=== PATIENT | male | born 1950 | race Caucasian/White ===

== ENCOUNTER 2023-08-06 17:32 | Emergency (ER) | payer MEDICARE, SELFPAY ==
[2023-08-06 17:39] VITALS: BP 111/77; BMI 21.9
[2023-08-06 17:53] LABS: % Basophils 0.9 % (0-2); % Eosinophils 3.8 % (0-6); % Immature Granulocytes 0.4 % (0-0.5); % Lymphocytes 18.7 % (20.5-51.1); % Monocytes 8.4 % (1.7-9.3); % Neutrophils 67.8 % (42.2-75.2); Absolute Basophils 0.1 10^3/uL (0-0.2); Absolute Eosinophils 0.4 10^3/uL (0-0.7); Absolute Lymphocytes 2.1 10^3/uL (1.2-3.4); Absolute Monocytes 0.9 10^3/uL (0.1-0.6); Absolute Neutrophils 7.6 10^3/uL (1.4-6.5); Hematocrit 39.5 % (39.0-52.0); Hemoglobin 13.1 g/dL (13.0-18.0); Mean Corp Hgb Conc. 33.2 g/dL (33.0-37.0); Mean Corpuscular Hgb 32.1 pg (27.0-31.0); Mean Corpuscular Volume 96.8 fL (80.0-94.0); Mean Platelet Volume 9.7 fL (7.4-10.4); Nucleated Red Blood Cells % 0.2 % (-); Platelet Count 245 10^3/uL (130-400); Red Blood Cell Count 4.08 10^6/uL (4.70-6.10); Red Cell Dist. Width 16.2 % (11.5-14.5); White Blood Cell Count 11.2 10^3/uL (4.8-10.8)
--- NOTE | 2023-08-06 17:55 | ED.GENMED ---
History of Present Illness
<SHERIF Marsh - Last Filed: 08/07/23 00:05>
General
Chief Complaint: Chest Pain
Source: patient
Exam Limitations: none
Time Seen by Provider: 08/06/23 17:44
Nursing documentation reviewed up to this point in time: agreed with
Travel History
Have you had any contact with someone who has COVID-19?: No
Do you have any symptoms of coronavirus? Fever > 100 degrees, chills, cough, shortness of breath, sore throat, loss of taste or smell, muscle aches, or headache?: No
History of Present Illness
History of Present Illness:
This is a 72 year old male with history of Afib on Eliquis 5mg and COPD on 3L O2 who presents to the ED via ambulance for heart palpitations x3 hours. He reports feeling 'off' and short of breath while he was at [facility]. He admits last night he was
drinking alcohol and intentionally missed his Eliquis dose yesterday and forgot to take it today as well. He states he took his regular nebulizer treatment before leaving for [facility]. At [facility], he continued to feel his heart racing associated with
b/l hand tremors. He felt lightheaded which prompted him to call the ambulance. He reports intermittent left sided headache 2-3 times daily for the past week that last less than 1 minute. Patient denies worst headache of his life, dizziness, CP,
fatigue, weakness, NVD, bloody stools or emesis.
Past History
<SHERIF Marsh - Last Filed: 08/07/23 00:05>
Past History
ED Past Medical History: Arrthythmia (Paroxysmal Atrial fibrillation), CHF (Cardiomyopathy), COPD, HTN, Renal failure (CKD) and Other (GI bleed, splenic and kidney infarcts, DVT 2020)
ED Past Surgical History: Cardiac (Pacemaker defibrillator placed in August of 2011)
Social History
Tobacco: Former smoker
Alcohol: Daily
Drug: None
Personal:
Living: with family
Employment: Not employed
Family History
Family History: Other (Noncontributory)
Review of Systems
<SHERIF Marsh - Last Filed: 08/07/23 00:05>
Review of Systems
Allergies reviewed?: Yes
All Other Systems: Not applicable
Constitutional: Reports no symptoms
EENT: Reports no symptoms
Respiratory: Reports no symptoms
Cardiac: Reports palpitations
ABD/GI: Reports no symptoms
: Reports no symptoms
Musculoskeletal: Reports no symptoms
Skin: Reports no symptoms
Neurological: Reports headache and other (b/l hand tremors)
Endocrine: Reports no symptoms
Hematologic/Lymphatic: Reports no symptoms
Psychiatric: Reports no symptoms
Phy Exam
<SHERIF Marsh - Last Filed: 08/07/23 00:05>
General Physical Exam
General Presentation: well appearing and no apparent distress
General Skin: warm and dry
General Habitus: normal
General Mental: alert
General Hydration: appears well hydrated
ENT Exam
ENT Exam: EOMI, pharynx normal, neck supple and normocephalic
Eye Exam
Eye Exam: PERRL, cornea clear and conjunctiva normal
Cardiovascular Exam
Cardiovascular Exam: no edema, no murmur, normal peripheral pulses and irregularly irregular
Pulmonary Exam
Pulmonary Exam: lungs clear, no respiratory distress, no rales, no crackles, no rhonchi, no stridor, no wheezing and no cough
Gastrointestinal Exam
Gastrointestinal Exam: normal bowel sounds, non tender, soft, no organomegaly, no pulsatile mass and non distended
Neurological Exam
Neurological Exam: alert, oriented x3, no motor deficits and speech normal
Musculoskeletal Exam
Musculoskeletal Exam: full ROM and no edema
Skin Exam
Skin Exam: normal color, warm/dry, no rash and no petechia
Psychiatric Exam
Psychiatric Exam: normal mood/affect
Scores
<SHERIF Marsh - Last Filed: 08/07/23 00:05>
Heart Score for Chest Pain Patients
STEMI patient?: Not applicable
Course
<SHERIF Marsh - Last Filed: 08/07/23 00:05>
Orders/Labs/Results
Orders:
Orders
08/06/23 17:41
Cardiac Monitoring- Treatment ONCE
O2 Therapy [RESP] Urgent
Titrate/Wean O2 to maintain O2 sat greater than (%): 90
Special Instructions: Maintain sats >/=90%
Pulse Ox/spot Check [RESP] Urgent
Quantity: 1
Special Instructions: ON ROOM AIR
08/06/23 17:42
Complete Blood Count/With Diff Urgent
Comprehensive Metabolic Panel Urgent
Troponin I Urgent
08/06/23 18:01
Diltiazem HCl [Cardizem] 18 mg IV NOW STA
08/06/23 18:15
Diltiazem 125 mg/125 ml Nss [Cardizem] 125 mg in 125 ml IV PER PROTOCOL
Initial dose in mg/hr, then titrate:: 5
Titrate to keep:: Heart rate 80-100 bpm
Titrate by mg/hr:: 5 mg/hr
Frequency of titrations (minutes):: 15
Maximum dose in mg/hr:: 15
08/06/23 19:12
EKG [Electrocardiogram (*1)] Urgent
Reason for Study: Palpitations
Abnormal Lab Results
08/06/23
17:42
WBC 11.2 H 10^3/uL
(4.8-10.8)
RBC 4.08 L 10^6/uL
(4.70-6.10)
MCV 96.8 H fL
(80.0-94.0)
MCH 32.1 H pg
(27.0-31.0)
RDW 16.2 H %
(11.5-14.5)
Absolute Neuts (auto) 7.6 H 10^3/uL
(1.4-6.5)
Absolute Monos (auto) 0.9 H 10^3/uL
(0.1-0.6)
Lymphocytes % 18.7 L %
(20.5-51.1)
BUN 30 H mg/dl
(9-20)
Creatinine 2.1 H mg/dL
(0.7-1.3)
Glucose 109 H mg/dl
(70-99)
Total Bilirubin 1.6 H mg/dl
(0.2-1.3)
Alkaline Phosphatase 133 H U/L
(38-126)
08/06/23 17:42
08/06/23 17:42
Vital Signs
Initial and Last Documented VS:
Initial Vital Signs
Temp Pulse Resp BP Pulse Ox
97.5 F 149 23 111/77 99
08/06/23 17:39 08/06/23 17:39 08/06/23 17:39 08/06/23 17:39 08/06/23 17:39
Last Documented Vital Signs
Temp Pulse Resp BP Pulse Ox
97.5 F 96 38 126/94 97
08/06/23 17:39 08/06/23 21:00 08/06/23 21:00 08/06/23 20:30 08/06/23 20:45
Gwendolynlt;Zane Clayton, - Last Filed: 08/06/23 22:05>
Orders/Labs/Results
Orders:
Orders
08/06/23 17:41
Cardiac Monitoring- Treatment ONCE
O2 Therapy [RESP] Urgent
Titrate/Wean O2 to maintain O2 sat greater than (%): 90
Special Instructions: Maintain sats >/=90%
Pulse Ox/spot Check [RESP] Urgent
Quantity: 1
Special Instructions: ON ROOM AIR
08/06/23 17:42
Complete Blood Count/With Diff Urgent
Comprehensive Metabolic Panel Urgent
Troponin I Urgent
08/06/23 18:01
Diltiazem HCl [Cardizem] 18 mg IV NOW STA
08/06/23 18:15
Diltiazem 125 mg/125 ml Nss [Cardizem] 125 mg in 125 ml IV PER PROTOCOL
Initial dose in mg/hr, then titrate:: 5
Titrate to keep:: Heart rate 80-100 bpm
Titrate by mg/hr:: 5 mg/hr
Frequency of titrations (minutes):: 15
Maximum dose in mg/hr:: 15
08/06/23 19:12
EKG [Electrocardiogram (*1)] Urgent
Reason for Study: Palpitations
Abnormal Lab Results
08/06/23
17:42
WBC 11.2 H 10^3/uL
(4.8-10.8)
RBC 4.08 L 10^6/uL
(4.70-6.10)
MCV 96.8 H fL
(80.0-94.0)
MCH 32.1 H pg
(27.0-31.0)
RDW 16.2 H %
(11.5-14.5)
Absolute Neuts (auto) 7.6 H 10^3/uL
(1.4-6.5)
Absolute Monos (auto) 0.9 H 10^3/uL
(0.1-0.6)
Lymphocytes % 18.7 L %
(20.5-51.1)
BUN 30 H mg/dl
(9-20)
Creatinine 2.1 H mg/dL
(0.7-1.3)
Glucose 109 H mg/dl
(70-99)
Total Bilirubin 1.6 H mg/dl
(0.2-1.3)
Alkaline Phosphatase 133 H U/L
(38-126)
08/06/23 17:42
08/06/23 17:42
Vital Signs
Initial and Last Documented VS:
Initial Vital Signs
Temp Pulse Resp BP Pulse Ox
97.5 F 149 23 111/77 99
08/06/23 17:39 08/06/23 17:39 08/06/23 17:39 08/06/23 17:39 08/06/23 17:39
Last Documented Vital Signs
Temp Pulse Resp BP Pulse Ox
97.5 F 96 38 126/94 97
08/06/23 17:39 08/06/23 21:00 08/06/23 21:00 08/06/23 20:30 08/06/23 20:45
<SHERIF Marsh - Last Filed: 08/07/23 00:05>
MDM/Problems Addressed
Differential Diagnosis Includes:
Afib RVR, Atrial flutter, Pericarditis, MN, PE, COPD exacerbation
Atrial flutter and pericarditis was considered d/t to heart palpitations but ECG findings not consistent. Additionally, patient declined pleuritic chest pain. MN considered but ruled out with ECG findings and negative troponin. PE ruled out with no
symptoms sudden onset of SOB or ROBERTS. COPD exacerbation considered with O2 sat around initially around 84%. However, he lungs are CTA on physical exam and he continues to use his daily use of Nebulizer treatment as instructed. Patient presentation
and symptoms most consistent with Afib RVR as patient's pulse was consistent with irregularly irregular beats on arrival with 149 bpm. He also has a history of afib and reports missing 2 doses of Eliquis that could have triggered this event.
Acute Exacerbation and/or Progression of Chronic Illness: Arrhythmia
<SHERIF Marsh - Last Filed: 08/07/23 00:05>
*Critical Care Note
Total Time (30-74mins, 75-104mins- exclusive of procedures): Not Applicable
ED Attending Note
<SHERIF Marsh - Last Filed: 08/07/23 00:05>
-
Portions of this chart may have been created with voice recognition software.� Occasional wrong word or��sound alike� substitutions may have occurred due to the inherent limitations of voice recognition software.
<Zane Clayton DO - Last Filed: 08/06/23 22:05>
ED Attending Note
Patient seen and examined by attending physician: Yes
ED Attending Note:
Pleasant 72-year-old male who presents with atrial fibrillation with rapid ventricular response. Patient does have a history of paroxysmal atrial fibrillation. He does take Eliquis but states that he has not taken it in 2 days. He reports
drinking alcohol last evening so he did not want to mix alcohol and Eliquis. He did not take a dose this morning. He presented with palpitations this afternoon. Upon arrival, he received a dose of Cardizem and he spontaneously converted back to
sinus rhythm. Once he was in sinus rhythm he had no complaints. Patient was seen in conjunction with the PA student. I have reviewed and agree with the history and treatment plan presented. On my independent physical exam, patient is awake,
alert, and oriented x3, no acute distress. Heart is now regular rate and rhythm.
I spoke with Dr. Tanner who recommended adding metoprolol 25 mg daily
Discharge Plan
Departure
Patient Disposition: Home (Routine Discharge)
Date of Disposition: 08/06/23
Time of Disposition: 21:21
Patient with high blood pressure during this ER visit?: Yes
Condition: Good
Discharge Problem:
Atrial fibrillation with RVR
Instructions: BLOOD PRESSURE
Prescriptions:
New
metoprolol tartrate 25 mg tablet
25 mg PO DAILY Qty: 30 0RF
Discontinued
metoprolol succinate 50 MG tablet extended release 24 hr
50 mg PO BID
No Action
tamsulosin 0.4 MG capsule
0.4 mg PO DAILY PRN (Reason: URINARY ISSUES)
Patient Comments:
ONLY TAKES NEEDED
Eliquis 5 MG tablet
5 mg PO BID 0RF
Rx Instructions:
5mg BID will start on 05/28/2020.
thiamine HCl (vitamin B1) [Vitamin B-1] 250 MG tablet
250 mg PO DAILY
omega [id number] oil [Fish Oil] 1 EACH capsule
1 ea PO DAILY
levalbuterol HCl 0.63 mg/3 mL Solution For Nebulization
0.63 mg inhalation R BID
pantoprazole [Protonix] 40 mg tablet,delayed release (DR/EC)
40 mg PO DAILY Qty: 90 0RF
Rx Instructions:
BID for 2 weeks then daily
amlodipine [Norvasc] 2.5 mg tablet
2.5 mg PO BID Qty: 60 0RF
vancomycin [Vancocin] 125 mg capsule
125 mg PO QID Qty: 40 0RF
Referrals:
Yazan Quinn MD [Family Provider] -
Henrry Torre MD [Active] - Next open appointment
Interventions
Interventions:
*Risk Screen - Suicide Last Done: 08/06/23 18:21
*General Assessment Last Done: 08/06/23 18:20
*Neglect/Abuse Screening Last Done: 08/06/23 18:21
ED- Fall Risk Assessment Last Done: 08/06/23 18:23
*ED COVID-19 Vaccine History Last Done: 08/06/23 18:20
*Nursing Disposition Last Done: 08/06/23 22:00
ED- Cardiac Assessment Last Done: 08/06/23 18:23
Discharge Date and Time
Discharge Date/Time: 08/06/23 22:01
Print Language: ROMANSH
[2023-08-06 18:00] VITALS: BP 111/81
[2023-08-06] MEDS: CARDIZEM 18 MG IV (18:07)
[2023-08-06] MEDS: CARDIZEM 125 IV (18:13)
[2023-08-06 18:14] LABS: ALT (SGPT) 28 U/L (0-50); AST (SGOT) 55 U/L (17-59); Alkaline Phosphatase 133 U/L (38-126); Blood Urea Nitrogen 30 mg/dl (9-20); Calcium 9.8 mg/dl (8.4-10.2); Carbon Dioxide 24 mmol/L (22-30); Chloride 106 mmol/L (98-107); Estimated Creatinine Clearance 33 ml/min; Glucose 109 mg/dl (70-99); Potassium 4.1 mmol/L (3.5-5.1); Sodium 138 mmol/L (135-145); Total Bilirubin 1.6 mg/dl (0.2-1.3); Total Protein 7.2 g/dl (6.3-8.2); eGFR 33.03
[2023-08-06 18:23] LABS: Troponin I < 0.012 ng/ml
[2023-08-06 18:48] VITALS: BP 119/92
[2023-08-06 19:00] VITALS: BP 120/90
[2023-08-06 20:30] VITALS: BP 126/94
--- NOTE | 2023-08-06 22:17 | EDRN ---
dr joseph notified this rn that he wanted to change the prescription that the patient was discharged with, rn notified dr that patient has already been discharged and left the department. prescription changed by dr joseph, prescription sent
electronically over to patient's preferred pharmacy. patient called and notified, pt told to shred paper prescription that he was discharged with, pt verbalizes understanding and agreed to shred prescription
== END 2023-08-06 22:01 | disposition home or self-care (01) ==
LOC: EMR 17:32
PROVIDERS: Emergency Medicine; EMERGENCY PHYSICIAN Student in an Organized Health Care Education/Training Program; FAMILY PHYSICIAN Family Medicine
DX: I48.0 Paroxysmal atrial fibrillation (principal); R06.02 Shortness of breath; R25.1 Tremor, unspecified; R42 Dizziness and giddiness; R51.9 Headache, unspecified; I13.0 Hypertensive heart and chronic kidney disease with heart failure and stage 1 through stage 4 chronic kidney disease, or unspecified chronic kidney disease; I50.9 Heart failure, unspecified; N18.9 Chronic kidney disease, unspecified; I42.9 Cardiomyopathy, unspecified; Z99.81 Dependence on supplemental oxygen; Z87.891 Personal history of nicotine dependence; Z95.810 Presence of automatic (implantable) cardiac defibrillator; Z86.718 Personal history of other venous thrombosis and embolism; Z79.01 Long term (current) use of anticoagulants; Z91.030 Bee allergy status
CPT/HCPCS: 99284; 96374; 80053; 84484; 85025; 93005

== ENCOUNTER 2023-08-11 13:48 | Emergency (ER) | payer MEDICARE, SELFPAY ==
[2023-08-11 13:53] VITALS: BP 119/63
--- NOTE | 2023-08-11 14:10 | ED.GENMED ---
History of Present Illness
General
Chief Complaint: Heart Rate Problem
Source: patient
Exam Limitations: none
Time Seen by Provider: 08/11/23 14:00
Nursing documentation reviewed up to this point in time: agreed with
Travel History
Have you had any contact with someone who has COVID-19?: No
Do you have any symptoms of coronavirus? Fever > 100 degrees, chills, cough, shortness of breath, sore throat, loss of taste or smell, muscle aches, or headache?: No
History of Present Illness
History of Present Illness:
72-year-old male with previous history of PE currently on Eliquis history of A-fib currently on Eliquis as well as metoprolol, heart failure heart disease right bundle branch block presenting to the emergency department today with concerns of
shortness of breath and palpitations starting abruptly and gradually worsening over the past 4 hours or so. Feels somewhat similar to previous episodes of atrial fibrillation with rapid ventricular response. Denies specific chest pain nausea
vomiting diaphoresis.
Past History
Past History
ED Past Medical History: Arrthythmia (Paroxysmal Atrial fibrillation), CHF (Cardiomyopathy), COPD, HTN, Renal failure (CKD) and Other (GI bleed, splenic and kidney infarcts, DVT 2020)
ED Past Surgical History: Cardiac (Pacemaker defibrillator placed in August of 2011)
Social History
Tobacco: Former smoker
Alcohol: Daily
Drug: None
Personal:
Living: with family
Employment: Not employed
Family History
Family History: Other (Noncontributory)
Review of Systems
Review of Systems
Allergies reviewed?: Yes
All Other Systems: ROS reviewed and negative except as documented in HPI and ROS
Phy Exam
Physical Exam
Physical Exam:
GENERAL: Alert , in no apparent distress
EYE: pupils equal and reactive
NECK: Supple, no significant adenopathy.
ENT: o/p clr, mmm.
CARDIAC: Tachycardic irregular
LUNGS: Clear breath sounds bilaterally, no acute respiratory distress, no wheezes/rales/rhonchi
ABDOMEN: Soft, without focal tenderness, no r/g, no cvat
NEUROLOGICAL: Alert and oriented, no focal neuro deficits
SKIN: Warm and dry, skin intact.
MUSCULOSKELETAL: No edema, well perfused.
PSYCH: Normal and appropriate interaction.
Course
Orders/Labs/Results
Orders:
Orders
08/11/23 13:49
Electrocardiogram (*1) Urgent
Reason for Study: Tachycardia
EKG- Treatment ONCE
08/11/23 14:06
Cardiac Monitoring- Treatment ONCE
0.9% Sodium Chloride 500 ml [Nss] 500 ml IV BOLUS
Diltiazem HCl [Cardizem] 20 mg IV NOW STA
08/11/23 14:07
CR Chest Portable - 1 View Urgent
Comment:
Reason For Exam: cp palps
Reason Study Needs to be Portable: Patient Unstable
08/11/23 14:14
Complete Blood Count/With Diff Urgent
Comprehensive Metabolic Panel Urgent
Magnesium Urgent
TSH Urgent
08/11/23 14:17
Electrocardiogram (*1) Urgent
Reason for Study: Palpitations
EKG- Treatment ONCE
08/11/23 15:29
Metoprolol [Lopressor] 50 mg PO NOW STA
Abnormal Lab Results
08/11/23
14:14
WBC 11.3 H 10^3/uL
(4.8-10.8)
RBC 4.41 L 10^6/uL
(4.70-6.10)
MCV 97.5 H fL
(80.0-94.0)
MCH 32.2 H pg
(27.0-31.0)
RDW 16.1 H %
(11.5-14.5)
Abs Immat Gran (auto) 0.1 H 10^3/uL
(0-0.05)
Absolute Neuts (auto) 8.2 H 10^3/uL
(1.4-6.5)
Absolute Monos (auto) 0.8 H 10^3/uL
(0.1-0.6)
Lymphocytes % 16.0 L %
(20.5-51.1)
BUN 30 H mg/dl
(9-20)
Creatinine 2.4 H mg/dL
(0.7-1.3)
Glucose 130 H mg/dl
(70-99)
Total Bilirubin 1.8 H mg/dl
(0.2-1.3)
08/11/23 14:14
08/11/23 14:14
Vital Signs
Initial and Last Documented VS:
Initial Vital Signs
Temp Pulse Resp BP Pulse Ox
97.5 F 186 30 119/63 99
08/11/23 13:53 08/11/23 13:53 08/11/23 13:53 08/11/23 13:53 08/11/23 13:53
Last Documented Vital Signs
Temp Pulse Resp BP Pulse Ox
97.5 F 88 19 110/86 98
08/11/23 13:53 08/11/23 16:45 08/11/23 16:45 08/11/23 16:00 08/11/23 16:45
MDM/Problems Addressed
MDM/Problems Addressed:
72-year-old male presenting to the emergency department today with concerns of palpitations and some shortness of breath associated over the past few hours. Gradually worsening. On arrival here heart rate in the 180s but somewhat irregular likely
consistent with A-fib with rapid ventricular response. Initial modified Valsalva was attempted with no success. Patient was then treated with diltiazem. Shortly after receiving diltiazem patient's heart rate improving to the 90s in sinus rhythm.
Blood pressure stable throughout now asymptomatic. Labs unremarkable creatinine elevated however this is chronically elevated Case was discussed with cardiology recommending diltiazem and metoprolol and close follow-up in the office. Patient
stable for discharge return precautions given.
*Critical Care Note
Total Time (30-74mins, 75-104mins- exclusive of procedures): Not Applicable
ED Attending Note
-
Portions of this chart may have been created with voice recognition software.� Occasional wrong word or��sound alike� substitutions may have occurred due to the inherent limitations of voice recognition software.
Discharge Plan
Departure
Patient Disposition: Home (Routine Discharge)
Date of Disposition: 08/11/23
Time of Disposition: 16:58
Patient with high blood pressure during this ER visit?: No
Condition: Good
Covid-19: Not Applicable
Discharge Problem:
Atrial fibrillation with RVR
Instructions: Atrial Fibrillation (DC)
Prescriptions:
New
metoprolol succinate 50 mg tablet extended release 24 hr
50 mg PO BID Qty: 14 0RF
diltiazem HCl 180 mg capsule,extended release 24hr
180 mg PO DAILY Qty: 14 0RF
No Action
Eliquis 5 MG tablet
5 mg PO BID 0RF
ipratropium-albuterol [DuoNeb] 0.5 mg-3 mg(2.5 mg base)/3 mL Solution For Nebulization
3 ml INHALATION R QID
cyanocobalamin (vitamin B-12) 250 mcg Tablet
250 mcg PO DAILY
zinc sulfate 50 mg zinc (220 mg) Tablet
50 mg PO DAILY
albuterol sulfate [ProAir HFA] 90 mcg/actuation Hfa Aerosol Inhaler
2 puff INHALATION R QIDPRN PRN (Reason: SOB)
magnesium oxide 250 mg magnesium Tablet
250 mg PO QPM
cholecalciferol (vitamin D3) [Vitamin D3] 25 mcg (1,000 unit) Tablet
25 mcg PO QPM
metoprolol tartrate 25 mg tablet
25 mg PO DAILY
Referrals:
Yazan Quinn MD [Family Provider] -
Activity Restrictions/Additional Instructions:
You came to the emergency department today with concerns of an elevated heart rate. This was controlled here with Cardizem. Please take prescribed medications once daily in the morning. Please follow closely with cardiology and return to the
emergency department for any worsening, new or concerning symptoms.
Interventions
Interventions:
*Risk Screen - Suicide Last Done: 08/11/23 13:53
*General Assessment Last Done: 08/11/23 13:53
*Neglect/Abuse Screening Last Done: 08/11/23 13:53
ED- Fall Risk Assessment Last Done: 08/11/23 14:21
*ED COVID-19 Vaccine History Last Done: 08/11/23 13:53
ED- Cardiac Assessment Last Done: 08/11/23 14:15
ED- Pulmonary Assessment Last Done: 08/11/23 14:15
Discharge Date and Time
Print Language: GREEK
[2023-08-11] MEDS: CARDIZEM 20 MG IV (14:12)
[2023-08-11] MEDS: NSS 500 IV (14:13)
[2023-08-11 14:15] VITALS: BMI 22.0
[2023-08-11 14:26] LABS: % Eosinophils 2.8 % (0-6); % Immature Granulocytes 0.4 % (0-0.5); % Monocytes 7.3 % (1.7-9.3); % Neutrophils 72.5 % (42.2-75.2); Absolute Basophils 0.1 10^3/uL (0-0.2); Absolute Eosinophils 0.3 10^3/uL (0-0.7); Absolute Immature Granulocytes 0.1 10^3/uL (0-0.05); Absolute Lymphocytes 1.8 10^3/uL (1.2-3.4); Absolute Monocytes 0.8 10^3/uL (0.1-0.6); Absolute Neutrophils 8.2 10^3/uL (1.4-6.5); Hemoglobin 14.2 g/dL (13.0-18.0); Mean Corpuscular Hgb 32.2 pg (27.0-31.0); Mean Corpuscular Volume 97.5 fL (80.0-94.0); Mean Platelet Volume 9.3 fL (7.4-10.4); Nucleated Red Blood Cells % 0 % (-); Platelet Count 261 10^3/uL (130-400); Red Blood Cell Count 4.41 10^6/uL (4.70-6.10); Red Cell Dist. Width 16.1 % (11.5-14.5); White Blood Cell Count 11.3 10^3/uL (4.8-10.8)
[2023-08-11 14:45] LABS: ALT (SGPT) 24 U/L (0-50); AST (SGOT) 36 U/L (17-59); Albumin 4.5 g/dl (3.5-5.0); Alkaline Phosphatase 124 U/L (38-126); Blood Urea Nitrogen 30 mg/dl (9-20); Calcium 9.9 mg/dl (8.4-10.2); Carbon Dioxide 23 mmol/L (22-30); Chloride 106 mmol/L (98-107); Estimated Creatinine Clearance 29 ml/min; Glucose 130 mg/dl (70-99); Magnesium 2.2 mg/dl (1.6-2.3); Potassium 4.8 mmol/L (3.5-5.1); Sodium 137 mmol/L (135-145); Total Bilirubin 1.8 mg/dl (0.2-1.3); Total Protein 7.7 g/dl (6.3-8.2); eGFR 28.14
[2023-08-11 15:01] VITALS: BP 97/83
[2023-08-11 15:15] LABS: TSH 1.22 uIU/ml (0.47-4.68)
[2023-08-11] MEDS: LOPRESSOR 50 MG PO (15:39)
[2023-08-11 15:40] VITALS: BP 104/92
[2023-08-11 16:00] VITALS: BP 110/86
== END 2023-08-11 17:16 | disposition home or self-care (01) ==
LOC: EMR 13:48
PROVIDERS: Physician Assistant; EMERGENCY PHYSICIAN Emergency Medicine; FAMILY PHYSICIAN Family Medicine
DX: I48.0 Paroxysmal atrial fibrillation (principal); I50.9 Heart failure, unspecified; Z86.711 Personal history of pulmonary embolism; Z79.01 Long term (current) use of anticoagulants; Z87.891 Personal history of nicotine dependence
CPT/HCPCS: 99285; 96374; 71045; 80053; 83735; 84443; 85025; 93005

== ENCOUNTER 2023-08-24 07:00 | Inpatient (IN) | payer MEDICARE, SELFPAY ==
[2023-08-24] VITALS (21 sets, daily range): BP systolic 102–150; BP diastolic 84–109; PULSE 89–91; BMI 21.6
[2023-08-24 02:12] LABS: % Basophils 1.1 % (0-2); % Eosinophils 5.1 % (0-6); % Immature Granulocytes 0.3 % (0-0.5); % Lymphocytes 24.3 % (20.5-51.1); % Monocytes 8.1 % (1.7-9.3); % Neutrophils 61.1 % (42.2-75.2); Absolute Basophils 0.1 10^3/uL (0-0.2); Absolute Eosinophils 0.5 10^3/uL (0-0.7); Absolute Lymphocytes 2.5 10^3/uL (1.2-3.4); Absolute Monocytes 0.8 10^3/uL (0.1-0.6); Absolute Neutrophils 6.3 10^3/uL (1.4-6.5); Hematocrit 38.7 % (39.0-52.0); Mean Corp Hgb Conc. 33.6 g/dL (33.0-37.0); Mean Corpuscular Hgb 32.4 pg (27.0-31.0); Mean Corpuscular Volume 96.5 fL (80.0-94.0); Mean Platelet Volume 9.5 fL (7.4-10.4); Nucleated Red Blood Cells % 0 % (-); Platelet Count 232 10^3/uL (130-400); Red Blood Cell Count 4.01 10^6/uL (4.70-6.10); Red Cell Dist. Width 15.9 % (11.5-14.5); White Blood Cell Count 10.4 10^3/uL (4.8-10.8)
--- NOTE | 2023-08-24 02:18 | ED.GENMED ---
History of Present Illness
General
Chief Complaint: Breathing Problem
Source: patient and ambulance crew
Exam Limitations: none
Time Seen by Provider: 08/24/23 02:17
Travel History
Have you had any contact with someone who has COVID-19?: No
Do you have any symptoms of coronavirus? Fever > 100 degrees, chills, cough, shortness of breath, sore throat, loss of taste or smell, muscle aches, or headache?: Yes
Symptoms:: SOB
History of Present Illness
History of Present Illness:
Pleasant 72-year-old male presents with shortness of breath. Patient does have a history of COPD and has nebulizer and home oxygen at home. Tonight he went up to bed and had to catch his breath. He states he had a lot of phlegm so he tried to use
his home oxygen to try to help clear it. He states that he cannot get it hooked up, in the process exacerbated his breathing issues. He has his called 911. Upon arrival patient was in severe respiratory distress. They gave him nebulizer
treatment which seemed to help his symptoms. And route to the hospital he did report some relief. Patient does have a history of atrial fibrillation for which she is on Eliquis. He states that he is often in atrial fibs.
Past History
Past History
ED Past Medical History: Arrthythmia (Paroxysmal Atrial fibrillation), CHF (Cardiomyopathy), COPD, HTN, Renal failure (CKD) and Other (GI bleed, splenic and kidney infarcts, DVT 2020)
ED Past Surgical History: Cardiac (Pacemaker defibrillator placed in August of 2011)
Social History
Tobacco: Former smoker
Alcohol: Daily
Drug: None
Personal:
Living: with family
Employment: Not employed
Family History
Family History: Other (Noncontributory)
Review of Systems
Review of Systems
Allergies reviewed?: Yes
All Other Systems: ROS reviewed and negative except as documented in HPI and ROS
Constitutional: Reports no symptoms
EENT: Reports no symptoms
Respiratory: Reports cough and trouble breathing
Cardiac: Reports chest pain
ABD/GI: Reports no symptoms
: Reports no symptoms
Musculoskeletal: Reports no symptoms
Skin: Reports no symptoms
Neurological: Reports no symptoms
Endocrine: Reports no symptoms
Hematologic/Lymphatic: Reports no symptoms
Psychiatric: Reports no symptoms
Phy Exam
General Physical Exam
General Presentation: well appearing and mild distress
General age: appears stated age
General Skin: warm and dry
General Habitus: normal
General Mental: alert
General Hydration: appears well hydrated
ENT Exam
ENT Exam: EOMI, pharynx normal, neck supple and normocephalic
Eye Exam
Eye Exam: PERRL, cornea clear and conjunctiva normal
Cardiovascular Exam
Cardiovascular Exam: regular rate/rhythm, no edema, no murmur and normal peripheral pulses
Pulmonary Exam
Pulmonary Exam: chest non tender, generalized wheezing and respiratory distress
Gastrointestinal Exam
Gastrointestinal Exam: normal bowel sounds, non tender, soft, no organomegaly, no pulsatile mass and non distended
Neurological Exam
Neurological Exam: alert, oriented x3, no motor deficits and speech normal
Musculoskeletal Exam
Musculoskeletal Exam: full ROM and no edema
Skin Exam
Skin Exam: normal color, warm/dry, no rash and no petechia
Psychiatric Exam
Psychiatric Exam: normal mood/affect
Scores
Heart Failure Risk
Heart Failure Risk Score: Not Applicable
Course
Orders/Labs/Results
Orders:
Orders
08/24/23 01:56
Electrocardiogram (*1) Urgent
Reason for Study: Chest Pain
EKG- Treatment ONCE
08/24/23 02:07
Complete Blood Count/With Diff Urgent
Comprehensive Metabolic Panel Urgent
Prothrombin Time Urgent
Troponin I Urgent
08/24/23 02:29
Dexamethasone Sod Phosphate [Decadron] 10 mg IV NOW STA
Ipratropium/Albuterol Sulfate [Duoneb] 3 ml INH R NOW ONE
08/24/23 04:13
CR Chest - 2 Views Urgent
Comment:
Reason For Exam: dyspnea
08/24/23 05:10
Ondansetron Injectable [Zofran] 4 mg .ROUTE .STK-MED ONE
08/24/23 05:11
Ondansetron Injectable [Zofran] 4 mg IV NOW STA
08/24/23 05:40
CR Chest Portable - 1 View Urgent
Comment:
Reason For Exam: post chest tube procedure
Reason Study Needs to be Portable: Unable to Transport
Abnormal Lab Results
08/24/23
02:07
RBC 4.01 L 10^6/uL
(4.70-6.10)
Hct 38.7 L %
(39.0-52.0)
MCV 96.5 H fL
(80.0-94.0)
MCH 32.4 H pg
(27.0-31.0)
RDW 15.9 H %
(11.5-14.5)
Absolute Monos (auto) 0.8 H 10^3/uL
(0.1-0.6)
PT 16.0 H Sec
(11.4-14.6)
Chloride 110 H mmol/L
(98-107)
Carbon Dioxide 21 L mmol/L
(22-30)
BUN 24 H mg/dl
(9-20)
Creatinine 1.6 H mg/dL
(0.7-1.3)
08/24/23 02:07
08/24/23 02:07
Vital Signs
Initial and Last Documented VS:
Initial Vital Signs
Temp Pulse Resp BP Pulse Ox
97.6 F 118 20 115/88 94
08/24/23 01:54 08/24/23 01:54 08/24/23 01:54 08/24/23 01:54 08/24/23 01:54
Last Documented Vital Signs
Temp Pulse Resp BP Pulse Ox
97.6 F 128 24 127/89 93
08/24/23 01:54 08/24/23 03:30 08/24/23 03:30 08/24/23 03:00 08/24/23 03:30
Procedures
Chest Tube
Indication for procedure:: Left-sided pneumothorax
Procedure completed by: Myself
Consent form signed: Yes
Anesthesia: 1% Lidocaine
Chest tube placed to: left side
Preparation: cleaned with Hibiclens
Chest tube position: mid clavicular line
Chest tube sutured to skin?: Yes
Chest tube complications: none
Additional information:
Chest tube thoroughly sutured to skin with supplied sutures
*Radiology
Radiology exam reviewed: preliminary read by ED provider (Left-sided pneumothorax) and other (Postprocedural film shows a left tube thoracostomy, with no obvious)
*Pulse Oximetry
Patient hypoxic: no
*EKG
Interpreted by ED Provider?: Yes
EKG Intrepretation Date: 08/24/23
Comparison EKG: no changes
Heart Rate: 114
Rhythm: sinus tachycardia
[place]: normal axis
Interval: normal interval
QRS Pattern: normal QRS
Ischemia: no ischemia
*Automat Watcher Interpretation
Rate: normal
Interpretation: normal
Heart Rate: 103
Rhythm: sinus
*Critical Care Note
Total Time (30-74mins, 75-104mins- exclusive of procedures): 35
comment:
Critical care statement: A total of 35 minutes of critical care time was provided for this patient. This time is separate from time utilized to perform the aforementioned documented procedures. Aggregate critical care time includes only time
during which I was engaged in work directly related to the patient's care, as described above, whether at the bedside or elsewhere in the Emergency Department.
ED Attending Note
-
Portions of this chart may have been created with voice recognition software.� Occasional wrong word or��sound alike� substitutions may have occurred due to the inherent limitations of voice recognition software.
Discharge Plan
Departure
Patient Disposition: Admit
Date of Disposition: 08/24/23
Time of Disposition: 06:01
Admit to: IMU
Presentation/result/management discussed w/ accepting MD/DO: Hospitalist
Patient with high blood pressure during this ER visit?: No
Discharge Problem:
Emphysema/COPD, Pneumothorax, Chest tube in place
Prescriptions:
No Action
Eliquis 5 MG tablet
5 mg PO BID 0RF
ipratropium-albuterol [DuoNeb] 0.5 mg-3 mg(2.5 mg base)/3 mL Solution For Nebulization
3 ml INHALATION R QID
cyanocobalamin (vitamin B-12) 250 mcg Tablet
250 mcg PO DAILY
zinc sulfate 50 mg zinc (220 mg) Tablet
50 mg PO DAILY
magnesium oxide 250 mg magnesium Tablet
250 mg PO QPM
cholecalciferol (vitamin D3) [Vitamin D3] 25 mcg (1,000 unit) Tablet
50 mcg PO QPM
metoprolol tartrate 25 mg tablet
25 mg PO DAILY
Referrals:
Yazan Quinn MD [Family Provider] -
Interventions
Interventions:
*Risk Screen - Suicide Last Done: 08/24/23 01:54
*General Assessment Last Done: 08/24/23 01:54
*Neglect/Abuse Screening Last Done: 08/24/23 01:54
*ED COVID-19 Vaccine History Last Done: 08/24/23 02:10
ED- Cardiac Assessment Last Done: 08/24/23 02:10
ED- Pulmonary Assessment Last Done: 08/24/23 02:10
Discharge Date and Time
Print Language: WELSH
[2023-08-24 02:37] LABS: ALT (SGPT) 22 U/L (0-50); AST (SGOT) 49 U/L (17-59); Alkaline Phosphatase 108 U/L (38-126); Blood Urea Nitrogen 24 mg/dl (9-20); Calcium 9.6 mg/dl (8.4-10.2); Carbon Dioxide 21 mmol/L (22-30); Chloride 110 mmol/L (98-107); Estimated Creatinine Clearance 46 ml/min; Glucose 95 mg/dl (70-99); Potassium 4.2 mmol/L (3.5-5.1); Sodium 142 mmol/L (135-145); Total Bilirubin 1.1 mg/dl (0.2-1.3); eGFR 45.78
[2023-08-24] MEDS: DUONEB 3 ML INH ×5 (02:43→19:32)
[2023-08-24] MEDS: DECADRON 10 MG IV (02:43)
[2023-08-24 02:47] LABS: Troponin I < 0.012 ng/ml
[2023-08-24] MEDS: ZOFRAN 4 MG IV (05:11)
--- NOTE | 2023-08-24 06:30 | HPS.HSE ---
Family Physician
-
Family Physician: Yazan Quinn
Chief Complaint
-
SOB
History of Present Illness
Patient is a 72y M with PMH significant for VT / VF, nonischemic cardiomyopathy, COPD and A-Fib who presents to ED complaining of SOB and chest pain. Patient states that he was feeling well until this evening when he began to notice some SOB and
chest congestion. He notes that he felt very congested in his chest and he forcibly coughed many times in an attempt to bring up some mucus. He was eventually successful; however, his dyspnea did not seem to improve. He used neb treatments x 2 at
home - also without improvement in his SOB.
Patient denies any recent fevers / chills, change in cough, etc.
He noted some central / left-sided chest pain this evening associated with his dyspnea. No nausea or diaphoresis.
Patient presented to the ED for further evaluation.
CXR done in the ED revealed significant L sided pneumothorax. Pigtail chest tube catheter was placed in the ED with clinical and radiographic improvement.
Patient continues to complain of some L chest discomfort and dyspnea - but notes that it is much improved from prior.
He denies any prior history of pneumothorax in the past.
He has COPD and uses DuoNebs QID, but is on no other daily /maintenance medication.
He has persistent A-Fib and has had recent issues with rate control including multiple ED visits for the same. He was recently started on metoprolol which has been titrated to 50mg BID dosing at present.
He is considering other options such as Tikosyn.
Medical History
Past Medical History
Past Medical History: Reports Other
Additional Past Medical History:
VT / VF Arrest
Nonischemic Cardiomyopathy
Persistent Atrial Fibrillation
CKD III
PUD / GI Bleeding
LLE DVT
BPH
Past Surgical History: Reports Other
Additional Past Surgical History:
AICD Placement
Septoplasty
Cardiac Ablation
Social History
Tobacco: Former Smoker (Quit smoking 5 years ago. > 60 pack years prior.)
Alcohol: Daily (At least 1 drink every day, typically more.)
Drug: Cocaine (History of cocaine use - none in past 10 years.)
Family History
Family History: Not pertinent
Allergies / Home Medications
Allergies reflects when Allergies were last updated in [facility].
Home Medications with original date entered in [facility]
Allergy/Medication List:
Allergies
Allergy/AdvReac Type Severity Reaction Status Date / Time
bee venom protein (honey bee) Allergy Rash,chest Verified 08/11/23 13:53
tightness,
local
diffuse
swelling
Home Medications
apixaban 5 mg tablet (Eliquis) 5 mg PO BID 05/26/20
cholecalciferol (vitamin D3) 25 mcg (1,000 unit) tablet (Vitamin D3) 50 mcg PO QPM 08/11/23
cyanocobalamin (vitamin B-12) 250 mcg tablet 250 mcg PO DAILY 08/11/23
ipratropium 0.5 mg-albuterol 3 mg (2.5 mg base)/3 mL nebulization soln 3 ml inhalation R QID 08/11/23
magnesium oxide 250 mg PO QPM 08/11/23
metoprolol tartrate 25 mg tablet 50 mg PO BID 08/11/23
zinc sulfate 50 mg zinc (220 mg) tablet 50 mg PO DAILY 08/11/23
Review of Systems
-
History Source: Patient
A 12 point ROS was completed and negative except as noted: Yes
Constitutional: Denies Fever or Chills
Respiratory: Reports Cough and Trouble Breathing; Denies Hemoptysis
Cardiac: Reports Chest Pain; Denies Diaphoresis, Palpitations or Syncope
Abdomen/GI: Denies Abdominal Pain, Nausea, Vomiting or Diarrhea
: Denies Dysuria, Frequency or Flank Pain
Neurological: Denies Dizzy or Headache
Psych: Denies Depression or Anxiety
Physical Exam
Vital Signs
Vital Signs
Temp Pulse Resp BP Pulse Ox
97.6 F 136 24 145/109 97
08/24/23 01:54 08/24/23 06:00 08/24/23 06:00 08/24/23 06:00 08/24/23 06:08
Physical Exam
General: Other (72y M with Marfanoid appearance currently in mild distress due to pain / dyspnea.)
HEENT: Other (Neck supple. Poor dentition.)
Respiratory: Other (Clear bilaterally. No wheezing appreciated. L chest tube in place to suction.)
Cardiac: S1/S2, Irregular Rhythm and Tachycardia; No Murmur
GI: Soft, Non Tender, Non Distended and Normal Bowel Sounds
Musculoskeletal: No Clubbing, No Cyanosis and No Edema
Neuro: AO x 3
Laboratory Results
-
08/24/23 02:07
08/24/23 02:07
Laboratory Results
PT 16.0 Sec (11.4-14.6) H 08/24/23 02:07
INR 1.30 08/24/23 02:07
Total Bilirubin 1.1 mg/dl (0.2-1.3) 08/24/23 02:07
AST 49 U/L (17-59) 08/24/23 02:07
ALT 22 U/L (0-50) 08/24/23 02:07
Alkaline Phosphatase 108 U/L (38-126) 08/24/23 02:07
Troponin I < 0.012 ng/ml 08/24/23 02:07
Impression/Plan
-
A/P: Patient is a 72y M with PMH significant for nonischemic cardiomyopathy, COPD and A-Fib who presents to ED complaining of SOB and is noted to have L pneumothorax.
Left Pneumothorax
Dyspnea and Chest Pain secondary to the above
- Admit for further evaluation and treatment.
- Pigtail chest tube placed in the ED - continue to suction.
- Post-CXR shows good result.
- Likely due to underlying COPD, Marfanoid features and forced coughing paroxysm.
- Pulmonary evaluation for additional recommendations / management.
- Follow for continued clinical improvement.
COPD
- Doubt acute exacerbation without active wheezing, etc noted at present.
- Dyspnea is likely explained by the above.
- Inhaled medications including adding ICS to current DuoNeb regimen.
- Pulm eval as noted above.
- Follow for any noted wheezing or other new changes.
Persistent Atrial Fibrillation with Rapid Ventricular Response
- Rates in the 110s - 120s at present. Recent ED visits for uncontrolled rates.
- Continue metoprolol in divided doses for now and adjust as needed for adequate rate control.
- Continue Eliquis for stroke risk reduction.
- Cardiology evaluation for additional recommendations.
Nonischemic Cardiomyopathy
History of VT / VF Arrest
- Stable. No recent issues. AICD in place.
CKD III
- Stable. Renal function is at known baseline.
- Follow for any changes.
DVT Prophylaxis
History of DVT
- Continue Eliquis
Code Status: Full
[2023-08-24] MEDS: DILAUDID 0.5 MG IV (06:34)
--- NOTE | 2023-08-24 07:49 | PHANOTE ---
08/24/2023, med rec tech, spoke to pt. to obtain their med. history; per pt., he finished taking his Diltiazem ER 24hr 180 mg capsule daily 2 days ago; filled on 08/11/2023 for 14-day supply.
[2023-08-24] MEDS: ELIQUIS 5 MG PO ×2 (11:50→19:56)
[2023-08-24] MEDS: LOPRESSOR 25 MG PO (11:50)
[2023-08-24] MEDS: THIAMINE INJECTION 200 MG IV ×2 (11:51→19:56)
[2023-08-24] MEDS: PROTONIX IV 40 MG IV (11:51)
[2023-08-24] MEDS: NSS (PRESERVATIVE FREE) 10 ML IV (11:52)
[2023-08-24] MEDS: FOLVITE PO (11:59)
[2023-08-24] MEDS: PULMICORT INH ×2 (11:59→12:39)
[2023-08-24] MEDS: FOLVITE 1 MG PO (12:03)
--- NOTE | 2023-08-24 12:15 | CON.CAR ---
Addendum entered and electronically signed by Genaro Simon MD 08/24/23 18:06:
72 yo male with PMH of persistent A fib s/p PVI 2021, now with recurrent A fib. Admitted with pneumothorax after intense coughing fit. We are consulted for A fib with RVR. He reports some SOB. He does have a chest tube in place. Exam with
irregular rhythm, no murmurs, no edema. Tele: A fib 110s.
Continue Toprol XL 50mg bid. Add diltiazem 180mg daily (was ordered as outpatient, but patient had not yet picked up from pharmacy). Eventual plan per outpatient records is tikosyn vs repeat PVI.
Original Note:
Consultation
Consultation Request
Date/Time Consultation Requested: 08/24/23 1116
Date/Time Consultation Performed: 08/24/23 1145
Requesting Provider: Dr. Chakraborty
Performing Provider: Marzena HELTON for Dr. Simon
Reason for Consultation: AFIB with RVR
Medical History
-
Chief Complaint: SOB
History of Present Illness:
72 y/o male with persistent AFIB on Eliquis (hx ablation 2021), hypertension, CKD (3B per OP chart), COPD, HF with improved EF, resolved NICM, and ICD in place (VF arrest 2011) who is here for evaluation after last night around 10 he felt congested
with mucus, then he made himself aggressively cough for 15-20 minutes to try and release the mucus. When he finally did, he noted that he had severe SOB, which was not helped by breathing tx and he came to the ER, where he was seen to have a
pneumothorax and he is now s/p chest tube. He is feeling much better from a breathing standpoint, but now reports pain to the CT site. We are consulted due to AFIB with RVR. His recent AFIB history includes 2 ER visits. Once, he converted to SR and
was started on low dose metoprolol. Next, he remained in AF/AFL and was started on metoprolol succinate 50 mg PO BID and diltiazem 180 mg PO daily. He tells me he did not start his diltiazem as OP since he never picked it up. There was consideration
for Tikosyn or repeat ablation, and patient was thinking about what he wanted and is still not sure. He is in no distress at the time of my assessment.
Past Medical History
Past Medical History: Arrhythmias, CHF, COPD and HTN
Social History
Tobacco: Former Smoker
Family History
Family History: Reviewed & Not Pertinent
Allergies / Home Medications
Allergy/AdvReac Type Severity Reaction Status Date / Time
bee venom protein (honey bee) Allergy Rash,chest Verified 08/11/23 13:53
tightness,
local
diffuse
swelling
�Medication �Instructions �Recorded �Confirmed �Type
cyanocobalamin (vitamin B-12) 250 250 mcg PO NOON Supplement 08/11/23 08/24/23 History
mcg tablet
ipratropium 0.5 mg-albuterol 3 mg 3 ml inhalation R QID 08/11/23 08/24/23 History
(2.5 mg base)/3 mL nebulization Lung/Breathing Issues
soln
magnesium oxide 250 mg PO NOON Supplement 08/11/23 08/24/23 History
metoprolol tartrate 25 mg tablet 50 mg PO BID Blood Pressure 08/11/23 08/24/23 History
zinc sulfate 50 mg zinc (220 mg) 50 mg PO NOON Supplement 08/11/23 08/24/23 History
tablet
apixaban 5 mg tablet (Eliquis) 5 mg PO BID Blood Clot 08/24/23 08/24/23 History
Prevention/Tx
cholecalciferol (vitamin D3) 50 50 mcg PO NOON Supplement 08/24/23 08/24/23 History
mcg (2,000 unit) tablet
ipratropium 20 mcg-albuterol 100 2 puff inhalation R QIDPRN PRN sob 08/24/23 08/24/23 History
mcg/actuation mist for inhalation
(Combivent Respimat)
Review of Systems
-
History Source: Patient
All other systems: Negative unless noted
Respiratory: Cough and Trouble Breathing
Physical Exam
Vital Signs
Temp Pulse Resp BP Pulse Ox
97.6 F 126 17 118/96 95
08/24/23 01:54 08/24/23 11:50 08/24/23 11:30 08/24/23 11:50 08/24/23 11:30
Lab Results
08/24/23 02:07
08/24/23 02:07
Troponin I < 0.012 ng/ml 08/24/23 02:07
Physical Exam
General: No Apparent Distress
HEENT: Normocephalic and Anicteric
Respiratory: Clear, Non Labored Respirations and Other (CT in place, on O2 by NC)
Cardiac: Irregular Rhythm
Musculoskeletal: No Edema
Skin: Warm and Dry
Neuro: AO x 3
Psych: Calm
Impression / Plan
-
Pneumothorax:
-SOB was severe, now improved with CT in place
-pulmonary is consulted
Persistent AFIB:
-rates fast in setting of pneumothorax and also not taking his diltiazem
-will add back diltiazem
-currently on short-acting metoprolol- resume long-acting and add back diltiazem and monitor telemetry
-on Eliquis for OAC
-of note, patient discussed repeat ablation versus Tikosyn as OP- thinking about what he wants to do, but now would not be appropriate to address that in setting of acute illness as above.
Resolved NICM:
-stable
-EF normal on most recent echo
ICD in place:
-continue to monitor as OP
COPD:
-stable without wheezing at present
CKD:
-stable
Data Reviewed
-
EKG: Tracing Personally Visualized and interpreted (AFIB with RVR 114 BPM)
Radiology: Report Reviewed by me (CXR: Moderate to large left pneumothorax without mediastinal shift.)
Medical Tests (Nuc Med, Echo etc): Report Reviewed by me (Echo 09/01/22: Normal biventricular size and systolic function without regional wall motion abnormality. Mild left atrial enlargement. Mild eccentric mitral regurgitation. Mild tricuspid
regurgitation. Biatrial enlargement. Mildly dilated aortic root (SOV 4.1 cm). Normal ascending aorta.)
Labs: Labs Reviewed by me
--- NOTE | 2023-08-24 12:44 | CON.PUL ---
Consultation
Consultation Request
Date/Time Consultation Requested: 08/24/2023 - 111
Date/Time Consultation Performed: 08/24/2023 - 1401
Requesting Provider: Dr. Chakraborty
Performing Provider: Dr. De La Paz
Reason for Consultation: PTX s/p chest tube
Medical History
-
Chief Complaint: SOB
History of Present Illness:
72-year-old male former tobacco smoker with a past medical history of severe COPD, hypertension, history of PE/DVT, paroxysmal A-fib on Eliquis, NICM, VT s/p ICD and history of alcohol use disorder who presents with SOB. Patient was home watching
television when he developed sudden shortness of breath. EMS called and nebulizer treatment given with some relief. Patient was tachycardic in the ER triage and saturating 95% on room air. He was tachycardic to 118 bpm, tachypneic to 20
breaths/min, saturating 94% on room air and afebrile to 97.6 �F. Labs showed mildly reduced serum bicarbonate of 21, creatinine 1.6, troponin of <0.012, and CXR showed a large left-sided pneumothorax. ER physician placed left-sided chest tube with
significant improvement seen on follow-up CXR. Patient admitted to the hospitalist service and now pulmonary consulted for additional recommendations.
When I saw the patient he was laying in bed in no acute distress, with chest tubes at 2-20 cmH2O. There is no airleak. He says that he had a coughing fit the night prior to coming here to the hospital, as he had mucus in his throat. He currently
feels well, he is saturating 93% on room air, with heart rate 88 and BP 123/98.
Of note patient previously used to follow with us in the [facility] office with Dr. Nieto. Patient has COPD with emphysema, with normal alpha-1 antitrypsin levels (183) with phenotype MM) he was on Breztri at that time with lev albuterol as needed. He
does have a family history of asthma with his brother. He has a history of the right lower lobe 1 cm nodule seen on his CTA from 04/2020 � PET scan in May 2020 was negative for FDG avidity and follow-up CT chest in December 2020 showed
resolution of the subpleural RLL nodule. He used to use nasal saline spray for postnasal drip. He was previously on amiodarone for his history of A-fib but this was discontinued in November 2019. He was told to follow-up with us in 7 months for
PFTs/6MWT at that time but he never followed up with us. Of note, his last full PFT was in December 2020 showing severe COPD (post-BD FEV1: 1.84L/49%) with a significant bronchodilator response, normal lung volumes with a very severe gas exchange
capacity defect (DLCO: 27%).
PMHx: COPD/emphysema, history of tobacco use, hypertension, history of PE/DVT, paroxysmal A-fib on Eliquis, Hx of GI bleed (~7 years ago) while on coumadin, VT s/p ICD, NICM, history of alcohol use disorder, CKD, hypertension, BPH
PSHx: ICD generator change (August 2019), nasal septum surgery
Past Medical History
Past Medical History: Other (Above as per HPI)
Past Surgical History: Other (Above as per HPI)
Social History
Tobacco: Former Smoker (Quit smoking cigarettes in April 2019; prior [id number] history; occasionally smokes cigars)
Alcohol: Occasional
Drug: Marijuana (Former, quit about 7 years ago) and Other (Prior crack use from [id number])
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
Environmental Exposures: Suspected to have a asbestos exposure while in the [place]
Family History
Family History: Diabetes (Paternal grandmother) and Other (Father: History of stroke; youngest brother: Asthma)
Allergies / Home Medications
Allergies
Allergy/AdvReac Type Severity Reaction Status Date / Time
bee venom protein (honey bee) Allergy Rash,chest Verified 08/11/23 13:53
tightness,
local
diffuse
swelling
Home Medications
�Medication �Instructions �Recorded �Confirmed �Last Taken �Type
cyanocobalamin (vitamin B-12) 250 250 mcg PO NOON Supplement 08/11/23 08/24/23 08/23/23 History
mcg tablet
ipratropium 0.5 mg-albuterol 3 mg 3 ml inhalation R QID 08/11/23 08/24/23 08/23/23 History
(2.5 mg base)/3 mL nebulization Lung/Breathing Issues
soln
magnesium oxide 250 mg PO NOON Supplement 08/11/23 08/24/23 08/23/23 History
metoprolol tartrate 25 mg tablet 50 mg PO BID Blood Pressure 08/11/23 08/24/23 08/23/23 History
zinc sulfate 50 mg zinc (220 mg) 50 mg PO NOON Supplement 08/11/23 08/24/23 08/23/23 History
tablet
apixaban 5 mg tablet (Eliquis) 5 mg PO BID Blood Clot 08/24/23 08/24/23 08/23/23 History
Prevention/Tx
cholecalciferol (vitamin D3) 50 50 mcg PO NOON Supplement 08/24/23 08/24/23 08/23/23 History
mcg (2,000 unit) tablet
ipratropium 20 mcg-albuterol 100 2 puff inhalation R QIDPRN PRN sob 08/24/23 08/24/23 Unknown History
mcg/actuation mist for inhalation
(Combivent Respimat)
Review of Systems
-
History Source: Patient
All other systems: Negative unless noted
Vitals / Labs / Diagnostic Testing
Vital Signs
Temp Pulse Resp BP Pulse Ox
97.6 F 126 17 118/96 95
08/24/23 01:54 08/24/23 11:50 08/24/23 11:30 08/24/23 11:50 08/24/23 11:30
Lab Data
08/24/23 02:07
05/08/24 02:07
Laboratory Results
08/24/23
02:07
PT 16.0 H
INR 1.30
Diagnostic Testing:
Physical Exam
-
HEENT: Normocephalic and Anicteric
Cardiovascular: S1/S2 and Peripheral Edema (Negative)
Respiratory: Wheeze (Negative), Rales (Bibasilar), Rhonchi (Negative), Non-Labored Respirations and Other (Left-sided chest tube on negative suction)
GI: Soft, Non Distended and Non Tender
Neurology: AO x 3
Skin: Warm and Dry
General: Respiratory Distress (Negative) and Comfortable
Assessment
-
Assessment: 72-year-old male former tobacco smoker with a past medical history of severe COPD, hypertension, history of PE/DVT, paroxysmal A-fib on Eliquis, NICM, VT s/p ICD and history of alcohol use disorder who presents with SOB. Patient was
home watching television when he developed sudden shortness of breath. EMS called and nebulizer treatment given with some relief. Patient was tachycardic in the ER triage and saturating 95% on room air. He was tachycardic to 118 bpm, tachypneic
to 20 breaths/min, saturating 94% on room air and afebrile to 97.6 �F. Labs showed mildly reduced serum bicarbonate of 21, creatinine 1.6, troponin of <0.012, and CXR showed a large left-sided pneumothorax. ER physician placed left-sided chest
tube with significant improvement seen on follow-up CXR. Patient admitted to the hospitalist service and now pulmonary consulted for additional recommendations.
Of note patient previously used to follow with us in the [facility] office with Dr. Nieto. Patient has COPD with emphysema, with normal alpha-1 antitrypsin levels (183) with phenotype MM) he was on Breztri at that time with lev albuterol as needed. He
does have a family history of asthma with his brother. He has a history of the right lower lobe 1 cm nodule seen on his CTA from 04/2020 � PET scan in May 2020 was negative for FDG avidity and follow-up CT chest in December 2020 showed
resolution of the subpleural RLL nodule. He used to use nasal saline spray for postnasal drip. He was previously on amiodarone for his history of A-fib but this was discontinued in November 2019. He was told to follow-up with us in 7 months for
PFTs/6MWT at that time but he never followed up with us. Of note, his last full PFT was in December 2020 showing severe COPD (post-BD FEV1: 1.84L/49%) with a significant bronchodilator response, normal lung volumes with a very severe gas exchange
capacity defect (DLCO: 27%).
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
Impression:
#Spontaneous secondary pneumothorax (SSP) - likely due to ruptured bullae as he has bullous emphysema
#SOB due to above
#Severe COPD/emphysema with very severe gas exchange capacity defect (per PFT from 12/2020)
#CKD (baseline Cr 1.4 - 1.6)
Plan:
- Patient is s/p chest tube placed in ER --> continue on low wall suction for today, and we will clamp chest tube in AM assuming no air leak
- Continue supplemental O2 to help resorb any residual PTX
- Avoid incentive spirometer as the strong inspiratory effort may exacerbate his PTX or cause a new one
- Considering the patient's Hx of bullous emphysema with his first event of SSP, he should be evalutaed for pleurodesis with bullectomy - recommend CT Surgery consult
- Maintain SpO2 >88-94% with supplemental O2 as needed
- Replete electrolytes with K>4, Mg>2
- Maintain euglycemia with goal BG >100 and <180
- prn nebulized bronchodilators and continue DuoNebs QID (his home dose) with Budesonide
- DVT ppx
Pulmonary service will continue to follow along.
Total time spent today was 75 minutes for this encounter. Time includes reviewing laboratory test/imaging results, reviewing pertinent medical records, obtaining and reviewing medical history, performing an appropriate exam, ordering medications,
tests and procedures. Time also includes documentation of this encounter, coordinating patient care and communicating with other healthcare professionals. Total time does not include separately billed tests performed on this date of service.
Data:
CXR 08-24-2023: Moderate to large left pneumothorax without mediastinal shift.
--- NOTE | 2023-08-24 14:52 | W.PN.UPDATE ---
Update Note
Progress Note Update
note is supplementatl to H&P for today
Afib: switch to long-acting BB; add back diltiazem
PTX: maintain pig tail, f/u pulm recs; wean o2 as tolerated
[2023-08-24] MEDS: ROXICODONE 5 MG PO (15:06)
[2023-08-24] MEDS: CARDIZEM CD 180 MG PO (15:06)
--- NOTE | 2023-08-24 15:57 | PTCARENOTE ---
Rec'd pt on admission from ED. Educated pt extensively on proper care to ensure that chest tube remains intact. vital signs stable. chest tube draining sanguinous drainage.
[2023-08-24] MEDS: PULMICORT 0.5 MG INH (19:32)
[2023-08-24] MEDS: TOPROL XL 50 MG PO (19:56)
[2023-08-24 22:20] LABS: Magnesium 2.2 mg/dl (1.6-2.3)
[2023-08-25] VITALS (20 sets, daily range): BP systolic 99–128; BP diastolic 71–102; PULSE 85–101; BMI 20.3
--- NOTE | 2023-08-25 01:50 | PTCARENOTE ---
Received pt at change of shift. Pt slightly dyspneic on exertion. No drainage in canister from chest tube; some sanguinous drainage in the tubing. Suction now -10. Lung sounds CTA in all lobes. Pt offers no complaints. Resting in bed with call
dueñas in reach.
[2023-08-25 06:30] LABS: Hematocrit 39.3 % (39.0-52.0); Hemoglobin 12.7 g/dL (13.0-18.0); Mean Corp Hgb Conc. 32.3 g/dL (33.0-37.0); Mean Corpuscular Hgb 32.2 pg (27.0-31.0); Mean Corpuscular Volume 99.5 fL (80.0-94.0); Mean Platelet Volume 10.2 fL (7.4-10.4); Platelet Count 221 10^3/uL (130-400); Red Blood Cell Count 3.95 10^6/uL (4.70-6.10); Red Cell Dist. Width 15.6 % (11.5-14.5); White Blood Cell Count 19.3 10^3/uL (4.8-10.8)
[2023-08-25 07:00] LABS: Blood Urea Nitrogen 29 mg/dl (9-20); Calcium 9.8 mg/dl (8.4-10.2); Carbon Dioxide 20 mmol/L (22-30); Chloride 106 mmol/L (98-107); Estimated Creatinine Clearance 46 ml/min; Glucose 113 mg/dl (70-99); Magnesium 2.1 mg/dl (1.6-2.3); Potassium 4.7 mmol/L (3.5-5.1); Sodium 136 mmol/L (135-145); eGFR 45.78
[2023-08-25] MEDS: PULMICORT 0.5 MG INH ×2 (07:26→19:38)
[2023-08-25] MEDS: DUONEB 3 ML INH ×4 (07:26→19:38)
--- NOTE | 2023-08-25 08:27 | CONSULT.CT ---
Consultation
-
Date/Time Consultation Requested: 08/24/2023
Date/Time Consultation Performed: 08/25/2023
Requesting Provider: Dr. De La Paz
Performing Provider: Raghav christine
Reason for Consultation: Evaluation for pleurodesis with bullectomy
Patient History
Physicians
Family Physician: Yazan Quinn
History of Present Illness
Patient is a 72-year-old male former smoker with past medical history of severe COPD, hypertension, history of PE/DVT, paroxysmal A-fib on Eliquis,NICM,VT s/p ICD,h/o etoh. Patient was at home and getting ready for bed when he developed a coughing
spell. He then became acutely short of breath and called EMS. He presented to [facility] ER and was found to be tachycardic and room air pulse ox was 94%. Chest x-ray showed large left-sided pneumothorax. ER physician placed left-sided
chest tube with significant improvement seen on follow-up x-ray. He was admitted to hospitalist service and pneumothorax has improved. Tiny left apical pneumothorax remains and thoracic surgery consulted for evaluation for pleurodesis in the
future. Currently patient is sitting up in bed no acute distress chest tube without air leak and morning x-ray shows tiny left apical pneumothorax.
Plan to clamp chest tube today and follow-up x-ray later this afternoon.
No surgical intervention indicated since this is his first admission for spontaneous pneumothorax.
Would continue maximal medical therapy for COPD/emphysema
Past Medical History
Past Medical History: Atrial Fib, COPD, ROBERTS, HTN, Renal Insufficiency and SOB
Past medical history significant for VT/VF, nonischemic cardiomyopathy status post ICD, persistent atrial fibrillation, CKD 3, PUD/GI bleed, left lower extremity DVT, BPH, bullous emphysema, EtOH abuse,
Past Surgical History
Past Surgical History: Other
Status post ICD implantation, cardiac ablation, septoplasty
Family History
Mother: N/A
Father: N/A
Social History
Alcohol: Former
Drug: Former User (Former marijuana user quit about 7 years ago and prior crack use from [id number], admits to history of cocaine use none in the past 10 years)
Tobacco: Former Smoker (Former smoker quit in April 2019 greater than [id number] history, still occasionally smokes cigars)
Employment: Retired
Allergies
Allergy/AdvReac Type Severity Reaction Status Date / Time
bee venom protein (honey bee) Allergy Rash,chest Verified 08/11/23 13:53
tightness,
local
diffuse
swelling
Home Medications
�Medication �Instructions �Recorded �Confirmed �Type
cyanocobalamin (vitamin B-12) 250 250 mcg PO NOON Supplement 08/11/23 08/24/23 History
mcg tablet
ipratropium 0.5 mg-albuterol 3 mg 3 ml inhalation R QID 08/11/23 08/24/23 History
(2.5 mg base)/3 mL nebulization Lung/Breathing Issues
soln
magnesium oxide 250 mg PO NOON Supplement 08/11/23 08/24/23 History
metoprolol tartrate 25 mg tablet 50 mg PO BID Blood Pressure 08/11/23 08/24/23 History
zinc sulfate 50 mg zinc (220 mg) 50 mg PO NOON Supplement 08/11/23 08/24/23 History
tablet
apixaban 5 mg tablet (Eliquis) 5 mg PO BID Blood Clot 08/24/23 08/24/23 History
Prevention/Tx
cholecalciferol (vitamin D3) 50 50 mcg PO NOON Supplement 08/24/23 08/24/23 History
mcg (2,000 unit) tablet
ipratropium 20 mcg-albuterol 100 2 puff inhalation R QIDPRN PRN sob 08/24/23 08/24/23 History
mcg/actuation mist for inhalation
(Combivent Respimat)
Review of Systems
-
History Source: Patient
General: Reports Fatigue
HEENT: Reports No Symptoms
Respiratory: Reports SOB, ROBERTS, Cough and Other
Cardiac: Reports Palpitations and Other (History of VT VF, nonischemic cardiomyopathy, atrial fibrillation)
Abdomen/GI: Reports No Symptoms
: Reports No Symptoms
Musculoskeletal: Reports No Symptoms
Skin: Reports No Symptoms
Vascular: Reports Other (History of lower extremity DVT)
Physical Exam
Vital Signs
Temp 97.5 F 08/25/23 07:44
Temp route: Axillary 08/25/23 07:44
Pulse 90 08/25/23 07:30
Rhythm: Atrial fibrillation 08/24/23 20:00
Resp Rate 15 08/25/23 07:30
Blood pressure 128/87 08/25/23 06:00
Blood pressure extremity used: Right upper arm 08/24/23 01:54
Position: Lying 08/24/23 01:54
MAP (cuff-Jean Monitor) 99 08/25/23 06:00
SaO2 96 08/25/23 07:30
Nasal Cannula flow liters per minute 4 08/25/23 07:30
Oxygen Mode of Delivery Room air 08/24/23 02:10
Acceptable pain level during hospitalization? 0 08/24/23 01:54
Can the patient verbally communicate their pain? Yes 08/24/23 20:00
Pain scale ratin 08/24/23 16:06
Actual Weight 159 lb 13.362 oz 08/25/23 07:47
Body Mass Index (BMI) 20.3 08/25/23 07:47
Supine- Blood Pressure 115/86 08/24/23 20:29
Supine- Pulse 90 08/24/23 20:29
Sitting- Blood Pressure 108/89 08/24/23 20:29
Sitting- Pulse 89 08/24/23 20:29
Standing- Blood Pressure 102/84 08/24/23 20:29
Standing- Pulse 91 08/24/23 20:29
Blood pressure extremity used: Right upper arm 08/24/23 20:29
Mode BP taken: Automatic 08/24/23 20:29
Labs
08/25/23 05:40
08/25/23 05:40
PT 16.0 Sec (11.4-14.6) H 08/24/23 02:07
Troponin I < 0.012 ng/ml 08/24/23 02:07
Exam
General: No Apparent Distress and Comfortable
HEENT: Normocephalic, Anicteric and Atraumatic
Neck: Trachea Midline
Respiratory: Crackles
Cardiac: Irregular Rhythm
GI: Soft, Non Tender, Non Distended and Normal Bowel Sounds
Rectal: Deferred by Provider
Skin: Warm
Neuro: Awake, Alert, Oriented and AO x 3
Extremities: Pulses
Lymph: No Lymphadenopathy
Psych: Calm
Assessment / Plan
-
Assessment: Spontaneous left pneumothorax status post left chest tube, resolving
Nonischemic cardiomyopathy, history of VT/VF arrest status post ICD implant
Severe COPD/bullous emphysema
Persistent atrial fibrillation, status post ablation
CKD 3
History of DVT left lower extremity
History of GI bleed 7 years ago
History of EtOH
Hypertension
BPH
Former marijuana user quit 7 years ago, also admits to prior crack use
Plan:
Continue conservative measures for spontaneous pneumothorax
No surgical intervention indicated
--- NOTE | 2023-08-25 09:05 | W.PN.CD ---
Today's Communication / Plan
-
A fib rates are controlled: cont diltiazem 180mg daily, and Toprol XL 50mg bid
cont eliquis 5mg bid
please call us back with additional questions
Impression / Plan
-
Pneumothorax:
- improved, with chest tube in place
Persistent AFIB:
-rates were fast in setting of pneumothorax and also not taking his diltiazem
-added back diltiazem, and now rates are controlled
-on Eliquis for OAC (5mg bid)
-of note, patient discussed repeat ablation versus Tikosyn as OP- thinking about what he wants to do, but now would not be appropriate to address that in setting of acute illness as above
-cont diltiazem 180mg daily, and Toprol XL 50mg bid
Resolved NICM:
-stable
-EF normal on most recent echo
ICD in place:
-continue to monitor as OP
COPD:
-stable without wheezing at present
Physical Exam
Vital Signs/Labs
Vital Signs
Temp Pulse Resp BP Pulse Ox
97.5 F 90 15 128/87 96
08/25/23 07:44 08/25/23 07:30 08/25/23 07:30 08/25/23 06:00 08/25/23 07:30
08/24/23 08/25/23 08/26/23
06:59 06:59 06:59
Actual Weight 76.1 kg 72.5 kg
08/25/23 05:40
08/25/23 05:40
PT 16.0 Sec (11.4-14.6) H 08/24/23 02:07
INR 1.30 08/24/23 02:07
Magnesium 2.1 mg/dl (1.6-2.3) 08/25/23 05:40
LAB Results
08/24/23
02:07
Troponin I < 0.012
Physical Exam
Constitutional: No acute distress and Comfortable
EENT: Moist mucous membranes
Cardiovascular: Pedal edema is absent, JVD pressure is normal, Systolic murmur absent and Rhythm/rate is irregular
Respiratory: Respiratory effort normal and Lungs clear to auscul.
GI: Soft and Distention absent
Neuro/Psych: AO x 3
Data Reviewed
-
Date of Service: August 25, 2023
EKG: Other (Tele: A fib 80s)
[2023-08-25] MEDS: CARDIZEM CD 180 MG PO (10:06)
[2023-08-25] MEDS: THIAMINE INJECTION 200 MG IV ×2 (10:07→20:03)
[2023-08-25] MEDS: FOLVITE 1 MG PO (10:07)
[2023-08-25] MEDS: TOPROL XL 50 MG PO ×2 (10:07→20:03)
[2023-08-25] MEDS: ELIQUIS 5 MG PO ×2 (10:07→20:03)
[2023-08-25] MEDS: PROTONIX IV 40 MG IV (10:08)
[2023-08-25] MEDS: NSS (PRESERVATIVE FREE) 10 ML IV (10:08)
[2023-08-25] MEDS: ROXICODONE 5 MG PO (10:11)
--- NOTE | 2023-08-25 10:17 | W.PN.PUL3 ---
Today's Communication / Plan
-
Place left-sided chest tube to water seal with plans to clamp within 12-24 hrs
CXR in AM --> if there is still concern for persistent left apical PTX tomorrow then will consider CT Chest
Supplemental O2 for nitrogen washout
Avoid incentive spirometer as this can worsen his PTX or cause another ruptured bullae
Recs appreciated by CT surgery
Pulmonary service will continue to follow along
Assessment
-
Assessment: 72-year-old male former tobacco smoker with a past medical history of severe COPD, hypertension, history of PE/DVT, paroxysmal A-fib on Eliquis, NICM, VT s/p ICD and history of alcohol use disorder who presents with SOB. Patient was
home watching television when he developed sudden shortness of breath. EMS called and nebulizer treatment given with some relief. Patient was tachycardic in the ER triage and saturating 95% on room air. He was tachycardic to 118 bpm, tachypneic
to 20 breaths/min, saturating 94% on room air and afebrile to 97.6 �F. Labs showed mildly reduced serum bicarbonate of 21, creatinine 1.6, troponin of <0.012, and CXR showed a large left-sided pneumothorax. ER physician placed left-sided chest
tube with significant improvement seen on follow-up CXR. Patient admitted to the hospitalist service and now pulmonary consulted for additional recommendations.
Of note patient previously used to follow with us in the [facility] office with Dr. Nieto. Patient has COPD with emphysema, with normal alpha-1 antitrypsin levels (183) with phenotype MM) he was on Breztri at that time with lev albuterol as needed. He
does have a family history of asthma with his brother. He has a history of the right lower lobe 1 cm nodule seen on his CTA from 04/2020 � PET scan in May 2020 was negative for FDG avidity and follow-up CT chest in December 2020 showed
resolution of the subpleural RLL nodule. He used to use nasal saline spray for postnasal drip. He was previously on amiodarone for his history of A-fib but this was discontinued in November 2019. He was told to follow-up with us in 7 months for
PFTs/6MWT at that time but he never followed up with us. Of note, his last full PFT was in December 2020 showing severe COPD (post-BD FEV1: 1.84L/49%) with a significant bronchodilator response, normal lung volumes with a very severe gas exchange
capacity defect (DLCO: 27%).
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
Impression:
#Spontaneous secondary pneumothorax (SSP) - likely due to ruptured bullae as he has bullous emphysema
#SOB due to above
#Severe COPD/emphysema with very severe gas exchange capacity defect (per PFT from 12/2020)
#CKD (baseline Cr 1.4 - 1.6)
Plan:
- Patient is s/p chest tube placed in ER on 08/23--> now air leak this AM while on negative suction at -[id number], and there appears to be possible small left apical PTX --> place chest tube to water seal with plans to clamp later tonight with CXR in AM
- Continue supplemental O2 (4L/min) to help resorb any residual PTX
- Avoid incentive spirometer as the strong inspiratory effort may exacerbate his PTX or cause a new one
- Considering the patient's Hx of bullous emphysema with his first event of SSP, he should be evaluated for pleurodesis with bullectomy - CT Surgery consulted --> recs appreciated
- Maintain SpO2 >88-94% with supplemental O2 as needed
- Replete electrolytes with K>4, Mg>2
- Maintain euglycemia with goal BG >100 and <180
- prn nebulized bronchodilators and continue DuoNebs QID (his home dose) with Budesonide
- DVT ppx
Pulmonary service will continue to follow along.
Total time spent today was 35 minutes for this encounter. Time includes reviewing laboratory test/imaging results, reviewing pertinent medical records, obtaining and reviewing medical history, performing an appropriate exam, ordering medications,
tests and procedures. Time also includes documentation of this encounter, coordinating patient care and communicating with other healthcare professionals. Total time does not include separately billed tests performed on this date of service.
Data:
CXR 08-25-2023: Left basilar chest tube slightly more proximally positioned in comparison to study of preceding day; Suspected small left apical pneumothorax, unchanged.
CXR 08-24-2023: Moderate to large left pneumothorax without mediastinal shift.
Subjective Data
-
Date of Service:
Date of Service: August 25, 2023
Chief Complaint: Pulmonary Follow Up
Subjective:
Patient seen today. No acute events reported overnight. Small left apical pneumothorax seen on CXR this morning, stable from yesterday.
Review of Systems
General: Other (Negative unless mentioned above)
Objective Data
Data Reviewed
Vital Signs / I&O / Oxygen:
Vital Signs
Temp Pulse Resp BP Pulse Ox
97.5 F 92 15 107/80 96
08/25/23 07:44 08/25/23 10:06 08/25/23 07:30 08/25/23 10:06 08/25/23 07:30
Intake and Output
08/24/23 08/25/23 08/26/23
06:59 06:59 06:59
Intake Total 240 / 240
Output Total 450 / 450
Balance -210 / -210
SaO2 96
Nasal Cannula flow liters per 4
minute
Physical Exam
General: Comfortable
HEENT: Normocephalic and Anicteric
Cardiovascular: S1-S2 and Peripheral Edema (negative)
Respiratory: Wheeze (negative), Crackles (bibasilar), Rhonchi (negative), Non-Labored Respirations and Chest Tube (left-sided)
GI: Soft, Non Distended and Non Tender
Neurology: AO x 3
Skin: Warm and Dry
Labs/Micro/Reports
Lab Data
08/25/23 05:40
08/25/23 05:40
--- NOTE | 2023-08-25 13:04 | CM ---
Patient with Dx Left Pneumothorax, Dyspnea and Chest Pain, Persistent Atrial Fibrillation. O2 3L. Chest tube. MSAS.
Met with patient who resides with his in a 1 story house with 2 BOB.
The patient has been independent in ADLs and ambulation.
He is active and uses stationary bike and other gym equipment.
DME - tripod cane with seat, O2 concentrator/portables through [employer]
No prior VN or SNF.
PCP - Yazan Qiunn
Pharmacy - [facility]
Plan watch for home O2 needs.
Plan home.
--- NOTE | 2023-08-25 14:03 | CM ---
Addendum entered by Ana Hannon RN 08/25/23 15:08:
CM Consult: Living Will. Provided patient with Advanced Directives paperwork.
Original Note:
Patient with Dx Left Pneumothorax, Dyspnea and Chest Pain, Persistent Atrial Fibrillation. O2 3L. Chest tube. MSAS.
Met with patient who resides with his in a 1 story house with 2 BOB.
The patient has been independent in ADLs and ambulation.
He is active and uses stationary bike and other gym equipment.
DME - tripod cane with seat, O2 concentrator/portables through [employer]
No prior VN or SNF.
PCP - Yazan Quinn
Pharmacy - [facility]
Plan home.
--- NOTE | 2023-08-25 14:59 | W.PN.HOSP.TC ---
Today's Communication/Plan
-
was on waterseal - clamping trial today
Assessment / Plan
Assessment / Plan
eneral: Other (72y M with Marfanoid appearance currently in mild distress due to pain / dyspnea.)
HEENT: Other (Neck supple. Poor dentition.)
Respiratory: Other (Clear bilaterally. No wheezing appreciated. L chest tube in place to water seal)
Cardiac: S1/S2, Irregular Rhythm and Tachycardia; No Murmur
GI: Soft, Non Tender, Non Distended and Normal Bowel Sounds
Musculoskeletal: No Clubbing, No Cyanosis and No Edema
Neuro: AO x 3
Left Pneumothorax
Dyspnea and Chest Pain secondary to the above
- Pigtail chest tube placed - attempt clamping today
- CTS consulted - conservative management- f/u outpatient [facility] for CTS/Pulm standpoint
-Appreciate Pulm recs
COPD
- not in exacerbation
- Inhaled medications including adding ICS to current DuoNeb regimen.
- Pulm eval as noted above.
Persistent Atrial Fibrillation with Rapid Ventricular Response
- Continue metoprolol and Diltiazem
-F/u cards recs
-Cont Eliquis
Nonischemic Cardiomyopathy
History of VT / VF Arrest
- Stable. No recent issues. AICD in place.
CKD III
- Stable. Renal function is at known baseline.
- Follow for any changes.
DVT Prophylaxis
History of DVT
- Continue Eliquis
Code Status: Full
Anticipated Discharge: 24 - 48 hours
Subjective/Interval History
-
Date of Service: August 25, 2023
feels better, can take a deep breath
Objective Data
-
Labs:
Laboratory Results
08/25/23
05:40
WBC 19.3 H
Hgb 12.7 L
Hct 39.3
Plt Count 221
Sodium 136
Potassium 4.7
Chloride 106
Carbon Dioxide 20 L
BUN 29 H
Creatinine 1.6 H
Glucose 113 H
Calcium 9.8
Vital Signs:
Vital Signs
Temp Pulse Resp BP Pulse Ox
97.6 F 85 15 107/80 96
08/25/23 11:40 08/25/23 11:18 08/25/23 11:18 08/25/23 10:06 08/25/23 11:18
I&O
08/24/23 08/25/23 08/26/23
06:59 06:59 06:59
Intake Total 240 / 240
Output Total 450 / 450
Balance -210 / -210
Review of Systems
-
History Source: Patient
All other systems: Not reviewed unless documented
[2023-08-26] VITALS (15 sets, daily range): BP systolic 104–138; BP diastolic 72–97; PULSE 89–90; BMI 20.6
[2023-08-26 04:34] LABS: Hematocrit 38.2 % (39.0-52.0); Hemoglobin 12.2 g/dL (13.0-18.0); Mean Corp Hgb Conc. 31.9 g/dL (33.0-37.0); Mean Corpuscular Hgb 32.1 pg (27.0-31.0); Mean Corpuscular Volume 100.5 fL (80.0-94.0); Mean Platelet Volume 9.7 fL (7.4-10.4); Platelet Count 195 10^3/uL (130-400); Red Cell Dist. Width 15.9 % (11.5-14.5); White Blood Cell Count 15.5 10^3/uL (4.8-10.8)
[2023-08-26 05:21] LABS: ALT (SGPT) 21 U/L (0-50); AST (SGOT) 40 U/L (17-59); Albumin 3.5 g/dl (3.5-5.0); Alkaline Phosphatase 138 U/L (38-126); Blood Urea Nitrogen 34 mg/dl (9-20); Calcium 9.4 mg/dl (8.4-10.2); Carbon Dioxide 23 mmol/L (22-30); Chloride 107 mmol/L (98-107); Estimated Creatinine Clearance 44 ml/min; Glucose 97 mg/dl (70-99); Potassium 4.8 mmol/L (3.5-5.1); Sodium 138 mmol/L (135-145); Total Protein 6.2 g/dl (6.3-8.2); eGFR 45.78
[2023-08-26] MEDS: DUONEB 3 ML INH ×4 (07:58→20:55)
[2023-08-26] MEDS: PULMICORT 0.5 MG INH ×2 (07:58→20:55)
--- NOTE | 2023-08-26 08:35 | W.PN.CT ---
Today's Communication / Plan
-
Discussed with Dr. Beasley this AM
Would trial H2o seal with follow up CXR. If patient tolerates water seal then would preform a clamp trial. If patient does not tolerate water seal then would consider a chemical pleurodesis by IR.
Suspected apical ptx is likely a bleb; would not require surgical intervention at this time.
Would recommend outpatient follow up with Pulmonary
CT surgery signing off.
Assessment / Plan
-
Assessment: Spontaneous left pneumothorax status post left chest tube, resolving
Nonischemic cardiomyopathy, history of VT/VF arrest status post ICD implant
Severe COPD/bullous emphysema
Persistent atrial fibrillation, status post ablation
CKD 3
History of DVT left lower extremity
History of GI bleed 7 years ago
History of EtOH
Hypertension
BPH
Former marijuana user quit 7 years ago, also admits to prior crack use
Plan:
Continue conservative measures for spontaneous pneumothorax
No surgical intervention indicated
Subjective
-
Date of Service: August 26, 2023
Objective Data
-
Lab Results
08/26/23 04:23
08/26/23 04:23
PT 16.0 Sec (11.4-14.6) H 08/24/23 02:07
INR 1.30 08/24/23 02:07
Vital Signs
Vital Signs
Temp Pulse Resp BP Pulse Ox
97.9 F 89 18 105/80 97
08/26/23 03:21 08/26/23 08:03 08/26/23 08:03 08/26/23 04:00 08/26/23 08:03
CT Intake/Output/Weight
08/25/23 08/26/23 08/26/23
18:59 06:59 18:59
Output Total 550 / 565
Balance -15 / 565 -550 / -565
SaO2: 97
Physical Exam
-
General: AOx3
Cardiovascular: Regular rate & rhythm
Data Reviewed
-
Lab Results: Results Reviewed
Medications: Active Meds Reviewed
Chest X-Ray: Report Reviewed and Image Reviewed
[2023-08-26] MEDS: CARDIZEM CD 180 MG PO (08:46)
[2023-08-26] MEDS: ELIQUIS 5 MG PO ×2 (08:46→21:18)
[2023-08-26] MEDS: TOPROL XL 50 MG PO ×2 (08:46→21:18)
[2023-08-26] MEDS: THIAMINE INJECTION 200 MG IV ×2 (08:46→21:18)
[2023-08-26] MEDS: PROTONIX IV 40 MG IV (08:47)
[2023-08-26] MEDS: FOLVITE 1 MG PO (08:47)
[2023-08-26] MEDS: NSS (PRESERVATIVE FREE) 10 ML IV (08:47)
--- NOTE | 2023-08-26 15:20 | W.PN.HOSP.TC ---
Today's Communication/Plan
-
Clamp trial, chest x-ray 6 hours afterwards
Assessment / Plan
Assessment / Plan
eneral: Other (72y M with Marfanoid appearance currently in mild distress due to pain / dyspnea.)
HEENT: Other (Neck supple. Poor dentition.)
Respiratory: Other (Clear bilaterally. No wheezing appreciated. L chest tube in place to water seal)
Cardiac: S1/S2, Irregular Rhythm and Tachycardia; No Murmur
GI: Soft, Non Tender, Non Distended and Normal Bowel Sounds
Musculoskeletal: No Clubbing, No Cyanosis and No Edema
Neuro: AO x 3
Left Pneumothorax
Dyspnea and Chest Pain secondary to the above
- Pigtail chest tube placed - attempt clamping today, chest x-ray in 6 hours
- CTS consulted - conservative management- f/u outpatient [facility] for CTS/Pulm standpoint
-Appreciate Pulm recs
COPD
- not in exacerbation
- Inhaled medications including adding ICS to current DuoNeb regimen.
- Pulm eval as noted above.
Persistent Atrial Fibrillation with Rapid Ventricular Response
- Continue metoprolol and Diltiazem
-F/u cards recs
-Cont Eliquis
Nonischemic Cardiomyopathy
History of VT / VF Arrest
- Stable. No recent issues. AICD in place.
CKD III
- Stable. Renal function is at known baseline.
- Follow for any changes.
DVT Prophylaxis
History of DVT
- Continue Eliquis
Code Status: Full
Anticipated Discharge: Within 24 hours
Subjective/Interval History
-
Date of Service: August 26, 2023
No acute events
Objective Data
-
Labs:
Laboratory Results
08/26/23
04:23
WBC 15.5 H
Hgb 12.2 L
Hct 38.2 L
Plt Count 195
Sodium 138
Potassium 4.8
Chloride 107
Carbon Dioxide 23
BUN 34 H
Creatinine 1.6 H
Glucose 97
Calcium 9.4
Total Bilirubin 1.0
AST 40
ALT 21
Alkaline Phosphatase 138 H
Vital Signs:
Vital Signs
Temp Pulse Resp BP Pulse Ox
97.6 F 85 18 109/81 94
08/26/23 15:02 08/26/23 11:36 08/26/23 11:36 08/26/23 10:00 08/26/23 10:00
I&O
08/25/23 08/26/23 08/27/23
06:59 06:59 06:59
Intake Total 240 / 240
Output Total 450 / 450 565 / 565 350 / 350
Balance -210 / -210 -565 / -565 -350 / -350
Review of Systems
-
History Source: Patient
All other systems: Not reviewed unless documented
Physical Exam
-
General: Well Developed
Respiratory: Clear to Auscultation
Cardiac: Regular Rhythm
GI: Soft and Nontender
Skin: Warm
Neuro: Nonfocal/Grossly Intact
Data Reviewed
-
Diagnostic Radiology: Image personally visualized and interpreted and Report Reviewed by me
Labs: Labs Reviewed by me
--- NOTE | 2023-08-26 15:28 | W.PN.PUL3 ---
Today's Communication / Plan
-
Clamp left-sided chest tube with plans to remove later today
Supplemental O2 for nitrogen washout
Avoid incentive spirometer as this can worsen his PTX or cause another ruptured bullae
Recs appreciated by CT surgery
If patient stable overnight with no respiratory complaints then he can likely be discharged home tomorrow with outpatient follow-up with our office.
Pulmonary service will continue to briefly follow along while he remains hospitalized
Assessment
-
Assessment: 72-year-old male former tobacco smoker with a past medical history of severe COPD, hypertension, history of PE/DVT, paroxysmal A-fib on Eliquis, NICM, VT s/p ICD and history of alcohol use disorder who presents with SOB. Patient was
home watching television when he developed sudden shortness of breath. EMS called and nebulizer treatment given with some relief. Patient was tachycardic in the ER triage and saturating 95% on room air. He was tachycardic to 118 bpm, tachypneic
to 20 breaths/min, saturating 94% on room air and afebrile to 97.6 �F. Labs showed mildly reduced serum bicarbonate of 21, creatinine 1.6, troponin of <0.012, and CXR showed a large left-sided pneumothorax. ER physician placed left-sided chest
tube with significant improvement seen on follow-up CXR. Patient admitted to the hospitalist service and now pulmonary consulted for additional recommendations.
Of note patient previously used to follow with us in the [facility] office with Dr. Nieto. Patient has COPD with emphysema, with normal alpha-1 antitrypsin levels (183) with phenotype MM) he was on Breztri at that time with lev albuterol as needed. He
does have a family history of asthma with his brother. He has a history of the right lower lobe 1 cm nodule seen on his CTA from 04/2020 � PET scan in May 2020 was negative for FDG avidity and follow-up CT chest in December 2020 showed
resolution of the subpleural RLL nodule. He used to use nasal saline spray for postnasal drip. He was previously on amiodarone for his history of A-fib but this was discontinued in November 2019. He was told to follow-up with us in 7 months for
PFTs/6MWT at that time but he never followed up with us. Of note, his last full PFT was in December 2020 showing severe COPD (post-BD FEV1: 1.84L/49%) with a significant bronchodilator response, normal lung volumes with a very severe gas exchange
capacity defect (DLCO: 27%).
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
Impression:
#Spontaneous secondary pneumothorax (SSP) - likely due to ruptured bullae as he has bullous emphysema
#SOB due to above
#Severe COPD/emphysema with very severe gas exchange capacity defect (per PFT from 12/2020)
#CKD (baseline Cr 1.4 - 1.6)
Plan:
- Patient is s/p chest tube placed in ER on 08/23--> no air leak this AM or yesterday while on negative suction at [id number], and there appears to be possible small left apical PTX --> chest tube placed to water seal on 08/24, and today still no air
leak, and chest tube clamped this AM by cardiothoracic surgery.
- Plan to remove later this evening after repeat CXR
- Continue supplemental O2 (4L/min) to help resorb any residual PTX
- Avoid incentive spirometer as the strong inspiratory effort may exacerbate his PTX or cause a new one
- Considering the patient's Hx of bullous emphysema with his first event of SSP, he should be evaluated for pleurodesis with bullectomy - CT Surgery consulted --> recs appreciated; conservative approach recommended and no surgical intervention
indicated at this time
- Maintain SpO2 >88-94% with supplemental O2 as needed
- Replete electrolytes with K>4, Mg>2
- Maintain euglycemia with goal BG >100 and <180
- prn nebulized bronchodilators and continue DuoNebs QID (his home dose) with Budesonide
- DVT ppx
Pulmonary service will continue to follow along.
Total time spent today was 35 minutes for this encounter. Time includes reviewing laboratory test/imaging results, reviewing pertinent medical records, obtaining and reviewing medical history, performing an appropriate exam, ordering medications,
tests and procedures. Time also includes documentation of this encounter, coordinating patient care and communicating with other healthcare professionals. Total time does not include separately billed tests performed on this date of service.
Data:
CXR 08-26-2023: Left pleural pigtail catheter is present; Correlating with prior CT examination, bullous changes of emphysema are seen within both upper lungs. No convincing evidence for significant pneumothorax.
CXR 08-25-2023: Left basilar chest tube slightly more proximally positioned in comparison to study of preceding day; Suspected small left apical pneumothorax, unchanged.
CXR 08-24-2023: Moderate to large left pneumothorax without mediastinal shift.
Subjective Data
-
Date of Service:
Date of Service: August 26, 2023
Chief Complaint: Pulmonary Follow Up
Subjective:
Patient seen today. Doing well with no complaints although he wants the chest tube removed as it is bothersome. No acute events reported overnight. Remains on 2 L/min nasal cannula. Denies headache, abdominal pain, nausea, fevers or chills.
Review of Systems
General: Other (Negative unless mentioned above)
Objective Data
Data Reviewed
Vital Signs / I&O / Oxygen:
Vital Signs
Temp Pulse Resp BP Pulse Ox
97.6 F 90 18 105/80 97
08/26/23 15:02 08/26/23 16:11 08/26/23 16:11 08/26/23 16:10 08/26/23 18:00
Intake and Output
08/25/23 08/26/23 08/27/23
06:59 06:59 06:59
Intake Total 240 / 240
Output Total 450 / 450 565 / 565 350 / 350
Balance -210 / -210 -565 / -565 -350 / -350
SaO2 97
Nasal Cannula flow liters per 1
minute
Physical Exam
General: Respiratory Distress (Negative) and Comfortable
HEENT: Normocephalic and Anicteric
Cardiovascular: S1-S2 and Peripheral Edema (negative)
Respiratory: Wheeze (negative), Crackles (bibasilar), Rhonchi (negative), Non-Labored Respirations and Chest Tube (left-sided)
GI: Soft, Non Distended and Non Tender
Neurology: AO x 3
Skin: Warm and Dry
Labs/Micro/Reports
Lab Data
08/26/23 04:23
08/26/23 04:23
--- NOTE | 2023-08-26 15:42 | CM ---
Patient with Dx Left Pneumothorax, Dyspnea and Chest Pain, Persistent Atrial Fibrillation. Room air per nurse. Chest tube - clamping trial. MSAS. Per nurse; patient ambulating ok in room.
No CM d/c needs identified.
Plan home.
--- NOTE | 2023-08-26 16:06 | PTOTSP ---
ST Acute Care Evaluation
Pt presents with functional oral, pharyngeal, and esophageal phases for safe PO intake of all solids and liquids. No overt s/s of penetration or aspiration observed with any of the consistencies trialed. Unfortunately, the compensatory strategies
trialed at bedside were unable to completely remediate pt's globus sensation in the pharynx.
Recommendations:
- Continue with a regular solids diet with thin liquids and meds as tolerated.
- Compensatory strategies: head turn to left during swallow initiations, small bites/sips, alternate bites/sips, eat/drink slowly.
- Consider CT head/neck if there is concern for retention in possible diverticulum.
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 Signing off. Please re-consult if needed.
--- NOTE | 2023-08-26 17:50 | W.PN.UPDATE ---
Update Note
Progress Note Update
CXR reviewed from this afternoon. No pneumothorax appreciated. Case also reviewed with cardiothoracic surgery. They agreed to remove chest tube. Left-sided chest tube removed by me without incident. at bedside and I answered all of her
questions. Patient breathing well after chest tube was removed. He remains on nasal cannula at 1 L/min and is breathing comfortably.
[2023-08-27] VITALS (7 sets, daily range): BP systolic 108–126; BP diastolic 83–95
--- NOTE | 2023-08-27 05:00 | PTCARENOTE ---
Patient had no acute changes overnight. Voiding via urinal. On room air; dyspnea upon exertion, which is unchanged. Denies any pain. Patient hoping to d/c today. call dueñas within reach. pt calls appropriately.
[2023-08-27 06:02] LABS: Hematocrit 39.8 % (39.0-52.0); Mean Corp Hgb Conc. 32.7 g/dL (33.0-37.0); Mean Corpuscular Hgb 32.6 pg (27.0-31.0); Mean Corpuscular Volume 99.7 fL (80.0-94.0); Mean Platelet Volume 9.8 fL (7.4-10.4); Platelet Count 197 10^3/uL (130-400); Red Blood Cell Count 3.99 10^6/uL (4.70-6.10); Red Cell Dist. Width 15.6 % (11.5-14.5)
[2023-08-27 06:28] LABS: Blood Urea Nitrogen 23 mg/dl (9-20); Calcium 9.6 mg/dl (8.4-10.2); Carbon Dioxide 26 mmol/L (22-30); Chloride 104 mmol/L (98-107); Estimated Creatinine Clearance 50 ml/min; Glucose 88 mg/dl (70-99); Potassium 4.3 mmol/L (3.5-5.1); Sodium 136 mmol/L (135-145); eGFR 53.74
[2023-08-27] MEDS: FOLVITE 1 MG PO (07:56)
[2023-08-27] MEDS: PROTONIX 40 MG PO (07:56)
[2023-08-27] MEDS: VITAMIN B1 100 MG PO (07:57)
[2023-08-27] MEDS: TOPROL XL 50 MG PO (07:57)
[2023-08-27] MEDS: ELIQUIS 5 MG PO (07:57)
[2023-08-27] MEDS: CARDIZEM CD 180 MG PO (07:57)
[2023-08-27] MEDS: DUONEB 3 ML INH ×2 (08:11→11:24)
[2023-08-27] MEDS: PULMICORT 0.5 MG INH (08:11)
--- NOTE | 2023-08-27 09:19 | W.PN.PUL3 ---
Today's Communication / Plan
-
Chest x-ray normal
Patient without complaints
Ambulate, disposition
Follow-up with pulmonary as outpatient
Assessment
-
Assessment: 72-year-old male former tobacco smoker with a past medical history of severe COPD, hypertension, history of PE/DVT, paroxysmal A-fib on Eliquis, NICM, VT s/p ICD and history of alcohol use disorder who presents with SOB. Patient was
home watching television when he developed sudden shortness of breath. EMS called and nebulizer treatment given with some relief. Patient was tachycardic in the ER triage and saturating 95% on room air. He was tachycardic to 118 bpm, tachypneic
to 20 breaths/min, saturating 94% on room air and afebrile to 97.6 �F. Labs showed mildly reduced serum bicarbonate of 21, creatinine 1.6, troponin of <0.012, and CXR showed a large left-sided pneumothorax. ER physician placed left-sided chest
tube with significant improvement seen on follow-up CXR. Patient admitted to the hospitalist service and now pulmonary consulted for additional recommendations.
Of note patient previously used to follow with us in the [facility] office with Dr. Nieto. Patient has COPD with emphysema, with normal alpha-1 antitrypsin levels (183) with phenotype MM) he was on Breztri at that time with lev albuterol as needed. He
does have a family history of asthma with his brother. He has a history of the right lower lobe 1 cm nodule seen on his CTA from 04/2020 � PET scan in May 2020 was negative for FDG avidity and follow-up CT chest in December 2020 showed
resolution of the subpleural RLL nodule. He used to use nasal saline spray for postnasal drip. He was previously on amiodarone for his history of A-fib but this was discontinued in November 2019. He was told to follow-up with us in 7 months for
PFTs/6MWT at that time but he never followed up with us. Of note, his last full PFT was in December 2020 showing severe COPD (post-BD FEV1: 1.84L/49%) with a significant bronchodilator response, normal lung volumes with a very severe gas exchange
capacity defect (DLCO: 27%).
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
Impression:
#Spontaneous secondary pneumothorax (SSP) - likely due to ruptured bullae as he has bullous emphysema
#SOB due to above
#Severe COPD/emphysema with very severe gas exchange capacity defect (per PFT from 12/2020)
#CKD (baseline Cr 1.4 - 1.6)
Plan:
At this time, patient is improved. Chest x-ray this morning without pneumothorax
Suspect spontaneous pneumothorax with history of bullous emphysema
Plan to follow conservatively
Patient will continue her outpatient regimen
For discharge today, follow-up with pulmonary in the next few weeks
Reviewed with patient, primary service
Disposition efforts
Data:
CXR 08-26-2023: Left pleural pigtail catheter is present; Correlating with prior CT examination, bullous changes of emphysema are seen within both upper lungs. No convincing evidence for significant pneumothorax.
CXR 08-25-2023: Left basilar chest tube slightly more proximally positioned in comparison to study of preceding day; Suspected small left apical pneumothorax, unchanged.
CXR 08-24-2023: Moderate to large left pneumothorax without mediastinal shift.
Subjective Data
-
Date of Service:
Date of Service: August 27, 2023
Chief Complaint: Pulmonary Follow Up
Subjective:
Patient feels well. Chest tube removed yesterday p.m. without difficulty. Denies shortness of breath, hemoptysis, chest pain. Examined earlier this morning. Late entry
Objective Data
Data Reviewed
Vital Signs / I&O / Oxygen:
Vital Signs
Temp Pulse Resp BP Pulse Ox
98 F 75 14 121/95 96
08/27/23 07:50 08/27/23 08:20 08/27/23 08:20 08/27/23 06:00 08/27/23 08:20
Intake and Output
08/26/23 08/27/23 08/28/23
06:59 06:59 06:59
Intake Total 440 / 440
Output Total 565 / 565 1500 / 1500
Balance -565 / -565 -1060 / -1060
SaO2 96
Nasal Cannula flow liters per 1
minute
Physical Exam
General: Comfortable
HEENT: Normocephalic and Anicteric
Cardiovascular: S1-S2 and Peripheral Edema (negative)
Respiratory: Wheeze (negative), Crackles (bibasilar), Rhonchi (negative) and Non-Labored Respirations
GI: Soft, Non Distended and Non Tender
Neurology: Awake and Alert
Skin: Cyanosis (n), Jaundice (n) and Rash (n)
Labs/Micro/Reports
Lab Data
08/27/23 05:50
08/27/23 05:50
--- NOTE | 2023-08-27 11:43 | W.PN.HOSP.TC ---
Addendum entered and electronically signed by Brad Jacobs MD 08/27/23 16:09:
[id number]
Original Note:
Today's Communication/Plan
-
diltiazem, increase metoprolol
f/u pulm, pcp, cardiology outpatient
Assessment / Plan
Assessment / Plan
eneral: Other (72y M with Marfanoid appearance currently in mild distress due to pain / dyspnea.)
HEENT: Other (Neck supple. Poor dentition.)
Respiratory: Other (Clear bilaterally. No wheezing appreciated. L chest tube in place to water seal)
Cardiac: S1/S2, Irregular Rhythm and Tachycardia; No Murmur
GI: Soft, Non Tender, Non Distended and Normal Bowel Sounds
Musculoskeletal: No Clubbing, No Cyanosis and No Edema
Neuro: AO x 3
Left Pneumothorax
Dyspnea and Chest Pain secondary to the above
- Pigtail chest tube placed- tolerated clamping trial - removed chest tube 08/25. Tolerating well
- CTS consulted - conservative management- f/u outpatient Pulm standpoint
-Appreciate Pulm recs
COPD
- not in exacerbation
- Inhaled medications including adding ICS to current DuoNeb regimen.
- Pulm eval as noted above.
Persistent Atrial Fibrillation with Rapid Ventricular Response
- Continue metoprolol and Diltiazem and increase doses
-F/u cards recs
-Cont Eliquis
Nonischemic Cardiomyopathy
History of VT / VF Arrest
- Stable. No recent issues. AICD in place.
CKD III
- Stable. Renal function is at known baseline.
- Follow for any changes.
DVT Prophylaxis
History of DVT
- Continue Eliquis
Code Status: Full
More than 30 minutes spent in discharge including
Final examination of the patient
Summarizing hospital stay
Instructions for continuing care to all relevant caregivers
Preparation of discharge records, prescriptions, and referral forms
Total time spent (35 in minutes):
Anticipated Discharge: Today
Subjective/Interval History
-
Date of Service: August 27, 2023
feels better
Objective Data
-
Labs:
Laboratory Results
08/27/23
05:50
WBC 12.0 H
Hgb 13.0
Hct 39.8
Plt Count 197
Sodium 136
Potassium 4.3
Chloride 104
Carbon Dioxide 26
BUN 23 H
Creatinine 1.4 H
Glucose 88
Calcium 9.6
Vital Signs:
Vital Signs
Temp Pulse Resp BP Pulse Ox
98 F 91 17 126/93 95
08/27/23 07:50 08/27/23 11:26 08/27/23 11:26 08/27/23 10:00 08/27/23 11:26
I&O
08/26/23 08/27/23 08/28/23
06:59 06:59 06:59
Intake Total 440 / 440
Output Total 565 / 565 1500 / 1500
Balance -565 / -565 -1060 / -1060
Review of Systems
-
History Source: Patient
All other systems: Not reviewed unless documented
Physical Exam
-
General: Well Developed
Respiratory: Clear to Auscultation
Cardiac: Regular Rhythm
GI: Soft and Nontender
Skin: Warm
Neuro: Nonfocal/Grossly Intact
Data Reviewed
-
Diagnostic Radiology: Image personally visualized and interpreted and Report Reviewed by me
Labs: Labs Reviewed by me
--- NOTE | 2023-08-27 11:48 | W.DS.TRANS ---
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
-
Discharge Instructions:
Sleep Apnea Risk Intermediate
Discharge Diagnosis/Procedures #Spontaneous secondary pneumothorax (SSP) -
likely due to ruptured bullae as he has bullous
emphysema
Diet Low Cholesterol,Low Fat
Blood Work cbc in 1 week
Instructions:
Stand-Alone Forms:
Changes to Home Medications: Yes
Discharge Medications:
DC Medications w/original date entered in [employer]
cyanocobalamin (vitamin B-12) 250 mcg tablet 250 mcg PO NOON Supplement 08/11/23
ipratropium 0.5 mg-albuterol 3 mg (2.5 mg base)/3 mL nebulization soln 3 ml inhalation R QID Lung/Breathing Issues 08/11/23
magnesium oxide 250 mg PO NOON Supplement 08/11/23
zinc sulfate 50 mg zinc (220 mg) tablet 50 mg PO NOON Supplement 08/11/23
apixaban 5 mg tablet (Eliquis) 5 mg PO BID Blood Clot Prevention/Tx 08/24/23
cholecalciferol (vitamin D3) 50 mcg (2,000 unit) tablet 50 mcg PO NOON Supplement 08/24/23
ipratropium 20 mcg-albuterol 100 mcg/actuation mist for inhalation (Combivent Respimat) 2 puff inhalation R QIDPRN PRN sob 08/24/23
diltiazem HCl 180 mg capsule,extended release 24 hr 180 mg PO DAILY 30 days #30 caps 08/27/23
metoprolol succinate 50 mg tablet,extended release 24 hr 50 mg PO BID 30 days #60 tabs 08/27/23
Home Medication Changes
diltiazem HCl 180 mg capsule,extended release 24 hr 180 mg PO DAILY 30 days #30 caps 08/27/23
metoprolol succinate 50 mg tablet,extended release 24 hr 50 mg PO BID 30 days #60 tabs 08/27/23
Pending Results: No
--- NOTE | 2023-08-27 13:08 | CM ---
Pt for dc to home with no anticipated needs Identified.
== END 2023-08-27 12:48 | disposition home or self-care (01) | DRG 191 ==
LOC: IMU 07:00
PROVIDERS: ADMITTING PHYSICIAN Hospitalist; ATTENDING PHYSICIAN Internal Medicine; EMERGENCY PHYSICIAN Student in an Organized Health Care Education/Training Program; FAMILY PHYSICIAN Family Medicine; OTHER PHYSICIAN Internal Medicine; OTHER PHYSICIAN Internal Medicine Critical Care Medicine; OTHER PHYSICIAN Physician Assistant Surgical
PROC: 0W9B30Z Drainage of Left Pleural Cavity with Drainage Device, Percutaneous Approach (ICD-10-PCS; 2023-08-24)
DX: J44.9 Chronic obstructive pulmonary disease, unspecified (principal); I13.0 Hypertensive heart and chronic kidney disease with heart failure and stage 1 through stage 4 chronic kidney disease, or unspecified chronic kidney disease; J93.83 Other pneumothorax; I48.19 Other persistent atrial fibrillation; I42.8 Other cardiomyopathies; Z87.891 Personal history of nicotine dependence; J43.9 Emphysema, unspecified; Z95.810 Presence of automatic (implantable) cardiac defibrillator; N18.32 Chronic kidney disease, stage 3b
CPT/HCPCS: 31500; 71045; 71046; 80048; 80053; 83735; 84100; 84484; 85025; 85027; 85610; 92610; 93005; 94640; 96374; 96375; 99291

== ENCOUNTER → 2023-09-07 15:37 | Outpatient (REF) | payer MEDICARE, SELFPAY | LOC: RAD 15:37 | PROVIDERS: ATTENDING PHYSICIAN Nurse Practitioner Adult Health | DX: J93.83 Other pneumothorax (principal); J44.9 Chronic obstructive pulmonary disease, unspecified; R06.09 Other forms of dyspnea | CPT/HCPCS: 71046 ==

== ENCOUNTER 2023-09-07 19:35 | Inpatient (IN) | payer MEDICARE, SELFPAY ==
[2023-09-07] VITALS (7 sets, daily range): BP systolic 106–133; BP diastolic 73–106; BMI 20.7; BMI 19.7
[2023-09-07 17:27] LABS: % Basophils 0.7 % (0-2); % Eosinophils 3.3 % (0-6); % Immature Granulocytes 0.4 % (0-0.5); % Lymphocytes 12.4 % (20.5-51.1); % Monocytes 6.2 % (1.7-9.3); Absolute Basophils 0.1 10^3/uL (0-0.2); Absolute Eosinophils 0.4 10^3/uL (0-0.7); Absolute Immature Granulocytes 0.1 10^3/uL (0-0.05); Absolute Lymphocytes 1.6 10^3/uL (1.2-3.4); Absolute Monocytes 0.8 10^3/uL (0.1-0.6); Absolute Neutrophils 10.2 10^3/uL (1.4-6.5); Hematocrit 39.5 % (39.0-52.0); Hemoglobin 13.1 g/dL (13.0-18.0); Mean Corp Hgb Conc. 33.2 g/dL (33.0-37.0); Mean Corpuscular Hgb 32.1 pg (27.0-31.0); Mean Corpuscular Volume 96.8 fL (80.0-94.0); Mean Platelet Volume 9.2 fL (7.4-10.4); Nucleated Red Blood Cells % 0 % (-); Platelet Count 270 10^3/uL (130-400); Red Blood Cell Count 4.08 10^6/uL (4.70-6.10); Red Cell Dist. Width 15.2 % (11.5-14.5); White Blood Cell Count 13.2 10^3/uL (4.8-10.8)
[2023-09-07 17:41] LABS: ALT (SGPT) 19 U/L (0-50); AST (SGOT) 28 U/L (17-59); Albumin 4.4 g/dl (3.5-5.0); Alkaline Phosphatase 138 U/L (38-126); Blood Urea Nitrogen 28 mg/dl (9-20); Calcium 10.1 mg/dl (8.4-10.2); Carbon Dioxide 24 mmol/L (22-30); Chloride 104 mmol/L (98-107); Estimated Creatinine Clearance 41 ml/min; Glucose 101 mg/dl (70-99); INR 1.42; PT 17.5 Sec (11.4-14.6); Potassium 4.3 mmol/L (3.5-5.1); Sodium 140 mmol/L (135-145); Total Bilirubin 1.4 mg/dl (0.2-1.3); Total Protein 7.6 g/dl (6.3-8.2); eGFR 42.57
[2023-09-07 17:42] LABS: APTT 37.6 Sec (23.4-35.0)
--- NOTE | 2023-09-07 18:09 | ED.GENMED ---
History of Present Illness
General
Chief Complaint: Breathing Problem
Source: patient and records
Exam Limitations: none
Time Seen by Provider: 09/07/23 16:47
Nursing documentation reviewed up to this point in time: agreed with
Travel History
Have you had any contact with someone who has COVID-19?: No
Do you have any symptoms of coronavirus? Fever > 100 degrees, chills, cough, shortness of breath, sore throat, loss of taste or smell, muscle aches, or headache?: No
History of Present Illness
History of Present Illness:
72-year-old male with a past medical history as documented presents for evaluation of shortness of breath found to have recurrent pneumothorax. Patient was just admitted to this hospital 08/24/2023 until 08/27/2023 for spontaneous pneumothorax on the
left. He had a chest tube placed which was maintained until 08/26/2023 at which point it was removed. He was discharged the next day. Today he had a follow-up chest x-ray as an outpatient which showed recurrence of this left-sided pneumothorax.
He says that he has had some shortness of breath since discharge but denies any significant amount of chest pain. He denies any other complaints. He was sent to the emergency room for admission.
Past History
Past History
ED Past Medical History: Arrthythmia (Paroxysmal Atrial fibrillation), CHF (Cardiomyopathy), COPD, HTN, Renal failure (CKD) and Other (GI bleed, splenic and kidney infarcts, DVT 2020)
ED Past Surgical History: Cardiac (Pacemaker defibrillator placed in August of 2011)
Social History
Tobacco: Former smoker
Alcohol: Daily
Drug: None
Personal:
Living: with family
Employment: Not employed
Family History
Family History: Other (Noncontributory)
Review of Systems
Review of Systems
All Other Systems: ROS reviewed and negative except as documented in HPI and ROS
Constitutional: Denies fever or chills
Respiratory: Reports trouble breathing; Denies cough
Cardiac: Denies chest pain or palpitations
ABD/GI: Denies abdominal pain
: Denies flank pain
Musculoskeletal: Denies neck pain or back pain
Neurological: Denies headache, weakness or numbness
Phy Exam
Physical Exam
Physical Exam:
General: Awake, alert; no acute distress
Head: Normocephalic, atraumatic
Eyes: Conjunctiva normal
Throat: Airway intact, handling secretions
Neck: Trachea midline, supple without meningismus
Lungs: Normal respiratory rate, normal pulse ox on room air; slightly diminished at the left lung apex otherwise clear to auscultation bilaterally, no wheezing, rales, rhonchi
Heart: Regular rate and rhythm, no murmurs, gallops, or rubs
Neuro: No gross deficits
Skin: no rash
Extremities: Warm and well-perfused
Scores
Heart Failure Risk
Heart Failure Risk Score: Not Applicable
Heart Score for Chest Pain Patients
STEMI patient?: Not applicable
Withdrawal Assessment of Alcohol
Withdrawal Assessment Completed?: Not applicable
Course
Orders/Labs/Results
Orders:
Orders
09/07/23 16:38
EKG [Electrocardiogram (*1)] Urgent
Reason for Study: Hypertension, Benign
09/07/23 16:39
EKG- Treatment ONCE
09/07/23 17:21
Complete Blood Count/With Diff Urgent
Comprehensive Metabolic Panel Urgent
PTT Urgent
Prothrombin Time Urgent
09/07/23 18:30
Admit/Transfer Patient As Directed
Co-Sign Provider:
Level of Care: Inpatient admission
Assign to:: Telemetry
Physician / Group: ariana
Diagnosis: leftpnuemothorax
Reason for Telemetry: Arrhythmia
Date to Stop Telemetry: 09/10/23
Time to Stop Telemetry: 11:00
Reason for Hospitalization: leftpnuemothorax
Expected length of stay greater than two midnights?: Yes
ELOS- Estimated Length of Stay in days: 2
I certify the patient meets the requirements for IP care: Yes
09/07/23 18:31
Code Status As Directed
Resuscitation Status: Full Code
09/10/23 11:00
DC Protocol for Telemetry ONCE
Abnormal Lab Results
09/07/23
17:21
WBC 13.2 H 10^3/uL
(4.8-10.8)
RBC 4.08 L 10^6/uL
(4.70-6.10)
MCV 96.8 H fL
(80.0-94.0)
MCH 32.1 H pg
(27.0-31.0)
RDW 15.2 H %
(11.5-14.5)
Abs Immat Gran (auto) 0.1 H 10^3/uL
(0-0.05)
Absolute Neuts (auto) 10.2 H 10^3/uL
(1.4-6.5)
Absolute Monos (auto) 0.8 H 10^3/uL
(0.1-0.6)
Neutrophils % 77.0 H %
(42.2-75.2)
Lymphocytes % 12.4 L %
(20.5-51.1)
PT 17.5 H Sec
(11.4-14.6)
APTT 37.6 H Sec
(23.4-35.0)
BUN 28 H mg/dl
(9-20)
Creatinine 1.7 H mg/dL
(0.7-1.3)
Glucose 101 H mg/dl
(70-99)
Total Bilirubin 1.4 H mg/dl
(0.2-1.3)
Alkaline Phosphatase 138 H U/L
(38-126)
09/07/23 17:21
09/07/23 17:21
Vital Signs
Initial and Last Documented VS:
Initial Vital Signs
Temp Pulse Resp BP Pulse Ox
36.9 C 57 16 106/73 98
09/07/23 16:41 09/07/23 16:41 09/07/23 16:41 09/07/23 16:41 09/07/23 16:41
Last Documented Vital Signs
Temp Pulse Resp BP Pulse Ox
36.9 C 78 20 133/89 97
09/07/23 16:41 09/07/23 19:00 09/07/23 18:45 09/07/23 18:30 09/07/23 19:00
MDM/Problems Addressed
Differential Diagnosis Includes:
Pneumothorax
MDM/Problems Addressed:
72-year-old male recent admission for left pneumothorax presents with recurrence on outpatient x-ray. Has mild shortness of breath but minimally symptomatic. Vital signs are stable. Reviewed x-ray done as an outpatient shows small left apical
pneumothorax. Discussed case with cardiothoracic surgery�on their review likely need chest tube at some point but recommended consultation with interventional radiology for their thoughts on chest tube versus oxygen therapy and observation.
Discussed with interventional radiology who recommended starting on oxygen repeat chest x-ray the morning and can decide at that point whether another chest tube is indicated. This is patient's strong preference as he says that he wishes to forego
chest tube at all costs. Case discussed with hospitalist for admission.
Chronic conditions affecting care:
COPD�higher risk for spontaneous pneumothorax
*Radiology
Radiology exam reviewed: radiology read reviewed
*Pulse Oximetry
Patient hypoxic: no
*EKG
Interpreted by ED Provider?: Yes
Heart Rate: 70
Rhythm: other (Atrial paced)
*Critical Care Note
Total Time (30-74mins, 75-104mins- exclusive of procedures): Not Applicable
Data Reviewed
Review of Other/Old Records Reveals: Labs, Records, Radiology Studies and Discharge Summary
Source: patient and records
Prescriptions/Medications Considered But Not Given:
Considered placing chest tube and consultation with specialists
Patient Management
Discussion with other providers: Hospitalist (Discussed with hospitalist) and Clinical Director (Discussed with cardiothoracic surgery, discussed with interventional radiology)
Escalation/DeEscalation of care consider admission/obs:
Admission indicated
ED Attending Note
-
Portions of this chart may have been created with voice recognition software.� Occasional wrong word or��sound alike� substitutions may have occurred due to the inherent limitations of voice recognition software.
Discharge Plan
Departure
Patient Disposition: Admit
Date of Disposition: 09/07/23
Time of Disposition: 18:12
Admit to doctor: Walter
Presentation/result/management discussed w/ accepting MD/DO: Hospitalist
Discharge Problem:
Recurrent spontaneous pneumothorax
Interventions
Interventions:
*Risk Screen - Suicide Last Done: 09/07/23 16:41
*General Assessment Last Done: 09/07/23 17:18
*Neglect/Abuse Screening Last Done: 09/07/23 16:41
ED- Fall Risk Assessment Last Done: 09/07/23 16:41
*ED COVID-19 Vaccine History Last Done: 09/07/23 17:18
ED- Cardiac Assessment Last Done: 09/07/23 17:46
ED- Pulmonary Assessment Last Done: 09/07/23 17:16
--- NOTE | 2023-09-07 18:32 | HPS.HSE ---
Family Physician
-
Family Physician: Yazan Quinn
Chief Complaint
-
shortness of breath
History of Present Illness
72-year-old male past medical history of spontaneous left pneumothorax, COPD intermittently uses home oxygen, persistent atrial fibrillation, nonischemic cardiomyopathy, history of VT/V-fib arrest with ICD, CKD 3, history of DVT presenting with
worsening shortness of breath over the past 2 days. He followed up with pulmonary today who recommended chest x-ray which showed pneumothorax once again. He was recommended to come to the emergency room. He denies any chest pain.
He did have some palpitations earlier but this has resolved.
Patient with 8 ounces of vodka every day which he last drink last night.
Patient was just admitted from 08/23 to 08/26 for spontaneous secondary pneumothorax status post chest tube. Chest tube was removed on 08/25. Patient also had atrial fibrillation RVR diltiazem was added.
Medical History
Past Medical History
Past Medical History: Reports Other (spontaneous left pneumothorax, COPD intermittently uses home oxygen, persistent atrial fibrillation, nonischemic cardiomyopathy, history of VT/V-fib arrest with ICD, CKD 3, history of DVT)
Past Surgical History: Reports None
Social History
Tobacco: Former Smoker
Alcohol: Daily
Drug: None
Family History
Family History: Not pertinent
Allergies / Home Medications
Allergies reflects when Allergies were last updated in [facility].
Home Medications with original date entered in [facility]
Allergy/Medication List:
Allergies
Allergy/AdvReac Type Severity Reaction Status Date / Time
bee venom protein (honey bee) Allergy Rash,chest Verified 09/07/23 16:45
tightness,
local
diffuse
swelling
Home Medications
cyanocobalamin (vitamin B-12) 250 mcg tablet 250 mcg PO NOON Supplement 08/11/23
ipratropium 0.5 mg-albuterol 3 mg (2.5 mg base)/3 mL nebulization soln 3 ml inhalation R QID Lung/Breathing Issues 08/11/23
magnesium oxide 250 mg PO NOON Supplement 08/11/23
zinc sulfate 50 mg zinc (220 mg) tablet 50 mg PO NOON Supplement 08/11/23
apixaban 5 mg tablet (Eliquis) 5 mg PO BID Blood Clot Prevention/Tx 08/24/23
cholecalciferol (vitamin D3) 50 mcg (2,000 unit) tablet 50 mcg PO NOON Supplement 08/24/23
ipratropium 20 mcg-albuterol 100 mcg/actuation mist for inhalation (Combivent Respimat) 2 puff inhalation R QIDPRN PRN sob 08/24/23
diltiazem HCl 180 mg capsule,extended release 24 hr 180 mg PO DAILY 30 days #30 caps 08/27/23
metoprolol succinate 50 mg tablet,extended release 24 hr 50 mg PO BID 30 days #60 tabs 08/27/23
Review of Systems
-
History Source: Patient
A 12 point ROS was completed and negative except as noted: Yes
Constitutional: Reports No Symptoms
EENT: Reports No Symptoms
Respiratory: Reports See HPI
Cardiac: Reports No Symptoms
Abdomen/GI: Reports No Symptoms
: Reports No Symptoms
Musculoskeletal: Reports No Symptoms
Skin: Reports No Symptoms
Neurological: Reports No Symptoms
Endocrine: Reports No Symptoms
Hematologic/Lymphatic: Reports No Symptoms
Psych: Reports No Symptoms
Physical Exam
Vital Signs
Vital Signs
Temp Pulse Resp BP Pulse Ox
98.4 F 70 25 122/81 98
09/07/23 16:41 09/07/23 18:00 09/07/23 18:00 09/07/23 18:00 09/07/23 18:00
Physical Exam
General: Well Developed, Well Nourished and No Apparent Distress
HEENT: NormoCephalic, Moist mucous membranes and Atraumatic
Respiratory: Wheezes (RLL )
Cardiac: S1/S2 and Regular Rhythm; No Murmur or Rub
GI: Soft, Non Tender, Non Distended and Normal Bowel Sounds; No Organomegaly
Rectal: Deferred by Provider
Musculoskeletal: No Clubbing, No Cyanosis and No Edema
Skin: No Rash
Neuro: Nonfocal/grossly intact
Laboratory Results
-
09/07/23 17:21
09/07/23 17:21
Laboratory Results
PT 17.5 Sec (11.4-14.6) H 09/07/23 17:21
INR 1.42 09/07/23 17:21
APTT 37.6 Sec (23.4-35.0) H 09/07/23 17:21
Total Bilirubin 1.4 mg/dl (0.2-1.3) H 09/07/23 17:21
AST 28 U/L (17-59) 09/07/23 17:21
ALT 19 U/L (0-50) 09/07/23 17:21
Alkaline Phosphatase 138 U/L (38-126) H 09/07/23 17:21
Data Reviewed
-
Lab Data: Labs Reviewed by me
Old Records: Reviewed
Impression/Plan
-
IMPRESSION:
PLAN:
# Recurrent spontaneous secondary left pneumothorax
-Chest x-ray shows recurrent small to moderate left apical pneumothorax after it has previously resolved
-CT surgery was equivocal about chest tube versus observation
-IR recommended observation on O2 overnight and repeat chest x-ray in a.m.
-Hold Eliquis in case chest tube is necessary
-Pulmonary consulted again
History of severe COPD
-Continue inhalers
Persistent atrial fibrillation
-Continue diltiazem
-Continue metoprolol
-Hold Eliquis in case chest tube is required
Nonischemic cardiomyopathy
History of V. tach/V-fib arrest status post ICD
CKD 3
-Renal function
History of DVT in 2020
History of splenic/kidney infarcts
Daily alcohol user
Former smoker
Full code
DVT prophylaxis�heparin
Regular diet
[2023-09-07] MEDS: HEPARIN 5000 UNITS SC (20:43)
[2023-09-07] MEDS: DUONEB 3 ML INH (20:44)
[2023-09-07] MEDS: TOPROL XL 50 MG PO (20:45)
--- NOTE | 2023-09-07 22:00 | PTCARENOTE ---
Received patient from ER, AAOx4. Patient weak, stand and pivot from stretcher to bed. No c/o pain. O2 at 4 L upon arrival to floor, decreased to 2L by RT, pulse ox 96%. Oriented to unit, call dueñas in reach. Plan of care continues.
[2023-09-08 03:34] VITALS: BP 120/78
[2023-09-08] MEDS: DUONEB 3 ML INH ×5 (05:35→19:39)
[2023-09-08 07:51] LABS: ALT (SGPT) 18 U/L (0-50); AST (SGOT) 25 U/L (17-59); Albumin 3.5 g/dl (3.5-5.0); Alkaline Phosphatase 116 U/L (38-126); Blood Urea Nitrogen 21 mg/dl (9-20); Calcium 9.1 mg/dl (8.4-10.2); Carbon Dioxide 25 mmol/L (22-30); Chloride 106 mmol/L (98-107); Estimated Creatinine Clearance 46 ml/min; Glucose 100 mg/dl (70-99); Potassium 4.2 mmol/L (3.5-5.1); Sodium 138 mmol/L (135-145); Total Bilirubin 1.5 mg/dl (0.2-1.3); Total Protein 6.2 g/dl (6.3-8.2); eGFR 49.47
[2023-09-08 07:55] VITALS: BP 123/83
[2023-09-08 08:03] LABS: % Eosinophils 5.8 % (0-6); % Immature Granulocytes 0.3 % (0-0.5); % Lymphocytes 18.7 % (20.5-51.1); % Monocytes 8.2 % (1.7-9.3); Absolute Basophils 0.1 10^3/uL (0-0.2); Absolute Eosinophils 0.5 10^3/uL (0-0.7); Absolute Lymphocytes 1.6 10^3/uL (1.2-3.4); Absolute Monocytes 0.7 10^3/uL (0.1-0.6); Absolute Neutrophils 5.7 10^3/uL (1.4-6.5); Hematocrit 36.6 % (39.0-52.0); Hemoglobin 11.6 g/dL (13.0-18.0); Mean Corp Hgb Conc. 31.7 g/dL (33.0-37.0); Mean Corpuscular Hgb 31.7 pg (27.0-31.0); Nucleated Red Blood Cells % 0 % (-); Platelet Count 242 10^3/uL (130-400); Red Blood Cell Count 3.66 10^6/uL (4.70-6.10); White Blood Cell Count 8.7 10^3/uL (4.8-10.8)
[2023-09-08] MEDS: CARDIZEM CD 180 MG PO (08:39)
[2023-09-08] MEDS: HEPARIN 5000 UNITS SC ×2 (08:40→20:55)
[2023-09-08] MEDS: TOPROL XL 50 MG PO ×2 (08:40→20:50)
--- NOTE | 2023-09-08 08:46 | W.PN.HOSP.TC ---
Today's Communication/Plan
-
CT surgery consult. Pulmonary consult.
Assessment / Plan
Assessment / Plan
Physical exam:
General: Acutely ill. No acute distress
HEENT: Normocephalic, Atraumatic and Moist Mucous Membranes
Respiratory: Decreased breath sounds bilateral; Negative Wheezes, Rales or Rhonchi
Cardiac: Regular Rhythm and S1/S2
GI: Soft, Nontender and Nondistended
Musculoskeletal: No Clubbing, No Cyanosis and No Edema
Neuro: Awake, Alert and Oriented
Psych: Calm
A/P:
# Recurrent spontaneous secondary left pneumothorax
-Chest x-ray shows recurrent small to moderate left apical pneumothorax after it has previously resolved
-CT surgery was equivocal about chest tube versus observation
-IR recommended observation on O2 overnight and repeat chest x-ray in a.m.--> follow-up chest x-ray shows recurrence of small to moderate left apical pneumothorax.
-Pulmonary consult pending. Pulmonary sent me a message requesting CT surgery consultation for further eval.
-As above I requested CT surgery consult today.
-Hold Eliquis in case chest tube is necessary
History of severe COPD
-Continue inhalers
Persistent atrial fibrillation
-Continue diltiazem
-Continue metoprolol
-Hold Eliquis in case chest tube is required
Nonischemic cardiomyopathy
History of V. tach/V-fib arrest status post ICD
CKD 3
-Renal function
History of DVT in 2020
History of splenic/kidney infarcts
Daily alcohol user
Former smoker
Full code
DVT prophylaxis�heparin
Regular diet
Total time spent on today's encounter was 52 minutes which included time spent in counseling the patient/family regarding diagnosis and treatment plan as listed above, goals of care, and symptom management. Case was discussed with nursing staff,
specialists, and care coordinators/case management. All labs and imaging personally reviewed by me. Remainder the time spent in detailed review of previous records, lab data, imaging, and other medical provider documentation.
Anticipated Discharge: > 48 hours
Subjective/Interval History
-
Date of Service: September 08, 2023
Patient denies any chest pain. He is short of breath but nothing worse today. Afebrile
Objective Data
-
Labs:
Laboratory Results
09/08/23
06:22
WBC 8.7
Hgb 11.6 L
Hct 36.6 L
Plt Count 242
Sodium 138
Potassium 4.2
Chloride 106
Carbon Dioxide 25
BUN 21 H
Creatinine 1.5 H
Glucose 100 H
Calcium 9.1
Total Bilirubin 1.5 H
AST 25
ALT 18
Alkaline Phosphatase 116
Vital Signs:
Vital Signs
Temp Pulse Resp BP Pulse Ox
98 F 70 18 123/83 97
09/08/23 07:55 09/08/23 08:39 09/08/23 07:55 09/08/23 08:39 09/08/23 07:55
I&O
09/07/23 09/08/23 09/09/23
06:59 06:59 06:59
Output Total 500 / 500
Balance -500 / -500
[2023-09-08 10:30] VITALS: BMI 19.7
--- NOTE | 2023-09-08 10:42 | CON.PUL ---
Consultation
Consultation Request
Date/Time Consultation Requested: 09/07/2023 - 2206
Date/Time Consultation Performed: 09/08/2023 - 100
Requesting Provider: Dr. Forman
Performing Provider: Dr. De La Paz
Reason for Consultation: Recurrent L-sided PTX
Medical History
-
Chief Complaint: SOB
History of Present Illness:
72-year-old male with a past medical history of COPD with bullous emphysema, former tobacco use with [id number]-[id number] history, quit April 2019, history of PE/DVT, paroxysmal A-fib on Eliquis and history of GI bleed when previously on Coumadin who
presents with SOB and found to have recurrent left-sided pneumothorax. Patient was recently hospitalized from 08/2308/27/2023 due to SOB and found to have a spontaneous secondary pneumothorax due to suspected ruptured bullae. Chest tube was
inserted in the ER at that time. Chest tube was removed on 08/26/2023 after pneumothorax resolved, and he was discharged to home with instruction to follow-up with us in the office. He then saw us in the [facility] office with DANIE Hawk, on
09/07/2023. Since his recent discharge he was feeling little improvement with increasing shortness of breath. SOB was still not as bad as when he was recently hospitalized. He desaturated to 90% after 5 minutes during 6-minute walk test during that
office visit with saturations improved to 92% with recovery. No spirometry performed that day due to recent pneumothorax. CXR was recommended and prednisone was treated for suspected COPD exacerbation. DuoNebs 4 times a day with budesonide BID
was the plan as he was not able to afford an inhaler regimen due to cost. He obtained a CXR and this showed a small�moderate left-sided apical pneumothorax. He was already driving home when he was called to return to the hospital and he was
admitted for further care. Pulmonary now consulted for further recommendations.
Of note patient previously used to follow with us in the [facility] office with Dr. Nieto. Patient has COPD with emphysema, with normal alpha-1 antitrypsin levels (183) with phenotype MM) he was on Breztri at that time with lev albuterol as needed. He
does have a family history of asthma with his brother. He has a history of the right lower lobe 1 cm nodule seen on his CTA from 04/2020 � PET scan in May 2020 was negative for FDG avidity and follow-up CT chest in December 2020 showed
resolution of the subpleural RLL nodule. He used to use nasal saline spray for postnasal drip. He was previously on amiodarone for his history of A-fib but this was discontinued in November 2019. He was told to follow-up with us in 7 months for
PFTs/6MWT at that time but he never followed up with us. Of note, his last full PFT was in December 2020 showing severe COPD (post-BD FEV1: 1.84L/49%) with a significant bronchodilator response, normal lung volumes with a very severe gas exchange
capacity defect (DLCO: 27%).
PMHx: COPD/emphysema, history of tobacco use, hypertension, history of PE/DVT, paroxysmal A-fib on Eliquis, Hx of GI bleed (~7 years ago) while on coumadin, VT s/p ICD, NICM, history of alcohol use disorder, CKD, hypertension, BPH
PSHx: ICD generator change (August 2019), nasal septum surgery
Past Medical History
Past Medical History: Other (Above as per HPI)
Past Surgical History: Other (Above as per HPI)
Social History
Tobacco: Former Smoker (Quit smoking cigarettes in April 2019; prior 79-[id number]-yzay history; occasionally smokes cigars)
Alcohol: Occasional
Drug: Marijuana (Former, quit about 7 years ago) and Other (Prior crack use from [id number])
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
Environmental Exposures: Suspected to have a asbestos exposure while in the [place]
Family History
Family History: Diabetes (Paternal grandmother) and Other (Father: History of stroke; youngest brother: Asthma)
Allergies / Home Medications
Allergies
Allergy/AdvReac Type Severity Reaction Status Date / Time
bee venom protein (honey bee) Allergy Rash,chest Verified 09/07/23 16:45
tightness,
local
diffuse
swelling
Home Medications
�Medication �Instructions �Recorded �Confirmed �Last Taken �Type
cyanocobalamin (vitamin B-12) 250 250 mcg PO NOON Supplement 08/11/23 09/07/23 09/07/23 History
mcg tablet
ipratropium 0.5 mg-albuterol 3 mg 3 ml inhalation R QID 08/11/23 09/07/23 09/07/23 History
(2.5 mg base)/3 mL nebulization Lung/Breathing Issues
soln
magnesium oxide 250 mg PO NOON Supplement 08/11/23 09/07/23 09/07/23 History
zinc sulfate 50 mg zinc (220 mg) 50 mg PO NOON Supplement 08/11/23 09/07/23 09/07/23 History
tablet
apixaban 5 mg tablet (Eliquis) 5 mg PO BID Blood Clot 08/24/23 09/07/23 09/07/23 History
Prevention/Tx
cholecalciferol (vitamin D3) 50 50 mcg PO NOON Supplement 08/24/23 09/07/23 09/07/23 History
mcg (2,000 unit) tablet
diltiazem HCl 180 mg 180 mg PO DAILY 30 days #30 caps 08/27/23 09/07/23 09/07/23 Rx
capsule,extended release 24 hr
metoprolol succinate 50 mg 50 mg PO BID 30 days #60 tabs 08/27/23 09/07/23 09/07/23 Rx
tablet,extended release 24 hr
Review of Systems
-
History Source: Patient
All other systems: Negative unless noted (12 point ROS performed and is negative unless mentioned above.)
Vitals / Labs / Diagnostic Testing
Vital Signs
Temp Pulse Resp BP Pulse Ox
98.5 F 71 18 122/76 98
09/08/23 19:49 09/08/23 19:49 09/08/23 19:49 09/08/23 19:49 09/08/23 19:49
Lab Data
09/08/23 06:22
09/08/23 06:22
Diagnostic Testing:
Physical Exam
-
HEENT: Normocephalic and Anicteric
Cardiovascular: S1/S2
Respiratory: Wheeze (Negative), Rales (Negative), Rhonchi (Negative), Non-Labored Respirations and Other (Diminished breath sounds bilaterally)
GI: Soft, Non Distended and Non Tender
Neurology: AO x 3 and Tremors (Negative)
Skin: Warm and Dry
General: Respiratory Distress (Negative), Comfortable and Other (Cachectic appearing)
Assessment
-
Assessment: 72-year-old male with a PMHx of COPD with bullous emphysema, former tobacco use with 31-[id number]-gtcv history, quit April 2019, history of PE/DVT, paroxysmal A-fib on Eliquis and history of GI bleed when previously on Coumadin who
presents with SOB and found to have recurrent left-sided pneumothorax. Patient was recently hospitalized from 08/2308/27/2023 due to SOB and found to have a spontaneous secondary pneumothorax due to suspected ruptured bullae. Chest tube was
inserted in the ER at that time. Chest tube was removed on 08/26/2023 after pneumothorax resolved, and he was discharged to home with instruction to follow-up with us in the office. He then saw us in the [facility] office with DANIE Hawk, on
09/07/2023. Since his recent discharge he was feeling little improvement with increasing shortness of breath. SOB was still not as bad as when he was recently hospitalized. He desaturated to 90% after 5 minutes during 6-minute walk test during that
office visit with saturations improved to 92% with recovery. No spirometry performed that day due to recent pneumothorax. CXR was recommended and prednisone was treated for suspected COPD exacerbation. DuoNebs 4 times a day with budesonide BID
was the plan as he was not able to afford an inhaler regimen due to cost. He obtained a CXR and this showed a small�moderate left-sided apical pneumothorax. He was already driving home when he was called to return to the hospital and he was
admitted for further care. Pulmonary now consulted for further recommendations.
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
Impression:
#Left-sided recurrent spontaneous secondary pneumothorax (SSP) - likely due to ruptured bullae as he has bullous emphysema
#SOB due to above
#Severe COPD/emphysema with very severe gas exchange capacity defect (per PFT from 12/2020)
#CKD (baseline Cr 1.4 - 1.6)
Plan:
- Left-sided pneumothorax is small�moderate and stable since 09/07/2023.
- No need for chest tube at this time--> continue venturi mask at 40% FiO2 for nitrogen washout and to help resorb his L-sided PTX
- Check CXR again tomorrow AM to assure his L-sided PTX is stable
- I reviewed the case with cardiothoracic surgery, Dr. Beasley, and patient is not a surgical candidate
-Also given that his DLCO was 27% with severe COPD per PFTs from December 2020, it is very unlikely that any lung volume reduction would be of the patient's benefit � this unfortunately does not leave many options for his recurrent pneumothorax
that he is experiencing, including bronchoscopic endobronchial valve therapy (as any further loss of lung function will likely cause more harm then benefit)
- What is encouraging is that his left-sided pneumothorax appears stable since 09/07/2023 � so perhaps we can get away without putting in a chest tube or requiring any other definitive treatment at this time
- If the left-sided pneumothorax does increase, then he will need a chest tube and would consult IR at that time for chemical pleurodesis
- Perhaps doing a chemical pleurodesis would be of benefit even if the PTX remains the same size - this will be discussed with him.
- In meantime, continue supplemental O2 to help resorb any residual PTX (as stated above)
- Avoid incentive spirometer as the strong inspiratory effort may exacerbate his PTX or cause a new one
- Maintain SpO2 >88-94% with supplemental O2 as needed
- Replete electrolytes with K>4, Mg>2
- Maintain euglycemia with goal BG >100 and <180
- prn nebulized bronchodilators and continue DuoNebs QID (his home dose) with Budesonide
- DVT ppx
Pulmonary service will continue to follow along.
Total time spent today was 75 minutes for this encounter. Time includes reviewing laboratory test/imaging results, reviewing pertinent medical records, obtaining and reviewing medical history, performing an appropriate exam, ordering medications,
tests and procedures. Time also includes documentation of this encounter, coordinating patient care and communicating with other healthcare professionals. Total time does not include separately billed tests performed on this date of service.
Data:
CXR 09-08-2023: Left apical and inferolateral pneumothorax stable when compared to the exam the day before.
CXR 09-07-2023: Recurrence of small to moderate left apical pneumothorax, somewhat obscured by left-sided cardiac device.
[2023-09-08 11:35] VITALS: BP 110/68
[2023-09-08] MEDS: MAG-TAB SR 84 MG PO (12:10)
[2023-09-08] MEDS: VITAMIN B-12 250 MCG PO (12:10)
[2023-09-08] MEDS: VITAMIN D3 (cholecalciferol) 50 MCG PO (12:11)
[2023-09-08 14:13] VITALS: BMI 19.7
--- NOTE | 2023-09-08 15:29 | CM ---
Alert awake oriented patient who lives with his Bettie who lives in a 2 story home with 2 step to enter and 0 steps to bed and bathroom. He is independent in all activities of daily living.He was offered VN he requested VN Abner Liaison
notified via TT of referral.He has home Oxygen with [facility].
No VN hx / No SNF history
Pharmacy [facility]
PCP DR Quinn
PLAN Home with VN if accepted
[2023-09-08 15:37] VITALS: BP 114/70
[2023-09-08 19:49] VITALS: BP 122/76
[2023-09-08 23:32] VITALS: BP 119/79
[2023-09-09 03:53] VITALS: BP 131/81
[2023-09-09 06:00] VITALS: BMI 19.6
[2023-09-09 07:18] LABS: Hematocrit 36.6 % (39.0-52.0); Hemoglobin 11.7 g/dL (13.0-18.0); Mean Corpuscular Hgb 31.9 pg (27.0-31.0); Mean Corpuscular Volume 99.7 fL (80.0-94.0); Mean Platelet Volume 9.7 fL (7.4-10.4); Platelet Count 234 10^3/uL (130-400); Red Blood Cell Count 3.67 10^6/uL (4.70-6.10); Red Cell Dist. Width 14.9 % (11.5-14.5); White Blood Cell Count 9.5 10^3/uL (4.8-10.8)
[2023-09-09] MEDS: DUONEB 3 ML INH ×2 (07:20→11:38)
[2023-09-09] MEDS: PULMICORT 0.5 MG INH (07:20)
[2023-09-09 07:40] LABS: Blood Urea Nitrogen 20 mg/dl (9-20); Calcium 9.4 mg/dl (8.4-10.2); Carbon Dioxide 25 mmol/L (22-30); Chloride 105 mmol/L (98-107); Estimated Creatinine Clearance 49 ml/min; Glucose 81 mg/dl (70-99); Potassium 4.2 mmol/L (3.5-5.1); Sodium 138 mmol/L (135-145); eGFR 53.74
[2023-09-09 07:55] VITALS: BP 114/72
--- NOTE | 2023-09-09 08:27 | W.PN.HOSP.TC ---
Addendum entered and electronically signed by Carson Holley MD 09/09/23 13:18:
Severe protein calorie malnutrition
Original Note:
Today's Communication/Plan
-
Chest x-ray today. Pulmonary eval. Oxygen supplementation.
Assessment / Plan
Assessment / Plan
Physical exam:
General: Acutely ill. No acute distress
HEENT: Normocephalic, Atraumatic and Moist Mucous Membranes
Respiratory: Decreased breath sounds bilateral; Negative Wheezes, Rales or Rhonchi
Cardiac: Regular Rhythm and S1/S2
GI: Soft, Nontender and Nondistended
Musculoskeletal: No Clubbing, No Cyanosis and No Edema
Neuro: Awake, Alert and Oriented
Psych: Calm
A/P:
# Recurrent spontaneous secondary left pneumothorax
-Chest x-ray shows recurrent small to moderate left apical pneumothorax after it has previously resolved
-Pulmonary consult appreciated. Pulmonary sent me a message yesterday requesting CT surgery consultation for further eval. I requested CT surgery consult yesterday and they told me unlikely surgical candidate but we will follow-up further
recommendations.
-Pulmonary repeated chest x-ray today and considering IR evaluation for chemical pleurodesis. Chest x-ray with same left apical pneumothorax and emphysematous changes and small left pleural effusion with atelectasis.
-Continue bronchodilators. No incentive spirometry. Monitor electrolytes and glucose and keep within decent parameters.
-Hold Eliquis for possible procedures
History of severe COPD
-Continue inhalers
Persistent atrial fibrillation
-Continue diltiazem
-Continue metoprolol
-Hold Eliquis in case chest tube is required
Nonischemic cardiomyopathy
History of V. tach/V-fib arrest status post ICD
CKD 3
-Renal function
History of DVT in 2020
History of splenic/kidney infarcts
Daily alcohol user
Former smoker
Full code
DVT prophylaxis�heparin
Regular diet
Total time spent on today's encounter was 52 minutes which included time spent in counseling the patient/family regarding diagnosis and treatment plan as listed above, goals of care, and symptom management. Case was discussed with nursing staff,
specialists, and care coordinators/case management. All labs and imaging personally reviewed by me. Remainder the time spent in detailed review of previous records, lab data, imaging, and other medical provider documentation.
Anticipated Discharge: > 48 hours
Subjective/Interval History
-
Date of Service: September 09, 2023
Patient on supplemental oxygen. He feels short of breath today. No chest pain. Afebrile.
Objective Data
-
Labs:
Laboratory Results
09/09/23
06:18
WBC 9.5
Hgb 11.7 L
Hct 36.6 L
Plt Count 234
Sodium 138
Potassium 4.2
Chloride 105
Carbon Dioxide 25
BUN 20
Creatinine 1.4 H
Glucose 81
Calcium 9.4
Vital Signs:
Vital Signs
Temp Pulse Resp BP Pulse Ox
97.9 F 63 18 131/81 99
09/09/23 03:53 09/09/23 07:23 09/09/23 07:23 09/09/23 03:53 09/09/23 07:23
I&O
09/08/23 09/09/23 09/10/23
06:59 06:59 06:59
Intake Total 1020 / 1020
Output Total 500 / 500 350 / 350
Balance -500 / -500 670 / 670
[2023-09-09] MEDS: CARDIZEM CD 180 MG PO (08:32)
[2023-09-09] MEDS: HEPARIN 5000 UNITS SC ×2 (08:33→21:22)
[2023-09-09] MEDS: TOPROL XL 50 MG PO ×2 (08:33→21:22)
--- NOTE | 2023-09-09 09:31 | PN.CDI ---
CDI
- -
CDI:
Physician Documentation Request
Admit Date: 09/07/23 19:35
Dear Doctor Leydi,
Please review the following and provide your response in the progress notes.
Clinical Indicators:
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
#...reports a 15 lb weight loss and inability to consume much at one time
#...due to difficutly breathing for past three months.
#Compared to UBW of 172 lbs pt with 15 lb (9%) weight loss in three months (significant)
#...RD able to visulize, temporal wasting, moderate orbital sunken in, moderate loss over clavical and ribs.
#With observed muscle and fat loss, > 7.5% weight loss in 3 months
#...and <75% estimated needs > 1 month pt meets
#...AND/ASPEN criteria for severe protein calorie malnutrition of chronic illness.
Based on the information and your clinical assessment, please clarify which of the following most accurately represents the patient's nutritional status?
Severe Protein Calorie Malnutrition of Chronic Illness
Other (please specify)
Wedron Criteria (ACP Hospitalist 2017)
2 or more criteria must be present for either
non severe or severe malnutrition
Note that the criteria differs related to the
presence of an acute or chronic illness
Chronic Illness
Energy Intake Non Severe: <75% for >1 month
Severe: <75% for >1 month
Weight Loss Non Severe: 5% over 1 month
7.5% over 3 months
10% over 6 months
20% over 1 year
Severe: >5% over 1 month
>7.5% over 3 months
>10% over 6 months
>20% over 1 year
Body Fat Non Severe: Mild Loss
Severe: Severe Loss
Muscle Mass Non Severe: Mild Loss
Severe: Severe Loss
Use of terms such as suspected, likely, concern for, or probable (associated with a specific diagnosis that is being evaluated, monitored, or treated as if it exists) are acceptable and can be coded in the inpatient setting, when documented at the
time of discharge.
Thank you,
Rebecca Sanchez RN BSN CCDS
CDI Specialist
please contact via tiger text
Please use your independent medical judgment in providing your response.
[2023-09-09 11:46] VITALS: BP 121/69
--- NOTE | 2023-09-09 12:01 | RESPNOTE ---
patient with sudden onset dyspnea at rest, took off O2, SPO2 on RA 94%. RR 22, HR 120, shallow respirations. initially refused scheduled neb,but able to re-direct patient with AARTI Shepherd and patient took nebulizer treatment. pt also c/o generalized
anterior 'achy' chest pain just below nipple line/ central upper gastric region. BS diminished with scattered coarse and fine crackles, diminished aeration but not worsening since admission. pt here with re-current pneumo, pt also significant PMH
severe COPD/emphysema. HR back to 71 s/p neb, RR 18-20. overall dyspnea slightly improved. TT to Dr. Holley and Dr. Garcia.
--- NOTE | 2023-09-09 13:03 | W.PN.PUL3 ---
Today's Communication / Plan
-
CXR reviewed, seems improved on my read
We discussed options for nonsurgical management including watchful waiting at home with serial films, Heimlich valve placement, chest tube placement with pleurodesis
He was ok with discharge planning with serial films as OP but will decide in AM, repeat CXR in AM
Home o2 eval to clarify needs
Will change nebs to inhalers for discharge
Outpatient pulmonary FU to be arranged in 1-2 weeks
Discharge planning in AM
Assessment
-
72-year-old male with a PMHx of COPD with bullous emphysema, former tobacco use with 42-cxka-ecmi history, quit April 2019, history of PE/DVT, paroxysmal A-fib on Eliquis and history of GI bleed when previously on Coumadin who presents with SOB
and found to have recurrent left-sided pneumothorax. Patient was recently hospitalized from 08/2308/27/2023 due to SOB and found to have a spontaneous secondary pneumothorax due to suspected ruptured bullae. Chest tube was inserted in the ER at
that time. Chest tube was removed on 08/26/2023 after pneumothorax resolved, and he was discharged to home with instruction to follow-up with us in the office. He then saw us in the [facility] office with DANIE Hawk, on 09/07/2023. Since his
recent discharge he was feeling little improvement with increasing shortness of breath. SOB was still not as bad as when he was recently hospitalized. He desaturated to 90% after 5 minutes during 6-minute walk test during that office visit with
saturations improved to 92% with recovery. No spirometry performed that day due to recent pneumothorax. CXR was recommended and prednisone was treated for suspected COPD exacerbation. DuoNebs 4 times a day with budesonide BID was the plan as he
was not able to afford an inhaler regimen due to cost. He obtained a CXR and this showed a small�moderate left-sided apical pneumothorax. He was already driving home when he was called to return to the hospital and he was admitted for further
care. Pulmonary now consulted for further recommendations.
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
Impression:
#Left-sided recurrent spontaneous secondary pneumothorax (SSP) - likely due to ruptured bullae as he has bullous emphysema
#SOB due to above
#Severe COPD/emphysema with very severe gas exchange capacity defect (per PFT from 12/2020)
#CKD (baseline Cr 1.4 - 1.6)
Plan:
- Left-sided pneumothorax is small�moderate and stable since 09/07/2023.
- No need for chest tube at this time--> continue venturi mask at 40% FiO2 for nitrogen washout and to help resorb his L-sided PTX
- Check CXR again tomorrow AM to assure his L-sided PTX is stable
This appears better to me, not completely resolved but less
Dr De La Paz reviewed the case with cardiothoracic surgery, Dr. Beasley, and patient is not a surgical candidate
I explained this to patient as well
-Also given that his DLCO was 27% with severe COPD per PFTs from December 2020, it is very unlikely that any lung volume reduction would be of the patient's benefit � this unfortunately does not leave many options for his recurrent pneumothorax
that he is experiencing, including bronchoscopic endobronchial valve therapy (as any further loss of lung function will likely cause more harm then benefit)
- What is encouraging is that his left-sided pneumothorax appears stable since 09/07/2023 � so perhaps we can get away without putting in a chest tube or requiring any other definitive treatment at this time
We discussed options of going home with careful observation and interval OP FU vs continued observation here with/without procedural planning-- we had a long discussion about this
He was ok waiting until tomorrow to go home if CXR stable/improved
If the left-sided pneumothorax does increase, then he will need a chest tube and would consult IR at that time for chemical pleurodesis
Perhaps doing a chemical pleurodesis would be of benefit even if the PTX remains the same size - this will be discussed with him.
Heimlich valve may be tried as well
- In meantime, continue supplemental O2 to help resorb any residual PTX (as stated above)
- Avoid incentive spirometer as the strong inspiratory effort may exacerbate his PTX or cause a new one
- Maintain SpO2 >88-94% with supplemental O2 as needed
Home O2 eval
He notes he was given oxygen by [facility] in past and has at home, he was not explained to why/how to use
We will clarify needs
COPD/emphysema management
Will change his nebs to inhalers for discharge purposes
- Replete electrolytes with K>4, Mg>2
- Maintain euglycemia with goal BG >100 and <180
- prn nebulized bronchodilators and continue DuoNebs QID (his home dose) with Budesonide
- DVT ppx
Outpatient FU recommended
Discharge planning in AM if CXR stable/resolved
Data:
CXR 09-08-2023: Left apical and inferolateral pneumothorax stable when compared to the exam the day before.
CXR 09-07-2023: Recurrence of small to moderate left apical pneumothorax, somewhat obscured by left-sided cardiac device.
Total time spent today was 50 minutes for this encounter. Time includes reviewing laboratory test/imaging results, reviewing pertinent medical records, obtaining and reviewing medical history, performing an appropriate exam, ordering medications,
tests and procedures. Time also includes documentation of this encounter, coordinating patient care and communicating with other healthcare professionals. Total time does not include separately billed tests performed on this date of service.
Subjective Data
-
Date of Service:
Date of Service: September 09, 2023
Chief Complaint: Pulmonary Follow Up
Subjective:
no acute events ON, remains on room air
SOB remains at rest and with minimal exertion
Objective Data
Data Reviewed
Vital Signs / I&O / Oxygen:
Vital Signs
Temp Pulse Resp BP Pulse Ox
98.6 F 71 20 121/69 94
09/09/23 11:46 09/09/23 11:58 09/09/23 11:58 09/09/23 11:46 09/09/23 11:58
Intake and Output
09/08/23 09/09/23 09/10/23
06:59 06:59 06:59
Intake Total 1020 / 1020
Output Total 500 / 500 350 / 350
Balance -500 / -500 670 / 670
SaO2 94
Nasal Cannula flow liters per 2
minute
Physical Exam
General: Comfortable and Other (NAD, thin, weak appearing)
HEENT: Normocephalic, Anicteric and Moist Mucous Membranes
Cardiovascular: S1-S2 and Regular Rhythm
Respiratory: Clear and Non-Labored Respirations
GI: Soft, Non Distended and Non Tender
Neurology: Awake, Alert, Oriented, AO x 3 and No Motor Deficits
Skin: Warm, Dry and Other (pale)
Labs/Micro/Reports
Lab Data
09/09/23 06:18
09/09/23 06:18
[2023-09-09] MEDS: MAG-TAB SR 84 MG PO (13:06)
[2023-09-09] MEDS: VITAMIN D3 (cholecalciferol) 50 MCG PO (13:06)
[2023-09-09] MEDS: VITAMIN B-12 250 MCG PO (13:07)
[2023-09-09] MEDS: SPIRIVA RESPIMAT 2.5 MCG INH (14:54)
--- NOTE | 2023-09-09 15:48 | CM ---
Pulmonary involved.
Maintained on home oxygen from [facility].
[place] drive him [place] at [place].
Requested [facility] . [facility] saw patient.
PLAN Home with [facility]
[2023-09-09 15:55] VITALS: BP 121/73
--- NOTE | 2023-09-09 16:22 | VNURNOTE ---
Home Health Liaison met with patient at 1145 to discuss [facility] nurse/therapy, visits, schedule and homebound status. Patient is agreeable and understands that visits at home will be 2-3 x per week to assess and teach medical management.
Patient is aware that [facility] will contact him for start of care in 1-2 days after discharge from .
[facility] referral completed in [facility].
[2023-09-09 19:00] VITALS: BP 129/75
[2023-09-09] MEDS: SYMBICORT 160/4.5 MCG INHALER 2 PUFF INH (19:20)
[2023-09-09 23:39] VITALS: BP 124/76
[2023-09-10] VITALS (19 sets, daily range): BP systolic 70–139; BP diastolic 72–94; BMI 19.9
[2023-09-10] MEDS: DUONEB 3 ML INH ×2 (02:14→07:50)
[2023-09-10 07:19] LABS: Hematocrit 37.7 % (39.0-52.0); Hemoglobin 12.3 g/dL (13.0-18.0); Mean Corp Hgb Conc. 32.6 g/dL (33.0-37.0); Mean Corpuscular Hgb 31.6 pg (27.0-31.0); Mean Corpuscular Volume 96.9 fL (80.0-94.0); Mean Platelet Volume 9.4 fL (7.4-10.4); Platelet Count 248 10^3/uL (130-400); Red Blood Cell Count 3.89 10^6/uL (4.70-6.10); Red Cell Dist. Width 15.1 % (11.5-14.5); White Blood Cell Count 9.5 10^3/uL (4.8-10.8)
[2023-09-10 07:43] LABS: Blood Urea Nitrogen 22 mg/dl (9-20); Calcium 9.6 mg/dl (8.4-10.2); Carbon Dioxide 28 mmol/L (22-30); Chloride 104 mmol/L (98-107); Estimated Creatinine Clearance 49 ml/min; Glucose 91 mg/dl (70-99); Potassium 4.5 mmol/L (3.5-5.1); Sodium 138 mmol/L (135-145); eGFR 53.74
[2023-09-10] MEDS: SPIRIVA RESPIMAT 2.5 MCG 2 PUFF INH (07:49)
[2023-09-10] MEDS: SYMBICORT 160/4.5 MCG INHALER 2 PUFF INH ×2 (07:50→19:28)
--- NOTE | 2023-09-10 07:54 | W.PN.HOSP.TC ---
Today's Communication/Plan
-
Plan for chest tube placement.
Assessment / Plan
Assessment / Plan
Physical exam:
General: Acutely ill. On distress because of pain and respiratory status.
HEENT: Normocephalic, Atraumatic and Moist Mucous Membranes
Respiratory: Decreased breath sounds bilateral; Negative Wheezes, Rales or Rhonchi
Cardiac: Regular Rhythm and S1/S2
GI: Soft, Nontender and Nondistended
Musculoskeletal: No Clubbing, No Cyanosis and No Edema
Neuro: Awake, Alert and Oriented
Psych: Calm
A/P:
# Recurrent spontaneous secondary left pneumothorax
Chest x-ray shows enlargement pneumothorax
Consulted IR for chest tube
Transferred to IMU
Pain control
Continue oxygen
Discussed with pulmonary today
#Chest pain
Likely related to pneumothorax but given his underlying cardiac risk factors check an EKG and trend troponin
Cardiology evaluation as well
History of severe COPD
-Continue inhalers
Persistent atrial fibrillation
-Continue diltiazem
-Continue metoprolol
-Hold Eliquis since chest tube is required
Nonischemic cardiomyopathy
History of V. tach/V-fib arrest status post ICD
CKD 3
-Renal function
History of DVT in 2020
History of splenic/kidney infarcts
Daily alcohol user
Former smoker
Full code
DVT prophylaxis�heparin
Regular diet
Total time spent on today's encounter was 52 minutes which included time spent in counseling the patient/family regarding diagnosis and treatment plan as listed above, goals of care, and symptom management. Case was discussed with nursing staff,
specialists, and care coordinators/case management. All labs and imaging personally reviewed by me. Remainder the time spent in detailed review of previous records, lab data, imaging, and other medical provider documentation.
Anticipated Discharge: > 48 hours
Subjective/Interval History
-
Date of Service: September 10, 2023
RN requested evaluating patient stat for chest pain. Patient complaining of chest pain, moderate intensity, midsternal, no radiation. He still short of breath although not much worse than before.
Objective Data
-
Labs:
Laboratory Results
09/10/23
06:49
WBC 9.5
Hgb 12.3 L
Hct 37.7 L
Plt Count 248
Sodium 138
Potassium 4.5
Chloride 104
Carbon Dioxide 28
BUN 22 H
Creatinine 1.4 H
Glucose 91
Calcium 9.6
Vital Signs:
Vital Signs
Temp Pulse Resp BP Pulse Ox
97.4 F 73 18 129/88 98
09/10/23 03:37 09/10/23 03:37 09/10/23 03:37 09/10/23 03:37 09/10/23 03:37
I&O
09/09/23 09/10/23 09/11/23
06:59 06:59 06:59
Intake Total 1020 / 1020 540 / 540
Output Total 350 / 350 1175 / 1175
Balance 670 / 670 -635 / -635
--- NOTE | 2023-09-10 09:32 | W.PN.PUL3 ---
Today's Communication / Plan
-
IR consult for L-sided chest tube
Once PTX resolved, would recommend chemical pleurodesis
Home o2 eval to clarify needs
Will change nebs to inhalers for discharge
Outpatient pulmonary FU to be arranged in 1-2 weeks
Discharge planning in AM
Assessment
-
72-year-old male with a PMHx of COPD with bullous emphysema, former tobacco use with [id number] history, quit April 2019, history of PE/DVT, paroxysmal A-fib on Eliquis and history of GI bleed when previously on Coumadin who presents with SOB
and found to have recurrent left-sided pneumothorax. Patient was recently hospitalized from 08/2308/27/2023 due to SOB and found to have a spontaneous secondary pneumothorax due to suspected ruptured bullae. Chest tube was inserted in the ER at
that time. Chest tube was removed on 08/26/2023 after pneumothorax resolved, and he was discharged to home with instruction to follow-up with us in the office. He then saw us in the [facility] office with DANIE Hawk, on 09/07/2023. Since his
recent discharge he was feeling little improvement with increasing shortness of breath. SOB was still not as bad as when he was recently hospitalized. He desaturated to 90% after 5 minutes during 6-minute walk test during that office visit with
saturations improved to 92% with recovery. No spirometry performed that day due to recent pneumothorax. CXR was recommended and prednisone was treated for suspected COPD exacerbation. DuoNebs 4 times a day with budesonide BID was the plan as he
was not able to afford an inhaler regimen due to cost. He obtained a CXR and this showed a small�moderate left-sided apical pneumothorax. He was already driving home when he was called to return to the hospital and he was admitted for further
care. Pulmonary now consulted for further recommendations.
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
Impression:
#Left-sided recurrent spontaneous secondary pneumothorax (SSP) - likely due to ruptured bullae as he has bullous emphysema
#SOB due to above
#Severe COPD/emphysema with very severe gas exchange capacity defect (per PFT from 12/2020)
#CKD (baseline Cr 1.4 - 1.6)
Plan:
- Left-sided pneumothorax is now enlarging --> chest tube needs to be placed at this time --> consult IR
- Continue venturi mask at 40% FiO2 for nitrogen washout and to help resorb his L-sided PTX
Dr De La Paz reviewed the case with cardiothoracic surgery, Dr. Beasley, and patient is not a surgical candidate
-Also given that his DLCO was 27% with severe COPD per PFTs from December 2020, it is very unlikely that any lung volume reduction would be of the patient's benefit � this unfortunately does not leave many options for his recurrent pneumothorax
that he is experiencing, including bronchoscopic endobronchial valve therapy (as any further loss of lung function will likely cause more harm then benefit)
Given he now has a chest tube, keep on negative suction, and once it has resolved, consult IR for chemical pleurodesis
- Avoid incentive spirometer as the strong inspiratory effort may exacerbate his PTX or cause a new one
- Maintain SpO2 >88-94% with supplemental O2 as needed
Home O2 eval prior to discharge
He notes he was given oxygen by [facility] in past and has at home, he was not explained to why/how to use
We will clarify needs via walking pulse ox prior to discharge to properly assess what he requires with rest/activity
COPD/emphysema management
Will change his nebs to inhalers for discharge purposes
- Replete electrolytes with K>4, Mg>2
- Maintain euglycemia with goal BG >100 and <180
- prn nebulized bronchodilators and continue DuoNebs QID (his home dose) with Budesonide
- DVT ppx
Outpatient FU recommended
Discharge planning in AM if CXR stable/resolved
Patient was seen and evaluated on 09/10/2023.
Data:
CXR 09-10-2023: Marked interval progression of now moderate to large left pneumothorax measuring up to 6.5 cm of pleural separation. No definite tension.
CXR 09-08-2023: Left apical and inferolateral pneumothorax stable when compared to the exam the day before.
CXR 09-07-2023: Recurrence of small to moderate left apical pneumothorax, somewhat obscured by left-sided cardiac device.
Total time spent today was 50 minutes for this encounter. Time includes reviewing laboratory test/imaging results, reviewing pertinent medical records, obtaining and reviewing medical history, performing an appropriate exam, ordering medications,
tests and procedures. Time also includes documentation of this encounter, coordinating patient care and communicating with other healthcare professionals. Total time does not include separately billed tests performed on this date of service.
Subjective Data
-
Date of Service:
Date of Service: September 10, 2023
Chief Complaint: Pulmonary Follow Up
Subjective:
Seen today. L-sided PTX worsening. Going for IR for chest tube. He still feels SOB, no AGUILAR, abd pain, N/V/f/c.
Review of Systems
General: Other (negative unless mentioned above)
Objective Data
Data Reviewed
Vital Signs / I&O / Oxygen:
Vital Signs
Temp Pulse Resp BP Pulse Ox
98.1 F 79 22 127/88 94
09/10/23 07:00 09/10/23 07:55 09/10/23 07:55 09/10/23 07:00 09/10/23 07:55
Intake and Output
09/09/23 09/10/23 09/11/23
06:59 06:59 06:59
Intake Total 1020 / 1020 540 / 540
Output Total 350 / 350 1175 / 1175
Balance 670 / 670 -635 / -635
SaO2 94
Nasal Cannula flow liters per 5
minute
Physical Exam
General: Respiratory Distress (n), Comfortable and Other (NAD, thin, weak appearing)
HEENT: Normocephalic and Anicteric
Cardiovascular: S1-S2 and Peripheral Edema (n)
Respiratory: Clear, Wheeze (n) and Non-Labored Respirations
GI: Soft, Non Distended and Non Tender
Neurology: Awake, Alert, Oriented, AO x 3 and No Motor Deficits
Skin: Warm, Dry and Other (pale)
Labs/Micro/Reports
Lab Data
09/10/23 06:49
09/10/23 06:49
[2023-09-10] MEDS: FLUSH (NSS) 1 FLUSH IV (09:47)
[2023-09-10] MEDS: CARDIZEM CD 180 MG PO (09:48)
[2023-09-10] MEDS: HEPARIN 5000 UNITS SC ×2 (09:48→20:33)
[2023-09-10] MEDS: TOPROL XL 50 MG PO ×2 (09:48→20:33)
[2023-09-10] MEDS: MORPHINE SULFATE 1 MG IV (10:34)
--- NOTE | 2023-09-10 10:48 | CM ---
Patient seen at bedside with physician. Patient with c/o chest pain per nursing. Patient not medically appropriate for discharge at this time. CM will continue to follow for discharge planning needs.
Plan; home with [facility] to follow
--- NOTE | 2023-09-10 11:00 | PTCARENOTE ---
At 0940, pt reporting that he is experiencing chest pain, rating 8/10 over left chest to mid, sharp pain. He said worse if he is taking a deep breath. No nausea. Pt states SOB is worse than what it was. BP 119/80, HR 70. SpO2 97% on 5L via Venti
mask. EKG done per protocol. Dr. Holley aware and in to see pt. Administered ordered Morphine 1mg IV at 1034 with some effect. Pt's breathing eased with Morphine, pain decreased to 5/10, tolerable to pt. Continuing to monitor.
[2023-09-10 11:23] LABS: Troponin I < 0.012 ng/ml
--- NOTE | 2023-09-10 12:15 | PTCARENOTE ---
Provided report to Sarahy in IR and pt transported at this time via stretcher to IR.
[2023-09-10] MEDS: MORPHINE SULFATE 2 MG IV ×2 (12:41→20:32)
--- NOTE | 2023-09-10 13:21 | W.PN.UPDATE ---
Update Note
Progress Note Update
- 16F Left chest tube placed uneventfully. Tip within the left apex. -20 cm suction. CXR ordered for tomorrow.
--- NOTE | 2023-09-10 13:38 | PTCARENOTE ---
Provided report to Yulissa in IMU. Pt's belongings taken to rm [id number] in IMU.
[2023-09-10] MEDS: MAG-TAB SR PO (14:07)
[2023-09-10] MEDS: VITAMIN B-12 PO (14:08)
[2023-09-10] MEDS: VITAMIN D3 (cholecalciferol) PO (14:08)
[2023-09-10] MEDS: ZOFRAN 4 MG IV (14:26)
--- NOTE | 2023-09-10 14:39 | PTCARENOTE ---
Pt received from IR via stretcher. Aox3. C/o nausea upon arrival, order received for IV Zofran. Administered as ordered with good effect. A paced on tele monitor. Remains tachypneic and SOB at rest, but reports feeling improved. Sating mid 90's on
6L simple mask. Chest tube to -20 wall suction, site C/D/I. No crepitus or air leak noted. at bedside, updated on plan of care. Pt requesting to try to nap at this time. Able to make needs known, call dueñas within reach.
[2023-09-10 20:20] LABS: Troponin I < 0.012 ng/ml
[2023-09-11] VITALS (24 sets, daily range): BP systolic 95–127; BP diastolic 68–99; BMI 19.7
[2023-09-11] MEDS: ProAIR HFA INHALER 2 PUFF INH ×2 (00:06→23:00)
--- NOTE | 2023-09-11 03:00 | PTCARENOTE ---
Pt comfortable at this hour,watching TV eating a snack.Physical assessment is stable,afebrile.A-Paced on monitoring manager.Left Chest tube intact,20cm of suction maintained,Pt on simple mask with 5liters O2.Sats 97%.Pt in high semifowlers
position.Close observation ongoing throughout the night.
[2023-09-11 05:06] LABS: % Basophils 0.8 % (0-2); % Eosinophils 3.7 % (0-6); % Immature Granulocytes 0.2 % (0-0.5); % Monocytes 7.7 % (1.7-9.3); % Neutrophils 75.6 % (42.2-75.2); Absolute Basophils 0.1 10^3/uL (0-0.2); Absolute Eosinophils 0.4 10^3/uL (0-0.7); Absolute Lymphocytes 1.4 10^3/uL (1.2-3.4); Absolute Monocytes 0.9 10^3/uL (0.1-0.6); Absolute Neutrophils 8.5 10^3/uL (1.4-6.5); Hematocrit 35.6 % (39.0-52.0); Hemoglobin 11.7 g/dL (13.0-18.0); Mean Corp Hgb Conc. 32.9 g/dL (33.0-37.0); Mean Corpuscular Hgb 31.9 pg (27.0-31.0); Mean Platelet Volume 9.2 fL (7.4-10.4); Nucleated Red Blood Cells % 0 % (-); Platelet Count 234 10^3/uL (130-400); Red Blood Cell Count 3.67 10^6/uL (4.70-6.10); Red Cell Dist. Width 15.1 % (11.5-14.5); White Blood Cell Count 11.3 10^3/uL (4.8-10.8)
[2023-09-11 05:30] LABS: Blood Urea Nitrogen 25 mg/dl (9-20); Calcium 9.5 mg/dl (8.4-10.2); Carbon Dioxide 28 mmol/L (22-30); Chloride 103 mmol/L (98-107); Estimated Creatinine Clearance 43 ml/min; Glucose 80 mg/dl (70-99); Magnesium 1.9 mg/dl (1.6-2.3); Potassium 4.4 mmol/L (3.5-5.1); Sodium 137 mmol/L (135-145); eGFR 45.78
[2023-09-11 05:45] LABS: Troponin I < 0.012 ng/ml
[2023-09-11] MEDS: SPIRIVA RESPIMAT 2.5 MCG 2 PUFF INH (07:34)
[2023-09-11] MEDS: SYMBICORT 160/4.5 MCG INHALER 2 PUFF INH ×2 (07:34→19:02)
[2023-09-11] MEDS: MORPHINE SULFATE 2 MG IV (07:38)
[2023-09-11] MEDS: FLUSH (NSS) 2 FLUSH IV ×2 (07:41→18:39)
--- NOTE | 2023-09-11 08:08 | PTCARENOTE ---
Assumed care of pt at walking rounds. Pt is alert and oriented x3. A-paced on monitor. Simple mask with pulse ox 94%, pt appears uncomfortable and rates pain 12/10-medicated with Morphine sulfate 2mg. Pain is noted at chest tube site area. Chest
tube intact to -20cm wall suction, no air leak noted, no drainage over night. Pt is tachypneic and with diminished breath sounds bilaterally. Pt reports that his breathing ' feels better than yesterday' Pt reports nasal cannula is 'too drying'. Abd
soft, no pain noted. moving all extremities. Pt ordering breakfast and talking on phone.
[2023-09-11] MEDS: HEPARIN 5000 UNITS SC (08:21)
[2023-09-11] MEDS: TOPROL XL 50 MG PO ×2 (08:21→20:59)
[2023-09-11] MEDS: CARDIZEM CD 180 MG PO (08:21)
--- NOTE | 2023-09-11 10:27 | PTCARENOTE ---
Patient asleep with easy respirations and appears relaxed, simple mask with 5L intact and pulse OX 100. call dueñas within reach
--- NOTE | 2023-09-11 10:27 | W.PN.HOSP.TC ---
Today's Communication/Plan
-
IV steroids. Chest tube in place. Chest x-ray.
Assessment / Plan
Assessment / Plan
Physical exam:
General: Acutely ill. On distress because of pain and respiratory status.
HEENT: Normocephalic, Atraumatic and Moist Mucous Membranes
Respiratory: Decreased breath sounds bilateral; Negative Wheezes, Rales or Rhonchi
Cardiac: Regular Rhythm and S1/S2
GI: Soft, Nontender and Nondistended
Musculoskeletal: No Clubbing, No Cyanosis and No Edema
Neuro: Awake, Alert and Oriented
Psych: Calm
A/P:
# Recurrent spontaneous secondary left pneumothorax
Status post chest tube yesterday by IR.
Follow-up chest x-ray today looks improved.
Pain control
Continue oxygen and wean as able
Pulmonary on board
Might need pleurodesis-defer to pulm and IR.
#Acute hypoxic respiratory insufficiency likely due to COPD and recent pneumothorax
Start IV steroids, dexamethasone 4 mg IV every 6 hours and can do a quick taper if improvement noticed over the next 24 hours.
Continue oxygen, 5 L now. Titrate as able. He is on 2 L of oxygen at home
Continue bronchodilators
#Chest pain
Related to pneumothorax.
Given his underlying cardiac risk factors, I checked EKG and trended troponins yesterday and came back normal. EKG nonischemic and troponin normal x 3.
No need for cardiology evaluation at the moment.
History of severe COPD
-Continue inhalers
Persistent atrial fibrillation
-Continue diltiazem
-Continue metoprolol
-Resume Eliquis today
-Reached out to IR and they are okay with restarting anticoagulation as above
Nonischemic cardiomyopathy
History of V. tach/V-fib arrest status post ICD
CKD 3
-Renal function
History of DVT in 2020
History of splenic/kidney infarcts
Daily alcohol user
Former smoker
Full code
DVT prophylaxis�switch heparin to Eliquis.
Regular diet
Total time spent on today's encounter was 52 minutes which included time spent in counseling the patient/family regarding diagnosis and treatment plan as listed above, goals of care, and symptom management. Case was discussed with nursing staff,
specialists, and care coordinators/case management. All labs and imaging personally reviewed by me. Remainder the time spent in detailed review of previous records, lab data, imaging, and other medical provider documentation.
Anticipated Discharge: > 48 hours
Subjective/Interval History
-
Date of Service: September 11, 2023
Patient noticed more short of breath today. Dry cough. Afebrile. On 5 L of oxygen.
Objective Data
-
Labs:
Laboratory Results
09/11/23
04:52
WBC 11.3 H
Hgb 11.7 L
Hct 35.6 L
Plt Count 234
Sodium 137
Potassium 4.4
Chloride 103
Carbon Dioxide 28
BUN 25 H
Creatinine 1.6 H
Glucose 80
Calcium 9.5
Vital Signs:
Vital Signs
Temp Pulse Resp BP Pulse Ox
97.5 F 70 16 114/78 94
09/11/23 08:21 09/11/23 08:21 09/11/23 07:39 09/11/23 08:21 09/11/23 08:02
I&O
09/10/23 09/11/23 09/12/23
06:59 06:59 06:59
Intake Total 540 / 540 420 / 420
Output Total 1175 / 1175 1825 / 1825 200 / 200
Balance -635 / -635 -1405 / -1405 -200 / -200
--- NOTE | 2023-09-11 12:10 | W.PN.PUL3 ---
Today's Communication / Plan
-
Continue L-sided chest tube and lwoer suction to -10
Once PTX resolved, would recommend chemical pleurodesis - discuss this with IR; the pt is amenable to this
Home o2 eval to clarify needs
Will change nebs to inhalers for discharge
Outpatient pulmonary FU to be arranged in 1-2 weeks
Assessment
-
72-year-old male with a PMHx of COPD with bullous emphysema, former tobacco use with [id number] history, quit April 2019, history of PE/DVT, paroxysmal A-fib on Eliquis and history of GI bleed when previously on Coumadin who presents with SOB
and found to have recurrent left-sided pneumothorax. Patient was recently hospitalized from 08/2308/27/2023 due to SOB and found to have a spontaneous secondary pneumothorax due to suspected ruptured bullae. Chest tube was inserted in the ER at
that time. Chest tube was removed on 08/26/2023 after pneumothorax resolved, and he was discharged to home with instruction to follow-up with us in the office. He then saw us in the [facility] office with DANIE Hawk, on 09/07/2023. Since his
recent discharge he was feeling little improvement with increasing shortness of breath. SOB was still not as bad as when he was recently hospitalized. He desaturated to 90% after 5 minutes during 6-minute walk test during that office visit with
saturations improved to 92% with recovery. No spirometry performed that day due to recent pneumothorax. CXR was recommended and prednisone was treated for suspected COPD exacerbation. DuoNebs 4 times a day with budesonide BID was the plan as he
was not able to afford an inhaler regimen due to cost. He obtained a CXR and this showed a small�moderate left-sided apical pneumothorax. He was already driving home when he was called to return to the hospital and he was admitted for further
care. Pulmonary now consulted for further recommendations.
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
Impression:
#Left-sided recurrent spontaneous secondary pneumothorax (SSP) s/p 16 Fr chest tube placed by IR on 09/10/2023- likely due to ruptured bullae as he has bullous emphysema
#SOB due to above
#Severe COPD/emphysema with very severe gas exchange capacity defect (per PFT from 12/2020)
#CKD (baseline Cr 1.4 - 1.6)
Plan:
- Left-sided pneumothorax is now enlarging --> small bore chest tube placed on 09/10/[address] De La Paz reviewed the case with cardiothoracic surgery, Dr. Beasley, and patient is not a surgical candidate
-Also given that his DLCO was 27% with severe COPD per PFTs from December 2020, it is very unlikely that any lung volume reduction would be of the patient's benefit � this unfortunately does not leave many options for his recurrent pneumothorax
that he is experiencing, including bronchoscopic endobronchial valve therapy (as any further loss of lung function will likely cause more harm then benefit)
Given he now has a chest tube, keep on negative suction, and once it has resolved, consult IR for chemical pleurodesis
I lowered his suction down to -[id number] this afternoon --> plan to place to water seal tomorrow and then clamp from there
- Avoid incentive spirometer as the strong inspiratory effort may exacerbate his PTX or cause a new one
- Maintain SpO2 >88-94% with supplemental O2 as needed
Home O2 eval prior to discharge
He notes he was given oxygen by [facility] in past and has at home, he was not explained to why/how to use
We will clarify needs via walking pulse ox prior to discharge to properly assess what he requires with rest/activity
COPD/emphysema management
Will change his nebs to inhalers for discharge purposes
- Replete electrolytes with K>4, Mg>2
- Maintain euglycemia with goal BG >100 and <180
- prn nebulized bronchodilators and continue DuoNebs QID (his home dose) with Budesonide
- DVT ppx
Outpatient FU recommended
Discharge planning in AM if CXR stable/resolved
Data:
CXR 09-11-2023: No definite residual pneumothorax. Small left pleural effusion, new.
CXR 09-10-2023: Marked interval progression of now moderate to large left pneumothorax measuring up to 6.5 cm of pleural separation. No definite tension.
CXR 09-08-2023: Left apical and inferolateral pneumothorax stable when compared to the exam the day before.
CXR 09-07-2023: Recurrence of small to moderate left apical pneumothorax, somewhat obscured by left-sided cardiac device.
Total time spent today was 35 minutes for this encounter. Time includes reviewing laboratory test/imaging results, reviewing pertinent medical records, obtaining and reviewing medical history, performing an appropriate exam, ordering medications,
tests and procedures. Time also includes documentation of this encounter, coordinating patient care and communicating with other healthcare professionals. Total time does not include separately billed tests performed on this date of service.
Subjective Data
-
Date of Service:
Date of Service: September 11, 2023
Chief Complaint: Pulmonary Follow Up
Subjective:
Seen today at bedside. No definite left-sided pneumothorax seen this AM, with chest tube in place at -20 cm of water. No airleak seen. He feels well but earlier today he had severe pain in left side of his chest. He is currently saturating 91%
on room air, heart rate 71 and BP 107/78.
Review of Systems
General: Other (Negative unless mentioned above)
Objective Data
Data Reviewed
Vital Signs / I&O / Oxygen:
Vital Signs
Temp Pulse Resp BP Pulse Ox
98.4 F 70 16 114/78 94
09/11/23 11:30 09/11/23 08:21 09/11/23 07:39 09/11/23 08:21 09/11/23 08:02
Intake and Output
09/10/23 09/11/23 09/12/23
06:59 06:59 06:59
Intake Total 540 / 540 420 / 420
Output Total 1175 / 1175 1825 / 1825 200 / 200
Balance -635 / -635 -1405 / -1405 -200 / -200
SaO2 94
Nasal Cannula flow liters per 5
minute
Physical Exam
General: Respiratory Distress (n), Comfortable and Other (NAD, thin, weak appearing)
HEENT: Normocephalic and Anicteric
Cardiovascular: S1-S2 and Peripheral Edema (n)
Respiratory: Clear, Wheeze (n), Crackles (n), Rhonchi (n) and Non-Labored Respirations
GI: Soft, Non Distended and Non Tender
Neurology: AO x 3 and Tremors (n)
Skin: Warm, Dry and Other (pale)
Labs/Micro/Reports
Lab Data
09/11/23 04:52
09/11/23 04:52
[2023-09-11] MEDS: TORADOL 15 MG IV ×2 (12:41→23:16)
[2023-09-11] MEDS: DECADRON 4 MG IV ×3 (12:42→23:16)
[2023-09-11] MEDS: ELIQUIS 5 MG PO ×2 (12:42→20:59)
[2023-09-11] MEDS: FLUSH (NSS) 3 FLUSH IV (12:43)
[2023-09-11] MEDS: VITAMIN B-12 250 MCG PO (16:28)
[2023-09-11] MEDS: MAG-TAB SR 84 MG PO (16:30)
[2023-09-11] MEDS: VITAMIN D3 (cholecalciferol) 50 MCG PO (16:30)
--- NOTE | 2023-09-11 20:00 | PTCARENOTE ---
Pt received sitting up in bed. Pt states he feels much better. AAOx3 anxious at times. Lungs very diminished. on 5L o2 - weaned to 4L. Left Chest Tube in place. (-) airleak (-) crepitus to -10 suction. Clear yellow output in pleurvac.100% A paced on
the monitor. No c/o pain. + prod cough - stated his production has increased and is green or clear. Using the urinal
[2023-09-12] VITALS (17 sets, daily range): BP systolic 97–132; BP diastolic 62–93; BMI 19.8
[2023-09-12 03:40] LABS: Hematocrit 37.4 % (39.0-52.0); Hemoglobin 12.7 g/dL (13.0-18.0); Mean Corpuscular Hgb 32.3 pg (27.0-31.0); Mean Corpuscular Volume 95.2 fL (80.0-94.0); Mean Platelet Volume 9.4 fL (7.4-10.4); Platelet Count 251 10^3/uL (130-400); Red Blood Cell Count 3.93 10^6/uL (4.70-6.10); Red Cell Dist. Width 14.6 % (11.5-14.5); White Blood Cell Count 13.4 10^3/uL (4.8-10.8)
[2023-09-12] MEDS: ZOFRAN 4 MG IV (03:40)
[2023-09-12 04:18] LABS: Blood Urea Nitrogen 38 mg/dl (9-20); Calcium 10.2 mg/dl (8.4-10.2); Carbon Dioxide 26 mmol/L (22-30); Chloride 102 mmol/L (98-107); Estimated Creatinine Clearance 38 ml/min; Glucose 140 mg/dl (70-99); Potassium 4.9 mmol/L (3.5-5.1); Sodium 137 mmol/L (135-145); eGFR 39.75
[2023-09-12] MEDS: DECADRON 4 MG IV (05:43)
--- NOTE | 2023-09-12 06:11 | SUR.PHASEI ---
Pt reports having a terrible night of sleep. States his stomach is unsettled. Pt given a dose of zofran. States it is not nausea. Has not had a BM x 3 Days. Will attempt BM. Offered to have medication ordered for his constipation. + BS. Pt now on 3L
NC - 97%. No Chest Tube output.
[2023-09-12] MEDS: SPIRIVA RESPIMAT 2.5 MCG 2 PUFF INH (08:08)
[2023-09-12] MEDS: SYMBICORT 160/4.5 MCG INHALER 2 PUFF INH ×2 (08:08→20:02)
[2023-09-12] MEDS: ProAIR HFA INHALER 2 PUFF INH (08:08)
--- NOTE | 2023-09-12 08:16 | W.PN.HOSP.TC ---
Today's Communication/Plan
-
Stop steroids
Bowel regimen
Wean oxygen
Assessment / Plan
Assessment / Plan
Gen-AAOx3, NAD
HEENT-NC, AT, anicteric, clear oral mm
Neck-supple
CV-reg, no M, +S1/S2
Lungs-clear B/L
Abd-soft, NT, ND
Ext-no edema
Musculoskeletal-no cyanosis, clubbing
Skin-warm and dry
Neuro-grossly non-focal
Psych-calm, cooperative
Recurrent spontaneous secondary left pneumothorax
Status post chest tube 09/09 by IR.
Chest x-ray completed today, report pending. I do not see any residual pneumothorax by my read.
Pain control
Continue oxygen and wean as able
Pulmonary on board
Plan for chemical pleurodesis by IR as per pulmonary.
Acute hypoxic respiratory insufficiency - likely due to COPD and recent pneumothorax, doubt COPD exacerbation. Stop systemic steroids.
Oxygenation improving, down to 3 L this morning. He has home oxygen but only uses it as needed.
Continue bronchodilators
LINDSEY on CKD 3B -stop further NSAIDs. Baseline creatinine 1.4-1.6. Currently 1.8 today.
Atypical chest pain -related to pneumothorax. Troponins negative.
Constipation -hospital-acquired, possibly opioid induced given as needed morphine. Bowel regimen ordered. Does not suffer from constipation at home.
History of severe COPD
-Continue inhalers
Persistent atrial fibrillation
-Continue diltiazem
-Continue metoprolol, Eliquis
Nonischemic cardiomyopathy
History of V. tach/V-fib arrest status post ICD
History of DVT in 2020
History of splenic/kidney infarcts
Daily alcohol user
Former smoker
Full code
Anticipated Discharge: > 48 hours
Subjective/Interval History
-
Date of Service: September 12, 2023
Patient seen and examined. Shortness of breath improved. Complaining of constipation.
Objective Data
-
Labs:
Laboratory Results
09/12/23
03:25
WBC 13.4 H
Hgb 12.7 L
Hct 37.4 L
Plt Count 251
Sodium 137
Potassium 4.9
Chloride 102
Carbon Dioxide 26
BUN 38 H
Creatinine 1.8 H
Glucose 140 H
Calcium 10.2
Vital Signs:
Vital Signs
Temp Pulse Resp BP Pulse Ox
97.6 F 70 20 121/76 97
09/12/23 03:20 09/12/23 08:12 09/12/23 08:12 09/12/23 07:00 09/12/23 08:12
I&O
09/11/23 09/12/23 09/13/23
06:59 06:59 06:59
Intake Total 420 / 420 1140 / 1140
Output Total 1825 / 1825 1056 / 1056
Balance -1405 / -1405 84 / 84
Review of Systems
-
History Source: Patient
All other systems: Reviewed and negative
[2023-09-12] MEDS: ELIQUIS 5 MG PO ×2 (08:45→22:27)
[2023-09-12] MEDS: COLACE 100 MG PO (08:45)
[2023-09-12] MEDS: CARDIZEM CD 180 MG PO (08:45)
[2023-09-12] MEDS: TOPROL XL 50 MG PO ×2 (08:45→22:27)
--- NOTE | 2023-09-12 09:57 | PTCARENOTE ---
Assumed care of pt from night RN, pt AAOx3, makes needs known. No c/o pain so far this shift. L chest tube with no output so far this shift, dressing CDI. Pt refused new ordered Miralax but did take stool softener. Currently on 3L O2 NC, SPO2 98%.
Pt reports poor appetite. Will continue to monitor through shift.
--- NOTE | 2023-09-12 12:16 | W.PN.PUL3 ---
Today's Communication / Plan
-
Continue L-sided chest tube and change to continuous water seal (CWS)
Would recommend chemical pleurodesis before chest tube is removed - discuss this with IR; the pt is amenable to this
Home o2 eval to clarify needs
Continue symbicort + Spiriva with prn albuterol
Outpatient pulmonary FU to be arranged in 1-2 weeks
Assessment
-
72-year-old male with a PMHx of COPD with bullous emphysema, former tobacco use with [id number] history, quit April 2019, history of PE/DVT, paroxysmal A-fib on Eliquis and history of GI bleed when previously on Coumadin who presents with SOB
and found to have recurrent left-sided pneumothorax. Patient was recently hospitalized from 08/2308/27/2023 due to SOB and found to have a spontaneous secondary pneumothorax due to suspected ruptured bullae. Chest tube was inserted in the ER at
that time. Chest tube was removed on 08/26/2023 after pneumothorax resolved, and he was discharged to home with instruction to follow-up with us in the office. He then saw us in the [facility] office with DANIE Hawk, on 09/07/2023. Since his
recent discharge he was feeling little improvement with increasing shortness of breath. SOB was still not as bad as when he was recently hospitalized. He desaturated to 90% after 5 minutes during 6-minute walk test during that office visit with
saturations improved to 92% with recovery. No spirometry performed that day due to recent pneumothorax. CXR was recommended and prednisone was treated for suspected COPD exacerbation. DuoNebs 4 times a day with budesonide BID was the plan as he
was not able to afford an inhaler regimen due to cost. He obtained a CXR and this showed a small�moderate left-sided apical pneumothorax. He was already driving home when he was called to return to the hospital and he was admitted for further
care. Pulmonary now consulted for further recommendations.
Chronic conditions [employer]: COPD/emphysema, history of tobacco use, hypertension, history of PE/DVT, paroxysmal A-fib on Eliquis, Hx of GI bleed (~7 years ago) while on coumadin, VT s/p ICD, NICM, history of alcohol use disorder, CKD, hypertension, BPH
Impression:
#Left-sided recurrent spontaneous secondary pneumothorax (SSP) s/p 16 Fr chest tube placed by IR on 09/10/2023- likely due to ruptured bullae as he has bullous emphysema
#SOB due to above
#Severe COPD/emphysema with very severe gas exchange capacity defect (per PFT from 12/2020)
#CKD (baseline Cr 1.4 - 1.6)
Plan:
- Left-sided pneumothorax is had enlarged + small bore chest tube placed on 09/10/2023 by IR --> PTX now resolved on low suction
Dr De La Paz reviewed the case with cardiothoracic surgery, Dr. Beasley, and patient is not a surgical candidate
-Also given that his DLCO was 27% with severe COPD per PFTs from December 2020, it is very unlikely that any lung volume reduction would be of the patient's benefit � this unfortunately does not leave many options for his recurrent pneumothorax
that he is experiencing, including bronchoscopic endobronchial valve therapy (as any further loss of lung function will likely cause more harm then benefit)
Given he now has a chest tube, before removing it please consult IR for chemical pleurodesis
Given left-sided pneumothorax remains resolved on -10 cm of suction, I will place to continuous waterseal for today and possibly clamp tonight w/ CXR in AM
- Avoid incentive spirometer as the strong inspiratory effort may exacerbate his PTX or cause a new one
- Maintain SpO2 >88-94% with supplemental O2 as needed
Home O2 eval prior to discharge
He notes he was given oxygen by [facility] in past and has at home, he was not explained to why/how to use
We will clarify needs via walking pulse ox prior to discharge to properly assess what he requires with rest/activity
COPD/emphysema management
Will change his nebs to inhalers for discharge purposes
- Replete electrolytes with K>4, Mg>2
- Maintain euglycemia with goal BG >100 and <180
- prn nebulized bronchodilators and continue DuoNebs QID (his home dose) with Budesonide
- Check EKG now given his chest pain this AM --> if no concern for ACS, I will order either lidocaine patch vs diclofenac gel for his chest discomfort that I feel is MSK in nature.
- DVT ppx
Outpatient FU recommended
Discharge planning in AM if CXR stable/resolved
Data:
CXR 09-12-2023: No overt residual pneumothorax.
CXR 09-11-2023: No definite residual pneumothorax. Small left pleural effusion, new.
CXR 09-10-2023: Marked interval progression of now moderate to large left pneumothorax measuring up to 6.5 cm of pleural separation. No definite tension.
CXR 09-08-2023: Left apical and inferolateral pneumothorax stable when compared to the exam the day before.
CXR 09-07-2023: Recurrence of small to moderate left apical pneumothorax, somewhat obscured by left-sided cardiac device.
Total time spent today was 35 minutes for this encounter. Time includes reviewing laboratory test/imaging results, reviewing pertinent medical records, obtaining and reviewing medical history, performing an appropriate exam, ordering medications,
tests and procedures. Time also includes documentation of this encounter, coordinating patient care and communicating with other healthcare professionals. Total time does not include separately billed tests performed on this date of service.
Subjective Data
-
Date of Service:
Date of Service: September 12, 2023
Chief Complaint: Pulmonary Follow Up
Subjective:
Patient seen and evaluated today at bedside. CXR performed today shows no left-sided pneumothorax. Has left sided shoulder pain and SS-chest pain, his CP started this AM. He is on -[id number] suction via chest tube, there is no air leak. at
bedside - I answered all her questions.
Review of Systems
General: Other (Negative unless mentioned above)
Objective Data
Data Reviewed
Vital Signs / I&O / Oxygen:
Vital Signs
Temp Pulse Resp BP Pulse Ox
97.4 F 71 20 132/80 97
09/12/23 07:55 09/12/23 08:45 09/12/23 08:12 09/12/23 08:45 09/12/23 08:12
Intake and Output
09/11/23 09/12/23 09/13/23
06:59 06:59 06:59
Intake Total 420 / 420 1140 / 1140
Output Total 1825 / 1825 1056 / 1056
Balance -1405 / -1405 84 / 84
SaO2 97
Nasal Cannula flow liters per 3
minute
Physical Exam
General: Respiratory Distress (n), Comfortable and Other (NAD, thin, weak appearing)
HEENT: Normocephalic and Anicteric
Cardiovascular: S1-S2 and Peripheral Edema (n)
Respiratory: Clear, Wheeze (n), Crackles (n), Rhonchi (n), Non-Labored Respirations and Other (Diminished BS)
GI: Soft, Non Distended and Non Tender
Neurology: AO x 3 and Tremors (n)
Skin: Warm, Dry and Other (pale)
Labs/Micro/Reports
Lab Data
09/12/23 03:25
09/12/23 03:25
[2023-09-12] MEDS: VITAMIN D3 (cholecalciferol) PO (12:17)
[2023-09-12] MEDS: MAG-TAB SR PO (12:17)
[2023-09-12] MEDS: VITAMIN B-12 PO (12:17)
[2023-09-12] MEDS: MORPHINE SULFATE 2 MG IV (14:10)
[2023-09-12] MEDS: DICLOFENAC 1% TOPICAL GEL 2 GRAM TOPICAL (17:36)
[2023-09-12] MEDS: COLACE PO (22:07)
[2023-09-12] MEDS: DICLOFENAC 1% TOPICAL GEL 100 GRAM TOPICAL (22:27)
[2023-09-13] VITALS (17 sets, daily range): BP systolic 70–178; BP diastolic 47–102; BMI 19.8
[2023-09-13] MEDS: MORPHINE SULFATE 2 MG IV (00:22)
--- NOTE | 2023-09-13 06:27 | PTCARENOTE ---
Chest tube clamped at [address] La Paz. Denies any increased SOB. Pt on/off 2L NC. Sp02 90-92% on RA. Sp02 >96% on 2L. Morphine provided for pain/sleep sleep aid per pt request. Pt stated he slept better overnight compared to the previous
night. Constipation resolved. Voiding via urinal. CXR done this morning. Call dueñas within reach.
[2023-09-13 06:44] LABS: ALT (SGPT) 98 U/L (0-50); AST (SGOT) 92 U/L (17-59); Albumin 3.6 g/dl (3.5-5.0); Alkaline Phosphatase 143 U/L (38-126); Blood Urea Nitrogen 47 mg/dl (9-20); Calcium 9.8 mg/dl (8.4-10.2); Carbon Dioxide 25 mmol/L (22-30); Chloride 104 mmol/L (98-107); Estimated Creatinine Clearance 38 ml/min; Glucose 114 mg/dl (70-99); Potassium 5.2 mmol/L (3.5-5.1); Sodium 137 mmol/L (135-145); Total Bilirubin 0.7 mg/dl (0.2-1.3); Total Protein 6.6 g/dl (6.3-8.2); eGFR 39.75
[2023-09-13] MEDS: SPIRIVA RESPIMAT 2.5 MCG 2 PUFF INH (07:55)
[2023-09-13] MEDS: SYMBICORT 160/4.5 MCG INHALER 2 PUFF INH ×2 (07:56→19:48)
[2023-09-13] MEDS: ProAIR HFA INHALER 2 PUFF INH (07:56)
[2023-09-13] MEDS: CARDIZEM CD 180 MG PO (08:30)
[2023-09-13] MEDS: ELIQUIS 5 MG PO ×2 (08:31→20:17)
[2023-09-13] MEDS: DICLOFENAC 1% TOPICAL GEL 100 GRAM TOPICAL (08:31)
[2023-09-13] MEDS: TOPROL XL 50 MG PO ×2 (08:31→20:17)
[2023-09-13] MEDS: COLACE PO ×2 (08:32→20:17)
--- NOTE | 2023-09-13 08:51 | W.PN.HOSP.TC ---
Addendum entered and electronically signed by Bjorn Bell DO 09/13/23 13:27:
Acute hypoxic respiratory failure
Original Note:
Today's Communication/Plan
-
IR consult
Lokelma
Assessment / Plan
Assessment / Plan
Gen-AAOx3, NAD
HEENT-NC, AT, anicteric, clear oral mm
Neck-supple
CV-reg, no M, +S1/S2
Lungs-clear B/L
Abd-soft, NT, ND
Ext-no edema
Musculoskeletal-no cyanosis, clubbing
Skin-warm and dry
Neuro-grossly non-focal
Psych-calm, cooperative
Recurrent spontaneous secondary left pneumothorax
Status post chest tube 09/09 by IR.
Chest x-ray completed today, unchanged left chest tube. Limited evaluation of the apices by bulla formation.
Pain control
Continue oxygen and wean as able
Pulmonary on board
Plan for chemical pleurodesis by IR as per pulmonary.
Acute hypoxic respiratory insufficiency - likely due to COPD and recent pneumothorax, doubt COPD exacerbation. Off steroids.
Oxygenation improving, down to 3 L this morning. He has home oxygen but only uses it as needed.
Continue bronchodilators
LINDSEY on CKD 3B -stop further NSAIDs. Baseline creatinine 1.4-1.6. Creatinine stable at 1.8 today. He follows up with Dr. Gerard of nephrology. Does not have an appointment yet.
Hyperkalemia -possibly due to LINDSEY. Monitor for now. Give a dose of Lokelma.
Atypical chest pain -related to pneumothorax. Troponins negative.
Constipation -continue bowel regimen. Moving bowels.
History of severe COPD
-Continue inhalers
Persistent atrial fibrillation
-Continue diltiazem
-Continue metoprolol, Eliquis
Nonischemic cardiomyopathy
History of V. tach/V-fib arrest status post ICD
History of DVT in 2020
History of splenic/kidney infarcts
Daily alcohol user
Former smoker
Full code
Anticipated Discharge: 24 - 48 hours
Subjective/Interval History
-
Date of Service: September 13, 2023
Patient seen and examined. No complaints. Feels fine.
Objective Data
-
Labs:
Laboratory Results
09/13/23
05:29
Sodium 137
Potassium 5.2 H
Chloride 104
Carbon Dioxide 25
BUN 47 H
Creatinine 1.8 H
Glucose 114 H
Calcium 9.8
Total Bilirubin 0.7
AST 92 H
ALT 98 H
Alkaline Phosphatase 143 H
Vital Signs:
Vital Signs
Temp Pulse Resp BP Pulse Ox
97.6 F 78 19 101/47 97
09/13/23 05:48 09/13/23 08:31 09/13/23 08:00 09/13/23 08:31 09/13/23 08:00
I&O
09/12/23 09/13/23 09/14/23
06:59 06:59 06:59
Intake Total 1140 / 1140
Output Total 1056 / 1056 550 / 550
Balance 84 / 84 -550 / -550
Review of Systems
-
History Source: Patient
All other systems: Reviewed and negative
--- NOTE | 2023-09-13 09:18 | PN.CDI ---
CDI
- -
CDI:
Physician Documentation Request
Admit Date: 09/07/23 19:35
Dear Doctor Arabella,
Please review the following and provide your response in the progress notes.
Clinical Indicators:
PN, 09/09
#Acute hypoxic respiratory insufficiency likely due to COPD and recent pneumothorax
#...Start IV steroids, dexamethasone 4 mg IV every 6 hours and
#...can do a quick taper if improvement noticed over the next 24 hours.
#Continue oxygen, 5 L now. Titrate as able.
#...He is on 2 L of oxygen at home
PN, 09/11
#Acute hypoxic respiratory insufficiency - likely due to COPD and recent pneumothorax,
#...doubt COPD exacerbation.
#...Stop systemic steroids.
#Oxygenation improving, down to 3 L this morning.
#...He has home oxygen but only uses it as needed.
Recognized standard criteria for respiratory failure includes:
(Source: [facility] Hospitalist Feb 2013)
Symptoms:
�Tachypnea, SOB, dyspnea
�Pallor or cyanosis
�Anxiety or restlessness
�Use of accessory muscles
�Retractions (grunting in newborns)
�Unable to speak in complete sentences
Supplemental O2 requirement of 40% (5LPM) or more Intubation is not required
Based on the above information, the recognized standard for respiratory failure and your clinical assessment, please verify this diagnoses is still accurate and reflective of the patient�s condition to ensure quality of the medical record.
Please clarify which of the following accurately represents the patient's respiratory status:
Acute respiratory failure
Acute respiratory failure, evolved during admission, now resolving
Acute on chronic respiratory failure
Acute hypoxic respiratory insufficiency only
Other(please clarify)
Use of terms such as suspected, likely, concern for, or probable (associated with a specific diagnosis that is being evaluated, monitored, or treated as if it exists) are acceptable and can be coded in the inpatient setting, when documented at the
time of discharge.
Thank you,
Rebecca Sanchez RN BSN CCDS
CDI Specialist
please contact via tiger text
Please use your independent medical judgment in providing your response.
[2023-09-13] MEDS: LOKELMA 10 GRAM PO (10:36)
--- NOTE | 2023-09-13 10:45 | W.PN.PUL.V3 ---
Today's Communication / Plan
-
Weight oxygen.
Interventional radiology consultation for chemical pleurodesis
Assessment
-
72-year-old male with a PMHx of COPD with bullous emphysema, former tobacco use with [id number] history, quit April 2019, history of PE/DVT, paroxysmal A-fib on Eliquis and history of GI bleed when previously on Coumadin who presents with SOB
and found to have recurrent left-sided pneumothorax. Patient was recently hospitalized from 08/2308/27/2023 due to SOB and found to have a spontaneous secondary pneumothorax due to suspected ruptured bullae. Chest tube was inserted in the ER at
that time. Chest tube was removed on 08/26/2023 after pneumothorax resolved, and he was discharged to home with instruction to follow-up with us in the office. He then saw us in the [facility] office with DANIE Hawk, on 09/07/2023. Since his
recent discharge he was feeling little improvement with increasing shortness of breath. SOB was still not as bad as when he was recently hospitalized. He desaturated to 90% after 5 minutes during 6-minute walk test during that office visit with
saturations improved to 92% with recovery. No spirometry performed that day due to recent pneumothorax. CXR was recommended and prednisone was treated for suspected COPD exacerbation. DuoNebs 4 times a day with budesonide BID was the plan as he
was not able to afford an inhaler regimen due to cost. He obtained a CXR and this showed a small�moderate left-sided apical pneumothorax. He was already driving home when he was called to return to the hospital and he was admitted for further
care. Pulmonary now consulted for further recommendations.
Chronic conditions SYRU[employer]: COPD/emphysema, history of tobacco use, hypertension, history of PE/DVT, paroxysmal A-fib on Eliquis, Hx of GI bleed (~7 years ago) while on coumadin, VT s/p ICD, NICM, history of alcohol use disorder, CKD, hypertension, BPH
Impression:
#Left-sided recurrent spontaneous secondary pneumothorax (SSP) s/p 16 Fr chest tube placed by IR on 09/10/2023- likely due to ruptured bullae as he has bullous emphysema
#SOB due to above
#Severe COPD/emphysema with very severe gas exchange capacity defect (per PFT from 12/2020)
#CKD (baseline Cr 1.4 - 1.6)
Plan:
Respiratory status relatively stable.
Supplemental oxygen as needed..
Assessment discharge. Supplemental oxygen needs
Follow chest d-[id number] has resolved.
Nebulizers as needed-changed to inhalers at the time of discharge
Monitor chest tube.
Wall suction to waterseal and eventually clamp
Dr De La Paz reviewed the case with cardiothoracic surgery, Dr. Beasley, and patient is not a surgical candidate.
Reviewed potential need for pleurodesis-patient agreeable.
IR consult for chemical pleurodesis.
Replace electrolytes.
Monitor blood sugar.
Insulin supplementation as needed.
DVT prophylaxis.
Outpatient pulmonary follow-up
Data:
CXR 09-12-2023: No overt residual pneumothorax.
CXR 09-11-2023: No definite residual pneumothorax. Small left pleural effusion, new.
CXR 09-10-2023: Marked interval progression of now moderate to large left pneumothorax measuring up to 6.5 cm of pleural separation. No definite tension.
CXR 09-08-2023: Left apical and inferolateral pneumothorax stable when compared to the exam the day before.
CXR 09-07-2023: Recurrence of small to moderate left apical pneumothorax, somewhat obscured by left-sided cardiac device.
Total time spent today was 35 minutes for this encounter. Time includes reviewing laboratory test/imaging results, reviewing pertinent medical records, obtaining and reviewing medical history, performing an appropriate exam, ordering medications,
tests and procedures. Time also includes documentation of this encounter, coordinating patient care and communicating with other healthcare professionals. Total time does not include separately billed tests performed on this date of service.
Subjective Data
-
Date of Service:
Date of Service: September 13, 2023
Chief Complaint: Pulmonary Follow Up and Dyspnea Follow Up
Subjective:
Feels much better, can take a deep breath, no chest pain, pleurisy, abdominal pain
Review of Systems
General: Other ( per HPI)
Objective Data
Data Reviewed
Vital Signs / I&O:
Vital Signs
Temp Pulse Resp BP Pulse Ox
97.6 F 78 19 101/47 97
09/13/23 05:48 09/13/23 08:31 09/13/23 08:00 09/13/23 08:31 09/13/23 08:00
Intake and Output
09/12/23 09/13/23 09/14/23
06:59 06:59 06:59
Intake Total 1140 / 1140
Output Total 1056 / 1056 550 / 550
Balance 84 / 84 -550 / -550
SaO2: 97
Nasal Cannula flow liters per minute: 2
Physical Exam
General: Respiratory Distress (n), Comfortable and Other (NAD, thin, weak appearing)
HEENT: Normocephalic and Anicteric
Cardiovascular: Regular Rhythm and Peripheral Edema (n)
Respiratory: Clear, Wheeze (n), Crackles (n), Rhonchi (n), Non-Labored Respirations and Other (Diminished BS)
GI: Soft, Non Distended and Non Tender
Neurology: Awake, Alert and Tremors (n)
Skin: Warm, Dry, Good Color, Cyanosis (n), Jaundice (n) and Other (pale)
Labs/Micro/Reports
Lab Data
09/12/23 03:25
09/13/23 05:29
--- NOTE | 2023-09-13 13:18 | PTCARENOTE ---
1305 Bupivicaine instilled by Tomas MATHEWS at bedside in IR. Patient tolerated well. Denies discomfort at present. VS monitored.
--- NOTE | 2023-09-13 13:34 | PTCARENOTE ---
1320 500mg Doxycycline instilled in left chest tube by Tomas MATHEWS. Patient monitored for pain.
--- NOTE | 2023-09-13 14:25 | PTCARENOTE ---
1420 Attached to nh Pleure-vac. Patient continues with severe pain. Site redressed. Dr Rosas updated. Nursing with patient
--- NOTE | 2023-09-13 14:32 | PTCARENOTE ---
Pt off the floor in IRAD for procedure. Meds will be given upon his return.
[2023-09-13] MEDS: MAG-TAB SR PO (15:28)
[2023-09-13] MEDS: VITAMIN B-12 PO (15:28)
[2023-09-13] MEDS: VITAMIN D3 (cholecalciferol) PO (15:28)
[2023-09-13] MEDS: DICLOFENAC 1% TOPICAL GEL TOPICAL ×3 (15:29→20:19)
--- NOTE | 2023-09-13 15:47 | PTCARENOTE ---
Pt returned from IRAD post pleuredesis procedure in extreme pain. Pt rec'd Fentanyl and Diluadid in IR. Refused additional pain meds. Also nauseous but refused nausea as well as PO scheduled meds. Pt placed back on 2L O2. arrived at bedside. Pt
tearful, support provided. vital signs stable at this time
[2023-09-14] VITALS (8 sets, daily range): BP systolic 100–130; BP diastolic 68–88; BMI 19.8
[2023-09-14] MEDS: MORPHINE SULFATE 2 MG IV (03:32)
[2023-09-14 04:11] LABS: ALT (SGPT) 80 U/L (0-50); AST (SGOT) 49 U/L (17-59); Albumin 3.2 g/dl (3.5-5.0); Alkaline Phosphatase 126 U/L (38-126); Blood Urea Nitrogen 43 mg/dl (9-20); Calcium 9.5 mg/dl (8.4-10.2); Carbon Dioxide 27 mmol/L (22-30); Chloride 105 mmol/L (98-107); Estimated Creatinine Clearance 46 ml/min; Glucose 97 mg/dl (70-99); Potassium 5.3 mmol/L (3.5-5.1); Sodium 138 mmol/L (135-145); Total Bilirubin 0.5 mg/dl (0.2-1.3); eGFR 49.47
--- NOTE | 2023-09-14 04:59 | PTCARENOTE ---
Chest tube to water seal; minimal output. Dressing CDI. 2L NC in place. Denies any increased SOB. PRN Morphine provided x1 for CT site pain. Able to sleep in short intervals overnight. No gi/gu complaints. Call dueñas and tray table within reach. Pt
calls appropriately.
[2023-09-14] MEDS: SYMBICORT 160/4.5 MCG INHALER 2 PUFF INH ×2 (05:55→20:07)
[2023-09-14] MEDS: SPIRIVA RESPIMAT 2.5 MCG 2 PUFF INH (05:55)
[2023-09-14] MEDS: ProAIR HFA INHALER 2 PUFF INH (05:55)
--- NOTE | 2023-09-14 08:51 | W.PN.HOSP.TC ---
Today's Communication/Plan
-
Lokelma
Labs in the morning
Assessment / Plan
Assessment / Plan
Gen-AAOx3, NAD
HEENT-NC, AT, anicteric, clear oral mm
Neck-supple
CV-reg, no M, +S1/S2
Lungs-clear B/L
Abd-soft, NT, ND
Ext-no edema
Musculoskeletal-no cyanosis, clubbing
Skin-warm and dry
Neuro-grossly non-focal
Psych-calm, cooperative
Recurrent spontaneous secondary left pneumothorax
Status post chest tube 09/09 by IR.
Chest x-ray completed today, unchanged left chest tube. Limited evaluation of the apices by bulla formation.
Pain control
Continue oxygen and wean as able
Pulmonary on board
Chemical pleurodesis completed by IR on 09/12. Chest tube with 84 cc output overnight.
Acute hypoxic respiratory failure - likely due to COPD and recent pneumothorax, doubt COPD exacerbation. Off steroids.
Oxygenation improving, down to 3 L this morning. He has home oxygen but only uses it as needed.
Continue bronchodilators
LINDSEY on CKD 3B -stop further NSAIDs. Baseline creatinine 1.4-1.6. Creatinine down to 1.5 today. He follows up with Dr. Gerard of nephrology. Does not have an appointment yet.
Hyperkalemia -possibly due to LINDSEY. Potassium 5.3 today. Give another dose of Lokelma.
Atypical chest pain -related to pneumothorax. Troponins negative.
Constipation -continue bowel regimen. Moving bowels.
History of severe COPD
-Continue inhalers
Persistent atrial fibrillation
-Continue diltiazem
-Continue metoprolol, Eliquis
Nonischemic cardiomyopathy
History of V. tach/V-fib arrest status post ICD
History of DVT in 2020
History of splenic/kidney infarcts
Daily alcohol user
Former smoker
Full code
Anticipated Discharge: > 48 hours
Subjective/Interval History
-
Date of Service: September 14, 2023
Patient seen and examined. No complaints.
Objective Data
-
Labs:
Laboratory Results
09/14/23
03:32
Sodium 138
Potassium 5.3 H
Chloride 105
Carbon Dioxide 27
BUN 43 H
Creatinine 1.5 H
Glucose 97
Calcium 9.5
Total Bilirubin 0.5
AST 49
ALT 80 H
Alkaline Phosphatase 126
Vital Signs:
Vital Signs
Temp Pulse Resp BP Pulse Ox
97.1 F 78 22 117/80 97
09/14/23 07:37 09/14/23 06:02 09/14/23 06:02 09/14/23 06:02 09/14/23 06:01
I&O
09/13/23 09/14/23 09/15/23
06:59 06:59 06:59
Intake Total 270 / 270
Output Total 550 / 550 659 / 659
Balance -550 / -550 -389 / -389
Review of Systems
-
History Source: Patient
All other systems: Reviewed and negative
[2023-09-14] MEDS: ELIQUIS 5 MG PO ×2 (09:13→21:46)
[2023-09-14] MEDS: CARDIZEM CD 180 MG PO (09:13)
[2023-09-14] MEDS: COLACE 100 MG PO (09:13)
[2023-09-14] MEDS: TOPROL XL 50 MG PO ×2 (09:13→21:45)
[2023-09-14] MEDS: DICLOFENAC 1% TOPICAL GEL TOPICAL ×3 (09:14→18:02)
--- NOTE | 2023-09-14 10:04 | W.PN.PUL.V3 ---
Today's Communication / Plan
-
Monitor chest tube output
Follow chest x-ray
Continue waterseal and consider clamp/removal in the next 24-48 hours
Assessment
-
72-year-old male with a PMHx of COPD with bullous emphysema, former tobacco use with 22-vqez-escp history, quit April 2019, history of PE/DVT, paroxysmal A-fib on Eliquis and history of GI bleed when previously on Coumadin who presents with SOB
and found to have recurrent left-sided pneumothorax. Patient was recently hospitalized from 08/2308/27/2023 due to SOB and found to have a spontaneous secondary pneumothorax due to suspected ruptured bullae. Chest tube was inserted in the ER at
that time. Chest tube was removed on 08/26/2023 after pneumothorax resolved, and he was discharged to home with instruction to follow-up with us in the office. He then saw us in the [facility] office with DANIE Hawk, on 09/07/2023. Since his
recent discharge he was feeling little improvement with increasing shortness of breath. SOB was still not as bad as when he was recently hospitalized. He desaturated to 90% after 5 minutes during 6-minute walk test during that office visit with
saturations improved to 92% with recovery. No spirometry performed that day due to recent pneumothorax. CXR was recommended and prednisone was treated for suspected COPD exacerbation. DuoNebs 4 times a day with budesonide BID was the plan as he
was not able to afford an inhaler regimen due to cost. He obtained a CXR and this showed a small�moderate left-sided apical pneumothorax. He was already driving home when he was called to return to the hospital and he was admitted for further
care. Pulmonary now consulted for further recommendations.
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
Impression:
#Left-sided recurrent spontaneous secondary pneumothorax (SSP) s/p 16 Fr chest tube placed by IR on 09/10/2023- likely due to ruptured bullae as he has bullous emphysema
Status post pleurodesis 09/13/2023 with doxycycline 500 mg / 50 mL sterile water
#SOB due to above
#Severe COPD/emphysema with very severe gas exchange capacity defect (per PFT from 12/2020)
#CKD (baseline Cr 1.4 - 1.6)
Plan:
Remained stable from a pulmonary perspective
Continue supplemental [id number] discharge needs
Follow radiographically
Chest x-ray 09/13/2023-unchanged left tube, evaluation of apices is limited by bulla formation
Nebulizers as needed-changed to inhalers at the time of discharge
Monitor chest tube.
Wall suction to waterseal and eventually clamp-currently no airleak
Dr De La Paz reviewed the case with cardiothoracic surgery, Dr. Beasley, and patient is not a surgical candidate.
Successful pleurodesis 09/13/2023
Monitor chest tube output
Follow chest x-ray
Consider clamping and chest tube removal in the next 24-48 hours
IR following
Continue to replace electrolytes as needed
Monitor blood sugar.
Insulin supplementation as needed.
DVT prophylaxis.
Outpatient pulmonary follow-up
Data:
CXR 09-12-2023: No overt residual pneumothorax.
CXR 09-11-2023: No definite residual pneumothorax. Small left pleural effusion, new.
CXR 09-10-2023: Marked interval progression of now moderate to large left pneumothorax measuring up to 6.5 cm of pleural separation. No definite tension.
CXR 09-08-2023: Left apical and inferolateral pneumothorax stable when compared to the exam the day before.
CXR 09-07-2023: Recurrence of small to moderate left apical pneumothorax, somewhat obscured by left-sided cardiac device.
Total time spent today was 35 minutes for this encounter. Time includes reviewing laboratory test/imaging results, reviewing pertinent medical records, obtaining and reviewing medical history, performing an appropriate exam, ordering medications,
tests and procedures. Time also includes documentation of this encounter, coordinating patient care and communicating with other healthcare professionals. Total time does not include separately billed tests performed on this date of service.
Subjective Data
-
Date of Service:
Date of Service: September 14, 2023
Chief Complaint: Pulmonary Follow Up and Dyspnea Follow Up
Subjective:
Feels better today, pleurisy much improved, still with some mild pleurisy, no shortness of breath at rest, some difficulties taking a full deep breath, no abdominal pain
Review of Systems
General: Other (Per HPI)
Objective Data
Data Reviewed
Vital Signs / I&O:
Vital Signs
Temp Pulse Resp BP Pulse Ox
97.1 F 70 22 107/75 97
09/14/23 07:37 09/14/23 09:13 09/14/23 06:02 09/14/23 09:13 09/14/23 06:01
Intake and Output
09/13/23 09/14/23 09/15/23
06:59 06:59 06:59
Intake Total 270 / 270 300 / 300
Output Total 550 / 550 659 / 659
Balance -550 / -550 -389 / -389 300 / 300
SaO2: 97
Nasal Cannula flow liters per minute: 2
Physical Exam
General: Respiratory Distress (n), Comfortable and Other (NAD, thin, weak appearing)
HEENT: Normocephalic and Anicteric
Cardiovascular: Regular Rhythm and Peripheral Edema (n)
Respiratory: Clear, Wheeze (n), Crackles (n), Rhonchi (n), Non-Labored Respirations, Chest Tube (Left side) and Other (Diminished BS)
GI: Soft, Non Distended and Non Tender
Neurology: Awake, Alert and Tremors (n)
Skin: Warm, Dry, Good Color, Cyanosis (n), Jaundice (n) and Other (pale)
Labs/Micro/Reports
Lab Data
09/12/23 03:25
09/14/23 03:32
[2023-09-14] MEDS: LOKELMA 10 GRAM PO (11:26)
[2023-09-14] MEDS: VITAMIN B-12 250 MCG PO (13:16)
[2023-09-14] MEDS: MAG-TAB SR 84 MG PO (13:16)
[2023-09-14] MEDS: VITAMIN D3 (cholecalciferol) 50 MCG PO (13:16)
--- NOTE | 2023-09-14 14:35 | PTCARENOTE ---
Rec'd pt this AM. reports improved pain control. Able to rest and nap. vital signs stable. requesting to walk around room later today. good appetite.
[2023-09-14] MEDS: COLACE PO (21:45)
[2023-09-14] MEDS: DICLOFENAC 1% TOPICAL GEL 100 GRAM TOPICAL (21:46)
[2023-09-15] VITALS: BP 128/80
[2023-09-15 02:00] VITALS: BP 132/85
[2023-09-15] MEDS: MORPHINE SULFATE 2 MG IV (03:29)
[2023-09-15 03:54] VITALS: BMI 19.7
[2023-09-15 04:02] LABS: % Basophils 0.2 % (0-2); % Eosinophils 1.4 % (0-6); % Immature Granulocytes 0.5 % (0-0.5); % Lymphocytes 16.8 % (20.5-51.1); % Monocytes 10.2 % (1.7-9.3); % Neutrophils 70.9 % (42.2-75.2); Absolute Eosinophils 0.2 10^3/uL (0-0.7); Absolute Immature Granulocytes 0.1 10^3/uL (0-0.05); Absolute Lymphocytes 2.1 10^3/uL (1.2-3.4); Absolute Monocytes 1.3 10^3/uL (0.1-0.6); Hematocrit 36.4 % (39.0-52.0); Hemoglobin 12.2 g/dL (13.0-18.0); Mean Corp Hgb Conc. 33.5 g/dL (33.0-37.0); Mean Corpuscular Hgb 31.9 pg (27.0-31.0); Mean Platelet Volume 9.1 fL (7.4-10.4); Nucleated Red Blood Cells % 0 % (-); Platelet Count 274 10^3/uL (130-400); Red Blood Cell Count 3.83 10^6/uL (4.70-6.10); Red Cell Dist. Width 14.7 % (11.5-14.5); White Blood Cell Count 12.8 10^3/uL (4.8-10.8)
[2023-09-15 04:28] LABS: ALT (SGPT) 65 U/L (0-50); AST (SGOT) 32 U/L (17-59); Albumin 3.2 g/dl (3.5-5.0); Alkaline Phosphatase 122 U/L (38-126); Blood Urea Nitrogen 35 mg/dl (9-20); Calcium 9.5 mg/dl (8.4-10.2); Carbon Dioxide 28 mmol/L (22-30); Chloride 106 mmol/L (98-107); Estimated Creatinine Clearance 49 ml/min; Glucose 93 mg/dl (70-99); Potassium 4.7 mmol/L (3.5-5.1); Sodium 138 mmol/L (135-145); Total Bilirubin 0.8 mg/dl (0.2-1.3); Total Protein 6.1 g/dl (6.3-8.2); eGFR 53.74
[2023-09-15 06:02] VITALS: BP 131/91
--- NOTE | 2023-09-15 06:24 | PTCARENOTE ---
Patient voicing frustration and aggravated on overall situation this morning. Pt wants his chest tube out. Support and encouragement provided. Chest tube with no output overnight. Pt on RA, Sp02 WNL. Morphine administered per JUN x1 for pain with
good result. Pt able to sleep a few hours. Voiding via urinal. Call dueñas and tray table within reach. Pt calls appropriately.
[2023-09-15] MEDS: SYMBICORT 160/4.5 MCG INHALER 2 PUFF INH (07:27)
[2023-09-15] MEDS: SPIRIVA RESPIMAT 2.5 MCG 2 PUFF INH (07:27)
--- NOTE | 2023-09-15 08:34 | W.PN.HOSP.TC ---
Today's Communication/Plan
-
Await IR decision
Assessment / Plan
Assessment / Plan
Gen-AAOx3, NAD
HEENT-NC, AT, anicteric, clear oral mm
Neck-supple
CV-reg, no M, +S1/S2
Lungs-clear B/L
Abd-soft, NT, ND
Ext-no edema
Musculoskeletal-no cyanosis, clubbing
Skin-warm and dry
Neuro-grossly non-focal
Psych-calm, cooperative
Recurrent spontaneous secondary left pneumothorax
Status post chest tube 09/09 by IR.
Chest x-ray completed today, unchanged left chest tube. Limited evaluation of the apices by bulla formation.
Pain control
Continue oxygen and wean as able
Pulmonary on board
Chemical pleurodesis completed by IR on 09/12. Chest tube with zero cc output overnight. Discussed with pulmonary, IR to decide on chest tube removal today.
Acute hypoxic respiratory failure - likely due to COPD and recent pneumothorax, doubt COPD exacerbation. Off steroids.
Oxygenation improving, down to 3 L this morning. He has home oxygen but only uses it as needed.
Continue bronchodilators
LINDSEY on CKD 3B -stop further NSAIDs. Baseline creatinine 1.4-1.6. Creatinine down to 1.4 today. He follows up with Dr. Gerard of nephrology. Does not have an appointment yet.
Hyperkalemia -possibly due to LINDSEY. Potassium normalized.
Atypical chest pain -related to pneumothorax. Troponins negative.
Constipation -continue bowel regimen. Moving bowels.
History of severe COPD
-Continue inhalers
Persistent atrial fibrillation
-Continue diltiazem
-Continue metoprolol, Eliquis
Nonischemic cardiomyopathy
History of V. tach/V-fib arrest status post ICD
History of DVT in 2020
History of splenic/kidney infarcts
Daily alcohol user
Former smoker
Full code
Dispo -potential discharge later today if chest tube comes out. Close outpatient follow-up. Discussed with Dr. Aden.
Anticipated Discharge: Today
Subjective/Interval History
-
Date of Service: September 15, 2023
Patient seen and examined. Complaining of pain related to chest tube. Denies shortness of breath.
Objective Data
-
Labs:
Laboratory Results
09/15/23
03:51
WBC 12.8 H
Hgb 12.2 L
Hct 36.4 L
Plt Count 274
Sodium 138
Potassium 4.7
Chloride 106
Carbon Dioxide 28
BUN 35 H
Creatinine 1.4 H
Glucose 93
Calcium 9.5
Total Bilirubin 0.8
AST 32
ALT 65 H
Alkaline Phosphatase 122
Vital Signs:
Vital Signs
Temp Pulse Resp BP Pulse Ox
97.5 F 72 14 131/91 95
09/15/23 03:54 09/15/23 07:30 09/15/23 07:30 09/15/23 06:02 09/15/23 07:30
I&O
09/14/23 09/15/23 09/16/23
06:59 06:59 06:59
Intake Total 270 / 270 300 / 300
Output Total 659 / 659 1700 / 1700
Balance -389 / -389 -1400 / -1400
Review of Systems
-
History Source: Patient
All other systems: Reviewed and negative
[2023-09-15] MEDS: TOPROL XL 50 MG PO (08:54)
[2023-09-15] MEDS: ELIQUIS 5 MG PO (08:54)
[2023-09-15] MEDS: COLACE PO (08:54)
[2023-09-15 08:56] VITALS: BP 116/91
[2023-09-15] MEDS: CARDIZEM CD 180 MG PO (08:56)
[2023-09-15 08:57] VITALS: BP 140/125
[2023-09-15] MEDS: DICLOFENAC 1% TOPICAL GEL TOPICAL ×2 (08:57→13:28)
--- NOTE | 2023-09-15 10:06 | W.PN.PUL.V3 ---
Today's Communication / Plan
-
Clamp chest tube
Recheck chest x-ray and if pneumothorax does not reaccumulate then consider chest tube removal-Dr. Aden contacted interventional radiology who is aware of plan
Assessment
-
72-year-old male with a PMHx of COPD with bullous emphysema, former tobacco use with [id number] history, quit April 2019, history of PE/DVT, paroxysmal A-fib on Eliquis and history of GI bleed when previously on Coumadin who presents with SOB
and found to have recurrent left-sided pneumothorax. Patient was recently hospitalized from 08/2308/27/2023 due to SOB and found to have a spontaneous secondary pneumothorax due to suspected ruptured bullae. Chest tube was inserted in the ER at
that time. Chest tube was removed on 08/26/2023 after pneumothorax resolved, and he was discharged to home with instruction to follow-up with us in the office. He then saw us in the [facility] office with DANIE Hawk, on 09/07/2023. Since his
recent discharge he was feeling little improvement with increasing shortness of breath. SOB was still not as bad as when he was recently hospitalized. He desaturated to 90% after 5 minutes during 6-minute walk test during that office visit with
saturations improved to 92% with recovery. No spirometry performed that day due to recent pneumothorax. CXR was recommended and prednisone was treated for suspected COPD exacerbation. DuoNebs 4 times a day with budesonide BID was the plan as he
was not able to afford an inhaler regimen due to cost. He obtained a CXR and this showed a small�moderate left-sided apical pneumothorax. He was already driving home when he was called to return to the hospital and he was admitted for further
care. Pulmonary now consulted for further recommendations.
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
Impression:
#Left-sided recurrent spontaneous secondary pneumothorax (SSP) s/p 16 Fr chest tube placed by IR on 09/10/2023- likely due to ruptured bullae as he has bullous emphysema
Status post pleurodesis 09/13/2023 with doxycycline 500 mg / 50 mL sterile water
#SOB due to above
#Severe COPD/emphysema with very severe gas exchange capacity defect (per PFT from 12/2020)
#CKD (baseline Cr 1.4 - 1.6)
Plan:
He continues to be stable from a respiratory perspective
Continue supplemental [id number] discharge needs
Chest x-ray 09/13/2023-unchanged left tube, evaluation of apices is limited by bulla formation
Nebulizers as needed-changed to inhalers at the time of discharge
Chest tube output minimal
Place chest tube-clamp and obtain chest x-ray 2 hours later
Interventional radiology reconsulted for chest tube removal if pneumothorax does not reaccumulate
Dr De La Paz reviewed the case with cardiothoracic surgery, Dr. Beasley, and patient is not a surgical candidate.
Note patient had successful l pleurodesis 09/13/2023
Replace electrolytes as needed
Continue to follow blood sugar.
Insulin supplementation as needed.
DVT prophylaxis.
Reviewed with nursing and primary team
Outpatient pulmonary follow-up
Data:
CXR 09-12-2023: No overt residual pneumothorax.
CXR 09-11-2023: No definite residual pneumothorax. Small left pleural effusion, new.
CXR 09-10-2023: Marked interval progression of now moderate to large left pneumothorax measuring up to 6.5 cm of pleural separation. No definite tension.
CXR 09-08-2023: Left apical and inferolateral pneumothorax stable when compared to the exam the day before.
CXR 09-07-2023: Recurrence of small to moderate left apical pneumothorax, somewhat obscured by left-sided cardiac device.
Total time spent today was 35 minutes for this encounter. Time includes reviewing laboratory test/imaging results, reviewing pertinent medical records, obtaining and reviewing medical history, performing an appropriate exam, ordering medications,
tests and procedures. Time also includes documentation of this encounter, coordinating patient care and communicating with other healthcare professionals. Total time does not include separately billed tests performed on this date of service.
Subjective Data
-
Date of Service:
Date of Service: September 15, 2023
Chief Complaint: Pulmonary Follow Up and Dyspnea Follow Up
Subjective:
Anxious for chest tube to be removed, no complaints of worsening shortness of breath, abdominal pain, did not sleep well last night, sleepy during the daytime
Review of Systems
General: Other (Per HPI)
Objective Data
Data Reviewed
Vital Signs / I&O:
Vital Signs
Temp Pulse Resp BP Pulse Ox
97.9 F 70 14 131/91 95
09/15/23 08:16 09/15/23 08:56 09/15/23 07:30 09/15/23 06:02 09/15/23 07:30
Intake and Output
09/14/23 09/15/23 09/16/23
06:59 06:59 06:59
Intake Total 270 / 270 300 / 300
Output Total 659 / 659 1700 / 1700
Balance -389 / -389 -1400 / -1400
SaO2: 95
Nasal Cannula flow liters per minute: 2
Physical Exam
General: Respiratory Distress (n), Comfortable and Other (NAD, thin, weak appearing)
HEENT: Normocephalic and Anicteric
Cardiovascular: Regular Rhythm and Peripheral Edema (n)
Respiratory: Clear, Wheeze (n), Crackles (n), Rhonchi (n), Non-Labored Respirations, Chest Tube (Left side) and Other (Diminished BS)
GI: Soft, Non Distended and Non Tender
Neurology: Awake, Alert and Tremors (n)
Skin: Warm, Dry, Good Color, Cyanosis (n), Jaundice (n) and Other (pale)
Labs/Micro/Reports
Lab Data
09/15/23 03:51
09/15/23 03:51
--- NOTE | 2023-09-15 10:42 | PTCARENOTE ---
Addendum entered by Etienne Queen RN 09/15/23 10:42:
Chest tube clamped at 1005 as ordered. Pt lungs are diminished. Chest tube intact no air leaks observed . pt anxius to go home
Original Note:
Pt AAOx3, l chest tube clamped ayt 100
[2023-09-15] MEDS: MAG-TAB SR 84 MG PO (11:48)
[2023-09-15] MEDS: VITAMIN B-12 250 MCG PO (11:48)
[2023-09-15] MEDS: VITAMIN D3 (cholecalciferol) 50 MCG PO (11:48)
--- NOTE | 2023-09-15 13:28 | PTCARENOTE ---
Pt had cxr now having chest tube removed
--- NOTE | 2023-09-15 13:31 | PTCARENOTE ---
Pt now having PICC placed
--- NOTE | 2023-09-15 14:06 | PN.IRAD.UPD ---
Update Note - IRAD
- -
Cleaned left sided chest tube with chloraprep and removed bedside. A lot of fluid drained out of chest tube site after removal. Site dressed with vaseline gauze and an optifoam dressing.
Hermes Angulo RT(R)()
--- NOTE | 2023-09-15 14:20 | W.DS.TRANS ---
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
-
Discharge Instructions:
Sleep Apnea Risk Low
Discharge Diagnosis/Procedures Recurrent secondary spontaneous left
pneumothorax, acute kidney injury, chronic
kidney disease
Diet Regular
Activity As tolerated
Driving Restrictions As prior to admission
Bathing Restrictions None
Blood Work BMP next week with your primary care doctor
Instructions:
Stand-Alone Forms:
Changes to Home Medications: No
Discharge Medications:
DC Medications w/original date entered in [employer]
cyanocobalamin (vitamin B-12) 250 mcg tablet 250 mcg PO NOON Supplement 08/11/23
magnesium oxide 250 mg PO NOON Supplement 08/11/23
zinc sulfate 50 mg zinc (220 mg) tablet 50 mg PO NOON Supplement 08/11/23
apixaban 5 mg tablet (Eliquis) 5 mg PO BID Blood Clot Prevention/Tx 08/24/23
cholecalciferol (vitamin D3) 50 mcg (2,000 unit) tablet 50 mcg PO NOON Supplement 08/24/23
diltiazem HCl 180 mg capsule,extended release 24 hr 180 mg PO DAILY 30 days #30 caps 08/27/23
metoprolol succinate 50 mg tablet,extended release 24 hr 50 mg PO BID 30 days #60 tabs 08/27/23
budesonide-formoterol HFA 160 mcg-4.5 mcg/actuation aerosol inhaler 2 puff inhalation R BID #10.2 grams 09/15/23
polyethylene glycol 3350 17 gram oral powder packet (HealthyLax) 17 g PO DAILY #0 ea 09/15/23
tiotropium bromide 2.5 mcg/actuation mist for inhalation (Spiriva Respimat) 2 puff inhalation R DAILY #4 grams 09/15/23
Home Medication Changes
Pending Results: No
[2023-09-15 14:30] VITALS: BP 114/82
--- NOTE | 2023-09-15 14:30 | CM ---
CM following re: discharge planning.
Reviewed pt's chart, met with pt and pt's spouse at bedside.
Discharge order noted. Both pt and his spouse are aware, expressed their agreement with discharge. IMM reviewed, placed on chart, pt has a copy. pt stated: 'I am very glad to be discharged and finally I will be able to have my Martini and if i am
not discharged today I might become nasty'. Controlling alcohol consumptions has been discussed with the pt and pt stated 'I just have 3OZ of Martini daily that's all'.
Pt is aware he will have [facility] services upon the discharge, expressed his understanding and agreement with [facility].
Please fax discharge instructions to [facility] at [phone]
D/c plan: home with [facility] and family support. Spouse to transport.
No other discharge needs identified.
--- NOTE | 2023-09-15 15:14 | PTCARENOTE ---
Pt dc no questions. Dressing to chest tube site CDI. DE
== END 2023-09-15 15:00 | disposition home health service (06) | DRG 199 ==
LOC: IMU 19:35
PROVIDERS: Hospitalist; Radiology Diagnostic Radiology; Radiology Vascular & Interventional Radiology; ADMITTING PHYSICIAN Hospitalist; ATTENDING PHYSICIAN Hospitalist; EMERGENCY PHYSICIAN Emergency Medicine; FAMILY PHYSICIAN Family Medicine; OTHER PHYSICIAN Internal Medicine Critical Care Medicine
PROC: 0W9B30Z Drainage of Left Pleural Cavity with Drainage Device, Percutaneous Approach (ICD-10-PCS; 2023-09-10)
PROC: 3E0L3GC Introduction of Other Therapeutic Substance into Pleural Cavity, Percutaneous Approach (ICD-10-PCS; 2023-09-13)
DX: J93.9 Pneumothorax, unspecified (principal); J96.01 Acute respiratory failure with hypoxia; I48.19 Other persistent atrial fibrillation; I42.8 Other cardiomyopathies; Z87.891 Personal history of nicotine dependence; N18.32 Chronic kidney disease, stage 3b; E87.5 Hyperkalemia
CPT/HCPCS: 32557; 32560; 71045; 71046; 80048; 80053; 83735; 84484; 85025; 85027; 85610; 85730; 93005; 94640; 99284; C1729; C1769

== ENCOUNTER 2023-10-26 15:07 | Inpatient (IN) | payer MEDICARE, SELFPAY ==
[2023-10-26] VITALS (10 sets, daily range): BP systolic 115–158; BP diastolic 72–89; BMI 19.8
[2023-10-26 11:54] LABS: % Basophils 0.8 % (0-2); % Eosinophils 3.4 % (0-6); % Immature Granulocytes 0.3 % (0-0.5); % Lymphocytes 17.4 % (20.5-51.1); % Monocytes 8.9 % (1.7-9.3); % Neutrophils 69.2 % (42.2-75.2); Absolute Basophils 0.1 10^3/uL (0-0.2); Absolute Eosinophils 0.4 10^3/uL (0-0.7); Absolute Lymphocytes 1.9 10^3/uL (1.2-3.4); Absolute Neutrophils 7.4 10^3/uL (1.4-6.5); Hemoglobin 11.1 g/dL (13.0-18.0); Mean Corp Hgb Conc. 32.6 g/dL (33.0-37.0); Mean Corpuscular Hgb 32.4 pg (27.0-31.0); Mean Corpuscular Volume 99.1 fL (80.0-94.0); Mean Platelet Volume 9.2 fL (7.4-10.4); Nucleated Red Blood Cells % 0.2 % (-); Platelet Count 253 10^3/uL (130-400); Red Blood Cell Count 3.43 10^6/uL (4.70-6.10); Red Cell Dist. Width 17.2 % (11.5-14.5); White Blood Cell Count 10.7 10^3/uL (4.8-10.8)
[2023-10-26 12:11] LABS: ALT (SGPT) 16 U/L (0-50); AST (SGOT) 25 U/L (17-59); Alkaline Phosphatase 98 U/L (38-126); Blood Urea Nitrogen 20 mg/dl (9-20); Calcium 9.9 mg/dl (8.4-10.2); Carbon Dioxide 26 mmol/L (22-30); Chloride 108 mmol/L (98-107); Glucose 90 mg/dl (70-99); Potassium 4.4 mmol/L (3.5-5.1); Sodium 141 mmol/L (135-145); Total Protein 6.7 g/dl (6.3-8.2); eGFR 58.37
[2023-10-26 12:22] LABS: NT-proBNP 614 pg/ml; Troponin I < 0.012 ng/ml
--- NOTE | 2023-10-26 12:23 | ED.GENMED ---
History of Present Illness
General
Chief Complaint: Breathing Problem
Time Seen by Provider: 10/26/23 12:09
History of Present Illness
History of Present Illness:
73-year-old male presents the emergency department for evaluation of shortness of breath. He has a history of COPD as well as spontaneous pneumothorax has been having frequent use of his nebulizer treatments with no effect. He is also
anticoagulated on Eliquis due to atrial fibrillation. Patient was admitted to this hospital in August due to recurrent spontaneous pneumothorax underwent chest tube placement and subsequent chemical pleurodesis. He states to me that this was
intensely painful he does not wish to undergo this procedure again.
Past History
Past History
ED Past Medical History: Arrthythmia (Paroxysmal Atrial fibrillation), CHF (Cardiomyopathy), COPD, HTN, Renal failure (CKD) and Other (GI bleed, splenic and kidney infarcts, DVT 2020)
ED Past Surgical History: Cardiac (Pacemaker defibrillator placed in August of 2011)
Social History
Tobacco: Former smoker
Alcohol: Daily
Drug: None
Personal:
Living: with family
Employment: Not employed
Family History
Family History: Other (Noncontributory)
Review of Systems
Review of Systems
Allergies reviewed?: Yes
All Other Systems: ROS reviewed and negative except as documented in HPI and ROS
Phy Exam
Physical Exam
Physical Exam:
GEN: Well appearing, NAD, WDWN
Eyes: PERRLA, EOMs intact, no scleral icterus
HENT: NCAT, oral mucosa moist
Lungs: Grossly diminished breath sounds to all 4 quadrants, tachypneic with accessory muscle use
Cardiac: RRR, no M/R/G, no peripheral edema. Radial pulses 2+ bilat
Abdomen: S, NT, ND, NABS, no masses or hepatosplenomegaly
Neuro: AO x 3
MSK: No gross deformity or ecchymosis. No edema. No digital clubbing
Skin: No rashes, petechiae. Normal color, no pallor or jaundice.
Psych: Calm, cooperative, proper hygiene
Scores
Heart Failure Risk
Heart Failure Risk Score: Not Applicable
Course
Orders/Labs/Results
Orders:
Orders
10/26/23 11:30
Electrocardiogram (*1) Urgent
Reason for Study: Shortness of Breath
EKG- Treatment ONCE
10/26/23 11:40
Complete Blood Count/With Diff Urgent
Comprehensive Metabolic Panel Urgent
Pro-BNP [NT-proBNP] Urgent
Troponin I Urgent
10/26/23 12:18
CR Chest - 2 Views Urgent
Comment:
Reason For Exam: SOB
10/26/23 12:47
Ipratropium/Albuterol Sulfate [Duoneb] 3 ml INH R NOW ONE
10/26/23 13:39
PULMONARY CONSULT Routine
Consulting Provider: Dylan De La Paz
Was physician already notified: Yes
10/26/23 14:31
Admit/Transfer Patient As Directed
Co-Sign Provider:
Level of Care: Inpatient admission
Assign to:: IMU- Intermediate Care
Physician / Group: doni villarreal
Diagnosis: Left-sided pneumothorax spontaneous2/2 bullous rupture,etoh abuse
Reason for Hospitalization: Left-sided pneumothorax spontaneous2/2 bullous rupture,etoh abuse
Expected length of stay greater than two midnights?: Yes
ELOS- Estimated Length of Stay in days: 5
I certify the patient meets the requirements for IP care: Yes
Code Status As Directed
Resuscitation Status: Do not resuscitate
Reached after discussion with pt or family/Healthcare POA: Yes
Based on pt advanced directive or healthcare POA form: Yes
Decision communicated with: Per patient with present
10/26/23 14:32
DNR Bracelet Application ONCE
10/26/23 14:58
Urinalysis Reflex To Culture Urgent
Date Specimen was Collected: 10/26/23
Time Specimen was Collected: 14:57
Urine Microscopic Reflex Cult Urgent
Urine Culture Urgent
ARIELLE Source: U
Specimen Description:
Date Specimen was Collected: 10/26/23
Time Specimen was Collected: 14:57
10/26/23 15:01
Alcohol Urgent
B-Hydroxybutyrate Urgent
GGTP Urgent
Magnesium Urgent
PTT Urgent
Phosphorus Urgent
Prothrombin Time Urgent
Abnormal Lab Results
10/26/23 10/26/23
11:40 14:58
RBC 3.43 L 10^6/uL
(4.70-6.10)
Hgb 11.1 L g/dL
(13.0-18.0)
Hct 34.0 L %
(39.0-52.0)
MCV 99.1 H fL
(80.0-94.0)
MCH 32.4 H pg
(27.0-31.0)
MCHC 32.6 L g/dL
(33.0-37.0)
RDW 17.2 H %
(11.5-14.5)
Absolute Neuts (auto) 7.4 H 10^3/uL
(1.4-6.5)
Absolute Monos (auto) 1.0 H 10^3/uL
(0.1-0.6)
Lymphocytes % 17.4 L %
(20.5-51.1)
Chloride 108 H mmol/L
(98-107)
Total Bilirubin 2.0 H mg/dl
(0.2-1.3)
Urine Ketones Trace A
(Negative)
Ur Occult Blood Reflex 4+ A
(Negative)
Urine Nitrite (Reflex) Positive A
(Negative)
Urine Bilirubin 1+ A
(Negative)
Leukocyte Esterase Rfl 1+ A
(Negative)
Urine Albumin (Reflex) 2+ A
(Neg - Trace)
10/26/23 11:40
10/26/23 11:40
Vital Signs
Initial and Last Documented VS:
Initial Vital Signs
Temp Pulse Resp BP Pulse Ox
97.5 F 79 18 127/85 94
10/26/23 11:27 10/26/23 11:27 10/26/23 11:27 10/26/23 11:27 10/26/23 11:27
Last Documented Vital Signs
Temp Pulse Resp BP Pulse Ox
97.5 F 70 17 128/81 100
10/26/23 12:50 10/26/23 14:00 10/26/23 14:00 10/26/23 14:00 10/26/23 14:00
MDM/Problems Addressed
MDM/Problems Addressed:
Patient identified to have a recurrent left-sided pneumothorax. I advised him that chest tube placement was indicated however he declines this due to the pain and distress this caused him the last time. I discussed the case with pulmonology for
consultation purposes, the patient was placed on 15 L Venturi mask at 50% FiO2 as a temporizing measure after lengthy discussion with the patient regarding the need for chest tube. He again refuses, will admit for further observation and management
*Critical Care Note
Total Time (30-74mins, 75-104mins- exclusive of procedures): Not Applicable
ED Attending Note
-
Portions of this chart may have been created with voice recognition software.� Occasional wrong word or��sound alike� substitutions may have occurred due to the inherent limitations of voice recognition software.
Discharge Plan
Departure
Patient Disposition: Admit
Date of Disposition: 10/26/23
Time of Disposition: 13:28
Admit to: Med/Surg
Presentation/result/management discussed w/ accepting MD/DO: Hospitalist
Discharge Problem:
Recurrent spontaneous pneumothorax, Gross hematuria
Interventions
Interventions:
*Risk Screen - Suicide Last Done: 10/26/23 12:19
*General Assessment Last Done: 10/26/23 12:19
*Neglect/Abuse Screening Last Done: 10/26/23 12:19
*ED COVID-19 Vaccine History Last Done: 10/26/23 12:19
ED- Cardiac Assessment Last Done: 10/26/23 12:19
ED- Pulmonary Assessment Last Done: 10/26/23 12:19
[2023-10-26] MEDS: DUONEB 3 ML INH ×2 (12:53→19:41)
--- NOTE | 2023-10-26 13:40 | CON.PUL ---
Consultation
Consultation Request
Date/Time Consultation Requested: 10/26/23
Date/Time Consultation Performed: 10/26/23
Performing Provider: Lisa
Reason for Consultation: PTX
Medical History
-
History of Present Illness:
Patient is a 72-year-old male with history of COPD, alcohol abuse daily CKD stage IIIb, paroxysmal A-fib, GI bleed on Coumadin, splenic and renal infarcts, DVT/PE unprovoked 2020, pacemaker/defibrillator August 2011, cardiomyopathy former smoker, HTN,
prior PTX s/p chest tube and chemical pleurodesis 09/13/23 presenting with acute onset shortness of breath day of admission. Was using home inhalers without relief. In the ER, CXR showing moderate size left pneumothorax without mediastinal shift.
No hypoxemia noted on arrival, placed on venti mask and appears comfortable. Denies inciting event, trauma that may have triggered PTX.
Was recently admitted for similar from 09/06 - 09/15/2023 and was deemed a nonsurgical candidate due to his history of severe lung disease.
He has declined intervention at this time as well.
Past Medical History
Past Medical History: Other (see list below)
Social History
Tobacco: Former Smoker
Alcohol: None
Drug: None
Family History
Family History: Reviewed & Not Pertinent
Allergies / Home Medications
Allergies
Allergy/AdvReac Type Severity Reaction Status Date / Time
bee venom protein (honey bee) Allergy Rash,chest Verified 09/07/23 16:45
tightness,
local
diffuse
swelling
Home Medications
�Medication �Instructions �Recorded �Confirmed �Last Taken �Type
cyanocobalamin (vitamin B-12) 250 250 mcg PO NOON Supplement 08/11/23 09/07/23 09/07/23 History
mcg tablet
magnesium oxide 250 mg PO NOON Supplement 08/11/23 09/07/23 09/07/23 History
zinc sulfate 50 mg zinc (220 mg) 50 mg PO NOON Supplement 08/11/23 09/07/2309/06/24 History
tablet
apixaban 5 mg tablet (Eliquis) 5 mg PO BID Blood Clot 08/24/23 09/07/23 09/07/23 History
Prevention/Tx
cholecalciferol (vitamin D3) 50 50 mcg PO NOON Supplement 08/24/23 09/07/23 09/07/23 History
mcg (2,000 unit) tablet
diltiazem HCl 180 mg 180 mg PO DAILY 30 days #30 caps 08/27/23 09/07/23 09/07/23 Rx
capsule,extended release 24 hr
metoprolol succinate 50 mg 50 mg PO BID 30 days #60 tabs 08/27/23 09/07/23 09/07/23 Rx
tablet,extended release 24 hr
budesonide-formoterol HFA 160 2 puff inhalation R BID #10.2 grams 09/15/23 Unknown Rx
mcg-4.5 mcg/actuation aerosol
inhaler
polyethylene glycol 3350 17 gram 17 g PO DAILY #0 ea 09/15/23 Unknown Rx
oral powder packet (HealthyLax)
tiotropium bromide 2.5 2 puff inhalation R DAILY #4 grams 09/15/23 Unknown Rx
mcg/actuation mist for inhalation
(Spiriva Respimat)
Review of Systems
-
History Source: Patient
All other systems: Negative unless noted
Vitals / Labs / Diagnostic Testing
Vital Signs
Temp Pulse Resp BP Pulse Ox
97.5 F 79 16 127/77 98
10/26/23 12:50 10/26/23 11:27 10/26/23 12:51 10/26/23 12:51 10/26/23 12:51
Lab Data
10/26/23 11:40
10/26/23 11:40
Diagnostic Testing:
Physical Exam
-
HEENT: Normocephalic, Anicteric, Moist Mucous Membranes and Other (poor dentition)
Cardiovascular: S1/S2 and Regular Rhythm
Respiratory: Clear, Non-Labored Respirations and Other (decreased BS on L)
GI: Soft, Non Distended, Non Tender and Normal Bowel Sounds
Neurology: Awake, Alert, Oriented, AO x 3 and No Motor Deficits
Skin: Warm, Dry and Good Color
General: Comfortable and Other (thin appearing)
Assessment
-
Patient is a 72-year-old male with history of COPD, alcohol abuse daily CKD stage IIIb, paroxysmal A-fib, GI bleed on Coumadin, splenic and renal infarcts, DVT/PE unprovoked 2020, pacemaker/defibrillator August 2011, cardiomyopathy former smoker, HTN,
prior PTX s/p chest tube and chemical pleurodesis 09/13/23 presenting with acute onset shortness of breath day of admission. Was using home inhalers without relief. In the ER, CXR showing moderate size left pneumothorax without mediastinal shift.
No hypoxemia noted on arrival, placed on venti mask and appears comfortable. We are consulted for eval 10/26/23.
Acute Left-sided recurrent spontaneous secondary pneumothorax (SSP)
SOB due to above
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
Recurrent spontaneous PTX s/p 16 Fr chest tube placed by IR on 09/10/2023
Status post pleurodesis 09/13/2023 with doxycycline 500 mg / 50 mL sterile water
History of tobacco use
Hypertension
History of PE/DVT
Paroxysmal A-fib on Eliquis
Hx of GI bleed (~7 years ago) while on coumadin
VT s/p ICD, NICM
History of alcohol use disorder
CKD
BPH
CKD (baseline Cr 1.4 - 1.6)
Plan:
Placed on supplemental O2, for PTX clearance not hypoxemia
He appears comfortable
He has declined chest tube and surgery
We discussed that we can observe PTX for now with daily studies
If it expands, may need to evaluate available interventions
PFT from 2017 showing moderate obstruction, severe diffusion impairment
Would be moderately high risk for surgery but could be tried with caution
I will discuss case again with CTS
He has tried to be seen at [facility] but was not successful
He is looking into experimental treatments including stem cells but we discussed how this is not fruitful treatment options at this time
Note patient had successful pleurodesis 09/13/2023
This can certainly be tried again if needed
Otherwise encourage IS
Resume home inhalers
Discussed with care team
DVT prophylaxis
OOB as tolerated
Reviewed with nursing and primary team
Outpatient pulmonary follow-up
Diagnostic Data
CXR 10/26/23- At least moderate size left pneumothorax without mediastinal shift.
CXR 09-12-2023: No overt residual pneumothorax.
CXR 09-11-2023: No definite residual pneumothorax. Small left pleural effusion, new.
CXR 09-10-2023: Marked interval progression of now moderate to large left pneumothorax measuring up to 6.5 cm of pleural separation. No definite tension.
CXR 09-08-2023: Left apical and inferolateral pneumothorax stable when compared to the exam the day before.
CXR 09-07-2023: Recurrence of small to moderate left apical pneumothorax, somewhat obscured by left-sided cardiac device.
PFT 07/22/16 FEV1 2.42L 59%, FVC 5.14L 93%, ratio 47. Post FEV1 2.42L 59%. TLC 10.19L 125%, DLCO 33% (moderate obstruction, severe diffusion impairment)
-----
Total time spent today was 75 minutes for this encounter. Time includes reviewing laboratory test/imaging results, reviewing extensive medical records, obtaining and reviewing medical history, performing an appropriate exam, ordering medications,
tests and procedures. Time also includes documentation of this encounter, coordinating patient care and communicating with other healthcare professionals.
--- NOTE | 2023-10-26 13:55 | HPS.HSE ---
Family Physician
-
Family Physician: Yazan Quinn
Chief Complaint
-
Shortness of breath
History of Present Illness
72-year-old male complaining of shortness of breath since 2:00 this morning using his inhaler/nebulizers more frequently. He reports the only thing he can think of is he took out a large tote trash bin on wheels at 6 PM then went to bed around 11
PM. He has had no cough or injury to his chest. In the ER he was noted to have a moderate size left pneumothorax without mediastinal shift and was not wanting a chest tube at current time. He is currently on 40% Ventimask with O2 sat 98% and
comfortable. He denies fever, chills, chest pain, cough, abdominal pain, nausea, vomiting, diarrhea, urinary symptoms. He did take his oral Eliquis this morning he has history of recurrent secondary spontaneous pneumothorax on the left side due to
underlying COPD 09/06 - 09/15/2023 at that time he was amendable to chest tube with suction and reexpansion of lung and improvement of shortness of breath. Prior to removal pleurodesis was completed by IR with use of doxycycline. He had prior chest
tube with pigtail placement before August. Other past medical history includes COPD, alcohol abuse daily CKD stage IIIb, paroxysmal A-fib, GI bleed on prior Coumadin approximate 11years ago, splenic and renal infarcts, DVT/pe unprovoked 2020,
pacemaker/defibrillator August 2011, cardiomyopathy former smoker
Medical History
Past Medical History
Past Medical History: Reports Other
Additional Past Medical History:
spontaneous secondary left pneumothorax august 2023 require chest tube and chemical pleurodesis with doxycycline
Prior left pneumothorax requiring pigtail chest tube placement
COPD intermittently uses home oxygen because he is unsure of how to use
Alcohol abuse 8 ounces of vodka/removed daily
persistent atrial fibrillation
nonischemic cardiomyopathy
history of VT/V-fib arrest with ICD/pacemaker replaced 2020 Medtronic
Hx RBBB
CKD 3
history of DVT/PE 11 years ago unprovoked
Temporal arteritis
Migraine headaches
Basal cell carcinoma with removal
Past Surgical History: Reports Other
Additional Past Surgical History:
Pacemaker/AICD 2011 V-fib arrest replacement 10/06/2019 Medtronic
Most effaced 06/13/2019
Social History
Tobacco: Former Smoker
Alcohol: Daily (Alcohol abuse 8 ounces of vodka/removed daily)
Drug: None
Personal:
Living: With Family
Employment: Retired
Family History
Family History: Other (Mother after fractured leg also history of DM 2 father history of blood clots and alcohol abuse )
Allergies / Home Medications
Allergies reflects when Allergies were last updated in [employer].
Home Medications with original date entered in [employer]
Allergy/Medication List:
Allergies
Allergy/AdvReac Type Severity Reaction Status Date / Time
bee venom protein (honey bee) Allergy Rash,chest Verified 09/07/23 16:45
tightness,
local
diffuse
swelling
Home Medications
cyanocobalamin (vitamin B-12) 250 mcg tablet 250 mcg PO NOON Supplement 08/11/23
magnesium oxide 250 mg PO NOON Supplement 08/11/23
zinc sulfate 50 mg zinc (220 mg) tablet 50 mg PO NOON Supplement 08/11/23
apixaban 5 mg tablet (Eliquis) 5 mg PO BID Blood Clot Prevention/Tx 08/24/23
cholecalciferol (vitamin D3) 50 mcg (2,000 unit) tablet 50 mcg PO NOON Supplement 08/24/23
diltiazem HCl 180 mg capsule,extended release 24 hr 180 mg PO DAILY 30 days #30 caps 08/27/23
budesonide-formoterol HFA 160 mcg-4.5 mcg/actuation aerosol inhaler (Breyna) 2 inh inhalation R BID 10/26/23
ipratropium 0.5 mg-albuterol 3 mg (2.5 mg base)/3 mL nebulization soln 3 ml inhalation R QID 10/26/23
ipratropium 20 mcg-albuterol 100 mcg/actuation mist for inhalation (Combivent Respimat) 2 puff inhalation R BID 10/26/23
metoprolol tartrate 50 mg tablet (Lopressor) 50 mg PO BID 10/26/23
umeclidinium 62.5 mcg/actuation blister powder for inhalation (Incruse Ellipta) 1 inh inhalation R DAILYPRN PRN sob 10/26/23
vitamin K2 40 mcg tablet 40 mcg PO NOON 10/26/23
Review of Systems
-
History Source: Patient and Family
A 12 point ROS was completed and negative except as noted: Yes
Constitutional: Denies Fever or Fatigue
EENT: Denies Sore Throat or Runny Nose
Respiratory: Reports Trouble Breathing; Denies Cough
Cardiac: Denies Chest Pain, Diaphoresis, Palpitations or Syncope
Abdomen/GI: Denies Abdominal Pain, Nausea, Vomiting, Diarrhea or Constipated
: Denies Dysuria, Frequency, Flank Pain, Incontinence or Difficulty Voiding
Musculoskeletal: Denies Joint Pain or Edema
Skin: Denies Itching or Rash
Neurological: Denies Dizzy, Headache or Weakness
Endocrine: Reports No Symptoms
Hematologic/Lymphatic: Reports No Symptoms
Psych: Reports Calm
Physical Exam
Vital Signs
Vital Signs
Temp Pulse Resp BP Pulse Ox
97.5 F 79 16 127/77 98
10/26/23 12:50 10/26/23 11:27 10/26/23 12:51 10/26/23 12:51 10/26/23 12:51
Physical Exam
General: Comfortable and Conversant; No Pain, Fever or Chills
HEENT: PERRLA, [place] Conjunctivae, No Ptosis and Oxygen (40% Ventimask in place)
Respiratory: Other (Diminished breath sounds over left upper lung field right CTA); No Wheezes, Rales or Rhonchi
Cardiac: S1/S2, Regular Rhythm and Other (Pacemaker/defibrillator present left upper chest wall); No Murmur, Rub or Gallop
Breast: Deferred by me
GI: Soft, Non Tender, Non Distended, Normal Bowel Sounds and No Hepatosplenomegaly
Rectal: Deferred by Provider
Genito-urinary: Deferred by me
Musculoskeletal: No Clubbing, No Cyanosis and No Edema
Skin: Warm and Dry; No Rash
Neuro: AO x 3, No Motor Deficits, Nonfocal/grossly intact, Cranial Nerves Intact, No Sensory Deficits and DTR's Intact & Symmetrical; No Slurred Speech, Facial Droop or Tremors
Psych: Calm
Laboratory Results
-
10/26/23 11:40
10/26/23 11:40
Laboratory Results
Total Bilirubin 2.0 mg/dl (0.2-1.3) H 10/26/23 11:40
AST 25 U/L (17-59) 10/26/23 11:40
ALT 16 U/L (0-50) 10/26/23 11:40
Alkaline Phosphatase 98 U/L (38-126) 10/26/23 11:40
Troponin I < 0.012 ng/ml 10/26/23 11:40
Data Reviewed
-
Diagnostic Radiology: Report Reviewed by me
Lab Data: Labs Reviewed by me
Impression/Plan
-
Impression/plan:
Admit to IMU
#Recurrent left-sided pneumothorax third episode 2/2 severe COPD/emphysema/ruptured bullae
09/10/2023 had chest tube and chemical pleurodesis with doxycycline as was not candidate for surgical intervention
94% RA, 98% on 40% Ventimask will continue supplemental O2
-Pulmonary consult
-Patient also needs education on how he should be using his home O2 he uses it episodically and has not sure how to use
#Severe COPD/emphysema
#Former smoker [id number] quit April 2021
-History of severe gas exchange capacity defect per PFTs December 2020
-Follows with pulmonary at [place]
-Continue budesonide/formoterol, albuterol ipratropium nebs, Incruse
#Alcohol abuse
Drinks daily 8 ounces combination of vodka and remove
-MSAs screen with protocol IV thiamine IV folate
#Paroxysmal A-fib
Hgb 11.1
-Hold Eliquis
-Continue diltiazem 180 mg daily, metoprolol succinate 50 mg twice daily
#History of DVT/PE 2020 unprovoked
#History of prior GI bleed on Coumadin
-Is currently on Eliquis
#Pacemaker/defibrillator August 2011, replaced 2019 Medtronic
# history of VT/V-fib arrest
Nonischemic cardiomyopathy
#CKD stage IIIb
-Creat 1.3 appears baseline
-Follow BMP#
#History of splenic and renal infarcts
DVT prophylaxis
Hold current Eliquis did take Eliquis this a.m. 10/26/2023
SCDs
DNR per patient with present at bedside
[2023-10-26 15:04] LABS: Urine Albumin 2+ (Neg - Trace); Urine Bilirubin 1+ (Negative); Urine Character Very Cloudy (Clear); Urine Color Brown; Urine Glucose Negative (Negative); Urine Ketone Trace (Negative); Urine Leukocyte 1+ (Negative); Urine Nitrite Positive (Negative); Urine Occult Blood 4+ (Negative); Urine Specific Gravity 1.015 (<1.030); Urine Urobilinogen 1+ (Neg - 1+)
--- NOTE | 2023-10-26 15:04 | W.PN.UPDATE ---
Update Note
Progress Note Update
HPI: 72-year-old male PMH recurrent left pneumothorax status post chest tube placement and removal/pleurodesis, COPD, alcohol abuse, CKD stage IIIb, paroxysmal A-fib in Eliquis, GI bleed on prior Coumadin approximate 11years ago, splenic and renal
infarcts, DVT/PE unprovoked 2020, pacemaker/defibrillator August 2011, cardiomyopathy; p/w acute onset of shortness of breath 2/2 recurrent (3rd episode) pneumothorax.
A/P:
# Recurrent left-sided pneumothorax/ third episode, 2/2 severe COPD/emphysema/ruptured bullae
# h/o chest tube placement and removal in August 2023, status post chemical pleurodesis with doxycycline as was not a candidate for surgical intervention
Clinically without hypoxia
Continue O2 support via Ventimask for pneumothorax resorption
Pulmonary consult
Consider CT surgery consult
Patient would like to avoid chest tube placement currently.
# Severe COPD/emphysema
# Former smoker [id number] quit April 2021
Follows with pulmonary at [place]
Continue budesonide/formoterol, albuterol ipratropium nebs, Incruse
# Alcohol abuse
Drinks daily 8 ounces combination of vodka and remove
MSAs screen with protocol IV thiamine IV folate
# Paroxysmal A-fib
Hold Eliquis in case requiring repeat pleurodesis
Continue diltiazem 180 mg daily, metoprolol succinate 50 mg twice daily
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
# History of prior GI bleed on Coumadin
# Pacemaker/defibrillator August 2011, replaced 2019 Medtronic
# history of VT/V-fib arrest
# Nonischemic cardiomyopathy
# CKD stage IIIb
Creat 1.3 appears baseline
# History of splenic and renal infarcts
DVT prophylaxis: Hold current Eliquis did take Eliquis this a.m. 10/26/2023, SCDs
DNR per patient with present at bedside
[2023-10-26 15:21] LABS: Urine Red Blood Cell >100 /HPF (0-2)
[2023-10-26 15:43] LABS: Phosphorus 3.6 mg/dl (2.5-4.5)
[2023-10-26 15:55] LABS: INR 1.44; PT 17.7 Sec (11.4-14.6)
[2023-10-26 16:11] LABS: GGTP 33 U/L (15-73)
[2023-10-26 16:13] LABS: Alcohol None Detected
[2023-10-26 16:17] LABS: B-Hydroxybutyrate 0.22 mmol/L (0.02-0.27)
[2023-10-26] MEDS: DUONEB INH (16:30)
--- NOTE | 2023-10-26 16:47 | PTCARENOTE ---
Rec'd pt from ED on ventimask, Per Pulmonary, pt to remain on ventimask to treat his pneumothorax. Pt refuses chest tube, pleuradesis. Pt reports blood in urine and stool at home, shortness of breath, weakness, weight loss. Oriented to unit,
instructed to keep ventimask on when not eating. reluctant but cooperative. call dueñas in reach.
[2023-10-26] MEDS: THIAMINE INJECTION 200 MG IV (17:45)
[2023-10-26] MEDS: SYMBICORT 160/4.5 MCG INHALER 2 PUFF INH (19:41)
[2023-10-26] MEDS: LOPRESSOR 50 MG PO (20:27)
[2023-10-26 20:53] LABS: Urine Albumin 1+ (Neg - Trace); Urine Bilirubin 1+ (Negative); Urine Character Very Cloudy (Clear); Urine Color Brown; Urine Glucose Negative (Negative); Urine Ketone Trace (Negative); Urine Leukocyte Trace (Negative); Urine Nitrite Positive (Negative); Urine Occult Blood 4+ (Negative); Urine Specific Gravity 1.015 (<1.030); Urine Urobilinogen Negative (Neg - 1+)
[2023-10-26 21:00] LABS: Urine Bacteria Many (Negative); Urine Red Blood Cell >100 /HPF (0-2); Urine White Cell 0-2 /HPF (0-5)
[2023-10-26 21:40] LABS: Amphetamines Negative (Negative); Barbiturates Negative (Negative); Benzodiazepines Negative (Negative); Buprenorphine Negative (Negative); Cocaine Negative (Negative); Marijuana Positive (Negative); Methadone Negative (Negative); Methamphetamines Negative (Negative); Opiates Negative (Negative); Phencyclidine Negative (Negative); Tricyclic Antidepressants Negative (Negative)
[2023-10-26] MEDS: THIAMINE INJECTION IV (23:24)
[2023-10-27] VITALS (11 sets, daily range): BP systolic 121–144; BP diastolic 49–97; PULSE 70–72; O2SAT 100; BMI 19.6
--- NOTE | 2023-10-27 00:47 | PTCARENOTE ---
Caring for pt overnight. aaox3, pleasant. SOB rest & exertion, tachypneic, shallow. Lungs very diminished. Bedrest for now, uses urinal at side of bed. Denies pain. Continues to use ventimask, 15L 50%. MSAS 0, no withdrawal symptoms. Refused
thiamine. Will monitor.
--- NOTE | 2023-10-27 00:58 | PTCARENOTE ---
Pt urine is brown/tea colored. UA & culture sent.
[2023-10-27 06:22] LABS: % Basophils 0.9 % (0-2); % Eosinophils 4.5 % (0-6); % Immature Granulocytes 0.3 % (0-0.5); % Lymphocytes 18.7 % (20.5-51.1); % Monocytes 8.7 % (1.7-9.3); % Neutrophils 66.9 % (42.2-75.2); Absolute Basophils 0.1 10^3/uL (0-0.2); Absolute Eosinophils 0.5 10^3/uL (0-0.7); Absolute Lymphocytes 1.9 10^3/uL (1.2-3.4); Absolute Monocytes 0.9 10^3/uL (0.1-0.6); Absolute Neutrophils 6.6 10^3/uL (1.4-6.5); Hemoglobin 10.5 g/dL (13.0-18.0); Mean Corp Hgb Conc. 32.8 g/dL (33.0-37.0); Mean Corpuscular Hgb 32.6 pg (27.0-31.0); Mean Corpuscular Volume 99.4 fL (80.0-94.0); Mean Platelet Volume 9.4 fL (7.4-10.4); Nucleated Red Blood Cells % 0.3 % (-); Platelet Count 223 10^3/uL (130-400); Red Blood Cell Count 3.22 10^6/uL (4.70-6.10); Red Cell Dist. Width 16.9 % (11.5-14.5); White Blood Cell Count 9.9 10^3/uL (4.8-10.8)
[2023-10-27 06:51] LABS: ALT (SGPT) 15 U/L (0-50); AST (SGOT) 24 U/L (17-59); Albumin 3.5 g/dl (3.5-5.0); Alkaline Phosphatase 86 U/L (38-126); Blood Urea Nitrogen 18 mg/dl (9-20); Calcium 9.1 mg/dl (8.4-10.2); Carbon Dioxide 27 mmol/L (22-30); Chloride 107 mmol/L (98-107); Estimated Creatinine Clearance 52 ml/min; Glucose 93 mg/dl (70-99); Potassium 4.4 mmol/L (3.5-5.1); Sodium 139 mmol/L (135-145); Total Protein 5.9 g/dl (6.3-8.2); eGFR 58.37
[2023-10-27] MEDS: DUONEB 3 ML INH ×4 (07:17→21:22)
[2023-10-27] MEDS: SYMBICORT 160/4.5 MCG INHALER 2 PUFF INH ×2 (07:18→21:22)
--- NOTE | 2023-10-27 07:41 | W.PN.HOSP.TC ---
Addendum entered and electronically signed by Camilla Stephen MD 10/27/23 15:45:
# Moderate Protein Calorie Malnutrition
Original Note:
Today's Communication/Plan
-
see A/P
Assessment / Plan
Assessment / Plan
HPI: 72-year-old male PMH recurrent left pneumothorax status post chest tube placement and removal/pleurodesis, COPD, alcohol abuse, CKD stage IIIb, paroxysmal A-fib in Eliquis, GI bleed on prior Coumadin approximate 11years ago, splenic and renal
infarcts, DVT/PE unprovoked 2020, pacemaker/defibrillator August 2011, cardiomyopathy; p/w acute onset of shortness of breath 2/2 recurrent (3rd episode) pneumothorax.
A/P:
# Recurrent left-sided pneumothorax/ third episode, 2/2 severe COPD/emphysema/ruptured bullae
# h/o chest tube placement and removal in August 2023, status post chemical pleurodesis with doxycycline as was not a candidate for surgical intervention
Clinically without hypoxia
Continue O2 support via Ventimask for pneumothorax resorption
Pulmonary on board
Consider CT surgery consult
Patient would like to avoid chest tube placement currently.
# Severe COPD/emphysema
# Former smoker [id number] quit April 2021
Follows with pulmonary at [place]
Continue budesonide/formoterol, albuterol ipratropium nebs, Incruse
# Alcohol abuse
Drinks daily 8 ounces combination of vodka
MSAs screen with protocol IV thiamine IV folate
# Paroxysmal A-fib
Hold Eliquis in case requiring repeat pleurodesis
Continue diltiazem 180 mg daily, metoprolol succinate 50 mg twice daily
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
# History of prior GI bleed on Coumadin
# Pacemaker/defibrillator August 2011, replaced 2019 Medtronic
# history of VT/V-fib arrest
# Nonischemic cardiomyopathy
# CKD stage IIIb
Creat 1.3 appears baseline
# History of splenic and renal infarcts
DVT prophylaxis: Hold AUTHOR'S AGENT Eliquis, Lovenox SQ while off Eliquis
Pt would like to be full code for now, code status changed to full code
Anticipated Discharge: 24 - 48 hours
Subjective/Interval History
-
Date of Service: October 27, 2023
Objective Data
-
Labs:
Laboratory Results
10/27/23
05:57
WBC 9.9
Hgb 10.5 L
Hct 32.0 L
Plt Count 223
Sodium 139
Potassium 4.4
Chloride 107
Carbon Dioxide 27
BUN 18
Creatinine 1.3
Glucose 93
Calcium 9.1
Total Bilirubin 2.0 H
AST 24
ALT 15
Alkaline Phosphatase 86
Vital Signs:
Vital Signs
Temp Pulse Resp BP Pulse Ox
36.4 C 70 16 131/93 100
10/27/23 06:45 10/27/23 07:21 10/27/23 07:21 10/27/23 02:00 10/27/23 07:21
I&O
10/26/23 10/27/23 10/28/23
06:59 06:59 06:59
Output Total 375 / 375
Balance -375 / -375
Review of Systems
-
History Source: Patient
All other systems: Reviewed and negative
Physical Exam
-
General: Well Developed, Well Nourished and Conversant
HEENT: Oxygen (ventimask)
Respiratory: Clear to Auscultation, Non Labored Respirations and Decreased Breath Sounds (L upper lobe); Negative Accessory Resp Muscle Use
Cardiac: Regular Rhythm and S1/S2
GI: Soft, Nontender, Nondistended and Normal Bowel Sounds
Skin: Warm
Neuro: Awake and Alert
Psych: Calm and Intact Judgement/Insight
Data Reviewed
-
Diagnostic Radiology: Image personally visualized and interpreted and Report Reviewed by me
Labs: Labs Reviewed by me
[2023-10-27] MEDS: CARDIZEM CD 180 MG PO (08:25)
[2023-10-27] MEDS: FOLVITE 1 MG PO (08:25)
[2023-10-27] MEDS: LOPRESSOR 50 MG PO ×2 (08:25→20:18)
[2023-10-27] MEDS: THIAMINE INJECTION 200 MG IV ×3 (08:27→23:01)
[2023-10-27] MEDS: ZINC SULFATE 220 MG PO (12:52)
[2023-10-27] MEDS: MAGNESIUM OXIDE 250 MG PO (12:52)
[2023-10-27] MEDS: VITAMIN D3 (cholecalciferol) 50 MCG PO (12:52)
--- NOTE | 2023-10-27 13:20 | W.PN.PUL3 ---
Today's Communication / Plan
-
Serial CXR
O2 therapy to maintain hyperoxia to help resorb PTX
If left-sided PTX becomes large or life-threatening then chest tube will be needed and patient has consented to this, otherwise he wishes to avoid chest tube if possible
Given his significant air trapping seen on PFT from 2017, endobronchial valve therapy is something he should investigate and perhaps this could also help with his recurrent pneumothorax. He would need to be transferred to tertiary care center for
this. He will think about it
Avoid incentive spirometer or any positive airway pressure as this will possibly worsen/exacerbate his existing pneumothorax
Assessment
-
Patient is a 72-year-old male with history of COPD, alcohol abuse daily CKD stage IIIb, paroxysmal A-fib, GI bleed on Coumadin, splenic and renal infarcts, DVT/PE unprovoked 2020, pacemaker/defibrillator August 2011, cardiomyopathy former smoker, HTN,
prior PTX s/p chest tube and chemical pleurodesis 09/13/23 presenting with acute onset shortness of breath day of admission. Was using home inhalers without relief. In the ER, CXR showing moderate size left pneumothorax without mediastinal shift.
No hypoxemia noted on arrival, placed on venti mask and appears comfortable. We are consulted for eval 10/26/23.
Acute Left-sided recurrent spontaneous secondary pneumothorax (SSP)
SOB due to above
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
Recurrent spontaneous PTX s/p 16 Fr chest tube placed by IR on 09/10/2023
Status post pleurodesis 09/13/2023 with doxycycline 500 mg / 50 mL sterile water
History of tobacco use
Hypertension
History of PE/DVT
Paroxysmal A-fib on Eliquis
Hx of GI bleed (~7 years ago) while on coumadin
VT s/p ICD, NICM
History of alcohol use disorder
CKD
BPH
CKD (baseline Cr 1.4 - 1.6)
Plan:
Continue with supplemental oxygen to maintain hyperoxia despite him saturating well and having COPD
This is important as it will help resorb his pneumothorax and hopefully avoid him from needing a tube thoracostomy
He appears comfortable
He has declined chest tube and surgery, but says that if the chest tube is needed to save his life or due to worsening pneumothorax then he would be amenable
We discussed that we can observe PTX for now with daily CXR
If it expands, may need to evaluate available interventions
- I did discuss endobronchial valve therapy, but we do not insert those here, and he would need to be TRX to [place] vs [place] vs other tertiary care center; the other issue with valve therapy is he has severe gas exchange capacity defect with
moderate COPD with severe air trapping and mild hyperinflation (via PFT from 2017)
- The air trapping alone that he has evidence of may make him a candidate for valve therapy
- He needs updated PFTs - unfortunately this is not safe in the setting of his acute pneumothorax
PFT from 2017 showing moderate obstruction, severe diffusion impairment
Would be moderately high risk for surgery but could be tried with caution
Case reviewed with CT surgery and CT chest will be obtained to further evaluate left-sided parenchyma
He has tried to be seen at [facility] but was not successful
He is looking into experimental treatments including stem cells but we discussed how this is not fruitful treatment options at this time
Note patient had successful pleurodesis 09/13/2023
This can certainly be tried again if needed, perhaps with talc slurry
Avoid incentive spirometer as this can worsen/exacerbate his pneumothorax
Resume home inhalers
Discussed with care team
DVT prophylaxis
OOB as tolerated
Reviewed with nursing and primary team
Outpatient pulmonary follow-up
Total time spent today was 35 minutes for this encounter. Time includes reviewing laboratory test/imaging results, reviewing pertinent medical records, obtaining and reviewing medical history, performing an appropriate exam, ordering medications,
tests and procedures. Time also includes documentation of this encounter, coordinating patient care and communicating with other healthcare professionals. Total time does not include separately billed tests performed on this date of service.
Diagnostic Data
CXR 10/26/23- At least moderate size left pneumothorax without mediastinal shift.
CXR 09-12-2023: No overt residual pneumothorax.
CXR 09-11-2023: No definite residual pneumothorax. Small left pleural effusion, new.
CXR 09-10-2023: Marked interval progression of now moderate to large left pneumothorax measuring up to 6.5 cm of pleural separation. No definite tension.
CXR 09-08-2023: Left apical and inferolateral pneumothorax stable when compared to the exam the day before.
CXR 09-07-2023: Recurrence of small to moderate left apical pneumothorax, somewhat obscured by left-sided cardiac device.
PFT 07/22/16 FEV1 2.42L 59%, FVC 5.14L 93%, ratio 47. Post FEV1 2.42L 59%. TLC 10.19L 125%, DLCO 33% (moderate obstruction, severe diffusion impairment)
-----
Subjective Data
-
Date of Service:
Date of Service: October 27, 2023
Chief Complaint: Pulmonary Follow Up
Subjective:
Patient seen and evaluated today at bedside. Upset because he did not get good sleep last night. He would like something to help him sleep tonight. He is breathing okay but he has left-sided chest pain sometimes worse during the day and then
other times. Heart rate 81, respiratory rate 21, SpO2 99% on room air and BP 121/82.
Review of Systems
General: Other (Negative unless mentioned above)
Objective Data
Data Reviewed
Vital Signs / I&O / Oxygen:
Vital Signs
Temp Pulse Resp BP Pulse Ox
98 F 70 28 128/89 100
10/27/23 11:25 10/27/23 12:00 10/27/23 12:00 10/27/23 09:31 10/27/23 12:00
Intake and Output
10/26/23 10/27/23 10/28/23
06:59 06:59 06:59
Output Total 375 / 375 200 / 200
Balance -375 / -375 -200 / -200
SaO2 100
Physical Exam
General: Respiratory Distress (Negative), Comfortable and Other (Thin appearing man/pale/carrion skin, chronically appearing)
HEENT: Normocephalic, Anicteric and Other (Poor dentition)
Cardiovascular: S1-S2 and Peripheral Edema (Negative)
Respiratory: Wheeze (Negative), Crackles (Negative), Rhonchi (Negative), Non-Labored Respirations and Other (Reduced breath sounds bilaterally)
GI: Soft, Non Distended, Non Tender and Normal Bowel Sounds
Neurology: AO x 3 and Tremors (Negative)
Skin: Warm and Dry
Labs/Micro/Reports
Lab Data
10/27/23 05:57
10/27/23 05:57
Laboratory Results
10/26/23
15:18
PT 17.7 H
INR 1.44
APTT 35.0
Microbiology
10/26/23 14:58 Urine Urine Culture - Final
NO GROWTH
--- NOTE | 2023-10-27 15:21 | PN.CDI ---
CDI
- -
CDI:
Physician Documentation Request
Admit Date: 10/26/23 15:07
Dear Doctor Hailee,
Clinical Indicators:
Patient admitted with left spontaneous pneumothorax due to severe COPD/emphysema/ruptured bullae.
10/26 note/assessment:'Pt meets criteria for Mod protein calorie malnutrition of chronic illness with <75% intake x >1mo, moderate loss subcutaneous fat (orbial with dark circles and somewhat hollow), and mod loss muscle (temporal, buccal)'
Based on the above information and your assessment, which of the following most accurately represents the patient's nutritional status?
Moderate Protein Calorie Malnutrition
Mild Protein Calorie Malnutrition
Cachexia without malnutrition
Other (please specify)
[place] Criteria ([facility] Hospitalist 2017)
2 or more criteria must be present for either
non severe or severe malnutrition
Note that the criteria differs related to the
presence of an acute or chronic illness
Acute Illness Chronic Illness
Energy Intake Non Severe: <75% for >7 days Non Severe: <75% for >1 month
Severe: <50% for >5 days Severe: <75% for >1 month
Weight Loss Non Severe: 1-2% over 1 week Non Severe: 5% over 1 month
5% over 1 month 7.5% over 3 months
7.5% over 3 months 10% over 6 months
1 year N/A 20% over 1 year
Severe: >2% over 1 week Severe: >5% over 1 month
>5% over 1 month >7.5% over 3 months
>7.5% over 3 months >10% over 6 months
1 year N/A >20% over 1 year
Body Fat Non Severe: Mild Decrease Non Severe: Mild Loss
Severe: Moderate Decrease Severe: Severe Loss
Muscle Mass Non Severe: Mild Decrease Non Severe: Mild Loss
Severe: Moderate Decrease Severe: Severe Loss
Fluid Accumulation Non Severe: Mild Accumulation Non Severe: Mild Accumulation
Severe: Moderate to severe Severe: Moderate to severe
accumulation accumulation
Reduced Transit Manager Strength Non Severe: N/A Non Severe: N/A
Severe: Measurably reduced Severe: Measurably reduced
Additional criteria that can be used to Determine if Mild or Moderate Malnutrition (Merck Manual 2018)
Mild Moderate Severe
Albumin gm/dl <3.0 gm/dl <2.5 gm/dl <2.0 gm/dl
Pre Albumin mg/dl <15 gm/dl <10 mg/dl <5.0 mg/dl
BMI <18.5 <17 <16
Use of terms such as suspected, likely, concern for, or probable (associated with a specific diagnosis that is being evaluated, monitored, or treated as if it exists) are acceptable and can be coded in the inpatient setting, when documented at the
time of discharge.
Thank you,
LUPE Sewell RN
CDI Specialist
available via tiger text
Please use your independent medical judgment in providing your response.
--- NOTE | 2023-10-27 17:06 | CM ---
Patient with Dx Recurrent left-sided pneumothorax, severe COPD/emphysema, Alcohol abuse. O2 5L. MSAS per nursing.
Met with patient who resides with his in a 2 story house with 2 BOB.
The patient has been independent in ADLs and ambulation.
DME - home O2 concentrator through [employer] (no portable tanks)
VN - current with VN for SN, PT recently completed
SNF - none
PCP - Yazan Quinn
Pharmacy - [facility]
CM Consult: Substance Abuse
The patient reports that he drinks 8oz of Vokda daily, and this is not a problem for him.
He declined the offer to speak with [facility] for Etoh resources/programs.
Patient expressed his distress regarding his pulmonary status- he says he was told he has severe COPD and he could expect to have future pneumothorax. He was waiting to speak to cash accountant with his concerns.
Plan watch for any home O2 needs.
Plan home.
[2023-10-27] MEDS: LOVENOX 40 MG SC (17:27)
[2023-10-27] MEDS: MELATONIN 5 MG PO (23:01)
[2023-10-28] VITALS (10 sets, daily range): BP systolic 111–135; BP diastolic 75–88; BMI 19.3
[2023-10-28 06:17] LABS: Hematocrit 32.6 % (39.0-52.0); Hemoglobin 10.5 g/dL (13.0-18.0); Mean Corp Hgb Conc. 32.2 g/dL (33.0-37.0); Mean Corpuscular Hgb 32.2 pg (27.0-31.0); Mean Platelet Volume 9.7 fL (7.4-10.4); Platelet Count 232 10^3/uL (130-400); Red Blood Cell Count 3.26 10^6/uL (4.70-6.10); White Blood Cell Count 10.1 10^3/uL (4.8-10.8)
[2023-10-28 06:38] LABS: Blood Urea Nitrogen 22 mg/dl (9-20); Calcium 9.6 mg/dl (8.4-10.2); Carbon Dioxide 28 mmol/L (22-30); Chloride 107 mmol/L (98-107); Estimated Creatinine Clearance 47 ml/min; Glucose 94 mg/dl (70-99); Potassium 4.8 mmol/L (3.5-5.1); Sodium 139 mmol/L (135-145)
[2023-10-28] MEDS: DUONEB 3 ML INH ×4 (07:11→20:08)
[2023-10-28] MEDS: SYMBICORT 160/4.5 MCG INHALER 2 PUFF INH ×2 (07:11→20:08)
--- NOTE | 2023-10-28 08:06 | W.PN.HOSP.TC ---
Today's Communication/Plan
-
see A/P
Assessment / Plan
Assessment / Plan
HPI: 72-year-old male PMH recurrent left pneumothorax status post chest tube placement and removal/pleurodesis, COPD, alcohol abuse, CKD stage IIIb, paroxysmal A-fib in Eliquis, GI bleed on prior Coumadin approximate 11years ago, splenic and renal
infarcts, DVT/PE unprovoked 2020, pacemaker/defibrillator August 2011, cardiomyopathy; p/w acute onset of shortness of breath 2/2 recurrent (3rd episode) pneumothorax.
A/P:
# Recurrent left-sided pneumothorax/ third episode, 2/2 severe COPD/emphysema/ruptured bullae
# h/o chest tube placement and removal in August 2023, status post chemical pleurodesis with doxycycline as was not a candidate for surgical intervention
Clinically without hypoxia
Continue O2 support via Ventimask for air resorption
Pulmonary on board
Consider CT surgery consult
Patient would like to avoid chest tube placement currently.
Follow chest CT
Consider endobronchial valve therapy per pulm
# Severe COPD/emphysema
# Former smoker [id number] quit April 2021
Follows with pulmonary at [place]
Continue budesonide/formoterol, albuterol ipratropium nebs, Incruse
# Alcohol abuse
Drinks daily 8 ounces combination of vodka
MSAs screen with protocol IV thiamine IV folate
# Paroxysmal A-fib
Hold Eliquis in case requiring repeat pleurodesis
Continue diltiazem 180 mg daily, metoprolol succinate 50 mg twice daily
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
# History of prior GI bleed on Coumadin
# Pacemaker/defibrillator August 2011, replaced 2019 [employer]
# history of VT/V-fib arrest
# Nonischemic cardiomyopathy
# CKD stage IIIb
Creat 1.4 appears at baseline
# History of splenic and renal infarcts
DVT prophylaxis: Hold CALL CENTER SUPPORT CONSULTANT Eliquis, Lovenox SQ while off Eliquis
Pt would like to be full code for now, code status changed to full code
Anticipated Discharge: > 48 hours
Subjective/Interval History
-
Date of Service: October 28, 2023
Objective Data
-
Labs:
Laboratory Results
10/28/23
05:59
WBC 10.1
Hgb 10.5 L
Hct 32.6 L
Plt Count 232
Sodium 139
Potassium 4.8
Chloride 107
Carbon Dioxide 28
BUN 22 H
Creatinine 1.4 H
Glucose 94
Calcium 9.6
Vital Signs:
Vital Signs
Temp Pulse Resp BP Pulse Ox
36.5 C 88 15 111/75 98
10/28/23 06:06 10/28/23 07:15 10/28/23 07:15 10/28/23 04:00 10/28/23 07:15
I&O
10/27/23 10/28/23 10/29/23
06:59 06:59 06:59
Intake Total 480 / 480
Output Total 375 / 375 200 / 200
Balance -375 / -375 280 / 280
Review of Systems
-
History Source: Patient
All other systems: Reviewed and negative
Physical Exam
-
General: Well Developed, Well Nourished and Conversant
HEENT: Oxygen (5L NC)
Respiratory: Clear to Auscultation, Non Labored Respirations and Decreased Breath Sounds (L ); Negative Accessory Resp Muscle Use
Cardiac: Regular Rhythm and S1/S2
GI: Soft, Nontender, Nondistended and Normal Bowel Sounds
Skin: Warm
Neuro: Awake and Alert
Psych: Calm and Intact Judgement/Insight
Data Reviewed
-
Diagnostic Radiology: Image personally visualized and interpreted and Report Reviewed by me
Labs: Labs Reviewed by me
[2023-10-28] MEDS: THIAMINE INJECTION 200 MG IV ×3 (08:40→22:57)
[2023-10-28] MEDS: FOLVITE 1 MG PO (08:40)
[2023-10-28] MEDS: CARDIZEM CD 180 MG PO (08:40)
[2023-10-28] MEDS: LOPRESSOR 50 MG PO ×2 (08:40→20:21)
[2023-10-28] MEDS: VITAMIN D3 (cholecalciferol) 50 MCG PO (12:02)
[2023-10-28] MEDS: ZINC SULFATE 220 MG PO (12:02)
[2023-10-28] MEDS: MAGNESIUM OXIDE 250 MG PO (12:03)
--- NOTE | 2023-10-28 12:53 | W.PN.PUL3 ---
Today's Communication / Plan
-
NPO past midnight for left-sided chest tube with eventual talk slurry pleurodesis
Patient is not a surgical candidate
Serial CXR
O2 therapy to maintain hyperoxia to help resorb PTX
Given his significant air trapping seen on PFT from 2016, endobronchial valve therapy is something he should investigate and perhaps this could also help with his recurrent pneumothorax. He would need to be transferred to tertiary care center for
this.
Avoid incentive spirometer or any positive airway pressure as this will possibly worsen/exacerbate his existing pneumothorax
Pulmonary service will continue to follow along
Assessment
-
Patient is a 72-year-old male with history of COPD, alcohol abuse daily CKD stage IIIb, paroxysmal A-fib, GI bleed on Coumadin, splenic and renal infarcts, DVT/PE unprovoked 2020, pacemaker/defibrillator August 2011, cardiomyopathy former smoker, HTN,
prior PTX s/p chest tube and chemical pleurodesis 09/13/23 presenting with acute onset shortness of breath day of admission. Was using home inhalers without relief. In the ER, CXR showing moderate size left pneumothorax without mediastinal shift.
No hypoxemia noted on arrival, placed on venti mask and appears comfortable. We are consulted for eval 10/26/23.
Impression:
Acute Left-sided recurrent spontaneous secondary pneumothorax (SSP)
Posteromedial left lower lobe atelectasis versus pneumonia (likely the former given procalcitonin is <0.05)
SOB due to above in the setting of severe bullous emphysema and COPD with severe gas exchange capacity defect
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
Recurrent spontaneous PTX s/p 16 Fr chest tube placed by IR on 09/10/2023
Status post pleurodesis 09/13/2023 with doxycycline 500 mg / 50 mL sterile water
History of tobacco use
Hypertension
History of PE/DVT
Paroxysmal A-fib on Eliquis
Hx of GI bleed (~7 years ago) while on coumadin
VT s/p ICD, NICM
History of alcohol use disorder
CKD
BPH
CKD (baseline Cr 1.4 - 1.6)
Plan:
Continue with supplemental oxygen to maintain hyperoxia despite him saturating well and having COPD
This is important as it will help resorb his pneumothorax and hopefully avoid him from needing a tube thoracostomy
He appears comfortable
He had previously declined chest tube and surgery, but says that if the chest tube is needed to save his life or due to worsening pneumothorax then he would be amenable
The patient had a CT chest today and I discussed the results with him in detail. Considering the size of the pneumothorax that remains moderate-size despite being on supplemental O2, I do not feel that this pneumothorax will simply resolve with
conservative measures. The patient has agreed to a chest tube with eventual pleurodesis. I spoke with IR, and they will be able to place chest tube tomorrow and once pneumothorax has resolved they will instill talc slurry for another attempt at
pleurodesis
- Patient will be NPO past midnight
- Ok to continue his DVT ppx with LMWH
- I did discuss endobronchial valve therapy, but we do not insert those here, and he would need to be TRX to [place] vs [place] vs other tertiary care center; the other issue with valve therapy is he has severe gas exchange capacity defect with moderate
COPD with severe air trapping and mild hyperinflation (via PFT from 2017)
- These findings may have progressed since 2017, it is unknown as we do not have any up-to-date PFTs
- The air trapping alone that he has evidence of may make him a candidate for valve therapy, however given his severely impaired DLco, unclear if further loss of lung tissue would be of benefit to him; he will need updated spirometry as well as
blood gas measurements to evaluate if bronchoscopic treatment of his emphysema is appropriate or not
- Lets get his PTX controlled first before we try to treat his COPD
- He needs updated PFTs - unfortunately this is not safe in the setting of his acute pneumothorax
PFT from 2017 showing moderate obstruction, severe diffusion impairment
Would be moderately high risk for surgery but could be tried with caution
Case reviewed with CT surgery and CT chest obtained today showing moderate sized L-PTX with atelectasis at medial lingula and postero-medial LLL; the LLL appears to have mucoid impaction as well, could be a pneumonia. Trend WBC, monitor for fever.
If he spikes a fever, sim-Cx and start broad spectrum ABx
He has tried to be seen at [facility] but was not successful
He is looking into experimental treatments including stem cells but we discussed how this is not fruitful treatment options at this time
Note patient had successful pleurodesis 09/13/2023
This will be tried again with talc slurry (see above)
Avoid incentive spirometer as this can worsen/exacerbate his pneumothorax
Resume home inhalers
Discussed with care team
DVT prophylaxis
OOB as tolerated
Reviewed with nursing and primary team
Outpatient pulmonary follow-up
Total time spent today was 35 minutes for this encounter. Time includes reviewing laboratory test/imaging results, reviewing pertinent medical records, obtaining and reviewing medical history, performing an appropriate exam, ordering medications,
tests and procedures. Time also includes documentation of this encounter, coordinating patient care and communicating with other healthcare professionals. Total time does not include separately billed tests performed on this date of service.
Diagnostic Data
CT Chest 10-28-2023:
Marked changes of emphysema again seen, particularly bullous emphysema in the lung apices.
Moderate size left pneumothorax with accompanying partial left lower lobe atelectasis, left lower lobe subsegmental atelectasis and/or pneumonia and tiny left pleural effusion.
Aneurysmal dilatation of the distal descending thoracic aorta predominantly stable at approximately 4.6 cm.
CXR 10/26/23- At least moderate size left pneumothorax without mediastinal shift.
CXR 09-12-2023: No overt residual pneumothorax.
CXR 09-11-2023: No definite residual pneumothorax. Small left pleural effusion, new.
CXR 09-10-2023: Marked interval progression of now moderate to large left pneumothorax measuring up to 6.5 cm of pleural separation. No definite tension.
CXR 09-08-2023: Left apical and inferolateral pneumothorax stable when compared to the exam the day before.
CXR 09-07-2023: Recurrence of small to moderate left apical pneumothorax, somewhat obscured by left-sided cardiac device.
PFT 07/22/16 FEV1 2.42L 59%, FVC 5.14L 93%, ratio 47. Post FEV1 2.42L 59%. TLC 10.19L 125%, DLCO 33% (moderate obstruction, severe diffusion impairment)
-----
Subjective Data
-
Date of Service:
Date of Service: October 28, 2023
Chief Complaint: Pulmonary Follow Up
Subjective:
Seen and evaluated today at bedside. CT chest performed today showing severe upper lobe predominant bullous emphysema with moderate size left-sided pneumothorax with posteromedial left lower lobe atelectasis versus pneumonia, as well as medial
lingula atelectasis. Patient is sitting in bed, in no acute distress. Currently on 6 L/min saturating 96%, respiratory rate 20 and heart rate 70. We discussed his CT chest findings, and I answered all of his questions.
Review of Systems
General: Other (Negative unless mentioned above)
Objective Data
Data Reviewed
Vital Signs / I&O / Oxygen:
Vital Signs
Temp Pulse Resp BP Pulse Ox
97.8 F 82 14 123/87 98
10/28/23 11:00 10/28/23 11:14 10/28/23 11:14 10/28/23 10:06 10/28/23 11:14
Intake and Output
10/27/23 10/28/23 10/29/23
06:59 06:59 06:59
Intake Total 480 / 480
Output Total 375 / 375 200 / 200 600 / 600
Balance -375 / -375 280 / 280 -600 / -600
SaO2 98
Nasal Cannula flow liters per 5
minute
Physical Exam
General: Respiratory Distress (Negative), Comfortable and Other (Thin appearing man/pale/carrion skin, chronically appearing)
HEENT: Normocephalic, Anicteric and Other (Poor dentition)
Cardiovascular: S1-S2 and Peripheral Edema (Negative)
Respiratory: Wheeze (Negative), Crackles (Negative), Rhonchi (Negative), Non-Labored Respirations and Other (Reduced breath sounds bilaterally)
GI: Soft, Non Distended, Non Tender and Normal Bowel Sounds
Neurology: AO x 3 and Tremors (Negative)
Skin: Warm and Dry
Labs/Micro/Reports
Lab Data
10/28/23 05:59
10/28/23 05:59
Microbiology
10/26/23 14:58 Urine Urine Culture - Final
NO GROWTH
--- NOTE | 2023-10-28 13:24 | PN.CDI ---
CDI
- -
CDI:
Physician Documentation Request
Admit Date: 10/26/23 15:07
Dear Doctor Hailee,
Clinical Indicators:
Patient admitted with left spontaneous pneumothorax due to severe COPD/emphysema/ruptured bullae.
09/14 Discharge summary includes diagnosis of Persistent atrial fibrillation
10/25 H & P, PMH includes Persistent atrial fibrillation
EKG's/telemetry monitoring: Atrial paced
10/26 PN, Paroxysmal A-fib documented.
Please clarify the type atrial fibrillation, such as:
Persistent atrial fibrillation - episodes of continuous AF that last more than 7 days and do not self-terminate
Paroxysmal atrial fibrillation (documentation complete) - terminates spontaneously or with intervention within 7 days of onset
Other - please specify
Use of terms such as suspected, likely, concern for, or probable (associated with a specific diagnosis that is being evaluated, monitored, or treated as if it exists) are acceptable and can be coded in the inpatient setting, when documented at the
time of discharge.
Thank you,
Miryam Barrientos RN BSN
CDI Specialist
available via tiger text
Please use your independent medical judgment in providing your response.
--- NOTE | 2023-10-28 15:52 | PTCARENOTE ---
Pt continually removing blood pressure cuff despite education on unit policies. Will continue to educate pt.
--- NOTE | 2023-10-28 15:56 | PTCARENOTE ---
Pt clearly feeling frustrated, angry and upset regarding situation. Offered pastoral care support, pt refused at this time. Offered to call loved ones for pt, also refused. Emotional support provided and pt verbalizes gratitude.
[2023-10-28 15:57] LABS: Procalcitonin < 0.05 ng/ml (0.0-0.25)
--- NOTE | 2023-10-28 16:47 | CM ---
Patient with Dx Recurrent left-sided pneumothorax, severe COPD/emphysema, Alcohol abuse. O2 6L.
Plan watch for any home O2 needs.
Plan home.
[2023-10-28] MEDS: LOVENOX 40 MG SC (17:50)
[2023-10-28] MEDS: MELATONIN 5 MG PO (22:57)
[2023-10-29] VITALS (13 sets, daily range): BP systolic 70–139; BP diastolic 78–94; BMI 19.4
--- NOTE | 2023-10-29 04:59 | PTCARENOTE ---
NPO at midnight for upcoming pleurodesis today. Remained on 6 liters overnight.
[2023-10-29 05:25] LABS: Hematocrit 33.1 % (39.0-52.0); Hemoglobin 10.7 g/dL (13.0-18.0); Mean Corp Hgb Conc. 32.3 g/dL (33.0-37.0); Mean Corpuscular Hgb 32.4 pg (27.0-31.0); Mean Corpuscular Volume 100.3 fL (80.0-94.0); Mean Platelet Volume 9.2 fL (7.4-10.4); Platelet Count 221 10^3/uL (130-400); Red Cell Dist. Width 17.4 % (11.5-14.5); White Blood Cell Count 11.1 10^3/uL (4.8-10.8)
[2023-10-29 05:48] LABS: Blood Urea Nitrogen 22 mg/dl (9-20); Calcium 9.6 mg/dl (8.4-10.2); Carbon Dioxide 25 mmol/L (22-30); Chloride 109 mmol/L (98-107); Estimated Creatinine Clearance 44 ml/min; Glucose 93 mg/dl (70-99); Potassium 4.4 mmol/L (3.5-5.1); Sodium 139 mmol/L (135-145); eGFR 49.16
--- NOTE | 2023-10-29 07:47 | W.PN.HOSP.TC ---
Addendum entered and electronically signed by Camilla Stephen MD 10/29/23 13:42:
# Persistent atrial fibrillation
Original Note:
Today's Communication/Plan
-
see A/P
Assessment / Plan
Assessment / Plan
HPI: 72-year-old male PMH recurrent left pneumothorax status post chest tube placement and removal/pleurodesis, COPD, alcohol abuse, CKD stage IIIb, paroxysmal A-fib in Eliquis, GI bleed on prior Coumadin approximate 11years ago, splenic and renal
infarcts, DVT/PE unprovoked 2020, pacemaker/defibrillator August 2011, cardiomyopathy; p/w acute onset of shortness of breath 2/2 recurrent (3rd episode) pneumothorax.
A/P:
# Recurrent left-sided pneumothorax/ third episode, 2/2 severe COPD/ruptured bullous emphysema
# h/o chest tube placement and removal in August 2023, status post chemical pleurodesis with doxycycline as was not a candidate for surgical intervention
Clinically without hypoxia
Continue O2 support with NC now for air resorption
Pulmonary on board
Patient now agreeable with chest tube placement (was wanting to avoid initially).
Plan is for Talc pleurodesis after chest tube placement.
# Severe COPD/emphysema
# Former smoker [id number] quit April 2021
Follows with pulmonary at [place]
Continue budesonide/formoterol, albuterol ipratropium nebs, Incruse
# Alcohol abuse
Drinks daily 8 ounces combination of vodka
MSAs screen with protocol IV thiamine IV folate
# Paroxysmal A-fib
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
Continue diltiazem 180 mg daily, metoprolol succinate 50 mg twice daily
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
# History of prior GI bleed on Coumadin
# Pacemaker/defibrillator August 2011, replaced 2019 [employer]
# history of VT/V-fib arrest
# Nonischemic cardiomyopathy
# CKD stage IIIb
Creat 1.4 appears at baseline
# History of splenic and renal infarcts
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
Code status changed to full code
Anticipated Discharge: > 48 hours
Subjective/Interval History
-
Date of Service: October 29, 2023
Objective Data
-
Labs:
Laboratory Results
10/29/23
05:15
WBC 11.1 H
Hgb 10.7 L
Hct 33.1 L
Plt Count 221
Sodium 139
Potassium 4.4
Chloride 109 H
Carbon Dioxide 25
BUN 22 H
Creatinine 1.5 H
Glucose 93
Calcium 9.6
Vital Signs:
Vital Signs
Temp Pulse Resp BP Pulse Ox
36.7 C 70 24 125/87 99
10/29/23 07:00 10/29/23 06:00 10/29/23 06:00 10/29/23 06:00 10/29/23 06:00
I&O
10/28/23 10/29/23 10/30/23
06:59 06:59 06:59
Intake Total 480 / 480
Output Total 200 / 200 1275 / 1275
Balance 280 / 280 -1275 / -1275
Review of Systems
-
History Source: Patient
All other systems: Reviewed and negative
Physical Exam
-
General: Well Developed, Well Nourished and Conversant
HEENT: Oxygen (5L NC)
Respiratory: Clear to Auscultation, Non Labored Respirations and Decreased Breath Sounds (L ); Negative Accessory Resp Muscle Use
Cardiac: Regular Rhythm and S1/S2
GI: Soft, Nontender, Nondistended and Normal Bowel Sounds
Skin: Warm
Neuro: Awake and Alert
Psych: Calm and Intact Judgement/Insight
Data Reviewed
-
Diagnostic Radiology: Image personally visualized and interpreted and Report Reviewed by me
Labs: Labs Reviewed by me
[2023-10-29] MEDS: SYMBICORT 160/4.5 MCG INHALER 2 PUFF INH (08:02)
[2023-10-29] MEDS: DUONEB 3 ML INH ×3 (08:02→15:57)
[2023-10-29] MEDS: CARDIZEM CD 180 MG PO (08:55)
[2023-10-29] MEDS: LOPRESSOR 50 MG PO ×2 (08:57→19:54)
[2023-10-29] MEDS: THIAMINE INJECTION 200 MG IV (08:58)
[2023-10-29] MEDS: FOLVITE 1 MG PO (08:58)
--- NOTE | 2023-10-29 09:01 | W.PN.PUL3 ---
Today's Communication / Plan
-
s/p chest tube today, doing well with minimal air leak
repeat CXR in AM
may consider talc instillation pending ptx response
pain control, add tylenol and oxy PRN
Assessment
-
Patient is a 72-year-old male with history of COPD, alcohol abuse daily CKD stage IIIb, paroxysmal A-fib, GI bleed on Coumadin, splenic and renal infarcts, DVT/PE unprovoked 2020, pacemaker/defibrillator August 2011, cardiomyopathy former smoker, HTN,
prior PTX s/p chest tube and chemical pleurodesis 09/13/23 presenting with acute onset shortness of breath day of admission. Was using home inhalers without relief. In the ER, CXR showing moderate size left pneumothorax without mediastinal shift.
No hypoxemia noted on arrival, placed on venti mask and appears comfortable. We are consulted for eval 10/26/23.
Impression:
Acute Left-sided recurrent spontaneous secondary pneumothorax (SSP)
Posteromedial left lower lobe atelectasis versus pneumonia (likely the former given procalcitonin is <0.05)
SOB due to above in the setting of severe bullous emphysema and COPD with severe gas exchange capacity defect
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
Recurrent spontaneous PTX s/p 16 Fr chest tube placed by IR on 09/10/2023
Status post pleurodesis 09/13/2023 with doxycycline 500 mg / 50 mL sterile water
History of tobacco use
Hypertension
History of PE/DVT
Paroxysmal A-fib on Eliquis
Hx of GI bleed (~7 years ago) while on coumadin
VT s/p ICD, NICM
History of alcohol use disorder
CKD
BPH
CKD (baseline Cr 1.4 - 1.6)
Plan:
Continue with supplemental oxygen to maintain hyperoxia despite him saturating well and having COPD
This is important as it will help resorb his pneumothorax and hopefully avoid him from needing a tube thoracostomy
He appears comfortable
He had previously declined chest tube and surgery, but says that if the chest tube is needed to save his life or due to worsening pneumothorax then he would be amenable
The patient had a CT chest today and I discussed the results with him in detail. Considering the size of the pneumothorax that remains moderate-size despite being on supplemental O2, I do not feel that this pneumothorax will simply resolve with
conservative measures. The patient has agreed to a chest tube with eventual pleurodesis.
s/p chest tubeb by IR 10/29/23
consideration for talc installation if needed
pain control
Dr De La Paz did discuss endobronchial valve therapy, but we do not insert those here, and he would need to be TRX to [place] vs [place] vs other tertiary care center; the other issue with valve therapy is he has severe gas exchange capacity defect with
moderate COPD with severe air trapping and mild hyperinflation (via PFT from 2017)
These findings may have progressed since 2017, it is unknown as we do not have any up-to-date PFTs
The air trapping alone that he has evidence of may make him a candidate for valve therapy, however given his severely impaired DLco, unclear if further loss of lung tissue would be of benefit to him
He will need updated spirometry as well as blood gas measurements to evaluate if bronchoscopic treatment of his emphysema is appropriate or not
PFT from 2017 showing moderate obstruction, severe diffusion impairment
Would be moderately high risk for surgery but could be tried with caution
Case reviewed with CT surgery and CT chest obtained today showing moderate sized L-PTX with atelectasis at medial lingula and postero-medial LLL; the LLL appears to have mucoid impaction as well, could be a pneumonia.
Trend WBC, monitor for fever. If he spikes a fever, sim-Cx and start broad spectrum ABx
He has tried to be seen at [facility] but was not successful
He is looking into experimental treatments including stem cells but we discussed how this is not fruitful treatment options at this time
Note patient had successful pleurodesis 09/13/2023
This will be tried again with talc slurry (see above)
Avoid incentive spirometer as this can worsen/exacerbate his pneumothorax
Resume home inhalers
Discussed with care team
DVT prophylaxis
OOB as tolerated
Reviewed with nursing and primary team
Outpatient pulmonary follow-up
Diagnostic Data
CT Chest 10-28-2023:
Marked changes of emphysema again seen, particularly bullous emphysema in the lung apices.
Moderate size left pneumothorax with accompanying partial left lower lobe atelectasis, left lower lobe subsegmental atelectasis and/or pneumonia and tiny left pleural effusion.
Aneurysmal dilatation of the distal descending thoracic aorta predominantly stable at approximately 4.6 cm.
CXR 10/26/23- At least moderate size left pneumothorax without mediastinal shift.
CXR 09-12-2023: No overt residual pneumothorax.
CXR 09-11-2023: No definite residual pneumothorax. Small left pleural effusion, new.
CXR 09-10-2023: Marked interval progression of now moderate to large left pneumothorax measuring up to 6.5 cm of pleural separation. No definite tension.
CXR 09-08-2023: Left apical and inferolateral pneumothorax stable when compared to the exam the day before.
CXR 09-07-2023: Recurrence of small to moderate left apical pneumothorax, somewhat obscured by left-sided cardiac device.
PFT 07/22/16 FEV1 2.42L 59%, FVC 5.14L 93%, ratio 47. Post FEV1 2.42L 59%. TLC 10.19L 125%, DLCO 33% (moderate obstruction, severe diffusion impairment)
-----
Total time spent today was 51 minutes for this encounter. Time includes reviewing laboratory test/imaging results, reviewing pertinent medical records, obtaining and reviewing medical history, performing an appropriate exam, ordering medications,
tests and procedures. Time also includes documentation of this encounter, coordinating patient care and communicating with other healthcare professionals. Total time does not include separately billed tests performed on this date of service.
Subjective Data
-
Date of Service:
Date of Service: October 29, 2023
Chief Complaint: Pulmonary Follow Up
Subjective:
s/p chest tube, has some pain on insertion site
otherwise stable on RA
minimal air leak on chest tube
Objective Data
Data Reviewed
Vital Signs / I&O / Oxygen:
Vital Signs
Temp Pulse Resp BP Pulse Ox
98.0 F 71 21 124/78 93
10/29/23 07:00 10/29/23 08:57 10/29/23 08:03 10/29/23 08:57 10/29/23 08:03
Intake and Output
10/28/23 10/29/23 10/30/23
06:59 06:59 06:59
Intake Total 480 / 480
Output Total 200 / 200 1275 / 1275
Balance 280 / 280 -1275 / -1275
SaO2 93
Nasal Cannula flow liters per 6
minute
Physical Exam
General: Respiratory Distress (Negative), Comfortable and Other (Thin appearing man/pale/carrion skin, chronically appearing)
HEENT: Normocephalic, Anicteric and Other (Poor dentition)
Cardiovascular: S1-S2, Regular Rhythm and Peripheral Edema (Negative)
Respiratory: Wheeze (Negative), Crackles (Negative), Rhonchi (Negative), Non-Labored Respirations, Chest Tube and Other (Reduced breath sounds bilaterally)
GI: Soft, Non Distended, Non Tender and Normal Bowel Sounds
Neurology: Awake, Alert, Oriented, AO x 3 and Tremors (Negative)
Skin: Warm and Dry
Labs/Micro/Reports
Lab Data
10/29/23 05:15
10/29/23 05:15
Microbiology
10/26/23 14:58 Urine Urine Culture - Final
NO GROWTH
--- NOTE | 2023-10-29 10:53 | W.PN.UPDATE ---
Update Note
Progress Note Update
- L chest tube placed uneventfully. 16F tube
- Pt tolerated well.
- tentative plans for repeat pleurodesis at a later date.
[2023-10-29] MEDS: MAGNESIUM OXIDE 250 MG PO (13:09)
[2023-10-29] MEDS: ZINC SULFATE 220 MG PO (13:09)
[2023-10-29] MEDS: VITAMIN D3 (cholecalciferol) 50 MCG PO (13:09)
[2023-10-29] MEDS: ROXICODONE 5 MG PO ×2 (13:10→17:28)
--- NOTE | 2023-10-29 15:52 | PTCARENOTE ---
Assumed care of Pt at shift change - resting comfortably in bed; Pt sent to IR in AM for Chest tube placement; Returned to room without incident - reported pain 2/10 at that time. Slid over to bed and Pleur-evac connected to suction as per order;
97% on 3L O2 via NC; A-Paced on monitor with rate ~ 70; Pain increased to 8/10 after ~ 1 hour; Oxycodone administered for same with + effect. Will continue to monitor and assess.
[2023-10-29] MEDS: LOVENOX 40 MG SC (17:29)
[2023-10-29] MEDS: TYLENOL 650 MG PO ×2 (17:29→19:54)
[2023-10-29] MEDS: MORPHINE SULFATE 1 MG IV (18:31)
[2023-10-29] MEDS: DUONEB INH ×2 (19:50→21:38)
[2023-10-29] MEDS: SYMBICORT 160/4.5 MCG INHALER INH ×2 (19:50→21:38)
[2023-10-29] MEDS: VITAMIN B1 100 MG PO (19:54)
--- NOTE | 2023-10-29 20:07 | PTCARENOTE ---
Patient complaining of nausea. scallop cutter machine provider made aware and ordered 1x dose zofran.
[2023-10-29] MEDS: ZOFRAN 4 MG IV (20:11)
[2023-10-29] MEDS: TYLENOL PO (23:19)
[2023-10-30] VITALS (18 sets, daily range): BP systolic 88–126; BP diastolic 59–94; PULSE 70; O2SAT 99; BMI 19.9
[2023-10-30] MEDS: TYLENOL PO ×2 (05:14→13:45)
[2023-10-30 05:28] LABS: Hematocrit 34.2 % (39.0-52.0); Hemoglobin 10.8 g/dL (13.0-18.0); Mean Corp Hgb Conc. 31.6 g/dL (33.0-37.0); Mean Corpuscular Hgb 32.4 pg (27.0-31.0); Mean Corpuscular Volume 102.7 fL (80.0-94.0); Mean Platelet Volume 8.7 fL (7.4-10.4); Platelet Count 220 10^3/uL (130-400); Red Blood Cell Count 3.33 10^6/uL (4.70-6.10); Red Cell Dist. Width 17.2 % (11.5-14.5); White Blood Cell Count 11.5 10^3/uL (4.8-10.8)
[2023-10-30] MEDS: ROXICODONE 5 MG PO (05:30)
[2023-10-30 05:58] LABS: Blood Urea Nitrogen 25 mg/dl (9-20); Calcium 9.2 mg/dl (8.4-10.2); Carbon Dioxide 24 mmol/L (22-30); Chloride 108 mmol/L (98-107); Estimated Creatinine Clearance 44 ml/min; Glucose 94 mg/dl (70-99); Potassium 4.7 mmol/L (3.5-5.1); Sodium 138 mmol/L (135-145); eGFR 49.16
[2023-10-30] MEDS: SYMBICORT 160/4.5 MCG INHALER 2 PUFF INH ×2 (07:53→20:18)
[2023-10-30] MEDS: DUONEB 3 ML INH ×4 (07:53→20:18)
--- NOTE | 2023-10-30 07:57 | W.PN.HOSP.TC ---
Addendum entered and electronically signed by Camilla Stephen MD 10/30/23 08:29:
d/w pulm, Dr Gonzalez prefers pt to be on Lovenox SQ for DVT ppx instead of resuming his home Eliquis.
Orders changed back to Lovenox SQ 40 mg HS for DVT ppx. Eliquis stopped
Original Note:
Today's Communication/Plan
-
see A/P
Assessment / Plan
Assessment / Plan
HPI: 72-year-old male PMH recurrent left pneumothorax status post chest tube placement and removal/pleurodesis, COPD, alcohol abuse, CKD stage IIIb, paroxysmal A-fib in Eliquis, GI bleed on prior Coumadin approximate 11years ago, splenic and renal
infarcts, DVT/PE unprovoked 2020, pacemaker/defibrillator August 2011, cardiomyopathy; p/w acute onset of shortness of breath 2/2 recurrent (3rd episode) pneumothorax.
A/P:
# Recurrent left-sided pneumothorax/ third episode, 2/2 severe COPD/ruptured bullous emphysema
# h/o chest tube placement and removal in August 2023, status post chemical pleurodesis with doxycycline as was not a candidate for surgical intervention
Clinically without hypoxia
Continue O2 support with NC now for air resorption
Pulmonary on board
Patient now agreeable with chest tube placement (was wanting to avoid initially), placed 10/28
Plan for Talc pleurodesis at a later date
# Severe COPD/emphysema
# Former smoker [id number] quit April 2021
Follows with pulmonary at [place]
Continue budesonide/formoterol, albuterol ipratropium nebs, Incruse
# Alcohol abuse
Drinks daily 8 ounces combination of vodka
MSAs screen with protocol IV thiamine IV folate
# Paroxysmal A-fib
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
Continue diltiazem 180 mg daily, metoprolol succinate 50 mg twice daily
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
# History of prior GI bleed on Coumadin
# Pacemaker/defibrillator August 2011, replaced 2019 [employer]
# history of VT/V-fib arrest
# Nonischemic cardiomyopathy
# CKD stage IIIb
Creat 1.5 appears at baseline
# History of splenic and renal infarcts
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
Code status changed to full code
Anticipated Discharge: > 48 hours
Subjective/Interval History
-
Date of Service: October 30, 2023
Objective Data
-
Labs:
Laboratory Results
10/30/23
05:22
WBC 11.5 H
Hgb 10.8 L
Hct 34.2 L
Plt Count 220
Sodium 138
Potassium 4.7
Chloride 108 H
Carbon Dioxide 24
BUN 25 H
Creatinine 1.5 H
Glucose 94
Calcium 9.2
Vital Signs:
Vital Signs
Temp Pulse Resp BP Pulse Ox
36.4 C 70 19 117/83 98
10/30/23 03:10 10/30/23 06:00 10/30/23 06:00 10/30/23 06:00 10/30/23 06:00
I&O
10/29/23 10/30/23 10/31/23
06:59 06:59 06:59
Intake Total 120 / 120
Output Total 1275 / 1275 425 / 425
Balance -1275 / -1275 -305 / -305
Review of Systems
-
History Source: Patient
All other systems: Reviewed and negative
Physical Exam
-
General: Well Developed, Well Nourished and Conversant
HEENT: Oxygen (3L NC)
Respiratory: Clear to Auscultation, Non Labored Respirations, Decreased Breath Sounds (L ) and Chest Tubes (Left); Negative Accessory Resp Muscle Use
Cardiac: Regular Rhythm and S1/S2
GI: Soft, Nontender, Nondistended and Normal Bowel Sounds
Skin: Warm
Neuro: Awake and Alert
Psych: Calm and Intact Judgement/Insight
Data Reviewed
-
Diagnostic Radiology: Image personally visualized and interpreted and Report Reviewed by me
Labs: Labs Reviewed by me
[2023-10-30] MEDS: CARDIZEM CD 180 MG PO (08:45)
[2023-10-30] MEDS: FOLVITE 1 MG PO (08:45)
[2023-10-30] MEDS: TYLENOL 650 MG PO ×2 (08:45→13:46)
[2023-10-30] MEDS: VITAMIN B1 100 MG PO ×2 (08:45→20:57)
[2023-10-30] MEDS: LOPRESSOR 50 MG PO (08:45)
--- NOTE | 2023-10-30 10:05 | W.PN.PUL3 ---
Today's Communication / Plan
-
stop pain meds, PRN tylenol
can try chest tube to water seal to see if this is stable, pleurodesis may not be needed
PT/OT, OOB
continue nebs, inhalers
Assessment
-
Patient is a 72-year-old male with history of COPD, alcohol abuse daily CKD stage IIIb, paroxysmal A-fib, GI bleed on Coumadin, splenic and renal infarcts, DVT/PE unprovoked 2020, pacemaker/defibrillator August 2011, cardiomyopathy former smoker, HTN,
prior PTX s/p chest tube and chemical pleurodesis 09/13/23 presenting with acute onset shortness of breath day of admission. Was using home inhalers without relief. In the ER, CXR showing moderate size left pneumothorax without mediastinal shift.
No hypoxemia noted on arrival, placed on venti mask and appears comfortable. We are consulted for eval 10/26/23.
Impression:
Acute Left-sided recurrent spontaneous secondary pneumothorax (SSP)
Posteromedial left lower lobe atelectasis versus pneumonia (likely the former given procalcitonin is <0.05)
SOB due to above in the setting of severe bullous emphysema and COPD with severe gas exchange capacity defect
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
Recurrent spontaneous PTX s/p 16 Fr chest tube placed by IR on 09/10/2023
Status post pleurodesis 09/13/2023 with doxycycline 500 mg / 50 mL sterile water
History of tobacco use
Hypertension
History of PE/DVT
Paroxysmal A-fib on Eliquis
Hx of GI bleed (~7 years ago) while on coumadin
VT s/p ICD, NICM
History of alcohol use disorder
CKD
BPH
CKD (baseline Cr 1.4 - 1.6)
Plan:
Continue with supplemental oxygen to maintain hyperoxia despite him saturating well and having COPD
This is important as it will help resorb his pneumothorax and hopefully avoid him from needing a tube thoracostomy
He appears comfortable
He had previously declined chest tube and surgery, but says that if the chest tube is needed to save his life or due to worsening pneumothorax then he would be amenable
The patient had a CT chest today and I discussed the results with him in detail. Considering the size of the pneumothorax that remains moderate-size despite being on supplemental O2, I do not feel that this pneumothorax will simply resolve with
conservative measures. The patient has agreed to a chest tube with eventual pleurodesis.
s/p chest tube by IR 10/29/23
consideration for talc installation if needed, but can possibly hold off if PTX is better
water seal trial
pain control
Dr De La Paz did discuss endobronchial valve therapy, but we do not insert those here, and he would need to be TRX to [place] vs [place] vs other tertiary care center; the other issue with valve therapy is he has severe gas exchange capacity defect with
moderate COPD with severe air trapping and mild hyperinflation (via PFT from 2017)
These findings may have progressed since 2017, it is unknown as we do not have any up-to-date PFTs
The air trapping alone that he has evidence of may make him a candidate for valve therapy, however given his severely impaired DLco, unclear if further loss of lung tissue would be of benefit to him
He will need updated spirometry as well as blood gas measurements to evaluate if bronchoscopic treatment of his emphysema is appropriate or not
PFT from 2017 showing moderate obstruction, severe diffusion impairment
Would be moderately high risk for surgery but could be tried with caution
Case reviewed with CT surgery and CT chest obtained today showing moderate sized L-PTX with atelectasis at medial lingula and postero-medial LLL; the LLL appears to have mucoid impaction as well, could be a pneumonia.
Trend WBC, monitor for fever. If he spikes a fever, sim-Cx and start broad spectrum ABx
He has tried to be seen at [facility] but was not successful
He is looking into experimental treatments including stem cells but we discussed how this is not fruitful treatment options at this time
Note patient had successful pleurodesis 09/13/2023
This will be tried again with talc slurry (see above)
Avoid incentive spirometer as this can worsen/exacerbate his pneumothorax
Resume home inhalers
Discussed with care team
DVT prophylaxis
OOB as tolerated
Reviewed with nursing and primary team
Outpatient pulmonary follow-up
Diagnostic Data
CT Chest 10-28-2023:
Marked changes of emphysema again seen, particularly bullous emphysema in the lung apices.
Moderate size left pneumothorax with accompanying partial left lower lobe atelectasis, left lower lobe subsegmental atelectasis and/or pneumonia and tiny left pleural effusion.
Aneurysmal dilatation of the distal descending thoracic aorta predominantly stable at approximately 4.6 cm.
CXR 10/26/23- At least moderate size left pneumothorax without mediastinal shift.
CXR 09-12-2023: No overt residual pneumothorax.
CXR 09-11-2023: No definite residual pneumothorax. Small left pleural effusion, new.
CXR 09-10-2023: Marked interval progression of now moderate to large left pneumothorax measuring up to 6.5 cm of pleural separation. No definite tension.
CXR 09-08-2023: Left apical and inferolateral pneumothorax stable when compared to the exam the day before.
CXR 09-07-2023: Recurrence of small to moderate left apical pneumothorax, somewhat obscured by left-sided cardiac device.
PFT 07/22/16 FEV1 2.42L 59%, FVC 5.14L 93%, ratio 47. Post FEV1 2.42L 59%. TLC 10.19L 125%, DLCO 33% (moderate obstruction, severe diffusion impairment)
-----
Total time spent today was 51 minutes for this encounter. Time includes reviewing laboratory test/imaging results, reviewing pertinent medical records, obtaining and reviewing medical history, performing an appropriate exam, ordering medications,
tests and procedures. Time also includes documentation of this encounter, coordinating patient care and communicating with other healthcare professionals. Total time does not include separately billed tests performed on this date of service.
Subjective Data
-
Date of Service:
Date of Service: October 30, 2023
Chief Complaint: Pulmonary Follow Up
Subjective:
doing well today, but notes that he is feeling more lightheaded/nauseous
pain is better
chest tube with no air leak, remains on suction
Objective Data
Data Reviewed
Vital Signs / I&O / Oxygen:
Vital Signs
Temp Pulse Resp BP Pulse Ox
97.7 F 70 16 111/69 100
10/30/23 07:33 10/30/23 08:08 10/30/23 08:08 10/30/23 08:08 10/30/23 08:00
Intake and Output
10/29/23 10/30/23 10/31/23
06:59 06:59 06:59
Intake Total 120 / 120
Output Total 1275 / 1275 425 / 425 100 / 100
Balance -1275 / -1275 -305 / -305 -100 / -100
SaO2 100
Nasal Cannula flow liters per 3
minute
Physical Exam
General: Respiratory Distress (Negative), Comfortable and Other (Thin appearing man/pale/carrion skin, chronically appearing)
HEENT: Normocephalic, Anicteric and Other (Poor dentition)
Cardiovascular: S1-S2, Regular Rhythm and Peripheral Edema (Negative)
Respiratory: Wheeze (Negative), Crackles (Negative), Rhonchi (Negative), Non-Labored Respirations, Chest Tube and Other (Reduced breath sounds bilaterally)
GI: Soft, Non Distended, Non Tender and Normal Bowel Sounds
Neurology: Awake, Alert, Oriented, AO x 3 and Tremors (Negative)
Skin: Warm and Dry
Labs/Micro/Reports
Lab Data
10/30/23 05:22
10/30/23 05:22
Microbiology
10/26/23 14:58 Urine Urine Culture - Final
NO GROWTH
--- NOTE | 2023-10-30 10:35 | PTCARENOTE ---
Patient c/o nausea. Zofran given with good relief.
[2023-10-30] MEDS: ZOFRAN 4 MG IV (10:52)
[2023-10-30] MEDS: VITAMIN D3 (cholecalciferol) 50 MCG PO (13:44)
[2023-10-30] MEDS: ZINC SULFATE 220 MG PO (13:45)
[2023-10-30] MEDS: MAGNESIUM OXIDE 250 MG PO (13:45)
--- NOTE | 2023-10-30 15:01 | PTCARENOTE ---
Patient with dark/tea colored urine. Patient states, 'It has been this way since I got here.' Physician made aware.
[2023-10-30] MEDS: LOVENOX 40 MG SC (17:35)
--- NOTE | 2023-10-30 17:45 | PTCARENOTE ---
BP Left arm 88/62, Right arm 88/59. Physician made aware order for 500ml NS bolus.
[2023-10-30] MEDS: NSS 500 IV (18:42)
[2023-10-30] MEDS: LOPRESSOR PO (20:57)
[2023-10-31] VITALS (8 sets, daily range): BP systolic 99–126; BP diastolic 65–75; BMI 19.7
--- NOTE | 2023-10-31 04:27 | PTCARENOTE ---
500ml bolus completed with improvement noted in BP. BP = 99/72 after fluid given - continued improved throughout shift, confirmed BP with manual cuffProvider made aware - Lopressor order updated with parameters. HS dose held. Will continue to
monitor and assess.
[2023-10-31] MEDS: MORPHINE SULFATE 1 MG IV ×2 (06:10→23:13)
[2023-10-31] MEDS: ZOFRAN 4 MG IV ×2 (06:10→23:14)
[2023-10-31 06:35] LABS: Hematocrit 32.4 % (39.0-52.0); Hemoglobin 10.2 g/dL (13.0-18.0); Mean Corp Hgb Conc. 31.5 g/dL (33.0-37.0); Mean Corpuscular Hgb 32.1 pg (27.0-31.0); Mean Corpuscular Volume 101.9 fL (80.0-94.0); Mean Platelet Volume 9.2 fL (7.4-10.4); Platelet Count 209 10^3/uL (130-400); Red Blood Cell Count 3.18 10^6/uL (4.70-6.10); Red Cell Dist. Width 16.9 % (11.5-14.5); White Blood Cell Count 11.6 10^3/uL (4.8-10.8)
[2023-10-31 06:55] LABS: Blood Urea Nitrogen 24 mg/dl (9-20); Carbon Dioxide 25 mmol/L (22-30); Chloride 105 mmol/L (98-107); Estimated Creatinine Clearance 42 ml/min; Glucose 91 mg/dl (70-99); Potassium 4.5 mmol/L (3.5-5.1); Sodium 138 mmol/L (135-145)
[2023-10-31] MEDS: SYMBICORT 160/4.5 MCG INHALER 2 PUFF INH ×2 (07:52→20:17)
[2023-10-31] MEDS: DUONEB 3 ML INH ×4 (07:52→20:17)
[2023-10-31] MEDS: CARDIZEM CD 180 MG PO (08:23)
[2023-10-31] MEDS: LOPRESSOR 50 MG PO ×2 (08:26→19:51)
[2023-10-31] MEDS: VITAMIN B1 100 MG PO ×2 (08:26→19:51)
[2023-10-31] MEDS: FOLVITE 1 MG PO (08:26)
--- NOTE | 2023-10-31 08:49 | PTCARENOTE ---
Pt AAOX3 , on 3l O2 which is baseline Chest tube on L. Breath sounds diminished. AV paced. Pt states pain 5/10 at Chest tube site. States he is tired.
--- NOTE | 2023-10-31 08:57 | W.PN.HOSP.TC ---
Today's Communication/Plan
-
CXR with slightly increased left pleural effusion
Continue Chest Tube
Eliquis stopped as per pulmonary and replaced with Lovenox Subq
Assessment / Plan
Assessment / Plan
Physical Exam
General: Well Developed, Well Nourished and Conversant
HEENT: Oxygen (3L NC)
Respiratory: Decreased Breath Sounds (Bilaterally) and Chest Tubes (Left)
Cardiac: Regular Rhythm and S1/S2
GI: Soft, Nontender, Nondistended and Normal Bowel Sounds
Skin: Warm. Dry.
Neuro: Awake and Alert
Psych: Calm and Intact Judgement/Insight
Assessment/Plan
HPI: 72-year-old male PMH recurrent left pneumothorax status post chest tube placement and removal/pleurodesis, COPD, alcohol abuse, CKD stage IIIb, paroxysmal A-fib in Eliquis, GI bleed on prior Coumadin approximate 11years ago, splenic and renal
infarcts, DVT/PE unprovoked 2020, pacemaker/defibrillator August 2011, cardiomyopathy; presented with acute onset of shortness of breath secondary to recurrent (3rd episode) pneumothorax.
A/P:
# Recurrent left-sided pneumothorax/ third episode, 2/2 severe COPD/ruptured bullous emphysema failed previous chemical pleurodesis which was performed in August 2023
# h/o chest tube placement and removal in August 2023, status post chemical pleurodesis with doxycycline as was not a candidate for surgical intervention
Continue O2 support with NC now for air resorption
Pulmonary on board
Patient agreeable with chest tube placement (was wanting to avoid initially), placed 10/28
Plan for possible Talc pleurodesis at a later date
# Severe COPD/emphysema
# Former smoker [id number] quit April 2021
Follows with pulmonary at [place]
Continue budesonide/formoterol, albuterol ipratropium nebs, Incruse
# Alcohol abuse
Drinks daily 8 ounces combination of vodka
MSAs screen with protocol IV thiamine IV folate
# Paroxysmal A-fib
SAW CLEANER Eliquis STOPPED as per previous pulmonary recommendations (see Dr. Stephen discussion with pulm)
Continue diltiazem 180 mg daily, metoprolol succinate 50 mg twice daily
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
SAW CLEANER Eliquis STOPPED as per previous pulmonary recommendations (see Dr. Stephen discussion with pulm)
# History of prior GI bleed on Coumadin
# Pacemaker/defibrillator August 2011, replaced 2018 [employer]
# history of VT/V-fib arrest
# Nonischemic cardiomyopathy
# CKD stage IIIb
Creat 1.5 appears at baseline
# History of splenic and renal infarcts
DVT prophylaxis: Dr. Stephen d/w pulm, Dr Gonzalez prefers pt to be on Lovenox SQ for DVT ppx instead of resuming his home Eliquis; orders changed back to Lovenox SQ 40 mg HS for DVT ppx. Eliquis stopped
Code status was previously changed to full code
Anticipated Discharge: > 48 hours
Subjective/Interval History
-
Date of Service: October 31, 2023
Patient was seen and examined. He reported no new significant complaints.
Objective Data
-
Labs:
Laboratory Results
10/31/23
06:22
WBC 11.6 H
Hgb 10.2 L
Hct 32.4 L
Plt Count 209
Sodium 138
Potassium 4.5
Chloride 105
Carbon Dioxide 25
BUN 24 H
Creatinine 1.6 H
Glucose 91
Calcium 9.0
Vital Signs:
Vital Signs
Temp Pulse Resp BP Pulse Ox
98.5 F 74 21 115/75 95
10/31/23 07:28 10/31/23 08:23 10/31/23 07:54 10/31/23 08:23 10/31/23 06:10
I&O
10/30/23 10/31/23 11/01/23
06:59 06:59 06:59
Intake Total 120 / 120 360 / 360
Output Total 425 / 425 1005 / 1005
Balance -305 / -305 -645 / -645
--- NOTE | 2023-10-31 08:57 | CM ---
Patient with Dx Recurrent left-sided pneumothorax, severe COPD/emphysema, Alcohol abuse. Chest tube. IV bolus for BP during the night. PT; likely no needs. OT; recommends HH.
Plan offer VN prior to d/c.
Plan home.
[2023-10-31] MEDS: MAGNESIUM OXIDE 250 MG PO (12:36)
[2023-10-31] MEDS: VITAMIN D3 (cholecalciferol) 50 MCG PO (12:37)
[2023-10-31] MEDS: ZINC SULFATE 220 MG PO (12:37)
--- NOTE | 2023-10-31 16:28 | W.PN.PUL3 ---
Today's Communication / Plan
-
Maintain chest tube to waterseal
Repeat x-ray in a.m.
Plan to clamp tube after tomorrow a.m. x-ray
Presently, patient does not want to revisit pleurodesis
Ongoing discussion regarding long-term goals of care
Assessment
-
Patient is a 72-year-old male with history of COPD, alcohol abuse daily CKD stage IIIb, paroxysmal A-fib, GI bleed on Coumadin, splenic and renal infarcts, DVT/PE unprovoked 2020, pacemaker/defibrillator August 2011, cardiomyopathy former smoker, HTN,
prior PTX s/p chest tube and chemical pleurodesis 09/13/23 presenting with acute onset shortness of breath day of admission. Was using home inhalers without relief. In the ER, CXR showing moderate size left pneumothorax without mediastinal shift.
No hypoxemia noted on arrival, placed on venti mask and appears comfortable. We are consulted for eval 10/26/23.
Acute Left-sided recurrent spontaneous secondary pneumothorax (SSP)
Posteromedial left lower lobe atelectasis versus pneumonia (likely the former given procalcitonin is <0.05)
SOB due to above in the setting of severe bullous emphysema and COPD with severe gas exchange capacity defect
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
Recurrent spontaneous PTX s/p 16 Fr chest tube placed by IR on 09/10/2023
Status post pleurodesis 09/13/2023 with doxycycline 500 mg / 50 mL sterile water
History of tobacco use
Hypertension
History of PE/DVT
Paroxysmal A-fib on Eliquis
Hx of GI bleed (~7 years ago) while on coumadin
VT s/p ICD, NICM
History of alcohol use disorder
CKD
BPH
CKD (baseline Cr 1.4 - 1.6)
Plan/recommendations
At this time, chest x-ray appears to be stable. Pleural effusion noted, no pneumothorax. Chest tube in place
Revisited and reviewed CT findings.
Moving forward
Continue with chest tube to waterseal
Will transition to clamp chest tube in a.m.
When discussed possibility of pleurodesis, patient is adamant about refusing this given his response to the prior pleurodesis
I suspect that since failed pleurodesis in the past, repeat pleurodesis will likely be helpful
Before any decision about chest tube removal or pleurodesis, will repeat CT chest
For now, lets allow pleural fluid to build up and hopefully come into equilibrium with airleak and facilitate possible auto pleurodesis
He had previously declined chest tube and surgery, but says that if the chest tube is needed to save his life or due to worsening pneumothorax then he would be amenable
He subsequently was agreeable and is s/p chest tube by IR 10/29/23
consideration for talc installation if needed, but can possibly hold off if PTX is better. Patient refusing any type of talc pleurodesis at this time especially if similar pain to prior doxycycline pleurodesis
Continue pain control
I reviewed with patient end-stage nature of his lung disease
He apparently has had discussions regarding transplant in the past and he is ruled this out as an option, was seen at [place] in the past
Age may be a precluding factor at this time and he is aware of this
PFT from 2017 showing moderate obstruction, severe diffusion impairment
Would be moderately high risk for surgery but could be tried with caution
Case reviewed with CT surgery and CT chest obtained today showing moderate sized L-PTX with atelectasis at medial lingula and postero-medial LLL; the LLL appears to have mucoid impaction as well, could be a pneumonia.
Trend WBC, monitor for fever. If he spikes a fever, sim-Cx and start broad spectrum ABx
Prior discussion:
Dr De La Paz did discuss endobronchial valve therapy, but we do not insert those here, and he would need to be TRX to [place] vs [place] [facility] vs other tertiary care center; the other issue with valve therapy is he has severe gas exchange capacity defect with
moderate COPD with severe air trapping and mild hyperinflation (via PFT from 2017)
These findings may have progressed since 2017, it is unknown as we do not have any up-to-date PFTs
The air trapping alone that he has evidence of may make him a candidate for valve therapy, however given his severely impaired DLco, unclear if further loss of lung tissue would be of benefit to him
He will need updated spirometry as well as blood gas measurements to evaluate if bronchoscopic treatment of his emphysema is appropriate or not
He has tried to be seen at [facility] but was not successful
He is looking into experimental treatments including stem cells but we discussed how this is not fruitful treatment options at this time
Note patient had successful pleurodesis 09/13/2023
This will be tried again with talc slurry (see above) although presently patient is refusing
Avoid incentive spirometer as this can worsen/exacerbate his pneumothorax
Resume home inhalers
Discussed with care team
DVT prophylaxis
OOB as tolerated
Reviewed with nursing and primary team
Outpatient pulmonary follow-up
Diagnostic Data
CT Chest 10-28-2023:
Marked changes of emphysema again seen, particularly bullous emphysema in the lung apices.
Moderate size left pneumothorax with accompanying partial left lower lobe atelectasis, left lower lobe subsegmental atelectasis and/or pneumonia and tiny left pleural effusion.
Aneurysmal dilatation of the distal descending thoracic aorta predominantly stable at approximately 4.6 cm.
CXR 10/26/23- At least moderate size left pneumothorax without mediastinal shift.
CXR 09-12-2023: No overt residual pneumothorax.
CXR 09-11-2023: No definite residual pneumothorax. Small left pleural effusion, new.
CXR 09-10-2023: Marked interval progression of now moderate to large left pneumothorax measuring up to 6.5 cm of pleural separation. No definite tension.
CXR 09-08-2023: Left apical and inferolateral pneumothorax stable when compared to the exam the day before.
CXR 09-07-2023: Recurrence of small to moderate left apical pneumothorax, somewhat obscured by left-sided cardiac device.
PFT 07/22/16 FEV1 2.42L 59%, FVC 5.14L 93%, ratio 47. Post FEV1 2.42L 59%. TLC 10.19L 125%, DLCO 33% (moderate obstruction, severe diffusion impairment)
-----
Total time spent today was 51 minutes for this encounter. Time includes reviewing laboratory test/imaging results, reviewing pertinent medical records, obtaining and reviewing medical history, performing an appropriate exam, ordering medications,
tests and procedures. Time also includes documentation of this encounter, coordinating patient care and communicating with other healthcare professionals. Total time does not include separately billed tests performed on this date of service.
Subjective Data
-
Date of Service:
Date of Service: October 31, 2023
Chief Complaint: Pulmonary Follow Up
Subjective:
Patient getting frustrated with chest tube. Has mild pain. Denies significant shortness of breath. Has mild cough, denies abdominal pain, nausea. Moving bowels
Objective Data
Data Reviewed
Vital Signs / I&O / Oxygen:
Vital Signs
Temp Pulse Resp BP Pulse Ox
98.5 F 70 20 99/65 94
10/31/23 11:06 10/31/23 15:36 10/31/23 15:36 10/31/23 12:40 10/31/23 15:36
Intake and Output
10/30/23 10/31/23 11/01/23
06:59 06:59 06:59
Intake Total 120 / 120 360 / 360
Output Total 425 / 425 1005 / 1005 200 / 200
Balance -305 / -305 -645 / -645 -200 / -200
SaO2 94
Nasal Cannula flow liters per 3
minute
Physical Exam
General: Comfortable and Other (Thin appearing man/pale/carrion skin, chronically appearing)
HEENT: Normocephalic, Anicteric and Other (Poor dentition)
Cardiovascular: S1-S2, Regular Rhythm and Peripheral Edema (Negative)
Respiratory: Wheeze (Negative), Crackles (Negative), Rhonchi (Negative), Non-Labored Respirations, Chest Tube and Other (Reduced breath sounds bilaterally)
GI: Soft, Non Distended, Non Tender and Normal Bowel Sounds
Neurology: Awake, Alert and Tremors (Negative)
Skin: Warm, Dry, Cyanosis (n), Jaundice (n) and Rash (n)
Labs/Micro/Reports
Lab Data
10/31/23 06:22
10/31/23 06:22
[2023-10-31] MEDS: LOVENOX 40 MG SC (17:15)
--- NOTE | 2023-10-31 17:58 | PTCARENOTE ---
Pt had a run of v tach pt did not feel anything
[2023-10-31] MEDS: TYLENOL 650 MG PO (21:07)
--- NOTE | 2023-10-31 23:20 | PTCARENOTE ---
pt presents as assessed- left chest tube intact draining yellow fluid, chest tube to suction, pt does admit to some SOB on exertion, on 3L NC 95%. pt given PRN for chest tube site pain- refer to MAR. pt able to make needs known. VSS. care ongoing.
[2023-11-01] VITALS (13 sets, daily range): BP systolic 85–131; BP diastolic 53–87; BMI 20.3
[2023-11-01] MEDS: SYMBICORT 160/4.5 MCG INHALER 2 PUFF INH ×2 (07:50→19:55)
[2023-11-01] MEDS: DUONEB 3 ML INH ×4 (07:50→19:55)
--- NOTE | 2023-11-01 08:10 | W.PN.PUL3 ---
Today's Communication / Plan
-
Maintain chest tube to waterseal for now
Pleural effusion seems to be increasing
Follow-up, hoping that pleural fluid may assist in auto pleurodesis process depending on amount of fluid
Will consider clamping of chest tube in the next 24 hours. Will review above plan with interventional radiology
Assessment
-
Patient is a 72-year-old male with history of COPD, alcohol abuse daily CKD stage IIIb, paroxysmal A-fib, GI bleed on Coumadin, splenic and renal infarcts, DVT/PE unprovoked 2020, pacemaker/defibrillator August 2011, cardiomyopathy former smoker, HTN,
prior PTX s/p chest tube and chemical pleurodesis 09/13/23 presenting with acute onset shortness of breath day of admission. Was using home inhalers without relief. In the ER, CXR showing moderate size left pneumothorax without mediastinal shift.
No hypoxemia noted on arrival, placed on venti mask and appears comfortable. We are consulted for eval 10/26/23.
Acute Left-sided recurrent spontaneous secondary pneumothorax (SSP)
Posteromedial left lower lobe atelectasis versus pneumonia (likely the former given procalcitonin is <0.05)
SOB due to above in the setting of severe bullous emphysema and COPD with severe gas exchange capacity defect
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
Recurrent spontaneous PTX s/p 16 Fr chest tube placed by IR on 09/10/2023
Status post pleurodesis 09/13/2023 with doxycycline 500 mg / 50 mL sterile water
History of tobacco use
Hypertension
History of PE/DVT
Paroxysmal A-fib on Eliquis
Hx of GI bleed (~7 years ago) while on coumadin
VT s/p ICD, NICM
History of alcohol use disorder
CKD
BPH
CKD (baseline Cr 1.4 - 1.6)
Plan/recommendations
At this time, chest x-ray appears to be stable. Pleural effusion noted, no pneumothorax. Chest tube in place
Revisited and reviewed CT findings.
Moving forward
Continue with chest tube to waterseal
Wondering if pleural fluid may assist in resolution of pneumothorax
Will review this with interventional radiology
Consider continuing waterseal for another 24 hours, and then consider clamping of chest tube
If we clamp prematurely, we will have to start process over, suction, waterseal, etc.
When discussed possibility of pleurodesis, patient is adamant about refusing this given his response to the prior pleurodesis
I suspect that since failed pleurodesis in the past, repeat pleurodesis will likely be helpful
Before any decision about chest tube removal or pleurodesis, will repeat CT chest
For now, lets allow pleural fluid to build up and hopefully come into equilibrium with airleak and facilitate possible auto pleurodesis
Will review this plan with interventional radiology
He had previously declined chest tube and surgery, but says that if the chest tube is needed to save his life or due to worsening pneumothorax then he would be amenable
He subsequently was agreeable and is s/p chest tube by IR 10/29/23
consideration for talc installation if needed, but can possibly hold off if PTX is better. Patient refusing any type of talc pleurodesis at this time especially if similar pain to prior doxycycline pleurodesis
Continue pain control
I reviewed with patient end-stage nature of his lung disease
He apparently has had discussions regarding transplant in the past and he is ruled this out as an option, was seen at [place] in the past
Age may be a precluding factor at this time and he is aware of this
PFT from 2017 showing moderate obstruction, severe diffusion impairment
Would be moderately high risk for surgery but could be tried with caution
Case reviewed with CT surgery and CT chest obtained today showing moderate sized L-PTX with atelectasis at medial lingula and postero-medial LLL; the LLL appears to have mucoid impaction as well, could be a pneumonia.
Trend WBC, monitor for fever. If he spikes a fever, sim-Cx and start broad spectrum ABx
Prior discussion:
Dr De La Paz did discuss endobronchial valve therapy, but we do not insert those here, and he would need to be TRX to [place] vs [place] vs other tertiary care center; the other issue with valve therapy is he has severe gas exchange capacity defect with
moderate COPD with severe air trapping and mild hyperinflation (via PFT from 2017)
These findings may have progressed since 2017, it is unknown as we do not have any up-to-date PFTs
The air trapping alone that he has evidence of may make him a candidate for valve therapy, however given his severely impaired DLco, unclear if further loss of lung tissue would be of benefit to him
He will need updated spirometry as well as blood gas measurements to evaluate if bronchoscopic treatment of his emphysema is appropriate or not
He has tried to be seen at [facility] but was not successful
He is looking into experimental treatments including stem cells but we discussed how this is not fruitful treatment options at this time
Note patient had successful pleurodesis 09/13/2023
This will be tried again with talc slurry (see above) although presently patient is refusing
Avoid incentive spirometer as this can worsen/exacerbate his pneumothorax
Resume home inhalers
Discussed with care team
DVT prophylaxis
OOB as tolerated
Reviewed with nursing and primary team
Outpatient pulmonary follow-up
Diagnostic Data
CT Chest 10-28-2023:
Marked changes of emphysema again seen, particularly bullous emphysema in the lung apices.
Moderate size left pneumothorax with accompanying partial left lower lobe atelectasis, left lower lobe subsegmental atelectasis and/or pneumonia and tiny left pleural effusion.
Aneurysmal dilatation of the distal descending thoracic aorta predominantly stable at approximately 4.6 cm.
CXR 10/26/23- At least moderate size left pneumothorax without mediastinal shift.
CXR 09-12-2023: No overt residual pneumothorax.
CXR 09-11-2023: No definite residual pneumothorax. Small left pleural effusion, new.
CXR 09-10-2023: Marked interval progression of now moderate to large left pneumothorax measuring up to 6.5 cm of pleural separation. No definite tension.
CXR 09-08-2023: Left apical and inferolateral pneumothorax stable when compared to the exam the day before.
CXR 09-07-2023: Recurrence of small to moderate left apical pneumothorax, somewhat obscured by left-sided cardiac device.
PFT 07/22/16 FEV1 2.42L 59%, FVC 5.14L 93%, ratio 47. Post FEV1 2.42L 59%. TLC 10.19L 125%, DLCO 33% (moderate obstruction, severe diffusion impairment)
-----
Total time spent today was 51 minutes for this encounter. Time includes reviewing laboratory test/imaging results, reviewing pertinent medical records, obtaining and reviewing medical history, performing an appropriate exam, ordering medications,
tests and procedures. Time also includes documentation of this encounter, coordinating patient care and communicating with other healthcare professionals. Total time does not include separately billed tests performed on this date of service.
Subjective Data
-
Date of Service:
Date of Service: November 01, 2023
Chief Complaint: Pulmonary Follow Up
Subjective:
No change in shortness of breath. Primary issue is left chest tube discomfort
Objective Data
Data Reviewed
Vital Signs / I&O / Oxygen:
Vital Signs
Temp Pulse Resp BP Pulse Ox
98.1 F 60 18 131/87 93
11/01/23 07:07 11/01/23 07:53 11/01/23 07:53 11/01/23 07:07 11/01/23 07:53
Intake and Output
10/31/23 11/01/23 11/02/23
06:59 06:59 06:59
Intake Total 360 / 360
Output Total 1005 / 1005 525 / 525 600 / 600
Balance -645 / -645 -525 / -525 -600 / -600
SaO2 93
Nasal Cannula flow liters per 3
minute
Physical Exam
General: Comfortable and Other (Thin appearing man/pale/carrion skin, chronically appearing)
HEENT: Normocephalic, Anicteric and Other (Poor dentition)
Cardiovascular: S1-S2, Regular Rhythm and Peripheral Edema (Negative)
Respiratory: Wheeze (Negative), Crackles (Negative), Rhonchi (Negative), Non-Labored Respirations, Chest Tube and Other (Reduced breath sounds bilaterally)
GI: Soft, Non Distended, Non Tender and Normal Bowel Sounds
Neurology: Awake, Alert and Tremors (Negative)
Skin: Warm, Dry, Cyanosis (n), Jaundice (n) and Rash (n)
[2023-11-01] MEDS: VITAMIN B1 100 MG PO ×2 (08:19→19:46)
[2023-11-01] MEDS: LOPRESSOR 50 MG PO (08:19)
[2023-11-01] MEDS: CARDIZEM CD 180 MG PO (08:19)
[2023-11-01] MEDS: FOLVITE 1 MG PO (08:19)
[2023-11-01] MEDS: MORPHINE SULFATE 1 MG IV ×2 (08:20→22:57)
[2023-11-01] MEDS: ZOFRAN 4 MG IV ×2 (08:20→22:57)
[2023-11-01 10:00] LABS: Hematocrit 31.9 % (39.0-52.0); Hemoglobin 10.4 g/dL (13.0-18.0); Mean Corp Hgb Conc. 32.6 g/dL (33.0-37.0); Mean Corpuscular Volume 98.2 fL (80.0-94.0); Mean Platelet Volume 9.7 fL (7.4-10.4); Platelet Count 248 10^3/uL (130-400); Red Blood Cell Count 3.25 10^6/uL (4.70-6.10); White Blood Cell Count 10.6 10^3/uL (4.8-10.8)
[2023-11-01 10:39] LABS: Blood Urea Nitrogen 22 mg/dl (9-20); Calcium 9.6 mg/dl (8.4-10.2); Carbon Dioxide 27 mmol/L (22-30); Chloride 104 mmol/L (98-107); Estimated Creatinine Clearance 46 ml/min; Glucose 118 mg/dl (70-99); Potassium 4.2 mmol/L (3.5-5.1); Sodium 139 mmol/L (135-145); eGFR 49.16
--- NOTE | 2023-11-01 11:46 | W.PN.HOSP.TC ---
Today's Communication/Plan
-
Continue chest tube
Possible clamping in the next few days
Patient will need CT Chest prior to possibly taking chest tube out
Appreciate pulmonary
Assessment / Plan
Assessment / Plan
Physical Exam
General: Well Developed, Well Nourished and Conversant
HEENT: Normocephalic
Respiratory: Decreased Breath Sounds (Bilaterally). NOW SATURATING IN THE 90s ON ROOM AIR
Cardiac: Regular Rhythm and S1/S2
GI: Soft, Nontender, Nondistended and Positive Bowel Sounds
Skin: Warm. Dry.
Neuro: Awake and Alert
Psych: Calm and Intact Judgement/Insight
Assessment/Plan
HPI: 72-year-old male PMH recurrent left pneumothorax status post chest tube placement and removal/pleurodesis, COPD, alcohol abuse, CKD stage IIIb, paroxysmal A-fib in Eliquis, GI bleed on prior Coumadin approximate 11years ago, splenic and renal
infarcts, DVT/PE unprovoked 2020, pacemaker/defibrillator August 2011, cardiomyopathy; presented with acute onset of shortness of breath secondary to recurrent (3rd episode) pneumothorax.
A/P:
# Recurrent left-sided pneumothorax/ third episode, 2/2 severe COPD/ruptured bullous emphysema failed previous chemical pleurodesis which was performed in August 2023
# h/o chest tube placement and removal in August 2023, status post chemical pleurodesis with doxycycline as was not a candidate for surgical intervention
Continue O2 support with NC now for air resorption
Pulmonary on board
Patient agreeable with chest tube placement (was wanting to avoid initially), placed 10/28, continue with chest tube to waterseal, pleural fluid might help with resolution
Possible clamping of tube in the next [address] hours
[address] Chest prior to any consideration of chest tube removal or any pleurodesis
I patient spikes a fever, will need to sim-culture and start broad spectrum antibiotics
# Severe COPD/emphysema
# Former smoker [id number] quit April 2021
Follows with pulmonary at [place]
Continue budesonide/formoterol, albuterol ipratropium nebs, Incruse
# Alcohol abuse
Drinks daily 8 ounces combination of vodka
MSAS screen with protocol IV thiamine IV folate
# Paroxysmal A-fib
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 Stephen discussion with pulm)
Continue diltiazem 180 mg daily, metoprolol succinate 50 mg twice daily
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 Stephen discussion on 10/30/23 with pulmonary)
# History of prior GI bleed on Coumadin
# Pacemaker/defibrillator August 2011, replaced 2019 [employer]
# history of VT/V-fib arrest
# Nonischemic cardiomyopathy
# CKD stage IIIb
Creat 1.5 appears at baseline
# History of splenic and renal infarcts
DVT prophylaxis: Dr. Stephen d/w pulm on 10/30/23, Dr Gonzalez prefers pt to be on Lovenox SQ for DVT ppx instead of resuming his home Eliquis; orders changed back to Lovenox SQ 40 mg HS for DVT ppx. Eliquis stopped
Code status was previously changed to full code
Anticipated Discharge: > 48 hours
Subjective/Interval History
-
Date of Service: November 01, 2023
Patient was seen and examined. He denied any chest pain or shortness of breath.
Objective Data
-
Labs:
Laboratory Results
11/01/23
09:21
WBC 10.6
Hgb 10.4 L
Hct 31.9 L
Plt Count 248
Sodium 139
Potassium 4.2
Chloride 104
Carbon Dioxide 27
BUN 22 H
Creatinine 1.5 H
Glucose 118 H
Calcium 9.6
Vital Signs:
Vital Signs
Temp Pulse Resp BP Pulse Ox
98.5 F 70 16 116/78 92
11/01/23 11:39 11/01/23 11:39 11/01/23 11:39 11/01/23 11:39 11/01/23 11:39
I&O
10/31/23 11/01/23 11/02/23
06:59 06:59 06:59
Intake Total 360 / 360 180 / 180
Output Total 1005 / 1005 525 / 525 600 / 600
Balance -645 / -645 -525 / -525 -420 / -420
--- NOTE | 2023-11-01 11:59 | PTCARENOTE ---
Assumed care of patient this morning. Pt expressed frustration about still being in the hospital and wanting to get chest tube out and to go home. Pulmonary at the bedside spoke with the patient and he is agreeable to keep chest tube. Patient does
have pain to chest tube site and asked for Morphine, see MAR. Patient did not have O2 upon first encounter this morning. Pulse ox showing 94 % on RA. O2 left off. L chest tube intact, see flowsheet. Assessment, care and VS as charted.
--- NOTE | 2023-11-01 12:22 | PTCARENOTE ---
Addendum entered by Carmen Hernández RN 11/01/23 12:30:
Pt also refusing to take 1200 medications until he has eaten his lunch. Pt encouraged to order lunch at this time. Pt agreeable and advised he would call RN when lunch has arrived.
Original Note:
Patient this morning reported he would like to get up to the chair today as he has been 'stuck in this bed.' RN encouraged plan. PT asking to work with patient and RN agreed. PT went into room shortly before RN and patient expressing now that he
does not want to get up. He reports his will be here soon and he will get up to go into the bathroom. I advised patient that his CT needs to remain on suction therefore patient is not able to go into the bathroom at this time. Pt then proceeded
to tell RN that he will take it off the suction. RN educated patient on orders and at this time he is not to come off suction. Pt argumentative and states then 'I will stay right here' and would not participate in PT. Pt also reports 'It's better
just to leave me alone.' RN educated patient about care plan and the need to check on patient. Pt voiced understanding.
[2023-11-01] MEDS: VITAMIN B-12 250 MCG PO (13:24)
[2023-11-01] MEDS: ELIQUIS 5 MG PO ×2 (13:25→22:56)
[2023-11-01] MEDS: ZINC SULFATE 220 MG PO (13:25)
[2023-11-01] MEDS: MAGNESIUM OXIDE 250 MG PO (13:25)
[2023-11-01] MEDS: VITAMIN D3 (cholecalciferol) 50 MCG PO (13:25)
--- NOTE | 2023-11-01 19:08 | PTCARENOTE ---
Dr. Mckeon called RN approx. 1700 to let patient know that he will be ordering a chest CT tomorrow. Also during conversation, he mentioned the chest tube on water seal, however the patient's chest tube has been on suction. Current order still for
suction. told this RN to check chest tube and if not on water seal to place on water seal. Pt placed on water seal approx 1700. Pt updated that he will have chest CT tomorrow. Pt agreeable.
[2023-11-01] MEDS: LOPRESSOR PO (19:46)
[2023-11-02] VITALS (9 sets, daily range): BP systolic 93–128; BP diastolic 49–84; BMI 19.9
--- NOTE | 2023-11-02 02:56 | DOWNTIME ---
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 Downtime documentation of patient's care, including medication administrations, has been reconciled in the electronic record per guidelines. Refer to the
patient's paper chart under the miscellaneous tab to see printed paper medication records and downtime forms.
[2023-11-02] MEDS: DUONEB INH (07:34)
[2023-11-02] MEDS: SYMBICORT 160/4.5 MCG INHALER INH (07:34)
--- NOTE | 2023-11-02 08:15 | PTCARENOTE ---
Patient off unit for CT of chest. Prior to leaving unit patient spo2 93% on room air. Patient SOB on exertion. Applied to 2L o2 at patient's requests.
[2023-11-02] MEDS: ELIQUIS 5 MG PO ×2 (08:46→20:45)
[2023-11-02] MEDS: CARDIZEM CD 180 MG PO (08:46)
[2023-11-02] MEDS: VITAMIN B1 100 MG PO ×2 (08:46→20:45)
[2023-11-02] MEDS: LOPRESSOR 50 MG PO ×2 (08:46→20:45)
[2023-11-02] MEDS: FOLVITE 1 MG PO (08:47)
[2023-11-02 10:50] LABS: % Basophils 0.5 % (0-2); % Immature Granulocytes 0.2 % (0-0.5); % Lymphocytes 9.6 % (20.5-51.1); % Monocytes 10.6 % (1.7-9.3); % Neutrophils 76.1 % (42.2-75.2); Absolute Basophils 0.1 10^3/uL (0-0.2); Absolute Eosinophils 0.3 10^3/uL (0-0.7); Absolute Lymphocytes 0.9 10^3/uL (1.2-3.4); Absolute Neutrophils 7.4 10^3/uL (1.4-6.5); Hemoglobin 10.2 g/dL (13.0-18.0); Mean Corp Hgb Conc. 31.9 g/dL (33.0-37.0); Mean Corpuscular Hgb 32.1 pg (27.0-31.0); Mean Corpuscular Volume 100.6 fL (80.0-94.0); Mean Platelet Volume 9.2 fL (7.4-10.4); Nucleated Red Blood Cells % 0 % (-); Platelet Count 249 10^3/uL (130-400); Red Blood Cell Count 3.18 10^6/uL (4.70-6.10); Red Cell Dist. Width 16.7 % (11.5-14.5); White Blood Cell Count 9.7 10^3/uL (4.8-10.8)
[2023-11-02] MEDS: DUONEB 3 ML INH ×3 (10:57→19:29)
[2023-11-02 11:40] LABS: ALT (SGPT) 66 U/L (0-50); AST (SGOT) 59 U/L (17-59); Albumin 3.5 g/dl (3.5-5.0); Alkaline Phosphatase 123 U/L (38-126); Blood Urea Nitrogen 21 mg/dl (9-20); Calcium 9.6 mg/dl (8.4-10.2); Carbon Dioxide 25 mmol/L (22-30); Chloride 106 mmol/L (98-107); Estimated Creatinine Clearance 46 ml/min; Glucose 98 mg/dl (70-99); Potassium 5.2 mmol/L (3.5-5.1); Sodium 138 mmol/L (135-145); Total Bilirubin 1.1 mg/dl (0.2-1.3); Total Protein 6.1 g/dl (6.3-8.2); eGFR 49.16
[2023-11-02] MEDS: VITAMIN D3 (cholecalciferol) 50 MCG PO (11:56)
[2023-11-02] MEDS: MAGNESIUM OXIDE 250 MG PO (11:56)
[2023-11-02] MEDS: VITAMIN B-12 250 MCG PO (11:57)
[2023-11-02] MEDS: ZINC SULFATE 220 MG PO (11:57)
[2023-11-02] MEDS: TYLENOL 650 MG PO (12:04)
--- NOTE | 2023-11-02 12:12 | W.PN.HOSP.TC ---
Today's Communication/Plan
-
Chest tube clamped
Possible chest tube discontinuation tomorrow
Assessment / Plan
Assessment / Plan
Physical Exam
General: Well Developed, Well Nourished and Conversant
HEENT: Normocephalic
Respiratory: Decreased Breath Sounds (Bilaterally). NOW SATURATING IN THE 90s ON ROOM AIR
Cardiac: Regular Rhythm and S1/S2
GI: Soft, Nontender, Nondistended and Positive Bowel Sounds
Skin: Warm. Dry.
Neuro: Awake and Alert
Psych: Calm and Intact Judgement/Insight
Assessment/Plan
HPI: 72-year-old male PMH recurrent left pneumothorax status post chest tube placement and removal/pleurodesis, COPD, alcohol abuse, CKD stage IIIb, paroxysmal A-fib in Eliquis, GI bleed on prior Coumadin approximate 11years ago, splenic and renal
infarcts, DVT/PE unprovoked 2020, pacemaker/defibrillator August 2011, cardiomyopathy; presented with acute onset of shortness of breath secondary to recurrent (3rd episode) pneumothorax.
A/P:
# Recurrent left-sided pneumothorax/ third episode, 2/2 severe COPD/ruptured bullous emphysema failed previous chemical pleurodesis which was performed in August 2023
# h/o chest tube placement and removal in August 2023, status post chemical pleurodesis with doxycycline as was not a candidate for surgical intervention
Continue O2 support with NC now for air resorption
Pulmonary on board
Patient agreeable with chest tube placement (was wanting to avoid initially), placed 10/28, continue with chest tube to waterseal, pleural fluid might help with resolution
Chest tube clamped today, recheck CXR tomorrow
Repeat CT Chest results from 11/02/23 noted
I patient spikes a fever, will need to sim-culture and start broad spectrum antibiotics
# Severe COPD/emphysema
# Former smoker [id number] quit April 2021
Follows with pulmonary at [facility]
Continue budesonide/formoterol, albuterol ipratropium nebs, Incruse
# Alcohol abuse
Drinks daily 8 ounces combination of vodka
MSAS screen with protocol IV thiamine IV folate
# Paroxysmal A-fib
Continue Elqiuis
Continue diltiazem 180 mg daily, metoprolol succinate 50 mg twice daily
#Constipation
-Bowel regimen
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
-Continue Eliquis
# History of prior GI bleed on Coumadin
# Pacemaker/defibrillator August 2011, replaced 2019 [employer]
# history of VT/V-fib arrest
# Nonischemic cardiomyopathy
# CKD stage IIIb
Creat 1.5 appears at baseline
# History of splenic and renal infarcts
DVT prophylaxis: Eliquis
Code status was previously changed to full code
Anticipated Discharge: > 48 hours
Subjective/Interval History
-
Date of Service: November 02, 2023
Patient was seen and examined. He reported feeling more short of breath today.
Objective Data
-
Labs:
Laboratory Results
11/02/23
10:30
WBC 9.7
Hgb 10.2 L
Hct 32.0 L
Plt Count 249
Sodium 138
Potassium 5.2 H
Chloride 106
Carbon Dioxide 25
BUN 21 H
Creatinine 1.5 H
Glucose 98
Calcium 9.6
Total Bilirubin 1.1
AST 59
ALT 66 H
Alkaline Phosphatase 123
Vital Signs:
Vital Signs
Temp Pulse Resp BP Pulse Ox
98.4 F 82 20 117/82 93
11/02/23 07:00 11/02/23 10:58 11/02/23 10:58 11/02/23 10:23 11/02/23 07:45
I&O
11/01/23 11/02/23 11/03/23
06:59 06:59 06:59
Intake Total 660 / 660 240 / 240
Output Total 525 / 525 1350 / 1350 375 / 375
Balance -525 / -525 -690 / -690 -135 / -135
--- NOTE | 2023-11-02 13:45 | PTCARENOTE ---
Patient out of bed to chair. Report not having BM for [address] Maria notified and order obtained for bowel medications. Chest tube clamped as per pulmonology. Portable chest xray to be done at 1600. VS stable. A-paced on monitor.
[2023-11-02] MEDS: SENOKOT-S 1 TABLET PO ×2 (14:02→20:45)
[2023-11-02] MEDS: MIRALAX 17 GRAMS PO (14:03)
--- NOTE | 2023-11-02 16:22 | PTCARENOTE ---
Patient had large formed BM in bathroom. Tolerating clamped chest tube. Waiting for portable xray.
--- NOTE | 2023-11-02 16:43 | W.PN.PUL3 ---
Today's Communication / Plan
-
CT clamped, CXR stable
Repeat CXR in AM
possible dc CT tomorrow
Assessment
-
Patient is a 72-year-old male with history of COPD, alcohol abuse daily CKD stage IIIb, paroxysmal A-fib, GI bleed on Coumadin, splenic and renal infarcts, DVT/PE unprovoked 2020, pacemaker/defibrillator August 2011, cardiomyopathy former smoker, HTN,
prior PTX s/p chest tube and chemical pleurodesis 09/13/23 presenting with acute onset shortness of breath day of admission. Was using home inhalers without relief. In the ER, CXR showing moderate size left pneumothorax without mediastinal shift.
No hypoxemia noted on arrival, placed on venti mask and appears comfortable. We are consulted for eval 10/26/23.
Acute Left-sided recurrent spontaneous secondary pneumothorax (SSP)
Posteromedial left lower lobe atelectasis versus pneumonia (likely the former given procalcitonin is <0.05)
SOB due to above in the setting of severe bullous emphysema and COPD with severe gas exchange capacity defect
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
Recurrent spontaneous PTX s/p 16 Fr chest tube placed by IR on 09/10/2023
Status post pleurodesis 09/13/2023 with doxycycline 500 mg / 50 mL sterile water
History of tobacco use
Hypertension
History of PE/DVT
Paroxysmal A-fib on Eliquis
Hx of GI bleed (~7 years ago) while on coumadin
VT s/p ICD, NICM
History of alcohol use disorder
CKD
BPH
CKD (baseline Cr 1.4 - 1.6)
Plan/recommendations
At this time, chest x-ray appears to be stable. Pleural effusion noted, no pneumothorax. Chest tube in place
Reviewed CT findings.
Suspect trap lung left side
Moving forward
CT clamped since afternoon
4PM CXR is stable
Maintiona clamped, check CXR in am
Hopefully can dc CT tomorrow am
When discussed possibility of pleurodesis, patient is adamant about refusing this given his response to the prior pleurodesis
I suspect that since failed pleurodesis in the past, repeat pleurodesis will likely be helpful
Before any decision about chest tube removal or pleurodesis, will repeat CT chest
For now, lets allow pleural fluid to build up and hopefully come into equilibrium with airleak and facilitate possible auto pleurodesis
Will review this plan with interventional radiology
He had previously declined chest tube and surgery, but says that if the chest tube is needed to save his life or due to worsening pneumothorax then he would be amenable
He subsequently was agreeable and is s/p chest tube by IR 10/29/23
consideration for talc installation if needed, but can possibly hold off if PTX is better. Patient refusing any type of talc pleurodesis at this time especially if similar pain to prior doxycycline pleurodesis
Continue pain control
I reviewed with patient end-stage nature of his lung disease
He apparently has had discussions regarding transplant in the past and he is ruled this out as an option, was seen at [place] in the past
Age may be a precluding factor at this time and he is aware of this
PFT from 2017 showing moderate obstruction, severe diffusion impairment
Would be moderately high risk for surgery but could be tried with caution
Case reviewed with CT surgery and CT chest obtained today showing moderate sized L-PTX with atelectasis at medial lingula and postero-medial LLL; the LLL appears to have mucoid impaction as well, could be a pneumonia.
Trend WBC, monitor for fever. If he spikes a fever, sim-Cx and start broad spectrum ABx
Prior discussion:
Dr De La Paz did discuss endobronchial valve therapy, but we do not insert those here, and he would need to be TRX to [place] vs [place] vs other tertiary care center; the other issue with valve therapy is he has severe gas exchange capacity defect with
moderate COPD with severe air trapping and mild hyperinflation (via PFT from 2017)
These findings may have progressed since 2017, it is unknown as we do not have any up-to-date PFTs
The air trapping alone that he has evidence of may make him a candidate for valve therapy, however given his severely impaired DLco, unclear if further loss of lung tissue would be of benefit to him
He will need updated spirometry as well as blood gas measurements to evaluate if bronchoscopic treatment of his emphysema is appropriate or not
He has tried to be seen at [facility] but was not successful
He is looking into experimental treatments including stem cells but we discussed how this is not fruitful treatment options at this time
Note patient had successful pleurodesis 09/13/2023
This will be tried again with talc slurry (see above) although presently patient is refusing
Avoid incentive spirometer as this can worsen/exacerbate his pneumothorax
Resume home inhalers
Discussed with care team
DVT prophylaxis
OOB as tolerated
Reviewed with nursing and primary team, IR
Outpatient pulmonary follow-up
Diagnostic Data
CT Chest 10-28-2023:
Marked changes of emphysema again seen, particularly bullous emphysema in the lung apices.
Moderate size left pneumothorax with accompanying partial left lower lobe atelectasis, left lower lobe subsegmental atelectasis and/or pneumonia and tiny left pleural effusion.
Aneurysmal dilatation of the distal descending thoracic aorta predominantly stable at approximately 4.6 cm.
CXR 10/26/23- At least moderate size left pneumothorax without mediastinal shift.
CXR 09-12-2023: No overt residual pneumothorax.
CXR 09-11-2023: No definite residual pneumothorax. Small left pleural effusion, new.
CXR 09-10-2023: Marked interval progression of now moderate to large left pneumothorax measuring up to 6.5 cm of pleural separation. No definite tension.
CXR 09-08-2023: Left apical and inferolateral pneumothorax stable when compared to the exam the day before.
CXR 09-07-2023: Recurrence of small to moderate left apical pneumothorax, somewhat obscured by left-sided cardiac device.
PFT 07/22/16 FEV1 2.42L 59%, FVC 5.14L 93%, ratio 47. Post FEV1 2.42L 59%. TLC 10.19L 125%, DLCO 33% (moderate obstruction, severe diffusion impairment)
-----
Total time spent today was 51 minutes for this encounter. Time includes reviewing laboratory test/imaging results, reviewing pertinent medical records, obtaining and reviewing medical history, performing an appropriate exam, ordering medications,
tests and procedures. Time also includes documentation of this encounter, coordinating patient care and communicating with other healthcare professionals. Total time does not include separately billed tests performed on this date of service.
Subjective Data
-
Date of Service:
Date of Service: November 02, 2023
Chief Complaint: Pulmonary Follow Up
Subjective:
SOB this am but presently best breathing to date
Constipation better. pain controlled. Pt sitgin in chair
Objective Data
Data Reviewed
Vital Signs / I&O / Oxygen:
Vital Signs
Temp Pulse Resp BP Pulse Ox
98 F 71 20 96/70 95
11/02/23 15:00 11/02/23 15:36 11/02/23 15:36 11/02/23 14:05 11/02/23 15:36
Intake and Output
11/01/23 11/02/23 11/03/23
06:59 06:59 06:59
Intake Total 660 / 660 240 / 240
Output Total 525 / 525 1350 / 1350 375 / 375
Balance -525 / -525 -690 / -690 -135 / -135
SaO2 95
Nasal Cannula flow liters per 2
minute
Physical Exam
General: Comfortable and Other (Thin appearing man/pale/carrion skin, chronically appearing)
HEENT: Normocephalic, Anicteric and Other (Poor dentition)
Cardiovascular: S1-S2, Regular Rhythm and Peripheral Edema (Negative)
Respiratory: Wheeze (Negative), Crackles (Negative), Rhonchi (Negative), Non-Labored Respirations, Chest Tube and Other (Reduced breath sounds bilaterally)
GI: Soft, Non Distended, Non Tender and Normal Bowel Sounds
Neurology: Awake, Alert and Tremors (Negative)
Skin: Warm, Dry, Cyanosis (n), Jaundice (n) and Rash (n)
Labs/Micro/Reports
Lab Data
11/02/23 10:30
11/02/23 10:30
[2023-11-02] MEDS: SYMBICORT 160/4.5 MCG INHALER 2 PUFF INH (19:29)
[2023-11-02 20:50] LABS: Blood Urea Nitrogen 24 mg/dl (9-20); Calcium 9.4 mg/dl (8.4-10.2); Carbon Dioxide 28 mmol/L (22-30); Chloride 103 mmol/L (98-107); Estimated Creatinine Clearance 46 ml/min; Glucose 103 mg/dl (70-99); Potassium 4.6 mmol/L (3.5-5.1); Sodium 139 mmol/L (135-145); eGFR 49.16
[2023-11-02] MEDS: MORPHINE SULFATE 1 MG IV (23:16)
[2023-11-03] VITALS (11 sets, daily range): BP systolic 100–132; BP diastolic 70–103; PULSE 73; BMI 19.8
--- NOTE | 2023-11-03 03:38 | PTCARENOTE ---
Chest tube remains clamped overnight. Assisted from the chair into bed to sleep; dyspnea upon exertion. Voiding via urinal. A-paced rhythm on tele. Prn morphine provided per pt request for pain. On/off 2L NC, spot checking Sp02. Pt refusing care /
does not want to be bothered from 0000 to 0600.
Call dueñas and tray table within reach. Pt uses call dueñas appropriately.
[2023-11-03] MEDS: SYMBICORT 160/4.5 MCG INHALER 2 PUFF INH ×2 (07:50→19:50)
[2023-11-03] MEDS: DUONEB 3 ML INH ×4 (07:50→19:49)
--- NOTE | 2023-11-03 09:17 | W.PN.PUL.V3 ---
Today's Communication / Plan
-
Check chest x-ray
Consider chest tube removal
Note discussions about pleurodesis
Assessment
-
Patient is a 72-year-old male with history of COPD, alcohol abuse daily CKD stage IIIb, paroxysmal A-fib, GI bleed on Coumadin, splenic and renal infarcts, DVT/PE unprovoked 2020, pacemaker/defibrillator August 2011, cardiomyopathy former smoker, HTN,
prior PTX s/p chest tube and chemical pleurodesis 09/13/23 presenting with acute onset shortness of breath day of admission. Was using home inhalers without relief. In the ER, CXR showing moderate size left pneumothorax without mediastinal shift.
No hypoxemia noted on arrival, placed on venti mask and appears comfortable. We are consulted for eval 10/26/23.
Acute Left-sided recurrent spontaneous secondary pneumothorax (SSP)
Posteromedial left lower lobe atelectasis versus pneumonia (likely the former given procalcitonin is <0.05)
SOB due to above in the setting of severe bullous emphysema and COPD with severe gas exchange capacity defect
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
Recurrent spontaneous PTX s/p 16 Fr chest tube placed by IR on 09/10/2023
Status post pleurodesis 09/13/2023 with doxycycline 500 mg / 50 mL sterile water
History of tobacco use
Hypertension
History of PE/DVT
Paroxysmal A-fib on Eliquis
Hx of GI bleed (~7 years ago) while on coumadin
VT s/p ICD, NICM
History of alcohol use disorder
CKD
BPH
CKD (baseline Cr 1.4 - 1.6)
Plan/recommendations
Respiratory status relatively stable
Wean oxygen
Nebulizers as needed
Mucus clearing devices
Check chest x-ray
Chest tube clamped
Consider removal after chest x-ray
Patient adamant about refusing pleurodesis given his response to prior pleurodesis
Will continue to have these discussions
Pain control
Radiographs reviewed-chest x-ray 11/03/2023 with small apical left-sided pneumothorax
CT chest 11/02/2023 reviewed-small left apical hydropneumothorax, severe emphysema
He had previously declined chest tube and surgery, but says that if the chest tube is needed to save his life or due to worsening pneumothorax then he would be amenable
He subsequently was agreeable and is s/p chest tube by IR 10/29/23
consideration for talc installation if needed, but can possibly hold off if PTX is better. Patient refusing any type of talc pleurodesis at this time especially if similar pain to prior doxycycline pleurodesis
The pulmonary team has reviewed with patient end-stage nature of his lung disease
He apparently has had discussions regarding transplant in the past and he is ruled this out as an option, was seen at [facility] in the past
PFT from 2017 showing moderate obstruction, severe diffusion impairment
Trend WBC, monitor for fever. If he spikes a fever, sim-Cx and start broad spectrum ABx
Prior discussions:
Dr De La Paz did discuss endobronchial valve therapy, but we do not insert those here, and he would need to be TRX to [place] vs [place] vs other tertiary care center; the other issue with valve therapy is he has severe gas exchange capacity defect with
moderate COPD with severe air trapping and mild hyperinflation (via PFT from 2017)
These findings may have progressed since 2017, it is unknown as we do not have any up-to-date PFTs
The air trapping alone that he has evidence of may make him a candidate for valve therapy, however given his severely impaired DLco, unclear if further loss of lung tissue would be of benefit to him
He will need updated spirometry as well as blood gas measurements to evaluate if bronchoscopic treatment of his emphysema is appropriate or not
He has tried to be seen at [facility] but was not successful
He is looking into experimental treatments including stem cells but we discussed how this is not fruitful treatment options at this time
Note patient had successful pleurodesis 09/13/2023
This will be tried again with talc slurry (see above) although presently patient is refusing
Avoid incentive spirometer as this can worsen/exacerbate his pneumothorax
Resume home inhalers
Discussed with care team
DVT prophylaxis
OOB as tolerated
Reviewed with nursing
Outpatient pulmonary follow-up
Diagnostic Data
CT Chest 10-28-2023:
Marked changes of emphysema again seen, particularly bullous emphysema in the lung apices.
Moderate size left pneumothorax with accompanying partial left lower lobe atelectasis, left lower lobe subsegmental atelectasis and/or pneumonia and tiny left pleural effusion.
Aneurysmal dilatation of the distal descending thoracic aorta predominantly stable at approximately 4.6 cm.
CXR 10/26/23- At least moderate size left pneumothorax without mediastinal shift.
CXR 09-12-2023: No overt residual pneumothorax.
CXR 09-11-2023: No definite residual pneumothorax. Small left pleural effusion, new.
CXR 09-10-2023: Marked interval progression of now moderate to large left pneumothorax measuring up to 6.5 cm of pleural separation. No definite tension.
CXR 09-08-2023: Left apical and inferolateral pneumothorax stable when compared to the exam the day before.
CXR 09-07-2023: Recurrence of small to moderate left apical pneumothorax, somewhat obscured by left-sided cardiac device.
PFT 07/22/16 FEV1 2.42L 59%, FVC 5.14L 93%, ratio 47. Post FEV1 2.42L 59%. TLC 10.19L 125%, DLCO 33% (moderate obstruction, severe diffusion impairment)
-----
Total time spent today was 51 minutes for this encounter. Time includes reviewing laboratory test/imaging results, reviewing pertinent medical records, obtaining and reviewing medical history, performing an appropriate exam, ordering medications,
tests and procedures. Time also includes documentation of this encounter, coordinating patient care and communicating with other healthcare professionals. Total time does not include separately billed tests performed on this date of service.
Subjective Data
-
Date of Service:
Date of Service: November 03, 2023
Chief Complaint: Pulmonary Follow Up
Subjective:
Feels better, chest tube clamped, no shortness of breath, chest pain, abdominal pain
Objective Data
Data Reviewed
Vital Signs / I&O:
Vital Signs
Temp Pulse Resp BP Pulse Ox
98.2 F 71 19 132/81 94
11/03/23 07:00 11/03/23 07:52 11/03/23 07:52 11/03/23 06:30 11/03/23 07:52
Intake and Output
11/02/23 11/03/23 11/04/23
06:59 06:59 06:59
Intake Total 660 / 660 765 / 765
Output Total 1350 / 1350 1895 / 1895
Balance -690 / -690 -1130 / -1130
SaO2: 94
Nasal Cannula flow liters per minute: 2
Physical Exam
General: Respiratory Distress (n), Comfortable and Other (Thin appearing man/pale/carrion skin, chronically appearing)
HEENT: Normocephalic, Anicteric and Other (Poor dentition)
Cardiovascular: Regular Rhythm and Peripheral Edema (Negative)
Respiratory: Clear (Diminished breath sounds), Wheeze (Negative), Crackles (Negative), Rhonchi (Negative), Non-Labored Respirations, Chest Tube and Other (Reduced breath sounds bilaterally)
GI: Soft, Non Distended, Non Tender and Normal Bowel Sounds
Neurology: Awake, Alert and Tremors (Negative)
Skin: Warm, Dry, Cyanosis (n), Jaundice (n) and Rash (n)
Labs/Micro/Reports
Lab Data
11/02/23 10:30
11/02/23 20:25
[2023-11-03] MEDS: LOPRESSOR 50 MG PO ×2 (09:52→21:41)
[2023-11-03] MEDS: TYLENOL 650 MG PO ×2 (09:52→21:40)
[2023-11-03] MEDS: SENOKOT-S 1 TABLET PO (09:53)
[2023-11-03] MEDS: FOLVITE 1 MG PO (09:53)
[2023-11-03] MEDS: ELIQUIS 5 MG PO ×2 (09:53→21:40)
[2023-11-03] MEDS: VITAMIN B1 100 MG PO ×2 (09:53→21:40)
[2023-11-03] MEDS: CARDIZEM CD 180 MG PO (09:53)
[2023-11-03] MEDS: MIRALAX PO (09:54)
--- NOTE | 2023-11-03 11:10 | W.PN.UPDATE ---
Update Note
Progress Note Update
Reviewed radiographs
Dr. Aden called interventional radiology to look at films
Reviewed with nursing-chest tube has inadvertently moved out a couple inches
Patient would like chest tube removed-understands the possibility of pneumothorax enlarging
Refusing pleurodesis or surgery
If interventional radiology agrees then chest tube will be pulled and patient will be monitored for pneumothorax enlargement
--- NOTE | 2023-11-03 11:34 | PTCARENOTE ---
Left lateral CT dressing needed reinforcement. It appears CT pulled out about [address] Maria and Dr[address] Aden made aware. Possible removal of CT today. Patient complaining of pain at insertion site. Medicated patient with tylenol.
Vital signs stable. Patient SOB on exertion with long recovery. Patient wears o2 as he feels it's needed. Call dueñas in reach. Will monitor..
--- NOTE | 2023-11-03 12:54 | PTCARENOTE ---
Patient off unit to IR for chest tube removal.
--- NOTE | 2023-11-03 12:59 | W.PN.HOSP.TC ---
Today's Communication/Plan
-
Patient wants chest tube removed -- pulmonary spoke with interventional radiology about this - if interventional radiology agrees then chest tube will be pulled and patient will be monitored for pneumothorax enlargement
Appreciate pulmonary and interventional radiology
Assessment / Plan
Assessment / Plan
Physical Exam
General: Well Developed, Well Nourished and Conversant
HEENT: Normocephalic
Respiratory: Decreased Breath Sounds (Bilaterally). NOW SATURATING IN THE 90s ON ROOM AIR
Cardiac: Regular Rhythm and S1/S2
GI: Soft, Nontender, Nondistended and Positive Bowel Sounds
Skin: Warm. Dry.
Neuro: Awake and Alert
Psych: Calm and Intact Judgement/Insight
Assessment/Plan
HPI: 72-year-old male PMH recurrent left pneumothorax status post chest tube placement and removal/pleurodesis, COPD, alcohol abuse, CKD stage IIIb, paroxysmal A-fib in Eliquis, GI bleed on prior Coumadin approximate 11years ago, splenic and renal
infarcts, DVT/PE unprovoked 2020, pacemaker/defibrillator August 2011, cardiomyopathy; presented with acute onset of shortness of breath secondary to recurrent (3rd episode) pneumothorax.
A/P:
# Recurrent left-sided pneumothorax/ third episode, 2/2 severe COPD/ruptured bullous emphysema failed previous chemical pleurodesis which was performed in August 2023
# h/o chest tube placement and removal in August 2023, status post chemical pleurodesis with doxycycline as was not a candidate for surgical intervention
Continue O2 support with NC now for air resorption
Pulmonary on board
Patient agreed with chest tube placement (was wanting to avoid initially), placed 10/28, continue with chest tube to waterseal, pleural fluid might help with resolution
Repeat CT Chest results from 11/02/23 noted
Repeat CXR results with pneumothorax
I patient spikes a fever, will need to sim-culture and start broad spectrum antibiotics
Patient refused pleurodesis or surgery
Patient wants chest tube removed -- pulmonary spoke with interventional radiology about this - if interventional radiology agrees then chest tube will be pulled and patient will be monitored for pneumothorax enlargement
# Severe COPD/emphysema
# Former smoker [id number] quit April 2021
Follows with pulmonary at [facility]
Continue budesonide/formoterol, albuterol ipratropium nebs, Incruse
# Alcohol abuse
Drinks daily 8 ounces combination of vodka
MSAS screen with protocol IV thiamine IV folate
# Paroxysmal A-fib
Continue Eliquis
Continue diltiazem 180 mg daily, metoprolol succinate 50 mg twice daily
#Constipation
-Bowel regimen
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
-Continue Eliquis
# History of prior GI bleed on Coumadin
# Pacemaker/defibrillator August 2011, replaced 2018 [employer]
# history of VT/V-fib arrest
# Nonischemic cardiomyopathy
# CKD stage IIIb
Creat 1.5 appears at baseline
# History of splenic and renal infarcts
DVT prophylaxis: Eliquis
Code status was previously changed to full code
Anticipated Discharge: > 48 hours
Subjective/Interval History
-
Date of Service: November 03, 2023
Patient was seen and examined. He reported that his shortness of breath is better than yesterday, and he denied any chest pain.
Objective Data
-
Vital Signs:
Vital Signs
Temp Pulse Resp BP Pulse Ox
98.2 F 70 17 117/78 94
11/03/23 11:00 11/03/23 11:16 11/03/23 11:16 11/03/23 10:02 11/03/23 11:16
I&O
11/02/23 11/03/23 11/04/23
06:59 06:59 06:59
Intake Total 660 / 660 765 / 765 325 / 325
Output Total 1350 / 1350 1895 / 1895 210 / 210
Balance -690 / -690 -1130 / -1130 115 / 115
--- NOTE | 2023-11-03 14:41 | PTCARENOTE ---
Patient back from IR. Upon arrival need to change dressing from CT site. Large amount of serous drainage noted. Vital signs stable. Spo2 96% RA. Follow up chest xray ordered for 1600. Patient denies any pain or discomfort, denies SOB. Patient
OOB chair eating lunch. Call dueñas in reach.
[2023-11-03] MEDS: MAGNESIUM OXIDE 250 MG PO (14:59)
[2023-11-03] MEDS: VITAMIN B-12 250 MCG PO (15:00)
[2023-11-03] MEDS: ZINC SULFATE 220 MG PO (15:00)
[2023-11-03] MEDS: VITAMIN D3 (cholecalciferol) 50 MCG PO (15:01)
--- NOTE | 2023-11-03 16:31 | CM ---
Patient with Dx Recurrent left-sided pneumothorax, severe COPD/emphysema, Alcohol abuse. Room air. Chest tube removed today- per pulmonology notes patient will be monitored for pneumothorax enlargement. PT 11/02; Home PT vs No needs. OT 11/01
recommends HH.
Notified by nurse patient is sleeping.
Plan offer VN prior to d/c.
Plan home.
[2023-11-03] MEDS: SENOKOT-S PO (21:41)
[2023-11-04 06:08] VITALS: BP 111/94
--- NOTE | 2023-11-04 07:52 | PTCARENOTE ---
at change of shift pt CO of SOB after using BR. Pt on 2Lm O2 POX 96% breath sounds throughout L base with crackles. Color good no CP . Post Ct removal yesterday
--- NOTE | 2023-11-04 07:55 | PTCARENOTE ---
Dr Balbuena tt for an order for a PCXR.
[2023-11-04] MEDS: SYMBICORT 160/4.5 MCG INHALER 2 PUFF INH (07:59)
[2023-11-04] MEDS: DUONEB 3 ML INH ×3 (07:59→15:30)
[2023-11-04] MEDS: SENOKOT-S 1 TABLET PO (08:28)
[2023-11-04] MEDS: VITAMIN B1 100 MG PO (08:28)
[2023-11-04] MEDS: FOLVITE 1 MG PO (08:28)
[2023-11-04] MEDS: CARDIZEM CD 180 MG PO (08:29)
[2023-11-04] MEDS: ELIQUIS 5 MG PO (08:29)
[2023-11-04] MEDS: LOPRESSOR 50 MG PO (08:30)
--- NOTE | 2023-11-04 08:43 | W.PN.PUL.V3 ---
Today's Communication / Plan
-
follow cxr
ct surg input
pleurodis again??
Assessment
-
Patient is a 72-year-old male with history of COPD, alcohol abuse daily CKD stage IIIb, paroxysmal A-fib, GI bleed on Coumadin, splenic and renal infarcts, DVT/PE unprovoked 2020, pacemaker/defibrillator August 2011, cardiomyopathy former smoker, HTN,
prior PTX s/p chest tube and chemical pleurodesis 09/13/23 presenting with acute onset shortness of breath day of admission. Was using home inhalers without relief. In the ER, CXR showing moderate size left pneumothorax without mediastinal shift.
No hypoxemia noted on arrival, placed on venti mask and appears comfortable. We are consulted for eval 10/26/23.
Acute Left-sided recurrent spontaneous secondary pneumothorax (SSP)
Posteromedial left lower lobe atelectasis versus pneumonia (likely the former given procalcitonin is <0.05)
SOB due to above in the setting of severe bullous emphysema and COPD with severe gas exchange capacity defect
Chronic conditions [employer]:
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
Recurrent spontaneous PTX s/p 16 Fr chest tube placed by IR on 09/10/2023
Status post pleurodesis 09/13/2023 with doxycycline 500 mg / 50 mL sterile water
History of tobacco use
Hypertension
History of PE/DVT
Paroxysmal A-fib on Eliquis
Hx of GI bleed (~7 years ago) while on coumadin
VT s/p ICD, NICM
History of alcohol use disorder
CKD
BPH
CKD (baseline Cr 1.4 - 1.6)
Plan/recommendations
Respiratory status slightly declined
Oxygen as needed
Nebulizers as needed
Mucus clearing devices
Chest tube removed yesterday
CXR today slight increase PTX
Follow closely
May need repeat CT - explained to patient
Patient adamant about refusing pleurodesis given his response to prior pleurodesis- I rediscussed today and not completely apposed now
Note: CT chest 11/02/2023 reviewed-small left apical hydropneumothorax, severe emphysema
He had previously declined chest tube and surgery, but says that if the chest tube is needed to save his life or due to worsening pneumothorax then he would be amenable
He subsequently was agreeable and is s/p chest tube by IR 10/29/23
Patient was refusing any type of talc pleurodesis at this time especially if similar pain to prior doxycycline pleurodesis
Note patient had successful pleurodesis 09/13/2023
This could be tried again with talc slurry (see above) although presently patient is refusing
The pulmonary team has reviewed with patient end-stage nature of his lung disease
He apparently has had discussions regarding transplant in the past and he is ruled this out as an option, was seen at [facility] in the past- hoping 'stem cells' will be the answer - reviewed current data on that - not good yet!
PFT from 2017 showing moderate obstruction, severe diffusion impairment
Prior discussions:
Dr De La Paz did discuss endobronchial valve therapy, but we do not insert those here, and he would need to be transfered to [facility] vs [facility] vs other tertiary care center; the other issue with valve therapy is he has severe gas exchange capacity
defect with moderate COPD with severe air trapping and mild hyperinflation (via PFT from 2017)
These findings may have progressed since 2017, it is unknown as we do not have any up-to-date PFTs
The air trapping alone that he has evidence of may make him a candidate for valve therapy, however given his severely impaired DLco, unclear if further loss of lung tissue would be of benefit to him
He will need updated spirometry as well as blood gas measurements to evaluate if bronchoscopic treatment of his emphysema is appropriate or not
Avoid incentive spirometer as this can worsen/exacerbate his pneumothorax
DVT prophylaxis
OOB as tolerated
Reviewed with nursing and primary team
Outpatient pulmonary follow-up
Diagnostic Data
CT Chest 10-28-2023: Marked changes of emphysema again seen, particularly bullous emphysema in the lung apices.Moderate size left pneumothorax with accompanying partial left lower lobe atelectasis, left lower lobe subsegmental atelectasis and/or
pneumonia and tiny left pleural effusion.Aneurysmal dilatation of the distal descending thoracic aorta predominantly stable at approximately 4.6 cm.
CXR 10/26/23- At least moderate size left pneumothorax without mediastinal shift.
CXR 09-12-2023: No overt residual pneumothorax.
CXR 09-11-2023: No definite residual pneumothorax. Small left pleural effusion, new.
CXR 09-10-2023: Marked interval progression of now moderate to large left pneumothorax measuring up to 6.5 cm of pleural separation. No definite tension.
CXR 09-08-2023: Left apical and inferolateral pneumothorax stable when compared to the exam the day before.
CXR 09-07-2023: Recurrence of small to moderate left apical pneumothorax, somewhat obscured by left-sided cardiac device.
PFT 07/22/16 FEV1 2.42L 59%, FVC 5.14L 93%, ratio 47. Post FEV1 2.42L 59%. TLC 10.19L 125%, DLCO 33% (moderate obstruction, severe diffusion impairment)
Subjective Data
-
Date of Service:
Date of Service: November 04, 2023
Chief Complaint: Pulmonary Follow Up
Subjective:
increased sob, no cp, noabd pain, no pleurisy
Review of Systems
General: Other (per HPI)
Objective Data
Data Reviewed
Vital Signs / I&O:
Vital Signs
Temp Pulse Resp BP Pulse Ox
98.3 F 70 19 111/94 95
11/04/23 07:00 11/04/23 08:29 11/04/23 08:01 11/04/23 08:29 11/04/23 08:01
Intake and Output
11/03/23 11/04/23 11/05/23
06:59 06:59 06:59
Intake Total 765 / 765 850 / 850
Output Total 1895 / 1895 1420 / 1420
Balance -1130 / -1130 -570 / -570
SaO2: 95
Nasal Cannula flow liters per minute: 2
Physical Exam
General: Respiratory Distress (n), Comfortable and Other (Thin appearing man/pale/carrion skin, chronically appearing)
HEENT: Normocephalic, Anicteric and Other (Poor dentition)
Cardiovascular: Regular Rhythm and Peripheral Edema (Negative)
Respiratory: Clear (Diminished breath sounds), Wheeze (Negative), Crackles (Negative), Rhonchi (Negative), Non-Labored Respirations and Other (Reduced breath sounds bilaterally)
GI: Soft, Non Distended, Non Tender and Normal Bowel Sounds
Neurology: Awake, Alert and Tremors (Negative)
Skin: Warm, Dry, Cyanosis (n), Jaundice (n) and Rash (n)
[2023-11-04 09:47] LABS: Blood Urea Nitrogen 24 mg/dl (9-20); Calcium 9.3 mg/dl (8.4-10.2); Carbon Dioxide 24 mmol/L (22-30); Chloride 105 mmol/L (98-107); Estimated Creatinine Clearance 48 ml/min; Glucose 115 mg/dl (70-99); Potassium 4.8 mmol/L (3.5-5.1); Sodium 138 mmol/L (135-145)
[2023-11-04 09:48] LABS: Hematocrit 31.8 % (39.0-52.0); Hemoglobin 10.5 g/dL (13.0-18.0); Mean Corpuscular Hgb 31.6 pg (27.0-31.0); Mean Corpuscular Volume 95.8 fL (80.0-94.0); Mean Platelet Volume 9.7 fL (7.4-10.4); Platelet Count 306 10^3/uL (130-400); Red Blood Cell Count 3.32 10^6/uL (4.70-6.10); Red Cell Dist. Width 16.4 % (11.5-14.5); White Blood Cell Count 10.6 10^3/uL (4.8-10.8)
[2023-11-04] MEDS: MIRALAX PO (10:15)
[2023-11-04] MEDS: ZINC SULFATE 220 MG PO (12:04)
[2023-11-04] MEDS: MAGNESIUM OXIDE 250 MG PO (12:05)
[2023-11-04] MEDS: VITAMIN B-12 250 MCG PO (12:05)
[2023-11-04] MEDS: VITAMIN D3 (cholecalciferol) 50 MCG PO (12:06)
--- NOTE | 2023-11-04 12:26 | PTCARENOTE ---
Pt upset that he needs another CT. He states he needs fresh air and he wants to go to [facility], At this time pt will go to IR for CT . Pt is NPO. noon meds given. Pt is very anxious and overwhelmed . Dr Maria aware . Pt wanted to speak with him,
Dr Maria unable to return to floor
--- NOTE | 2023-11-04 12:55 | W.PN.HOSP.TC ---
Today's Communication/Plan
-
Patient needs chest tube again, CXR worse and symptoms worse
Assessment / Plan
Assessment / Plan
Physical Exam
General: Well Developed, Well Nourished and Conversant
HEENT: Normocephalic
Respiratory: Decreased Breath Sounds (Bilaterally). NOW SATURATING IN THE 90s ON ROOM AIR
Cardiac: Regular Rhythm and S1/S2
GI: Soft, Nontender, Nondistended and Positive Bowel Sounds
Skin: Warm. Dry.
Neuro: Awake and Alert
Psych: Calm and Intact Judgement/Insight
Assessment/Plan
HPI: 72-year-old male PMH recurrent left pneumothorax status post chest tube placement and removal/pleurodesis, COPD, alcohol abuse, CKD stage IIIb, paroxysmal A-fib in Eliquis, GI bleed on prior Coumadin approximate 11years ago, splenic and renal
infarcts, DVT/PE unprovoked 2020, pacemaker/defibrillator August 2011, cardiomyopathy; presented with acute onset of shortness of breath secondary to recurrent (3rd episode) pneumothorax.
# Recurrent left-sided pneumothorax/ third episode, 2/2 severe COPD/ruptured bullous emphysema failed previous chemical pleurodesis which was performed in August 2023
# h/o chest tube placement and removal in August 2023, status post chemical pleurodesis with doxycycline as was not a candidate for surgical intervention
Continue O2 support with NC now for air resorption
Pulmonary on board
Repeat CT Chest results from 11/02/23 noted
Repeat CXR results with pneumothorax
If patient spikes a fever, will need to sim-culture and start broad spectrum antibiotics
Patient refused pleurodesis or surgery
Patient initially agreed with chest tube placement (was wanting to avoid initially), it was placed on 10/29/23, taken out again on 11/03/23
Repeat CXR and symptoms both worse on 11/04/23 worse
Patient needs chest tube again
# Severe COPD/emphysema
# Former smoker [id number] quit April 2021
Follows with pulmonary at [facility]
Continue budesonide/formoterol, albuterol ipratropium nebs, Incruse
# Alcohol abuse
Drinks daily 8 ounces combination of vodka
MSAS screen with protocol IV thiamine IV folate
# Paroxysmal A-fib
Continue Eliquis
Continue diltiazem 180 mg daily, metoprolol succinate 50 mg twice daily
#Constipation
-Bowel regimen
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
-Continue Eliquis
# History of prior GI bleed on Coumadin
# Pacemaker/defibrillator August 2011, 2018 [employer]
# history of VT/V-fib arrest
# Nonischemic cardiomyopathy
# CKD stage IIIb
Creat 1.5 appears at baseline
# History of splenic and renal infarcts
DVT prophylaxis: Eliquis
Code status was previously changed to full code
Anticipated Discharge: > 48 hours
Subjective/Interval History
-
Date of Service: November 04, 2023
Patient was seen and examined. He was more short of breath this morning.
Objective Data
-
Labs:
Laboratory Results
11/04/23
08:33
WBC 10.6
Hgb 10.5 L
Hct 31.8 L
Plt Count 306 D
Sodium 138
Potassium 4.8
Chloride 105
Carbon Dioxide 24
BUN 24 H
Creatinine 1.4 H
Glucose 115 H
Calcium 9.3
Vital Signs:
Vital Signs
Temp Pulse Resp BP Pulse Ox
97.6 F 77 18 111/94 99
11/04/23 11:00 11/04/23 11:08 11/04/23 11:08 11/04/23 08:29 11/04/23 11:08
I&O
11/03/23 11/04/23 11/05/23
06:59 06:59 06:59
Intake Total 765 / 765 850 / 850
Output Total 1895 / 1895 1420 / 1420
Balance -1130 / -1130 -570 / -570
--- NOTE | 2023-11-04 16:30 | PTCARENOTE ---
Pt spoke with Dr Maria and is leaving AMA, paper signed. IV out pt has all belongings
--- NOTE | 2023-11-04 16:35 | W.PN.UPDATE ---
Update Note
Progress Note Update
This afternoon, patient explained to me that he is tired of being in the hospital and wants to leave now. I explained that he needs a chest tube and needs continued monitoring in the hospital given his pneumothorax. I explained to him that since the
thoracic surgeon here (Dr. Beasley, the cardiothoracic surgeon here who would do any kind of VATS pleurodesis) is out on vacation, I can call [facility] transfer [place] to transfer him to [facility] in [facility] for thoracic surgery
services. Patient declined this offer, and clearly stated he does not want to be transferred to [facility], and stated he would like to go home now. Patient stated, in the presence of his (who was present in patient's room at the
time of this encounter), that he understands that his pneumothorax and lung condition may get worse, and patient also stated he knows that he can develop cardiopulmonary arrest and . I advised patient and his that if his signs or symptoms
worsen, they should call 911 and return to the emergency room immediately.
--- NOTE | 2023-11-04 17:01 | CM ---
Notified by nurse that patient left AMA.
--- NOTE | 2023-11-07 12:25 | CM ---
Received phone call from MONIKA Garcia; the patient is requesting resumption of service. Referral entered in [facility] for SN/PT/OT. MD order not needed to resume service.
Spoke with patient to inform him that [facility] was requested for SN/PT/OT and he agreed.
Plan [facility] resumption of service as above.
== END 2023-11-04 16:39 | disposition left against medical advice (07) | DRG 200 ==
LOC: IMU 15:07
PROVIDERS: Clinical Nurse Specialist Family Health; Internal Medicine Critical Care Medicine; Physician Assistant; Radiology Diagnostic Radiology; ADMITTING PHYSICIAN Internal Medicine; ATTENDING PHYSICIAN Hospitalist; EMERGENCY PHYSICIAN Emergency Medicine; FAMILY PHYSICIAN Family Medicine; OTHER PHYSICIAN Internal Medicine
PROC: 0W9B30Z Drainage of Left Pleural Cavity with Drainage Device, Percutaneous Approach (ICD-10-PCS; 2023-10-29)
DX: J93.83 Other pneumothorax (principal); E44.0 Moderate protein-calorie malnutrition; Z68.1 Body mass index [BMI] 19.9 or less, adult; I42.8 Other cardiomyopathies; I48.19 Other persistent atrial fibrillation; J43.9 Emphysema, unspecified; F10.10 Alcohol abuse, uncomplicated; I12.9 Hypertensive chronic kidney disease with stage 1 through stage 4 chronic kidney disease, or unspecified chronic kidney disease; N18.32 Chronic kidney disease, stage 3b; Z66 Do not resuscitate; Z86.74 Personal history of sudden cardiac arrest; N40.0 Benign prostatic hyperplasia without lower urinary tract symptoms; K59.00 Constipation, unspecified; Z79.01 Long term (current) use of anticoagulants; Z79.899 Other long term (current) drug therapy; Z86.79 Personal history of other diseases of the circulatory system; Z87.891 Personal history of nicotine dependence; Z87.09 Personal history of other diseases of the respiratory system; Z86.711 Personal history of pulmonary embolism; Z86.718 Personal history of other venous thrombosis and embolism; Z87.19 Personal history of other diseases of the digestive system; Z86.2 Personal history of diseases of the blood and blood-forming organs and certain disorders involving the immune mechanism; Z87.448 Personal history of other diseases of urinary system; Z95.810 Presence of automatic (implantable) cardiac defibrillator
CPT/HCPCS: 32557; 71045; 71046; 71250; 80048; 80053; 80306; 81003; 81015; 82010; 82077; 82977; 83735; 83880; 84100; 84145; 84484; 85025; 85027; 85610; 85730; 87086; 93005; 94640; 97116; 97162; 97167; 97530; 97535; 99152; 99153; 99285; C1729; C1769

== ENCOUNTER 2023-11-09 23:40 | Inpatient (IN) | payer MEDICARE, SELFPAY ==
[2023-11-09 22:16] VITALS: BP 128/82
[2023-11-09 22:19] VITALS: BP 128/82
[2023-11-09 22:21] VITALS: BMI 20.3
[2023-11-09 22:31] LABS: % Basophils 0.5 % (0-2); % Eosinophils 2.6 % (0-6); % Immature Granulocytes 0.4 % (0-0.5); % Lymphocytes 19.8 % (20.5-51.1); % Monocytes 7.4 % (1.7-9.3); % Neutrophils 69.3 % (42.2-75.2); Absolute Basophils 0.1 10^3/uL (0-0.2); Absolute Eosinophils 0.3 10^3/uL (0-0.7); Absolute Immature Granulocytes 0.1 10^3/uL (0-0.05); Absolute Lymphocytes 2.6 10^3/uL (1.2-3.4); Hematocrit 28.9 % (39.0-52.0); Hemoglobin 9.4 g/dL (13.0-18.0); Mean Corp Hgb Conc. 32.5 g/dL (33.0-37.0); Mean Corpuscular Hgb 31.2 pg (27.0-31.0); Mean Platelet Volume 8.3 fL (7.4-10.4); Nucleated Red Blood Cells % 0.2 % (-); Platelet Count 326 10^3/uL (130-400); Red Blood Cell Count 3.01 10^6/uL (4.70-6.10); Red Cell Dist. Width 16.5 % (11.5-14.5)
--- NOTE | 2023-11-09 22:36 | ED.GENMED ---
History of Present Illness
General
Chief Complaint: Breathing Problem
Source: patient and records
Exam Limitations: none
Time Seen by Provider: 11/09/23 22:23
History of Present Illness
History of Present Illness:
73-year-old male complaining of increased shortness of breath. Discharged recently for the same. History of COPD. PAF. Symptoms progressed the last day or so. On as needed home oxygen. No chest pain no fever. Some mild chronic cough. Patient
given DuoNeb and 10 mg of Decadron prehospital
Past History
Past History
ED Past Medical History: Arrthythmia (Paroxysmal Atrial fibrillation), CHF (Cardiomyopathy), COPD, HTN, Renal failure (CKD) and Other (GI bleed, splenic and kidney infarcts, DVT 2020)
ED Past Surgical History: Cardiac (Pacemaker defibrillator placed in August of 2011)
Social History
Tobacco: Former smoker
Alcohol: Daily
Drug: None
Personal:
Living: with family
Employment: Not employed
Family History
Family History: Other (Noncontributory)
Review of Systems
Review of Systems
All Other Systems: Not applicable
Constitutional: Denies fever
Respiratory: Reports cough; Denies hemoptysis
Cardiac: Reports no symptoms
ABD/GI: Reports no symptoms
Phy Exam
Physical Exam
Physical Exam:
GENERAL: Alert and oriented mildly tachypneic at rest. Mildly tachypneic with speaking. Oxygen in place
EYE: Orbits normal.
NECK: Supple, no significant adenopathy.
ENT: Pharynx without erythema
CARDIAC: Regular rate and rhythm without any obvious murmurs. Pacemaker
LUNGS: Mild tachypnea. Decreased breath sounds diffusely. Mild end expiratory wheezing. Barrel chested
ABDOMEN: Soft, without focal tenderness or distention
NEUROLOGICAL: Alert and oriented , grossly non-focal
SKIN: Warm and dry, no rash or lesion, no discoloration, skin intact.
MUSCULOSKELETAL: No edema,no deformity.Good color
PSYCH: Normal and appropriate interaction.
Scores
Heart Failure Risk
Heart Failure Risk Score: Not Applicable
Course
Orders/Labs/Results
Orders:
Orders
11/09/23 22:14
EKG [Electrocardiogram (*1)] Urgent
Reason for Study: Shortness of Breath
EKG- Treatment ONCE
11/09/23 22:23
CXR Port [CR Chest Portable - 1 View] Stat
Comment:
Reason For Exam: sob
Reason Study Needs to be Portable: Unable to Transport
11/09/23 22:26
CBC/With Diff [Complete Blood Count/With Diff] Urgent
CMP [Comprehensive Metabolic Panel] Urgent
Pro-BNP [NT-proBNP] Urgent
Troponin I Urgent
11/09/23 22:29
Add On- LAB Urgent
Tests Added?: troponin
11/09/23 22:35
IV Insert/Care/Rem.- Treatment PRN
Albuterol Sulfate [Ventolin Nebules] 7.5 mg INH R NOW STA
11/09/23 22:42
COVID-19 Antigen Urgent
Source: Nasal Swab
Abnormal Lab Results
11/09/23
22:26
WBC 13.0 H 10^3/uL
(4.8-10.8)
RBC 3.01 L 10^6/uL
(4.70-6.10)
Hgb 9.4 L g/dL
(13.0-18.0)
Hct 28.9 L %
(39.0-52.0)
MCV 96.0 H fL
(80.0-94.0)
MCH 31.2 H pg
(27.0-31.0)
MCHC 32.5 L g/dL
(33.0-37.0)
RDW 16.5 H %
(11.5-14.5)
Abs Immat Gran (auto) 0.1 H 10^3/uL
(0-0.05)
Absolute Neuts (auto) 9.0 H 10^3/uL
(1.4-6.5)
Absolute Monos (auto) 1.0 H 10^3/uL
(0.1-0.6)
Lymphocytes % 19.8 L %
(20.5-51.1)
Chloride 108 H mmol/L
(98-107)
BUN 33 H mg/dl
(9-20)
Creatinine 1.6 H mg/dL
(0.7-1.3)
Glucose 115 H mg/dl
(70-99)
11/09/23 22:26
11/09/23 22:26
Vital Signs
Initial and Last Documented VS:
Initial Vital Signs
Temp Pulse Resp BP Pulse Ox
97.6 F 117 36 128/82 87
11/09/23 22:16 11/09/23 22:16 11/09/23 22:16 11/09/23 22:16 11/09/23 22:16
Last Documented Vital Signs
Temp Pulse Resp BP Pulse Ox
97.6 F 90 35 128/82 94
11/09/23 22:16 11/09/23 22:19 11/09/23 22:21 11/09/23 22:19 11/09/23 22:21
*Radiology
Radiology exam reviewed: preliminary read by ED provider and radiology read reviewed (Stable pneumothorax)
*EKG
Interpreted by ED Provider?: Yes
Interpretation: abnormal
Comparison EKG: no changes
Heart Rate: 117
Rate: tachycardiac
Rhythm: sinus
[place]: normal axis
Interval: normal interval
QRS Pattern: normal QRS
Ischemia: non-specific ST changes
*Critical Care Note
Total Time (30-74mins, 75-104mins- exclusive of procedures): Not Applicable
Update Note
Update Note:
Patient presented in respiratory distress. Tachypnea. Severe COPD. Steroids given prehospital. Albuterol treatments. Will admit for further care
ED Attending Note
-
Portions of this chart may have been created with voice recognition software.� Occasional wrong word or��sound alike� substitutions may have occurred due to the inherent limitations of voice recognition software.
Discharge Plan
Departure
Patient Disposition: Admit
Date of Disposition: 11/09/23
Time of Disposition: 23:10
Presentation/result/management discussed w/ accepting MD/DO: Hospitalist
Discharge Problem:
Emphysema/COPD, Respiratory distress
Prescriptions:
No Action
cyanocobalamin (vitamin B-12) 250 mcg Tablet
250 mcg PO NOON
zinc sulfate 50 mg zinc (220 mg) Tablet
50 mg PO NOON
magnesium oxide 250 mg magnesium Tablet
250 mg PO NOON
cholecalciferol (vitamin D3) 50 mcg (2,000 unit) Tablet
50 mcg PO NOON
Eliquis 5 MG tablet
5 mg PO BID
diltiazem HCl 180 mg Capsule,Extended Release 24hr
180 mg PO DAILY 30 Days Qty: 30 0RF
ipratropium-albuterol [DuoNeb] 0.5 mg-3 mg(2.5 mg base)/3 mL Solution For Nebulization
3 ml INHALATION R QID
metoprolol tartrate [Lopressor] 50 mg Tablet
50 mg PO BID
budesonide-formoterol [Breyna] 160-4.5 mcg/actuation Hfa Aerosol Inhaler
2 inh INHALATION R BID
vitamin K2 40 mcg Tablet
40 mcg PO NOON
Incruse Ellipta 62.5 mcg/actuation Blister With Device
1 inh INHALATION R DAILYPRN PRN (Reason: sob)
Combivent Respimat 20-100 mcg/actuation mist
2 puff inhalation R BID
tamsulosin 0.4 mg Capsule
0.4 mg PO DAILYPRN PRN (Reason: Urinary Issue)
Interventions
Interventions:
*Risk Screen - Suicide Last Done: 11/09/23 22:16
*General Assessment Last Done: 11/09/23 22:16
*Neglect/Abuse Screening Last Done: 11/09/23 22:16
ED- Fall Risk Assessment Last Done: 11/09/23 22:30
ED- Cardiac Assessment Last Done: 11/09/23 22:30
ED- Pulmonary Assessment Last Done: 11/09/23 22:30
Discharge Date and Time
Print Language: YORUBA
[2023-11-09] MEDS: VENTOLIN NEBULES 7.5 MG INH (22:43)
[2023-11-09 22:55] LABS: ALT (SGPT) 22 U/L (0-50); AST (SGOT) 19 U/L (17-59); Albumin 3.8 g/dl (3.5-5.0); Alkaline Phosphatase 110 U/L (38-126); Blood Urea Nitrogen 33 mg/dl (9-20); Calcium 9.5 mg/dl (8.4-10.2); Carbon Dioxide 26 mmol/L (22-30); Chloride 108 mmol/L (98-107); Estimated Creatinine Clearance 43 ml/min; Glucose 115 mg/dl (70-99); NT-proBNP 384 pg/ml; Sodium 142 mmol/L (135-145); Total Bilirubin 0.6 mg/dl (0.2-1.3); Total Protein 6.4 g/dl (6.3-8.2); Troponin I < 0.012 ng/ml
[2023-11-09 23:00] VITALS: BP 104/67
[2023-11-09 23:02] LABS: COVID-19 Antigen Negative (Negative)
--- NOTE | 2023-11-09 23:11 | HPS.HSE ---
Family Physician
-
Family Physician:
Chief Complaint
-
sob
History of Present Illness
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 stated some cough. patient uses 3l
at baseline. denied fever, chills, chest pain. denied AGUILAR, dizzy or syncopal episode. denied abdominal pain,n,v,d.denied dysuria or hematuria.
patient stated the plan was to get repeat chest x ray on Tuesday and if worsening pneumothorax, transferred to [place] for valve therapy
on arrival he required neb treatment. admitting for further managment.
Medical History
Past Medical History
Past Medical History: Reports Other
Additional Past Medical History:
Aortic aneurysm
BPH
Pneumothorax
Hypertension
Paroxysmal A-fib
COPD
DVT
Renal embolism
Cardiomyopathy
Past Surgical History: Reports Other
Additional Past Surgical History:
Cardiac ablation
nasal septum surgery
Social History
Tobacco: Former Smoker
Alcohol: Daily
Living: With Family
Family History
Family History: Not pertinent
Allergies / Home Medications
Allergies reflects when Allergies were last updated in [employer].
Home Medications with original date entered in [employer]
Allergy/Medication List:
Allergies
Allergy/AdvReac Type Severity Reaction Status Date / Time
bee venom protein (honey bee) Allergy Rash,chest Verified 11/09/23 22:13
tightness,
local
diffuse
swelling
Home Medications
cyanocobalamin (vitamin B-12) 250 mcg tablet 250 mcg PO NOON Supplement 08/11/23
magnesium oxide 250 mg PO NOON Supplement 08/11/23
zinc sulfate 50 mg zinc (220 mg) tablet 50 mg PO NOON Supplement 08/11/23
apixaban 5 mg tablet (Eliquis) 5 mg PO BID Blood Clot Prevention/Tx 08/24/23
cholecalciferol (vitamin D3) 50 mcg (2,000 unit) tablet 50 mcg PO NOON Supplement 08/24/23
diltiazem HCl 180 mg capsule,extended release 24 hr 180 mg PO DAILY 30 days #30 caps 08/27/23
budesonide-formoterol HFA 160 mcg-4.5 mcg/actuation aerosol inhaler (Breyna) 2 inh inhalation R BID Lung/Breathing Issues 10/26/23
ipratropium 0.5 mg-albuterol 3 mg (2.5 mg base)/3 mL nebulization soln 3 ml inhalation R QID Lung/Breathing Issues 10/26/23
ipratropium 20 mcg-albuterol 100 mcg/actuation mist for inhalation (Combivent Respimat) 2 puff inhalation R BID Lung/Breathing Issues 10/26/23
metoprolol tartrate 50 mg tablet (Lopressor) 50 mg PO BID Blood Pressure 10/26/23
umeclidinium 62.5 mcg/actuation blister powder for inhalation (Incruse Ellipta) 1 inh inhalation R DAILYPRN PRN sob 10/26/23
vitamin K2 40 mcg tablet 40 mcg PO NOON Supplement 10/26/23
tamsulosin 0.4 mg capsule 0.4 mg PO DAILYPRN PRN Urinary Issue 11/09/23
Review of Systems
-
Constitutional: Reports No Symptoms
EENT: Reports No Symptoms
Respiratory: Reports Trouble Breathing
Cardiac: Reports No Symptoms
Abdomen/GI: Reports No Symptoms
: Reports No Symptoms
Musculoskeletal: Reports No Symptoms
Skin: Reports No Symptoms
Neurological: Reports No Symptoms
Endocrine: Reports No Symptoms
Hematologic/Lymphatic: Reports No Symptoms
Psych: Reports No Symptoms
Physical Exam
Vital Signs
Vital Signs
Temp Pulse Resp BP Pulse Ox
97.6 F 90 35 128/82 94
11/09/23 22:16 07/24/24 22:19 11/09/23 22:21 11/09/23 22:19 11/09/23 22:21
Physical Exam
General: Well Developed, Well Nourished and No Apparent Distress
HEENT: NormoCephalic, Moist mucous membranes and Atraumatic
Respiratory: Decreased Breath Sounds
Cardiac: S1/S2 and Regular Rhythm; No Murmur or Rub
GI: Soft, Non Tender, Non Distended and Normal Bowel Sounds; No Organomegaly
Rectal: Deferred by Provider
Musculoskeletal: No Clubbing, No Cyanosis and No Edema
Skin: No Rash
Neuro: AO x 3 and Nonfocal/grossly intact
Psych: Calm
Laboratory Results
-
11/09/23 22:26
11/09/23 22:26
Laboratory Results
Total Bilirubin 0.6 mg/dl (0.2-1.3) 11/09/23 22:26
AST 19 U/L (17-59) 11/09/23 22:26
ALT 22 U/L (0-50) 11/09/23 22:26
Alkaline Phosphatase 110 U/L (38-126) 11/09/23 22:26
Troponin I < 0.012 ng/ml 11/09/23 22:26
Data Reviewed
-
Diagnostic Radiology: Report Reviewed by me
Lab Data: Labs Reviewed by me
Impression/Plan
-
# Short of breath likely from COPD exacerbation/recurrent left-sided pneumothorax 2/2 severe COPD/ruptured bullous emphysema with chemical pleurodesis which was performed in August 2023
# Chronic hypoxic respiratory failure
-Chest tube placed by IR on 09/10/2023 and 10/29/2023
-s/p post pleurodesis on 09/13/2023
-Patient refused pleurodesis last admission
-COVID-negative
-Chest x-ray with Small left apical pneumothorax, similar compared to the chest radiograph from 11/04/2023.
-Patient received albuterol in ER
-Continue nebs
-Avoid incentive spirometer
-Pulmonology/CT surgery consulted
-logan orta continued
# Leukocytosis likely stress reaction
-WBC 13.0
-Patient is afebrile
-ctm
# Anemia of chronic disease
-Hemoglobin stable at 9.4
-No active bleeding
-Continue to monitor
# CKD stage IIIb
-Creatinine 1.6
-Continue to monitor
# Alcohol abuse
Drinks daily 8 ounces combination of vodka
MSAS screen with protocol IV thiamine IV folate
# Paroxysmal A-fib
-Hold Eliquis
-Continue diltiazem 180 mg daily, metoprolol succinate 50 mg twice daily
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
-Hold Eliquis
# History of prior GI bleed on Coumadin
# Pacemaker/defibrillator August 2011, replaced 2019 Medtronic
# history of VT/V-fib arrest
# Nonischemic cardiomyopathy
# History of splenic and renal infarcts
DVT prophylaxis: Eliquis
full code
--- NOTE | 2023-11-09 23:37 | W.PN.UPDATE ---
Update Note
Progress Note Update
This note serves as an addendum to the H&P by aircraft cleaner TARI Leyda SULLIVAN
HPI
72M HX COPD, Home O2 PRN, daily ETOH use disordr, CKD3b , Prx A-fib, GIB Coumadin, splenic and renal infarcts, DVT/PE unprovoked 2020, pacemaker/defibrillator August 2011, cardiomyopathy former smoker, HTN, HX recurrent spontaneous PTX s/p chest tube
and chemical pleurodesis 09/13/23.
Recent admission from 10/26/23 to 11/01 for recurrent left-sided pneumothorax/ third episode, 2/2 severe COPD/ruptured bullous emphysema failed previous chemical pleurodesis which was performed in August 2023
Seen at ER for evaluation of progressive SoB
- No chest pain no fever.
- mild chronic cough.
PMHx
spontaneous secondary left pneumothorax august 2023 require chest tube and chemical pleurodesis with doxycycline
Prior left pneumothorax requiring pigtail chest tube placement
COPD intermittently uses home oxygen because he is unsure of how to use
Alcohol abuse 8 ounces of vodka/removed daily
persistent atrial fibrillation
Nonischemic cardiomyopathy
HX VT/V-fib arrest with ICD/pacemaker replaced 2019 Medtronic
Hx RBBB
CKD 3b
HX DVT/PE 11 years ago unprovoked
Temporal arteritis
Migraine headaches
Basal cell carcinoma with removal
ETOH use disorder
PSHX
Pacemaker/AICD 2011 V-fib arrest replacement 10/06/2019 [employer]
Most effaced 06/13/2019
Reviewed VS: afebrile HR 117 BP 128/80 POx 87 on RA 94 on 2 L
Wt 71.7 kg ( 11/03/23) ---> 73.6 kg ( 11/09/23)
Gained 1.9kg ( 4.1 lb) over 6 days
PE
Gen: tall and thin , wearing NRM and comfortable
HEENT: anicteric . No pallor . Nl speech
Neck:supple
Lungs: Increased AP diameter, mildly tachypnea. Symmetric decreased BS,. No expiratory wheezing on my exam
Cor: RRR S1 S2
Abdomen: soft , benign
DECISION UNIT RN: [email or web address]
MS: No edema
Psych: appropraite
Data
WCC 13
Hgb 9.4 baseline is mid 10s
BUN 33
Cr 1.6 - baseline is mid 1s
e GFR 40s c/w CKD3b
NEG TPNI
proBNP 384
NEG Covid
11/09/23 CXR
Small left apical pneumothorax, similar compared to the chest radiograph from 11/04/2023.
Last hospitalist admission: 10/26/23 - 11/04/23
- Recurrent left-sided third episode of spontaneous PTX
- Severe COPD/ruptured bullous emphysema failed previous chemical pleurodesis( August 2023)
ASSESSMENT & PLAN
Acute Left-sided recurrent spontaneous secondary apical pneumothorax ; 4th episode
Acute on chronic hypoxic RF
Acute resp distress
- removed Chest tube on 10/29/23 - 11/03/23 on last admission
- Hold Eliquis in case need IR procedure
- ER attd alerted CTS in case current PTX progress
HX severe COPD/emphysema/ruptured bullae on Home O2 PRN
P Pulmonary at [place]
- 09/10/2023; HX hest tube and chemical pleurodesis with doxycycline
- Not candidate for surgical intervention
- Pulmonary consult
- cont budesonide/formoterol, albuterol ipratropium nebs, Incruse
- Pul consult
ETOH use disorder
- Drinks daily 8 ounces combination of vodka and remove
-MSAS screen with protocol IV thiamine IV folate
HX Prx AF
- Hold Eliquis
- On diltiazem, metoprolol succinate
CKD 3b
-Creat 1.6 close to baseline
- Follow BMP
Known HX
HX DVT/PE 2020 unprovoked
HX prior GIB
Pacemaker/defibrillator August 2011, replaced 2018 Medtronic
HX VT/V-fib arrest
Nonischemic cardiomyopathy
splenic and renal infarcts
DVT Px: SCD while hold Eliquis
Code: Full code per patient
IMU
[2023-11-10] VITALS (12 sets, daily range): BP systolic 96–119; BP diastolic 58–84; PULSE 114; O2SAT 96; BMI 19.8
[2023-11-10 06:23] LABS: % Basophils 0.2 % (0-2); % Immature Granulocytes 0.7 % (0-0.5); % Lymphocytes 5.7 % (20.5-51.1); % Monocytes 0.5 % (1.7-9.3); % Neutrophils 92.9 % (42.2-75.2); Absolute Immature Granulocytes 0.1 10^3/uL (0-0.05); Absolute Lymphocytes 0.7 10^3/uL (1.2-3.4); Absolute Monocytes 0.1 10^3/uL (0.1-0.6); Absolute Neutrophils 11.5 10^3/uL (1.4-6.5); Hematocrit 27.3 % (39.0-52.0); Hemoglobin 8.8 g/dL (13.0-18.0); Mean Corp Hgb Conc. 32.2 g/dL (33.0-37.0); Mean Corpuscular Hgb 31.8 pg (27.0-31.0); Mean Corpuscular Volume 98.6 fL (80.0-94.0); Nucleated Red Blood Cells % 0 % (-); Platelet Count 319 10^3/uL (130-400); Red Blood Cell Count 2.77 10^6/uL (4.70-6.10); Red Cell Dist. Width 16.5 % (11.5-14.5); White Blood Cell Count 12.4 10^3/uL (4.8-10.8)
[2023-11-10 06:24] LABS: Urine Albumin Negative (Neg - Trace); Urine Bilirubin Negative (Negative); Urine Character Clear (Clear); Urine Color Yellow; Urine Glucose Negative (Negative); Urine Ketone Negative (Negative); Urine Leukocyte Trace (Negative); Urine Nitrite Negative (Negative); Urine Occult Blood 4+ (Negative); Urine Urobilinogen Negative (Neg - 1+)
[2023-11-10 06:30] LABS: APTT 35.4 Sec (23.4-35.0); INR 1.36; PT 16.8 Sec (11.4-14.6)
--- NOTE | 2023-11-10 06:35 | PTCARENOTE ---
Received patient from the ED on 2 liters NC. Dyspnea on exertion and at rest.
[2023-11-10 06:38] LABS: Urine Bacteria Few (Negative); Urine Red Blood Cell 40-50 /HPF (0-2)
[2023-11-10 06:39] LABS: Blood Urea Nitrogen 33 mg/dl (9-20); Calcium 9.5 mg/dl (8.4-10.2); Carbon Dioxide 23 mmol/L (22-30); Chloride 110 mmol/L (98-107); Estimated Creatinine Clearance 45 ml/min; GGTP 34 U/L (15-73); Glucose 158 mg/dl (70-99); Magnesium 2.1 mg/dl (1.6-2.3); Sodium 139 mmol/L (135-145); eGFR 49.16
[2023-11-10 06:39] LABS: Urine Uric Acid Crystals Present
[2023-11-10 06:40] LABS: Alcohol None Detected
[2023-11-10] MEDS: SYMBICORT 160/4.5 MCG INHALER 2 PUFF INH ×2 (07:23→20:33)
[2023-11-10] MEDS: DUONEB 3 ML INH ×4 (07:23→20:33)
[2023-11-10 07:47] LABS: Phosphorus 3.1 mg/dl (2.5-4.5)
--- NOTE | 2023-11-10 07:53 | W.PN.HOSP.TC ---
Addendum entered and electronically signed by Pete Morgan MD 11/10/23 12:53:
I saw and evaluated the patient. I reviewed the resident�s note and agree with findings and plan as documented in the resident�s note.
Pt without new complaints since admission. SOB better than on admission.
Gen: Appears mild to moderately short of breath, AAOx3.
Eyes: EOMI, PERRLA, no scleral icterus.
Neck: supple.
CV: RRR, +S1/S2, no m/r/g.
Resp: CTAB, no rales, wheezes, or rhonchi.
Abd: +BS, soft, NT, ND
Skin: No rashes.
Neuro: CN 2-12 intact, non-focal.
Psych: Slightly anxious
Shortness of breath:
-This is multifactorial but mostly due to severe COPD with history of bullous emphysema
-Chest x-ray notes small left-sided pneumothorax (unchanged from prior). The patient has had multiple pneumothoraces with chest tubes in the past. He had failed chemical pleurodesis. As per CT surgery he has no further options for surgical
management.
-pt now requesting hospice, will be d/c'd to hospice tomorrow
Original Note:
Today's Communication/Plan
-
Awaiting pulm recommendations
Assessment / Plan
Assessment / Plan
# Short of breath
- likely from COPD exacerbation/recurrent left-sided pneumothorax 2/2 severe COPD/ruptured bullous emphysema with chemical pleurodesis which was performed in August 2023
- Reportedly patient was followed at [facility] for evaluation of advanced therapies, however he was not a candidate.
- Patient denied pursuing any therapy if there is no long-term benefit
- Not candidate for any surgical intervention at this time
- Patient states ' I want to go home on hospice'
- Currently 96% on 1.5 L nasal cannula
- Appreciate cardiac surgery input
#Chronic hypoxic respiratory failure
- removed Chest tube on 10/29/23 - 11/03/23 on last admission
- s/p post chemical pleurodesis on 09/13/2023
- Patient refused pleurodesis during last admission
- COVID-negative
- Chest x-ray with Small left apical pneumothorax, similar compared to the chest radiograph from 11/04/2023.
- Patient received albuterol in ER
- Continue nebs
- Avoid incentive spirometer
- Pulmonology consulted
- breo,breyna continued
# Leukocytosis likely stress reaction
-WBC 12.4
-Patient is afebrile
# Anemia of chronic disease
-Hemoglobin stable at 8.8
-No active bleeding
-Continue to monitor
# CKD stage 3b
-Creatinine 1.5
-Continue to monitor
# Alcohol abuse
Drinks daily 8 ounces combination of vodka
MSAS screen with protocol IV thiamine IV folate
# Paroxysmal A-fib
-Hold Eliquis in case of procedure needed
-Continue diltiazem 180 mg daily, metoprolol succinate 50 mg twice daily
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
-Hold Eliquis in case IR procedure needed
# History of prior GI bleed on Coumadin
# Pacemaker/defibrillator August 2011, replaced 2019 [employer]onic
# history of VT/V-fib arrest- pacemaker/defibrillator August 2011 replaced in 2019
# Nonischemic cardiomyopathy
# History of splenic and renal infarcts
Code: Full code
Anticipated Discharge: 24 - 48 hours
Subjective/Interval History
-
Date of Service: November 10, 2023
Objective Data
-
Labs:
Laboratory Results
11/09/23 11/10/23 11/10/23
22:26 06:00 06:01
WBC 13.0 H Cancelled 12.4 H
Hgb 9.4 L Cancelled 8.8 L
Hct 28.9 L Cancelled 27.3 L
Plt Count 326 Cancelled 319
PT 16.8 H
INR 1.36
APTT 35.4 H
Sodium 142 Cancelled 139
Potassium 4.0 Cancelled 5.0
Chloride 108 H Cancelled 110 H
Carbon Dioxide 26 Cancelled 23
BUN 33 H Cancelled 33 H
Creatinine 1.6 H Cancelled 1.5 H
Glucose 115 H Cancelled 158 H
Calcium 9.5 Cancelled 9.5
Total Bilirubin 0.6
AST 19
ALT 22
Alkaline Phosphatase 110
Vital Signs:
Vital Signs
Temp Pulse Resp BP Pulse Ox
98.1 F 80 26 119/79 94
11/10/23 07:49 11/10/23 07:27 11/10/23 07:27 11/10/23 06:32 11/10/23 07:27
I&O
11/09/23 11/10/23 11/11/23
06:59 06:59 06:59
Output Total 200 / 200
Balance -200 / -200
[2023-11-10 07:54] LABS: Amphetamines Negative (Negative); Barbiturates Negative (Negative); Benzodiazepines Negative (Negative); Buprenorphine Negative (Negative); Cocaine Negative (Negative); Marijuana Positive (Negative); Methadone Negative (Negative); Methamphetamines Negative (Negative); Opiates Negative (Negative); Phencyclidine Negative (Negative); Tricyclic Antidepressants Negative (Negative)
--- NOTE | 2023-11-10 08:04 | CONSULT.CT ---
Consultation
-
Date/Time Consultation Requested: 11/10/2023
Date/Time Consultation Performed: 11/10/2023
Requesting Provider: Leyda Barlow
Performing Provider: Raghav christine
Reason for Consultation: recurrent ptx.
Patient History
Physicians
Family Physician: Yazan Quinn
Inpatient Stockholder: Pulm. Dr. De La Paz
History of Present Illness
is a pleasant 73-year-old gentleman who presented to [facility] ER with a recurrent pneumothorax. He is well-known to our service and has had multiple previous admissions.
He is a former smoker with bullous lung disease with severe COPD/emphysema.
Past medical history of hypertension, history of PE/DVT, paroxysmal A-fib,NICM, VT status post ICD, history of EtOH, renal insufficiency, CKD 3, peptic ulcer disease/GI bleed, left lower extremity DVT, BPH, bullous emphysema.
Presently patient sitting up in bed appears comfortable his pulse ox is 97% on 2 L nasal cannula. Chest x-ray with small left apical pneumothorax similar to previous x-ray from prior admission.
Patient reports being at [place] for evaluation for advanced therapies. Patient was not a candidate. He no longer wants any type of procedure if there is no long-term benefit. Would recommend continuing medical therapy for severe COPD/emphysema.
Patient also inquired about the possibility of pursuing hospice.
Past Medical History
Past Medical History: Arrhythmias, Atrial Fib, BPH, COPD, ROBERTS, GERD, HTN, Renal Insufficiency and SOB
Past Surgical History
Past surgical history of ICD implantation, cardiac ablation, and septoplasty
Family History
Mother: N/A
Father: N/A
Social History
Alcohol: Daily
Drug: Other (Former user, former marijuana user quit about 7 years ago and prior crack use from [id number], admits to history of cocaine use none in the past 10 years)
Tobacco: Other (Former smoker quit April 2019 greater than [id number] history, still occasionally smokes cigars)
Personal:
Living: With Spouse
Employment: Retired
Allergies
Allergy/AdvReac Type Severity Reaction Status Date / Time
bee venom protein (honey bee) Allergy Rash,chest Verified 11/09/23 22:13
tightness,
local
diffuse
swelling
Home Medications
�Medication �Instructions �Recorded �Confirmed �Type
cyanocobalamin (vitamin B-12) 250 250 mcg PO NOON Supplement 08/11/23 11/09/23 History
mcg tablet
magnesium oxide 250 mg PO NOON Supplement 08/11/23 11/09/23 History
zinc sulfate 50 mg zinc (220 mg) 50 mg PO NOON Supplement 08/11/23 11/09/23 History
tablet
apixaban 5 mg tablet (Eliquis) 5 mg PO BID Blood Clot 08/24/23 11/09/23 History
Prevention/Tx
cholecalciferol (vitamin D3) 50 50 mcg PO NOON Supplement 08/24/23 11/09/23 History
mcg (2,000 unit) tablet
diltiazem HCl 180 mg 180 mg PO DAILY 30 days #30 caps 08/27/23 11/09/23 Rx
capsule,extended release 24 hr
budesonide-formoterol HFA 160 2 inh inhalation R BID 10/26/23 11/09/23 History
mcg-4.5 mcg/actuation aerosol Lung/Breathing Issues
inhaler (Breyna)
ipratropium 0.5 mg-albuterol 3 mg 3 ml inhalation R QID 10/26/23 11/09/23 History
(2.5 mg base)/3 mL nebulization Lung/Breathing Issues
soln
ipratropium 20 mcg-albuterol 100 2 puff inhalation R BID 10/26/23 11/09/23 History
mcg/actuation mist for inhalation Lung/Breathing Issues
(Combivent Respimat)
metoprolol tartrate 50 mg tablet 50 mg PO BID Blood Pressure 10/26/23 11/09/23 History
(Lopressor)
umeclidinium 62.5 mcg/actuation 1 inh inhalation R DAILYPRN PRN sob 10/26/23 11/09/23 History
blister powder for inhalation
(Incruse Ellipta)
vitamin K2 40 mcg tablet 40 mcg PO NOON Supplement 10/26/23 11/09/23 History
tamsulosin 0.4 mg capsule 0.4 mg PO DAILYPRN PRN Urinary 11/09/23 11/09/23 History
Issue
Review of Systems
-
History Source: Patient
General: Reports Other
HEENT: Reports No Symptoms
Respiratory: Reports SOB, ROBERTS and Cough
Cardiac: Reports Palpitations and Other (AF)
Abdomen/GI: Reports No Symptoms
: Reports No Symptoms
Musculoskeletal: Reports No Symptoms
Skin: Reports No Symptoms
Neurological: Reports No Symptoms
Vascular: Reports No Symptoms
Physical Exam
Vital Signs
Temp 98.1 F 11/10/23 07:49
Temp route: Oral 11/10/23 07:49
Pulse 80 11/10/23 07:27
Rhythm: Normal sinus rhythm 11/10/23 01:21
With- PAC's, A-paced (atrial) 11/10/23 01:21
Resp Rate 26 11/10/23 07:27
Blood pressure 119/79 11/10/23 06:32
Blood pressure extremity used: Right upper arm 11/09/23 22:16
Position: Sitting 11/09/23 22:16
MAP (cuff-Jean Monitor) 91 11/10/23 06:32
SaO2 94 11/10/23 07:27
Nasal Cannula flow liters per minute 2 11/10/23 07:27
Oxygen Mode of Delivery Room air 11/09/23 22:16
Acceptable pain level during hospitalization? 0 11/09/23 22:16
Can the patient verbally communicate their pain? Yes 11/10/23 00:53
Actual Weight 158 lb 8.198 oz 11/10/23 00:53
Body Mass Index (BMI) 19.8 11/10/23 00:53
Labs
11/10/23 06:01
11/10/23 06:01
PT 16.8 Sec (11.4-14.6) H 11/10/23 06:01
APTT 35.4 Sec (23.4-35.0) H 11/10/23 06:01
Troponin I < 0.012 ng/ml 11/09/23 22:26
Nhk-K-Nugyflvfdax Pept 384 pg/ml 11/09/23 22:26
Urinalysis
Urine Color Yellow 11/10/23 06:14
Urine Clarity Clear (Clear) 11/10/23 06:14
Urine pH 5.0 (5.0-9.0) 11/10/23 06:14
Ur Specific [place] 1.020 (<1.030) 11/10/23 06:14
Urine Ketones Negative (Negative) 11/10/23 06:14
Urine Occult Blood 4+ (Negative) A 11/10/23 06:14
Urine Bilirubin Negative (Negative) 11/10/23 06:14
Ur Leukocyte Esterase Trace (Negative) A 11/10/23 06:14
Urine RBC 40-50 /HPF (0-2) A 11/10/23 06:14
Urine WBC 3-5 /HPF (0-5) 11/10/23 06:14
Ur Squamous Epith Cells 3-5 /LPF (Few) 11/10/23 06:14
Urine Glucose Negative (Negative) 11/10/23 06:14
Urine Albumin Negative (Neg - Trace) 11/10/23 06:14
Exam
General: Comfortable
HEENT: Normocephalic, Anicteric and Atraumatic
Neck: Trachea Midline
Respiratory: Crackles
Cardiac: Irregular Rhythm
GI: Soft, Non Tender, Non Distended and Normal Bowel Sounds
Rectal: Deferred by Provider
Skin: Warm and Dry
Neuro: Awake, Alert, Oriented and AO x 3
Extremities: Lower Level Edema (Trace lower extremity edema) and Pulses (Dorsalis pedis pulses intact bilaterally, feet warm dry)
Lymph: No Lymphadenopathy
Psych: Calm
Assessment / Plan
-
Assessment:
Recurrent small left apical pneumothorax-continue conservative therapy, patient refusing any invasive treatment at this time, not a candidate for any type of surgical intervention
Severe COPD/emphysema/bullous lung disease-history of chest tube placement during past admissions and failed chemical pleurodesis in August 2023
Acute on chronic hypoxic respiratory failure
Acute respiratory distress
Atrial fibrillation
History of EtOH abuse
DVT/PE 2020 unprovoked
History of prior GI bleed
History of VT/V-fib arrest with pacemaker/defibrillator August 2011 replaced in 2019
Nonischemic cardiomyopathy
Splenic and renal infarcts
CKD 3B
Hypertension
BPH
Former marijuana user quit 7 years ago, also admits to prior crack use
Temporal arteritis
Migraine headaches
History of basal cell carcinoma removal
Plan:
Continue conservative measures for pneumothorax
Consult care management for home hospice
--- NOTE | 2023-11-10 09:10 | CON.PUL ---
Consultation
Consultation Request
Date/Time Consultation Requested: 11/10/23
Date/Time Consultation Performed: 11/10/23
Performing Provider: Lisa
Reason for Consultation: COPD/Ptx
Medical History
-
History of Present Illness:
Patient is a 73-year-old male with previous history of severe COPD/bullous emphysema, recurrent apical left-sided pneumothorax presenting from home with acute on chronic worsening shortness of breath. He was seen in the pulmonary office 11/09/2023
with notable respiratory distress/anxious appearing, with plan to repeat chest x-ray. He felt worse through the evening and could not catch his breath. He has presented back to the ER, chest x-ray obtained indicating no change in size of chronic
apical pneumothorax. He feels he cannot get relief of his dyspnea.
Was evaluated by CT surgery with no other options for surgical management.
He is now considering hospice.
Past Medical History
Past Medical History: Other (see list below)
Family History
Family History: Reviewed & Not Pertinent
Allergies / Home Medications
Allergies
Allergy/AdvReac Type Severity Reaction Status Date / Time
bee venom protein (honey bee) Allergy Rash,chest Verified 11/09/23 22:13
tightness,
local
diffuse
swelling
Home Medications
�Medication �Instructions �Recorded �Confirmed �Last Taken �Type
cyanocobalamin (vitamin B-12) 250 250 mcg PO NOON Supplement 08/11/23 11/09/23 10/25/23 History
mcg tablet
magnesium oxide 250 mg PO NOON Supplement 08/11/23 11/09/23 10/25/23 History
zinc sulfate 50 mg zinc (220 mg) 50 mg PO NOON Supplement 08/11/23 11/09/23 10/25/23 History
tablet
apixaban 5 mg tablet (Eliquis) 5 mg PO BID Blood Clot 08/24/23 11/09/23 11/09/23 History
Prevention/Tx
cholecalciferol (vitamin D3) 50 50 mcg PO NOON Supplement 08/24/23 11/09/23 10/25/23 History
mcg (2,000 unit) tablet
diltiazem HCl 180 mg 180 mg PO DAILY 30 days #30 caps 08/27/23 11/09/23 11/09/23 Rx
capsule,extended release 24 hr
budesonide-formoterol HFA 160 2 inh inhalation R BID 10/26/23 11/09/23 11/09/23 History
mcg-4.5 mcg/actuation aerosol Lung/Breathing Issues
inhaler (Breyna)
ipratropium 0.5 mg-albuterol 3 mg 3 ml inhalation R QID 10/26/23 11/09/23 11/09/23 History
(2.5 mg base)/3 mL nebulization Lung/Breathing Issues
soln
ipratropium 20 mcg-albuterol 100 2 puff inhalation R BID 10/26/23 11/09/23 11/09/23 History
mcg/actuation mist for inhalation Lung/Breathing Issues
(Combivent Respimat)
metoprolol tartrate 50 mg tablet 50 mg PO BID Blood Pressure 10/26/23 11/09/23 11/09/23 History
(Lopressor)
umeclidinium 62.5 mcg/actuation 1 inh inhalation R DAILYPRN PRN sob 10/26/23 11/09/23 10/26/23 History
blister powder for inhalation
(Incruse Ellipta)
vitamin K2 40 mcg tablet 40 mcg PO NOON Supplement 10/26/23 11/09/23 10/25/23 History
tamsulosin 0.4 mg capsule 0.4 mg PO DAILYPRN PRN Urinary 11/09/23 11/09/23 11/09/23 History
Issue
Review of Systems
-
History Source: Patient
All other systems: Negative unless noted
Vitals / Labs / Diagnostic Testing
Vital Signs
Temp Pulse Resp BP Pulse Ox
98.1 F 80 26 119/79 94
11/10/23 07:49 11/10/23 07:27 11/10/23 07:27 11/10/23 06:32 11/10/23 07:27
Lab Data
11/10/23 06:01
11/10/23 06:01
Laboratory Results
11/10/23
06:01
PT 16.8 H
INR 1.36
APTT 35.4 H
Diagnostic Testing:
Physical Exam
-
HEENT: Normocephalic, Anicteric and Moist Mucous Membranes
Cardiovascular: S1/S2 and Regular Rhythm
Respiratory: Wheeze and Accessory Resp Muscle Use (mild)
GI: Soft, Non Distended and Non Tender
Neurology: Awake, Alert, Oriented, AO x 3 and No Motor Deficits
Skin: Warm and Dry
General: Comfortable and Other (thin appearing)
Assessment
-
Patient is a 73-year-old male with previous history of severe COPD/bullous emphysema, recurrent apical left-sided pneumothorax presenting from home with acute on chronic worsening shortness of breath. He was seen in the pulmonary office 11/09/2023
with notable respiratory distress/anxious appearing, with plan to repeat chest x-ray. He felt worse through the evening and could not catch his breath. He has presented back to the ER, chest x-ray obtained indicating no change in size of chronic
apical pneumothorax. He feels he cannot get relief of his dyspnea. We are consulted for eval 11/10/23.
Subacute Left-sided recurrent spontaneous secondary pneumothorax (SSP) --persistent/unchanged on CXR
Acute on chronic SOB
Anxiety
Chronic conditions DUMPER BULK SYSTEM:
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
Recurrent spontaneous PTX s/p 16 Fr chest tube placed by IR on 09/10/2023
Status post pleurodesis 09/13/2023 with doxycycline 500 mg / 50 mL sterile water
History of tobacco use
Hypertension
History of PE/DVT
Paroxysmal A-fib on Eliquis
Hx of GI bleed (~7 years ago) while on coumadin
VT s/p ICD, NICM
History of alcohol use disorder
CKD
BPH
CKD (baseline Cr 1.4 - 1.6)
Plan/recommendations
Respiratory status slightly declined
Oxygen as needed
Nebulizers as needed
Mucus clearing devices
Repeat CXR not showing and enlargement of PTX
This is less likely the cause for SOB
Anxiety may be a factor/concurrent AECOPD
Note: CT chest 11/02/2023 reviewed-small left apical hydropneumothorax, severe emphysema
CTS eval noted, no further recs offered
The pulmonary team has reviewed with patient end-stage nature of his lung disease
I do not think referral to tertiary center would be realistic if he is having recurrent hospitalizations
Prior outpatient records reviewed.
PFT from 2017 showing moderate obstruction, severe diffusion impairment
Agree with hospice consult
Can look into nebulized morphine to be given here as he cannot tolerate PO dosing
We had a long discussion regarding prognosis
Code status should also be addressed
DVT prophylaxis
OOB as tolerated
Reviewed with nursing, pharmacy, RT and primary team
We will follow
Diagnostic Data
CT Chest 10-28-2023: Marked changes of emphysema again seen, particularly bullous emphysema in the lung apices.Moderate size left pneumothorax with accompanying partial left lower lobe atelectasis, left lower lobe subsegmental atelectasis and/or
pneumonia and tiny left pleural effusion.Aneurysmal dilatation of the distal descending thoracic aorta predominantly stable at approximately 4.6 cm.
CXR 11/09/23- Small left apical pneumothorax, similar compared to the chest radiograph from 11/04/2023.
CXR 10/26/23- At least moderate size left pneumothorax without mediastinal shift.
CXR 09-12-2023: No overt residual pneumothorax.
CXR 09-11-2023: No definite residual pneumothorax. Small left pleural effusion, new.
CXR 09-10-2023: Marked interval progression of now moderate to large left pneumothorax measuring up to 6.5 cm of pleural separation. No definite tension.
CXR 09-08-2023: Left apical and inferolateral pneumothorax stable when compared to the exam the day before.
CXR 09-07-2023: Recurrence of small to moderate left apical pneumothorax, somewhat obscured by left-sided cardiac device.
PFT 07/22/16 FEV1 2.42L 59%, FVC 5.14L 93%, ratio 47. Post FEV1 2.42L 59%. TLC 10.19L 125%, DLCO 33% (moderate obstruction, severe diffusion impairment)
Total time spent on this consultation __81__ includes review of history, physical exam, medications, laboratory data, personal review of imaging, extensive review of outpatient records, discussion with care team and respiratory therapy. Reviewed
with hospice team.
[2023-11-10] MEDS: THIAMINE INJECTION 200 MG IV ×2 (09:33→22:00)
[2023-11-10] MEDS: FOLVITE 1 MG PO (09:38)
[2023-11-10] MEDS: LOPRESSOR 50 MG PO ×2 (09:45→21:59)
[2023-11-10] MEDS: CARDIZEM CD 180 MG PO (09:46)
--- NOTE | 2023-11-10 10:45 | CM ---
Addendum entered by Ana Hannon RN 11/10/23 11:24:
CM Assessment unchanged from prior admission:
Met with patient who resides with his in a 2 story house with 2 BOB.
The patient has been independent in ADLs and ambulation.
DME - home O2 concentrator through [employer] (no portable tanks)
VN - current with VN for SN, PT recently completed
SNF - none
PCP - Yazan Quinn
Pharmacy - [facility]
Original Note:
Patient with Dx Shortness of breath likely from COPD exacerbation/recurrent left-sided pneumothorax, Chronic hypoxic respiratory failure. O2 3L.
CM Consult: Hospice
Met with patient with Bettie on speaker phone; explained hospice philosophy & benefits. Both agree to speaking with Hospice. Patient and very clear that they would like patient to return home at d/c.
Spoke with [facility]; patient agrees to Hospice and d/c home tomorrow with hospice.
Met with patient again; he agrees to home tomorrow with Hospice. IMM completed. He wants to go home tomorrow by car.
Spoke with ; she would be the patient's sole caregiver at home, and may see if she can arrange to work party plan sales unit sales leader. Discusssed hiring a caregiver and unsure if affordable however agrees to have Caregiver list in case it's needed---> sent
to her email at [email or web address]. will transport patient home tomorrow around 11am. She is waiting for hospice nurse to contact her today.
Plan home tomorrow with Hospice, 11am transport with by car.
--- NOTE | 2023-11-10 11:07 | VNURNOTE ---
Chart reviewed. Patient is current with VN. Received info from VALENTIN King that patient considering hospice. Will follow hospital course and patient's care decisions.
[2023-11-10] MEDS: MORPHINE SULFATE 2 MG INH (11:11)
--- NOTE | 2023-11-10 11:24 | HOSPNOTE ---
Spoke with patient at length in regards to hospice care and the philosophy. The patient does not wish to return to the hospital and just be kept comfortable. I updated Attending and case management. The plan is to return home tomorrow and the spouse
will drive patient home. I suggested an ambulance because of the oxygen and the patient refused and said his spouse will drive him. Once the patient gets home we will admit onto hospice services. Equipment was ordered. I also spoke with spouse
Bettie via telephone and explained hospice and answered all questions.
--- NOTE | 2023-11-10 13:10 | PTCARENOTE ---
Assumed care of patient this morning. He is aaox3. Pt is dispirited to be back in the hospital. He was on 2L NC this morning but PT worked with patient and he got up to the chair. His breathing did become labored and O2 increased to 3L. Lungs sounds
as documented. Pt denies any pain. Pt expressed wanting to go home on hospice. All personnel notified this morning and aware. Assessment, care and VS as charted.
[2023-11-10] MEDS: MORPHINE SULFATE 8 MG INH (20:41)
[2023-11-11] VITALS: BP 105/80
[2023-11-11 02:00] VITALS: BP 113/76
[2023-11-11 04:00] VITALS: BP 111/82
[2023-11-11 06:00] VITALS: BP 125/79
--- NOTE | 2023-11-11 07:19 | W.PN.HOSP.TC ---
Addendum entered and electronically signed by Pete Morgan MD 11/21/23 15:04:
mild protein calorie malnutrition of chronic illness
Addendum entered and electronically signed by Pete Morgan MD 11/11/23 09:02:
I saw and evaluated the patient. I reviewed the resident�s note and agree with findings and plan as documented in the resident�s note.
Denies CP/SOB.
Gen: NAD, AAOx3.
Eyes: EOMI, PERRLA, no scleral icterus.
Neck: supple.
CV: remains RRR, +S1/S2, no m/r/g.
Resp: remains CTAB, no rales, wheezes, or rhonchi.
Abd: +BS, soft, NT, ND
Skin: No rashes.
Neuro: CN 2-12 intact, non-focal.
Psych: calm
Shortness of breath:
-This is multifactorial but mostly due to severe COPD with history of bullous emphysema
-Chest x-ray notes small left-sided pneumothorax (unchanged from prior). The patient has had multiple pneumothoraces with chest tubes in the past. He had failed chemical pleurodesis. As per CT surgery he has no further options for surgical
management.
-pt has requested hospice, will be d/c'd to hospice today
Total time spent on d/c = 31 min. This included today's physical exam, progress note, review of laboratory and diagnostic data, preparation of discharge documents and prescriptions, and discussions about the pt's hospital course and discharge plan
with the patient and other medical detailist involved in the patient's care.
Original Note:
Today's Communication/Plan
-
d/c home with hospice
Assessment / Plan
Assessment / Plan
# Short of breath
- likely from COPD exacerbation/recurrent left-sided pneumothorax 2/2 severe COPD/ruptured bullous emphysema with chemical pleurodesis which was performed in August 2023
- Reportedly patient was followed at [facility] for evaluation of advanced therapies, however he was not a candidate.
- Patient denied pursuing any therapy if there is no long-term benefit
- Not candidate for any surgical intervention at this time
- Patient states ' I want to go home on hospice'
- Currently 97% on 3 L nasal cannula
- Appreciate cardiac surgery input
- Patient elected hospice on 11/10/2023
#Chronic hypoxic respiratory failure
- removed Chest tube on 10/29/23 - 11/03/23 on last admission
- s/p post chemical pleurodesis on 09/13/2023
- Patient refused pleurodesis during last admission
- COVID-negative
- Chest x-ray with Small left apical pneumothorax, similar compared to the chest radiograph from 11/04/2023.
- Patient received albuterol in ER
- Continue nebs
- Avoid incentive spirometer
- breo,breyna continued
# Leukocytosis likely stress reaction
-WBC 12.4 on 11/10/23
-Patient is afebrile
# Anemia of chronic disease
-Hemoglobin stable at 8.8
-No active bleeding
# CKD stage 3b
-Creatinine 1.5
# Alcohol abuse
Drinks daily 8 ounces combination of vodka
MSAS screen with protocol IV thiamine IV folate
# Paroxysmal A-fib
-Hold Eliquis in case of procedure needed
-Continue diltiazem 180 mg daily, metoprolol succinate 50 mg twice daily
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
# History of prior GI bleed on Coumadin
# Pacemaker/defibrillator August 2011, replaced 2019 [employer]
# history of VT/V-fib arrest- pacemaker/defibrillator August 2011 replaced in 2019
# Nonischemic cardiomyopathy
# History of splenic and renal infarcts
Code: Full code
Anticipated Discharge: Today
Subjective/Interval History
-
Date of Service: November 11, 2023
Objective Data
-
Vital Signs:
Vital Signs
Temp Pulse Resp BP Pulse Ox
98.1 F 70 18 113/76 97
11/11/23 04:43 11/11/23 02:00 11/11/23 02:00 11/11/23 02:00 11/11/23 00:00
I&O
11/10/23 11/11/23 11/12/23
06:59 06:59 06:59
Intake Total 240 / 240
Output Total 200 / 200 600 / 600
Balance -200 / -200 -360 / -360
Review of Systems
-
History Source: Patient
Constitutional: Denies Fever
Respiratory: Reports Trouble Breathing; Denies Cough
Cardiac: Denies Chest Pain
Abdomen/GI: Denies Abdominal Pain
Musculoskeletal: Denies Joint Pain
Neuro: Denies Dizzy
Endocrine: Denies Polyuria
Physical Exam
-
General: Appears Chronically Ill
HEENT: Normocephalic and Atraumatic
Respiratory: Rales
Cardiac: Regular Rhythm
GI: Soft, Nontender and Nondistended
Skin: Warm and Dry
Neuro: Awake, Alert and Oriented
Psych: Calm
[2023-11-11] MEDS: SYMBICORT 160/4.5 MCG INHALER 2 PUFF INH (07:40)
[2023-11-11] MEDS: DUONEB 3 ML INH (07:40)
[2023-11-11 08:00] VITALS: BP 115/73
--- NOTE | 2023-11-11 08:46 | W.DCSUMMARY ---
Addendum entered and electronically signed by Pete Ramos MD 11/11/23 12:41:
Acute on chronic hypoxic respiratory insufficiency requiring continuous home O2 use
Addendum entered and electronically signed by Louie Werner MD, Resident 11/11/23 12:37:
Acute on chronic hypoxic respiratory requiring continuous home O2 use
Addendum entered and electronically signed by Pete Ramos MD 11/11/23 12:21:
Acute on chronic hypoxic respiratory failure requiring continuous home O2 use
Addendum entered and electronically signed by Pete Ramos MD 11/11/23 10:22:
Read, reviewed, and agree. See same day progress note for additional details.
Original Note:
Discharge Summary
Discharge Data
Date of Admission: 11/09/23
Date of Discharge: 11/11/23
-
Pending Results: No
Hospital Course
Discharging Physician : Louie Werner MD ; Pete ramos MD
Disposition : Home with hospice
Primary care physician : Yazan Quinn
Principal Discharge diagnosis : Severe COPD/emphysema/bullous lung disease
Chronic Discharge diagnosis : Recurrent small left apical pneumothorax,Acute on chronic hypoxic respiratory failure,Acute respiratory distress,Atrial fibrillation,History of EtOH abuse,DVT/PE 2020 unprovoked, History of prior GI bleed, History of
VT/V-fib arrest with pacemaker/defibrillator August 2011 replaced in 2019, Nonischemic cardiomyopathy, Splenic and renal infarcts, CKD 3B, Hypertension, BPH, Former marijuana user quit 7 years ago, also admits to prior crack use, Temporal arteritis,
Migraine headaches, History of basal cell carcinoma removal
Hospital Course : 73-year-old male returned to the hospital after discharge on 11/04/2023 with complaints of increased shortness of breath. He was previously admitted with same complaints. He has a history of chemical pleurodesis in August 2023 and
failed. On his previous visit he received chest tube as well. Patient reports that his symptoms are progressively getting worse and he has difficulty with activities of daily living at this time because of trouble with breathing. Chest x-ray was
obtained which showed small left apical pneumothorax and findings similar compared to his previous chest x-rays. His Eliquis was initially held in case a procedure is needed from the ER. He was also on MSAS protocol given his history of EtOH use.
Pulmonology was also consulted for further evaluation. His shortness of breath is multifactorial but mostly due to his severe COPD and history of bullous emphysema. CT surgery has no further options for surgical management. Patient refused
pursuing any therapy if there is no long-term benefit and states ' I want to go home on hospice'. Pulmonology team reviewed with patient end-stage nature of his lung disease and they believe referral to tertiary care center would be not realistic
given patient's need for recurrent hospitalizations. Hospice consult was ordered and patient elected to transition to hospice on 11/10/2023.
Important imaging findings : CXR: FINDINGS:
Redemonstration of a small left apical pneumothorax. Left cardiac conduction device with leads in the right atrium and right ventricle. Small left pleural effusion. No new focal consolidation. The cardiomediastinal silhouette is normal. Chronic
degenerative changes of the spine.
IMPRESSION:
Small left apical pneumothorax, similar compared to the chest radiograph from 11/04/2023.
Discharge Plan
-
Patient Disposition: Home with Hospice
Discharge Diagnosis/Procedures: Severe COPD/emphysema/bullous lung disease, Recurrent small left apical pneumothorax, Acute on chronic hypoxic respiratory failure, Acute respiratory distress, Atrial fibrillation, History of EtOH abuse, DVT/PE 2020
unprovoked, History of prior GI bleed, History of VT/V-fib arrest with pacemaker/defibrillator August 2011 replaced in 2018, Nonischemic cardiomyopathy, Splenic and renal infarcts, CKD 3B, Hypertension, BPH, Former marijuana user quit 7 years ago, also
admits to prior crack use, Temporal arteritis, Migraine headaches, History of basal cell carcinoma removal
Condition: Fair
Diet: Regular
Activity: With assistance
Driving Restrictions: No driving
Bathing Restrictions: None
Other Services: PT, OT and Hospice
Referrals:
Yazan Quinn MD [Family Provider] - in less than 1 week
Prescriptions:
Continued
cyanocobalamin (vitamin B-12) 250 mcg Tablet
250 mcg PO NOON
zinc sulfate 50 mg zinc (220 mg) Tablet
50 mg PO NOON
magnesium oxide 250 mg magnesium Tablet
250 mg PO NOON
cholecalciferol (vitamin D3) 50 mcg (2,000 unit) Tablet
50 mcg PO NOON
Eliquis 5 MG tablet
5 mg PO BID
diltiazem HCl 180 mg Capsule,Extended Release 24hr
180 mg PO DAILY 30 Days Qty: 30 0RF
ipratropium-albuterol 0.5 mg-3 mg(2.5 mg base)/3 mL Solution For Nebulization
3 ml INHALATION R QID
metoprolol tartrate [Lopressor] 50 mg Tablet
50 mg PO BID
budesonide-formoterol [Breyna] 160-4.5 mcg/actuation Hfa Aerosol Inhaler
2 inh INHALATION R BID
vitamin K2 40 mcg Tablet
40 mcg PO NOON
Incruse Ellipta 62.5 mcg/actuation Blister With Device
1 inh INHALATION R DAILYPRN PRN (Reason: sob)
Combivent Respimat 20-100 mcg/actuation mist
2 puff inhalation R BID
tamsulosin 0.4 mg Capsule
0.4 mg PO DAILYPRN PRN (Reason: Urinary Issue)
Discharge Orders:
Discharge Patient (As Directed); Ordered 11/11/23
Ordered By: Louie Werner
Discharge Date and Time
Print Language: ARMENIAN
--- NOTE | 2023-11-11 09:11 | W.PN.PUL3 ---
Today's Communication / Plan
-
No improvement in dyspnea score with nebulized morphine, will add SL morphine PRN
We discussed bowel regiment at home
O2 as needed
Discharge home to hospice today, all questions answered
We will sign off at this time, please call with questions
Assessment
-
Patient is a 73-year-old male with previous history of severe COPD/bullous emphysema, recurrent apical left-sided pneumothorax presenting from home with acute on chronic worsening shortness of breath. He was seen in the pulmonary office 11/09/2023
with notable respiratory distress/anxious appearing, with plan to repeat chest x-ray. He felt worse through the evening and could not catch his breath. He has presented back to the ER, chest x-ray obtained indicating no change in size of chronic
apical pneumothorax. He feels he cannot get relief of his dyspnea. We are consulted for eval 11/10/23.
Subacute Left-sided recurrent spontaneous secondary pneumothorax (SSP) --persistent/unchanged on CXR
Acute on chronic SOB
Anxiety
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
Recurrent spontaneous PTX s/p 16 Fr chest tube placed by IR on 09/10/2023
Status post pleurodesis 09/13/2023 with doxycycline 500 mg / 50 mL sterile water
History of tobacco use
Hypertension
History of PE/DVT
Paroxysmal A-fib on Eliquis
Hx of GI bleed (~7 years ago) while on coumadin
VT s/p ICD, NICM
History of alcohol use disorder
CKD
BPH
CKD (baseline Cr 1.4 - 1.6)
Plan/recommendations
Respiratory status declined
Oxygen as needed
Nebulizers as needed
Mucus clearing devices
Repeat CXR not showing an enlargement of PTX
This is less likely the cause for SOB
Anxiety may be a factor/concurrent AECOPD
Note: CT chest 11/02/2023 reviewed-small left apical hydropneumothorax, severe emphysema
CTS eval noted, no further recs offered
The pulmonary team has reviewed with patient end-stage nature of his lung disease
I do not think referral to tertiary center would be realistic if he is having recurrent hospitalizations
Prior outpatient records reviewed.
PFT from 2017 showing moderate obstruction, severe diffusion impairment
Agree with hospice consult--he has agreed to this
Did not find nebulized morphine trials to be helpful
Add SL morphine PRN with colace PRN
He is to be discharged to hospice today
I reviewed all questions with him; he is still welcome to reach out to us in the office for any further assistance
Diagnostic Data
CT Chest 10-28-2023: Marked changes of emphysema again seen, particularly bullous emphysema in the lung apices.Moderate size left pneumothorax with accompanying partial left lower lobe atelectasis, left lower lobe subsegmental atelectasis and/or
pneumonia and tiny left pleural effusion.Aneurysmal dilatation of the distal descending thoracic aorta predominantly stable at approximately 4.6 cm.
CXR 11/09/23- Small left apical pneumothorax, similar compared to the chest radiograph from 11/04/2023.
CXR 10/26/23- At least moderate size left pneumothorax without mediastinal shift.
CXR 09-12-2023: No overt residual pneumothorax.
CXR 09-11-2023: No definite residual pneumothorax. Small left pleural effusion, new.
CXR 09-10-2023: Marked interval progression of now moderate to large left pneumothorax measuring up to 6.5 cm of pleural separation. No definite tension.
CXR 09-08-2023: Left apical and inferolateral pneumothorax stable when compared to the exam the day before.
CXR 09-07-2023: Recurrence of small to moderate left apical pneumothorax, somewhat obscured by left-sided cardiac device.
PFT 07/22/16 FEV1 2.42L 59%, FVC 5.14L 93%, ratio 47. Post FEV1 2.42L 59%. TLC 10.19L 125%, DLCO 33% (moderate obstruction, severe diffusion impairment)
Total time spent on this consultation __51__ includes review of history, physical exam, medications, laboratory data, personal review of imaging, extensive review of outpatient records, discussion with care team and respiratory therapy. Reviewed
with hospice team.
Subjective Data
-
Date of Service:
Date of Service: November 11, 2023
Chief Complaint: Pulmonary Follow Up
Subjective:
no improvement with neb morphine
still SOB but he denies any significant pain
planning for home today
Objective Data
Data Reviewed
Vital Signs / I&O / Oxygen:
Vital Signs
Temp Pulse Resp BP Pulse Ox
98.0 F 73 16 113/76 98
11/11/23 07:50 11/11/23 07:46 11/11/23 07:46 11/11/23 02:00 11/11/23 07:46
Intake and Output
11/10/23 11/11/23 11/12/23
06:59 06:59 06:59
Intake Total 240 / 240
Output Total 200 / 200 600 / 600
Balance -200 / -200 -360 / -360
SaO2 98
Nasal Cannula flow liters per 3
minute
Physical Exam
General: Respiratory Distress (mild, dyspneic with conversation), Comfortable and Other (NAD)
HEENT: Normocephalic, Anicteric and Moist Mucous Membranes
Cardiovascular: S1-S2 and Regular Rhythm
Respiratory: Clear (overall decreased) and Non-Labored Respirations
GI: Soft, Non Distended and Non Tender
Neurology: Awake, Alert, Oriented, AO x 3 and No Motor Deficits
Skin: Warm, Dry and Good Color
Labs/Micro/Reports
Lab Data
11/10/23 06:01
11/10/23 06:01
[2023-11-11] MEDS: FOLVITE PO (09:37)
[2023-11-11] MEDS: LOPRESSOR 50 MG PO (09:37)
[2023-11-11] MEDS: THIAMINE INJECTION IV (09:37)
[2023-11-11] MEDS: CARDIZEM CD 180 MG PO (09:37)
[2023-11-11 10:00] VITALS: BP 117/75
--- NOTE | 2023-11-11 12:01 | PN.CDI ---
CDI
- -
CDI:
Physician Documentation Request
Admit Date: 11/09/23 23:40
Dear Doctor Alphonso,
Patient presented with increased shortness of breath. History of COPD/emphysema.
Discharge summary contains diagnosis of Acute on chronic hypoxic respiratory failure
Hospitalist update note states 'Hx severe COPD/emphysema/ruptured bullae on Home O2 PRN'
Please clarify the patient's respiratory status:
Acute on chronic hypoxic respiratory requiring continuous home O2 use
Hypoxia requiring intermittent home o2 use
Other
Use of terms such as suspected, likely, concern for, or probable (associated with a specific diagnosis that is being evaluated, monitored, or treated as if it exists) are acceptable and can be coded in the inpatient setting, when documented at the
time of discharge.
Thank you,
Yara BONILLAN
CDI Specialist
tiger text
Please use your independent medical judgment in providing your response.
--- NOTE | 2023-11-11 12:46 | CM ---
Patient with Dx Shortness of breath likely from COPD exacerbation/recurrent left-sided pneumothorax, Chronic hypoxic respiratory failure. O2 3L.
As per prior CM notes, Plan home today with Hospice, 11am transport with by car. IMM completed yesterday.
--- NOTE | 2023-11-14 10:24 | PN.CDI ---
CDI
- -
CDI:
Physician Documentation Request
Admit Date: 11/09/23 23:40
Dear Doctor Cathy,
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
Based on the above information and your assessment, which of the following most accurately represents the patient's nutritional status?
Moderate Malnutrition
No nutritional deficiency
Other (please specify)
Mercedes Criteria ([facility] Hospitalist 2017)
2 or more criteria must be present for either
non severe or severe malnutrition
Note that the criteria differs related to the
presence of an acute or chronic illness
Acute Illness Chronic Illness
Energy Intake Non Severe: <75% for >7 days Non Severe: <75% for >1 month
Severe: <50% for >5 days Severe: <75% for >1 month
Weight Loss Non Severe: 1-2% over 1 week Non Severe: 5% over 1 month
5% over 1 month 7.5% over 3 months
7.5% over 3 months 10% over 6 months
1 year N/A 20% over 1 year
Severe: >2% over 1 week Severe: >5% over 1 month
>5% over 1 month >7.5% over 3 months
>7.5% over 3 months >10% over 6 months
1 year N/A >20% over 1 year
Body Fat Non Severe: Mild Decrease Non Severe: Mild Loss
Severe: Moderate Decrease Severe: Severe Loss
Muscle Mass Non Severe: Mild Decrease Non Severe: Mild Loss
Severe: Moderate Decrease Severe: Severe Loss
Fluid Accumulation Non Severe: Mild Accumulation Non Severe: Mild Accumulation
Severe: Moderate to severe Severe: Moderate to severe
accumulation accumulation
Reduced Parking Meter Attendant Strength Non Severe: N/A Non Severe: N/A
Severe: Measurably reduced Severe: Measurably reduced
Additional criteria that can be used to Determine if Mild or Moderate Malnutrition ([employer]ck Manual 2018)
Mild Moderate Severe
Albumin gm/dl <3.0 gm/dl <2.5 gm/dl <2.0 gm/dl
Pre Albumin mg/dl <15 gm/dl <10 mg/dl <5.0 mg/dl
BMI <18.5 <17 <16
Use of terms such as suspected, likely, concern for, or probable (associated with a specific diagnosis that is being evaluated, monitored, or treated as if it exists) are acceptable and can be coded in the inpatient setting, when documented at the
time of discharge.
Thank you,
Yara Goodson RN, BSN
CDI Specialist
tiger text
Please use your independent medical judgment in providing your response.
== END 2023-11-11 11:40 | disposition hospice, home (50) | DRG 191 ==
LOC: IMU 23:40
PROVIDERS: Emergency Medicine; Registered Nurse; ADMITTING PHYSICIAN Internal Medicine; ATTENDING PHYSICIAN Internal Medicine; CONSULT PHYSICIAN Internal Medicine Critical Care Medicine; CONSULT PHYSICIAN Thoracic Surgery (Cardiothoracic Vascular Surgery); EMERGENCY PHYSICIAN Emergency Medicine; FAMILY PHYSICIAN Family Medicine
DX: J44.1 Chronic obstructive pulmonary disease with (acute) exacerbation (principal); E44.1 Mild protein-calorie malnutrition; I13.0 Hypertensive heart and chronic kidney disease with heart failure and stage 1 through stage 4 chronic kidney disease, or unspecified chronic kidney disease; I42.8 Other cardiomyopathies; J93.83 Other pneumothorax; Z68.1 Body mass index [BMI] 19.9 or less, adult; R09.02 Hypoxemia; J43.9 Emphysema, unspecified; I48.0 Paroxysmal atrial fibrillation; R10.10 Upper abdominal pain, unspecified; N18.32 Chronic kidney disease, stage 3b; Z79.01 Long term (current) use of anticoagulants; Z86.711 Personal history of pulmonary embolism
CPT/HCPCS: 71045; 80048; 80053; 80306; 81003; 81015; 82010; 82077; 82977; 83735; 83880; 84100; 84484; 85025; 85610; 85730; 87811; 93005; 94640; 94644; 97163; 99285